=== PATIENT | female | born 1950 | race Caucasian/White ===

== ENCOUNTER 2021-02-13 12:48 | Outpatient (REF) | payer MEDICARE, MEDICAID, SELFPAY ==
--- NOTE | ~2021-02-13 | MM_ITS ---
EXAMINATION: MM SCREENING DIGITAL BREAST TOMOSYNTHESIS, BILATERAL CLINICAL INFORMATION: Screening. Asymptomatic. The lifetime risk of breast cancer based on the Tyrer-Cuzick Model is 3%. COMPARISON: Mammography: 01/14/2019, 09/19/2017, 05/11/2015 TECHNIQUE: Digital breast tomosynthesis is performed in both the craniocaudal and mediolateral oblique views along with computer-aided detection (CAD). Synthesized 2D images are generated from the tomosynthesis. Additional left MLO view is provided. FINDINGS: There are scattered areas of fibroglandular density (ACR BI-RADS breast composition Category b). There are no significant masses, abnormal calcifications, or other abnormalities. Parenchymal pattern is similar to prior studies. There is a biopsy clip marker again noted central right breast. MM/MM tomosynthesis screening BI IMPRESSION: No mammographic evidence of malignancy. ASSESSMENT: BI-RADS 1: Negative RECOMMENDATION: Routine annual mammography screening. This patient's information was entered into a reminder system with a target due date for their next mammogram.
--- NOTE | ~2021-02-13 | MM_ITS ---
EXAMINATION: BONE DENSITOMETRY CLINICAL INDICATION: Encounter for screening for osteoporosis. COMPARISON: Previous BD dated 03/25/2018 and baseline BD dated 01/28/2007. TECHNIQUE: Using a [employer] DXA System (software version: 13.1) manufactured by [employer], dual-energy x-ray absorptiometry was performed of the lumbar spine and left hip. The images are of good technical quality. Summary results are attached. FINDINGS: AP SPINE L1-L4: Current: BMD 0.984 g/cm2, Z-score 0.1, T-score -1.6, osteopenia, 7.0% decrease from previous, 0.9% decrease from baseline (<5% change is not significant). Prior: BMD 1.058 g/cm2. Baseline: BMD 0.993 g/cm2. LEFT FEMUR, NECK: Current: BMD 0.831 g/cm2, Z-score 0.3, T-score -1.5, osteopenia. Prior: BMD 0.845 g/cm2. Baseline: BMD 0.942 g/cm2. LEFT FEMUR, TOTAL: Current: BMD 0.858 g/cm2, Z-score 0.3, T-score -1.2, osteopenia, 0.6% increase from previous, 8.5% decrease from baseline (<5% change is not significant). Prior: BMD 0.853 g/cm2. Baseline: BMD 0.938 g/cm2. IDENTIFIED RISK FACTORS: Osteoporosis, menopause. HISTORY OF FRACTURE: None listed. MEDICATIONS: Calcium supplements or multivitamin, vitamin D, bisphosphonates. MM/XR DEXA axial skeleton IMPRESSION: 1. DIAGNOSIS: Osteopenia based on the lowest T-score value of -1.6 in the lumbar spine applying World Health Organization criteria. 2. 10-YEAR FRACTURE RISK PREDICTION, FRAX: Major osteoporotic fracture (clinical spine, forearm, hip or shoulder) 5.8%. Hip fracture 0.9%. 3. Treatment Recommendations: NOF guidelines recommend consideration for treatment in postmenopausal women and men age 50 and older presenting with the following: -A hip or vertebral (clinical or morphometric) fracture. -T-score less than or equal to -2.5 at the femoral neck or spine after appropriate evaluation to exclude secondary causes. -Low bone mass at the hip or spine and a 10-year fracture probability by FRAX of greater than or equal to 3% for hip fracture or greater than or equal to 20% for major osteoporotic fracture based on the [place] adapted WHO algorithm. 4. Other Recommendations: All treatment decisions require clinical judgment and consideration of individual patient factors, including patient preferences, comorbidities, previous drug use, risk factors not captured in the FRAX model (e.g. frailty, falls, vitamin D deficiency, increased bone turnover, interval significant decline in bone density) and possible under or overestimation of fracture risk by FRAX. Additional medical evaluation for secondary cause of low bone mineral density may be appropriate. FUTURE SCAN RECOMMENDATION: People with diagnosed cases of osteoporosis or at high risk for fracture should have regular bone mineral density tests. For patients eligible for Medicare, routine testing is allowed once every 2 years. The testing frequency can be increased to one year for patients who have rapidly progressing disease, those who are receiving or discontinuing medical therapy to restore bone mass, or have additional risk factors.
== END 2021-02-13 12:49 | disposition home or self-care (01) ==
LOC: HO.MAMMO 12:48
PROVIDERS: PCP Nurse Practitioner Family; Visit Provider Obstetrics & Gynecology
DX: Z12.31 Encounter for screening mammogram for malignant neoplasm of breast (principal); Z13.820 Encounter for screening for osteoporosis; M81.0 Age-related osteoporosis without current pathological fracture
CPT/HCPCS: 77063; 77067; 77080

== ENCOUNTER 2021-07-31 16:45 | Outpatient (REF) | payer MEDICARE, MEDICAID, SELFPAY ==
--- NOTE | ~2021-07-31 | XR_ITS ---
EXAMINATION: XR RIBS, BILATERAL CLINICAL INFORMATION: Left mid upper back pain radiating to the axilla COMPARISON: Previous chest x-ray November 2019 TECHNIQUE: 3 views of the bilateral ribs and one view chest were obtained. FINDINGS: The cardiac and mediastinal contours are normal. There is a 4 cm round density at the right cardiophrenic angle questionable for a mass versus pneumonia. The lungs are otherwise clear. There is no pleural effusion or pneumothorax. There are degenerative changes of the spine. No rib fracture or bone lesion is seen. XR/XR ribs BI min 4V w CXR1V IMPRESSION: 4 cm round density at the right cardiophrenic angle questionable for a mass versus pneumonia. Clinical correlation recommended. If there is clinical suspicion of infection, follow-up chest x-ray following antibiotic therapy would be recommended. If there is no suspicion of infection or chest x-ray finding fails to resolve, chest CT with IV contrast would be recommended. Degenerative changes of the thoracic spine. No rib fracture or bone lesion seen. 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
== END 2021-07-31 16:46 | disposition home or self-care (01) ==
LOC: HO.XRAY 16:45
PROVIDERS: PCP Registered Nurse Community Health; Visit Provider Registered Nurse Community Health
DX: M54.9 Dorsalgia, unspecified (principal); M79.622 Pain in left upper arm
CPT/HCPCS: 71111

== ENCOUNTER 2021-08-13 10:31 | Outpatient (REF) | payer MEDICARE, MEDICAID, SELFPAY ==
--- NOTE | ~2021-08-13 | CT_ITS ---
EXAMINATION: CT CHEST WITH CONTRAST CLINICAL INFORMATION: 4 cm rounded density within the right cardiophrenic angle. COMPARISON: Bilateral rib x-rays 07/31/2021 TECHNIQUE: Multidetector volumetric CT imaging of the chest was obtained after the administration of 65 mL of Omnipaque 350 intravenous contrast without immediate adverse reactions. Axial MIP volume rendering provided. Sagittal and coronal reformatted images were obtained. This CT examination was performed using dose optimization techniques as appropriate, variously including the following: *Automated exposure control *Adjustment of mA and/or kV according to patient size (this includes techniques or standardized protocols for targeted exams where dose is matched to indication/reason for exam; i.e. extremities or head) *Use of iterative reconstruction technique DLP: 124 mGy-cm FINDINGS: Central airways are patent. Lungs are adequately aerated. There is some mild subpleural reticular changes within the anterior aspect of both upper lobes, nonspecific. Some mild emphysematous changes are present. Pleural-based masslike opacity within the posterior right lower lobe measures approximately 4 cm (image 134/1 are 96, series 7). There are adjacent reticular changes in addition to some pleural tenting to the right lung base. A few other subcentimeter pulmonary nodules are identified within the right lung, for example a 5 mm right upper lobe nodule (image 47). The heart is normal in size. There is no pericardial effusion. Normal caliber thoracic aorta. A few mildly prominent mediastinal lymph nodes are noted, for example a right precarinal node which measures approximately 1.4 cm. There is an enlarged right hilar lymph node measuring approximately 2.2 cm. No pathologic axillary lymph nodes. Visualized portions of the upper abdomen are grossly unremarkable. Mild degenerative changes of the spine. Irregular sclerotic densities within the T8 vertebral body. CT/CT chest w con IMPRESSION: -Approximately 4 cm pleural-based masslike opacity within the right lower lobe is concerning for neoplasm, particularly within the setting of mediastinal and right hilar lymphadenopathy. Additionally, smaller right-sided pulmonary nodules may represent metastatic foci. PET imaging versus tissue diagnosis may be warranted. Some irregular sclerotic density within the T8 vertebral body is nonspecific but possibly a metastatic focus. Fleischner guidelines were followed.
[2021-08-13] MEDS: iohexoL 350 MG/ML 100 ML INFUS..BTL 65 ML IV (11:14)
== END 2021-08-13 10:32 | disposition home or self-care (01) ==
LOC: HO.CT 10:31
PROVIDERS: PCP Registered Nurse Community Health; Visit Provider Registered Nurse Community Health
DX: R91.8 Other nonspecific abnormal finding of lung field (principal)
CPT/HCPCS: 71260; Q9967

== ENCOUNTER → 2021-08-24 11:06 | Outpatient (BNVA) | payer MEDICARE, MEDICAID, SELFPAY | PROVIDERS: PCP Registered Nurse Community Health; Visit Provider Surgery | DX: R91.8 Other nonspecific abnormal finding of lung field (principal); M79.2 Neuralgia and neuritis, unspecified; M89.9 Disorder of bone, unspecified | CPT/HCPCS: 99202 ==

== ENCOUNTER 2021-09-04 10:26 | Outpatient (REF) | payer MEDICARE, MEDICAID, SELFPAY ==
--- NOTE | ~2021-09-04 | MR_ITS ---
MR BRAIN WITHOUT AND WITH CONTRAST CLINICAL INFORMATION: Lung mass. Question metastatic disease. COMPARISON: None available. TECHNIQUE: Multiplanar, multisequence MRI of the brain was obtained before and after the intravenous administration of 7 mL of Gadavist. FINDINGS: There is no pathologic intracranial enhancement. Incidental small developmental venous anomaly within the left frontal lobe. There is mild chronic microangiopathy. There is no hydrocephalus, extra-axial surface collection, or herniation. The major flow voids at the skull base are preserved. There is the suggestion of a 2 mm aneurysm projecting superiorly from the right MCA bifurcation and a 2 mm aneurysm projecting laterally from the left MCA bifurcation for which a CTA or MRA of the head would be helpful in further assessment. There is no acute infarct on diffusion-weighted imaging. There is no intracranial hemorrhage on the gradient recalled echo acquisition. The midline structures are normal. The cerebellar tonsils are normally positioned. The cerebellum and brainstem are normal. The craniocervical junction is normal. Osseous marrow signal intensity is homogenous. The visualized soft tissues are unremarkable. There is mild mucosal thickening within the ethmoid air cells bilaterally and the maxillary sinuses bilaterally. MR/MR head/brain wo/w con IMPRESSION: - There is the suggestion of a 2 mm aneurysm projecting superiorly from the right MCA bifurcation and a 2 mm aneurysm projecting laterally from the left MCA bifurcation for which a CTA or MRA of the head would be helpful in further assessment. - No acute intracranial findings. No enhancing lesions to suggest intracranial metastatic disease. - Mild chronic microangiopathy.
== END 2021-09-04 10:27 | disposition home or self-care (01) ==
LOC: HO.MRI 10:26
PROVIDERS: Visit Provider Surgery
DX: Z13.89 Encounter for screening for other disorder (principal)
CPT/HCPCS: 70553; A9585

== ENCOUNTER 2021-09-04 12:05 | Day surgery (SDC) | payer MEDICARE, MEDICAID, SELFPAY ==
[2021-09-04] VITALS (7 sets, daily range): BP systolic 146–182; BP diastolic 57–98; PULSE 56–80; RESP 16–18; TEMP 35.7–36.4; O2SAT 95–98; BMI 23.1
--- NOTE | ~2021-09-04 | CT_ITS ---
PROCEDURE: CT GUIDED BIOPSY, LUNG CLINICAL INFORMATION: Right lower lobe mass/nodule. COMPARISON: CT chest 08/13/2021 TECHNIQUE: Following explaining CT fluoroscopy-guided right lower lobe mass biopsy procedure, benefits and risk, a written consent was obtained. Patient was placed in right lateral decubitus view and preliminary CT imaging was obtained. Optimal site was selected along the right posterior chest and marked. Marked site was cleaned and draped in usual sterile manner. 1% lidocaine was administered at puncture site. Through a small skin incision a 20-gauge guide needle was advanced to the right pleural space. Coaxially a 20-gauge biopsy gun was administered and a 2 pass core biopsy obtained. Thick guide needle was withdrawn and complete hemostasis achieved at puncture site. Sterile dressing applied postprocedure. Repeat CT imaging was performed from the apex to the biopsy site and reveal no pneumothorax. Conscious sedation was utilized during the exam and patient monitored by the nursing. This CT examination was performed using dose optimization techniques as appropriate, variously including the following: *Automated exposure control *Adjustment of mA and/or kV according to patient size (this includes techniques or standardized protocols for targeted exams where dose is matched to indication/reason for exam; i.e. extremities or head) *Use of iterative reconstruction technique DLP: 172 mGy-cm FINDINGS: On preliminary CT imaging there is a moderate size mass right lower lobe posterior segment unchanged to previous CT chest exam. Successful 2 pass core biopsy performed of right lower lobe mass. Post biopsy CT imaging reveal no pneumothorax or no hemorrhage. CT/CT biopsy lung RT IMPRESSION: Successful CT fluoroscopy-guided right lower lobe core biopsy performed x 2 without immediate complications.
[2021-09-04 12:34] LABS: MANUAL DIFF FLAG NO
[2021-09-04 12:43] LABS: Basophils Percent Auto 0.4 % (0-2); Eosinophils Absolute Auto 0.1 X10*3/uL (0.0-0.4); Eosinophils Percent Auto 1.9 % (0-4); Hematocrit 41.8 % (37.0-47.0); Hemoglobin 13.1 g/dl (12.0-16.0); Imm Gran Abs Auto 0.01 X10*3/uL (0.00-0.03); Imm Gran Pct Auto 0.1 % (0.0-0.4); Lymphocytes Absolute Auto 1.9 X10*3/uL (1.2-4.9); Lymphocytes Percent Auto 25.5 % (20-40); Mean Corpuscular HGB Conc 31.3 g/dl (31.0-35.0); Mean Corpuscular Hemoglobin 27.9 pg (27.0-33.0); Mean Corpuscular Volume 89.1 fL (80.0-98.0); Mean Platelet Volume 10.4 fL (9.4-12.3); Monocytes Absolute Auto 0.5 X10*3/uL (0.1-1.2); Neutrophils Absolute Auto 4.8 x10*3/uL (2.0-8.3); Neutrophils Percent Auto 65.1 % (45-73); Platelet Count 279 X10*3/uL (160-400); Red Blood Count 4.69 X10*6/uL (4.20-5.50); Red Cell Distribution Width 13.3 % (11.0-16.0); White Blood Count 7.4 X10*3/uL (4.8-10.8)
[2021-09-04 12:48] LABS: Prothrombin Time 11.6 SEC (9.9-13.0)
[2021-09-04 12:51] LABS: Partial Thromboplastin Time 34.2 SEC (24.1-38.0)
== END 2021-09-04 18:10 | disposition home or self-care (01) ==
PROVIDERS: Radiology Diagnostic Radiology; PCP Registered Nurse Community Health; Visit Provider Radiology Diagnostic Radiology
DX: C34.31 Malignant neoplasm of lower lobe, right bronchus or lung (principal); R59.0 Localized enlarged lymph nodes; M89.9 Disorder of bone, unspecified; M79.2 Neuralgia and neuritis, unspecified; R53.83 Other fatigue; M85.80 Other specified disorders of bone density and structure, unspecified site; J44.9 Chronic obstructive pulmonary disease, unspecified; K21.9 Gastro-esophageal reflux disease without esophagitis; E55.9 Vitamin D deficiency, unspecified; Z79.899 Other long term (current) drug therapy; Z88.8 Allergy status to other drugs, medicaments and biological substances; Z87.891 Personal history of nicotine dependence
CPT/HCPCS: 32408; 36415; 70553; 81210; 81235; 81275; 81276; 85025; 85610; 85730; 88305; 88333; 88341; 88342; 88360; 88374; 88377; 99153; A9585; J2250; J3010

== ENCOUNTER 2021-09-11 10:55 | Outpatient (REF) | payer MEDICARE, MEDICAID, SELFPAY ==
--- NOTE | ~2021-09-11 | PE_ITS ---
EXAMINATION: PET/CT FUSION, SKULL TO THIGH CLINICAL INDICATION: Abnormal lung finding. COMPARISON: Correlation with CT chest dated 06/13/2021. CONTRAST/DOSE: 16.1 mCi F-18 deoxyglucose administered. FINDINGS: HEAD: Base of the skull is felt to be within normal limits and the neck activity is felt to be within normal limits. THORAX: In the upper thorax some activity of the musculature is physiologic. CHEST: In the chest normal activity in the right hilum. 7.3 SUV max. Suspicious for tumor. LUNGS: Abnormal activity in the right lower lobe lesion. 9 SUV max. Tumor is suspected. Differential would include inflammatory etiology. Some surrounding ill-defined opacity and ground-glass change may represent surrounding inflammatory etiology. Other areas of nodularity throughout this patient's lungs show no suspicious uptake but these nodules are subcentimeter lesions and would require follow-up. ABDOMEN: The liver uptake is felt to be within normal limits. Normal renal activity. Normal splenic activity. Normal low-level bowel activity is seen. Some activity along the psoas musculature is likely physiologic. Review of the bone windows demonstrates a focal area of uptake at D8. 5.8 SUV max. Sclerotic lesion. There is also uptake at S1. 4.3 SUV max. Sclerotic lesion. PET/PET CT fusion skull to thigh IMPRESSION: This exam is abnormal. Abnormal uptake within the right lower lobe lesion and right hilar uptake. Suspicious for malignancy. Correlate with biopsy findings. Exam is also showing bony foci at D8 and S1 with sclerotic appearing bone. Metastatic disease/malignancy would be favored
== END 2021-09-11 10:56 | disposition home or self-care (01) ==
LOC: HO.PET 10:55
PROVIDERS: Visit Provider Surgery
DX: Z13.89 Encounter for screening for other disorder (principal)

== ENCOUNTER → 2021-09-14 11:19 | Outpatient (BNVA) | payer MEDICARE, MEDICAID, SELFPAY | PROVIDERS: PCP Registered Nurse Community Health; Visit Provider Surgery | DX: C34.31 Malignant neoplasm of lower lobe, right bronchus or lung (principal); C79.51 Secondary malignant neoplasm of bone; M79.2 Neuralgia and neuritis, unspecified; Z72.0 Tobacco use | CPT/HCPCS: 99212 ==

== ENCOUNTER → 2021-09-20 14:00 | Outpatient (BNV) | payer MEDICARE, MEDICAID, SELFPAY | PROVIDERS: Visit Provider Internal Medicine Medical Oncology | DX: C34.31 Malignant neoplasm of lower lobe, right bronchus or lung (principal) | CPT/HCPCS: 99204; 99213; 99214; 99441; 99443 ==

== ENCOUNTER 2021-10-18 12:56 | Outpatient (REF) | payer MEDICARE, MEDICAID, SELFPAY | END 2021-10-18 12:57 | disposition home or self-care (01) | LOC: HO.RESP 12:56 | PROVIDERS: PCP Registered Nurse Community Health; Visit Provider Surgery | DX: R91.8 Other nonspecific abnormal finding of lung field (principal) | CPT/HCPCS: 94060; 94727; 94729 ==

== ENCOUNTER 2021-11-14 15:11 | Outpatient (REF) | payer MEDICARE, MEDICAID, SELFPAY ==
--- NOTE | ~2021-11-14 | CT_ITS ---
EXAMINATION: CT ANGIOGRAM HEAD CLINICAL INFORMATION: Evaluate for potential intracranial aneurysm. COMPARISON: Brain MRI dated 09/04/2021. TECHNIQUE: Test bolus sequences followed by intravenous administration 75 mL of Omnipaque 350. Helical imaging was performed in the axial plane from the skull base to the vertex. Delayed postcontrast imaging of the head was also performed. The data was processed at the pathology technologist's workstation for generation of MIP sequences. Three-dimensional volume rendered reformatted images were also generated at an offline 3-D workstation. This CT examination was performed using dose optimization techniques as appropriate, variously including the following: *Automated exposure control *Adjustment of mA and/or kV according to patient size (this includes techniques or standardized protocols for targeted exams where dose is matched to indication/reason for exam; i.e. extremities or head) *Use of iterative reconstruction technique DLP: 1917 mGy-cm. FINDINGS: There is no evidence of acute intracranial hemorrhage or territorial infarction. No abnormal mass effect or midline shift is seen. Lopes to white matter differentiation is well preserved. No extra-axial fluid collections are identified. There is no abnormal enhancement. The ventricles are normal in size. There is no abnormal attenuation within the brain parenchyma. The osseous structures and soft tissues are normal. The mastoid air cells and visualized portions of the paranasal sinuses are well aerated. There is a 2.5 mm aneurysm projecting anteroinferiorly at the left MCA bifurcation. A 1.5 mm right MCA bifurcation aneurysm is also visible projecting anteriorly. The remaining intracranial vasculature corresponding to the anterior and posterior circulation is otherwise normal. No significant stenoses or occlusions are seen. Atherosclerotic wall calcifications noted in the cavernous ICAs bilaterally. No vascular malformation is identified. The visualized extracranial vessels appear normal. The venous sinuses opacify normally. 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 Additional smaller 1.5 mm right MCA bifurcation aneurysm. Otherwise, no acute process.
[2021-11-14] MEDS: iohexoL 350 MG/ML 100 ML INFUS..BTL IV (15:55)
== END 2021-11-14 15:12 | disposition home or self-care (01) ==
LOC: HO.CT 15:11
PROVIDERS: Visit Provider Registered Nurse Community Health
DX: I67.1 Cerebral aneurysm, nonruptured (principal)
CPT/HCPCS: 70496; Q9967

== ENCOUNTER 2021-12-26 13:48 | Outpatient (REF) | payer MEDICARE, MEDICAID, SELFPAY ==
--- NOTE | ~2021-12-26 | XR_ITS ---
EXAMINATION: XR CERVICAL SPINE CLINICAL INFORMATION: Neck pain. COMPARISON: CT cervical spine dated 07/14/2015. TECHNIQUE: AP, lateral, open-mouth, and bilateral oblique views of the cervical spine. FINDINGS: Straightening of the normal cervical lordosis which may be positional or related to muscular spasm. No acute fracture or subluxation. No loss of vertebral body height. Loss of intervertebral disc height with anterior endplate osteophytes at C4 through C7. Mild multilevel bilateral neural foraminal stenosis. No concerning lytic or blastic osseous lesion. Normal atlantoaxial alignment. Unremarkable prevertebral soft tissues. XR/XR cervical spine 4V IMPRESSION: Straightening of the normal cervical lordosis which may be positional or related to muscular spasm. Moderate degenerative disc disease at C4 through C7 with mild multilevel bilateral neural foraminal stenosis. Findings appear slightly progressed when compared to the prior CT.
== END 2021-12-26 13:49 | disposition home or self-care (01) ==
LOC: HO.XRAY 13:48
PROVIDERS: PCP Internal Medicine; Visit Provider Internal Medicine
DX: C34.91 Malignant neoplasm of unspecified part of right bronchus or lung (principal); C79.51 Secondary malignant neoplasm of bone
CPT/HCPCS: 72050

== ENCOUNTER 2022-02-07 08:05 | Outpatient (REF) | payer MEDICARE, MEDICAID, SELFPAY ==
--- NOTE | ~2022-02-07 | CT_ITS ---
EXAMINATION: CT CHEST WITH CONTRAST CLINICAL INFORMATION: Follow-up lung cancer. COMPARISON: Previous chest CT July [address] August 2021. TECHNIQUE: Multidetector volumetric CT imaging of the chest was obtained after the administration of 65 mL of Omnipaque 350 intravenous contrast without immediate adverse reactions. Axial MIP volume rendering provided. Sagittal and coronal reformatted images were obtained. This CT examination was performed using dose optimization techniques as appropriate, variously including the following: *Automated exposure control. *Adjustment of mA and/or kV according to patient size (this includes techniques or standardized protocols for targeted exams where dose is matched to indication/reason for exam; i.e. extremities or head). *Use of iterative reconstruction technique. DLP: 95 mGy-cm FINDINGS: LUNGS: Evaluation is limited due to artifact from respiratory motion. There is mild emphysema. There is interval decrease in size in the peripheral or subpleural mass-like density in the posterior right lower lobe abutting the pleural surface. This is irregularly-shaped and difficult to measure. Superior round and measured 2.7 x 2.2 cm sagittal reconstructed image 77, 07/2021 exam and now measures 2.7 x 1.7 cm in longitudinal and AP dimension. This measures 2.5 cm in transverse dimension, axial image 68 series 5, compared to 3.8 cm, axial image 72 series 5 of 07/2021 exam. There is more inferior irregularly-shaped thick probably band-like scarring or subsegmental atelectasis; example axial image 75 series 6. This appears increased. Left apical pleural and parenchymal scarring. MEDIASTINUM: Enlarged heart. Stable trace pericardial effusion. Normal thyroid gland. Small mediastinal lymph nodes. Small right hilar lymph nodes. These appear decreased from prior exam. Largest lymph node is a right hilar lymph node measuring 1.1 cm x 1.7 cm in transverse and AP dimension compared to 1.9 x 2.9 cm of 07/2021 exam. No new adenopathy. PLEURA: New small right pleural effusion partially loculated in the major fissure. AXILLA: No lymphadenopathy. UPPER ABDOMEN: Unremarkable. OSSEOUS STRUCTURES: Sclerotic T8 vertebral body lesion is not appreciably changed. CT/CT chest w IV con IMPRESSION: Interval decrease in size in the right lower lobe mass. There is more inferior probable thick band-like scarring or subsegmental atelectasis in the right lower lobe extending to the diaphragmatic pleural surface that appears increased. New small partially loculated right pleural effusion. Decreasing mediastinal and right hilar lymphadenopathy. Stable sclerotic T8 vertebral body lesion. Fleischner guidelines were followed.
[2022-02-07] MEDS: iohexoL 350 MG/ML 100 ML INFUS..BTL IV (08:37)
== END 2022-02-07 08:06 | disposition home or self-care (01) ==
LOC: HO.CT 08:05
PROVIDERS: PCP Internal Medicine; Visit Provider Internal Medicine Medical Oncology
DX: C79.51 Secondary malignant neoplasm of bone (principal)
CPT/HCPCS: 71260; Q9967

== ENCOUNTER 2022-02-19 13:58 | Emergency (ER) | payer MEDICARE, MEDICAID, SELFPAY ==
--- NOTE | ~2022-02-19 | XR_ITS ---
EXAMINATION: XR CHEST CLINICAL INFORMATION: Chest pain COMPARISON: Previous chest CT most recent from earlier this month and chest x-ray most recent July 2021 TECHNIQUE: Frontal view of the chest was obtained. FINDINGS: The cardiac and mediastinal contours are stable. There is mass or consolidation in the right lung base at the cardiophrenic angle region. This is similar-appearing to previous exams. The lungs are otherwise clear. There is no pleural effusion or pneumothorax. Bony structures are unremarkable. XR/XR chest 1V IMPRESSION: Mass or consolidation at the right lung base in the cardiophrenic angle region similar to previous exams.
--- NOTE | 2022-02-19 14:05 | ECG_ITS ---
Test Reason : CHEST PAIN Blood Pressure : / mmHG Vent. Rate : 071 BPM Atrial Rate : 071 BPM P-R Int : 122 ms QRS Dur : 086 ms QT Int : 450 ms P-R-T Axes : 077 052 060 degrees QTc Int : 489 ms Normal sinus rhythm Normal ECG When compared with ECG of 28-DEC-2018 12:19, T wave amplitude has decreased in Lateral leads QT has lengthened Referred By: Generic ED Physician Electronically Signed By:REAGAN HOLLIDAY MD
[2022-02-19 14:40] VITALS: BP 132/46; PULSE 71; RESP 24; TEMP 37.1; O2SAT 99; BMI 27.2
--- NOTE | 2022-02-19 15:27 | ED_ITS ---
HPI - Chest Pain General Chief Complaint: Chest Pain Stated Complaint: CP from oncology. Time Seen by Provider: 02/19/22 14:57 Source: patient, RN notes reviewed and old records reviewed Mode of arrival: ambulatory Limitations: no limitations History of Present Illness HPI narrative: 71-year-old female with a history of COPD, metastatic lung cancer on current chemotherapy presents to the ER for evaluation of sudden-onset 10/10 sharp left- sided chest pain under her left breast that started when she was a chemo today. It was before she had been administered the chemotherapy agent and was when she was getting a medication that started with K. Patient states the pain is located under her left breast, is constant and does not radiate. She states it is associated with anxiety because she knows she was supposed to get her CT scan results today. She has had increased cough with white phlegm production. No fe vers, chills, hemoptysis. No change in her chronic SOB or LENNON. MD complaint: chest pain Pertinent past history: other (lung cancer, COPD) Onset (ago): hour(s) Timing of current episode: constant Prior episodes: Yes Onset: during rest Pain location: left chest Pain radiation: none Severity: moderate Pain scale (0-10): 6 Quality: sharp Relieving factors: rest Exacerbating factors: palpation Treatment prior to arrival: none Risk Factors Coronary artery disease risk factors: smoking history Pulmonary embolism risk factors: malignancy Related Data Home Medications Medication Instructions Recorded Confirmed B-complex with vitamin C 1 cap PO DAILY 08/24/21 12/26/21 acetaminophen 500 mg capsule 500 mg PO QID PRN Pain 08/24/21 12/26/21 albuterol sulfate 90 mcg/actuation 2 puff inhalation Q4-6H PRN 08/24/21 12/26/21 aerosol inhaler (ProAir HFA) Shortness Of Breath Or Wheezing calcium carbonate 600 mg calcium 600 mg PO BID 08/24/21 12/26/21 (1,500 mg) tablet (Calcium) cetirizine 10 mg capsule (Zyrtec) 10 mg PO DAILY PRN Cough 08/24/21 12/26/21 citalopram 20 mg tablet (Celexa) 20 mg PO DAILY 08/24/21 12/26/21 clonazepam 0.5 mg tablet (Klonopin) 0.5 mg PO TID 08/24/21 12/26/21 compressor, for nebulizer 08/24/21 12/26/21 (DeVilbiss Pulmo-Aide Compressor) ibuprofen 600 mg tablet (IBU) 600 mg PO QID 08/24/21 12/26/21 lisinopril 10 mg tablet 20 mg PO DAILY 08/24/21 12/26/21 omeprazole 20 mg capsule,delayed 20 mg PO DAILY 08/24/21 12/26/21 release risperidone 1 mg tablet (Risperdal) 1 mg PO DAILY 08/24/21 12/26/21 umeclidinium 62.5 mcg/actuation 1 inh inhalation BEDTIME 08/24/21 12/26/21 blister powder for inhalation (Incruse Ellipta) ranibizumab 0.5 mg/0.05 mL 0.5 mg intravitreal QMONTH 09/26/21 12/26/21 intravitreal syringe (Lucentis) Previous Rx's Medication Instructions Recorded cholecalciferol (vitamin D3) 50 50 mcg PO DAILY #90 tabs 09/18/21 mcg (2,000 unit) tablet (Vitamin D3) folic acid 1 mg tablet 1 mg PO DAILY #90 tabs 10/22/21 ondansetron 8 mg disintegrating 8 mg PO Q8H #60 tabs 10/22/21 tablet cyanocobalamin (vitamin B-12) 1,000 mcg PO DAILY #60 tabs 11/05/21 1,000 mcg tablet (Vitamin B-12) dexamethasone 4 mg tablet 4 mg PO BID #30 tabs 11/05/21 (Decadron) folic acid 1 mg tablet 1 mg PO DAILY #90 tabs 11/05/21 Magic Mouthwash 10 ml PO QID #240 mL 11/30/21 Diphen/Lido/Antacid 1:1:1 240 mL suspension gabapentin 400 mg capsule 400 mg PO TID #90 caps 12/20/21 calcium carb-vit D3-minerals 600 1 tab PO BID #60 tabs 12/27/21 mg calcium-200 unit tablet (Calcium 600 + Minerals) cyclobenzaprine 5 mg tablet 5 mg PO TID #40 tabs 12/28/21 oxycodone 5 mg tablet 5 mg PO Q6H PRN Breakthrough Pain, 01/01/22 Moderate #60 tabs azithromycin 250 mg tablet 250 mg PO DAILY #5 tabs 02/13/22 Allergies Allergy/AdvReac Type Severity Reaction Status Date / Time Iodinated Contrast Media Allergy Shakiness Verified 10/22/21 13:42 [IV Contrast Dye] Codeine Phosphate Allergy Unknown Unknown Uncoded 10/22/21 13:42 Review of Systems Review of Systems: Constitutional: No Fever, No Chills ENT/Mouth: No sore throat, No Rhinorrhea, No Swallowing Difficulty Cardiovascular: + Chest Pain, No SOB, No Orthopnea, No Edema Respiratory: + Cough, + Sputum, No Wheezing,+ dyspnea Gastrointestinal: No Nausea, No Vomiting, No Diarrhea, No abdominal Pain Genitourinary: No Dysuria, No Urinary Frequency, No Hematuria Musculoskeletal: No joint pain, No Myalgias Skin: No Skin Lesions, No rash Neuro: No Weakness, No Numbness, No Dizziness, No Headache Psych: + Anxiety/Panic, No Depression Heme/Lymph: No Bruising, No Lymphadenopathy PMFSH Past Medical History Medical History (Updated 02/19/22 @ 17:24 by MARCELINO Cheng) Anxiety and depression COPD (chronic obstructive pulmonary disease) GERD (gastroesophageal reflux disease) Hypertension Osteopenia (~2002) Tobacco abuse Vitamin D deficiency Surgical History History of lung biopsy (~2021) Family History Family History Sister Lupus Social History Social History Household Members: Family and Children Housing: House Are you a primary dialysis patient care technician to a significant other at home: No Do you presently have visiting nurse or other home services: No Alcohol intake: never Patient Tobacco Use Status: Never used Tobacco Smoked in Last 30 Days: No Use of substances other than those prescribed or required for medical reasons: No Advance Directives: No Advance Directives Information Provided: No service: No Current occupational status: retired Physical Exam Vital Signs: Vital Signs: Last Vital Signs Temp 98.4 F 02/19/22 19:43 Pulse 74 02/19/22 19:43 Resp 17 02/19/22 19:43 BP 147/57 H 02/19/22 19:43 Pulse Ox 99 02/19/22 19:43 O2 Del Method 02/19/22 19:43 BMI result Body Mass Index 27.2 Appearance: Alert. Oriented X3. No acute distress. Eyes: Pupils equal, round and reactive to light. ENT: Pharynx normal. Neck: Normal inspection. Neck supple. CVS: Normal heart rate and rhythm. Pulses normal. Chest wall tender under left breast. Respiratory: No respiratory distress. Breath sounds diminished on right lower lobe, no rhonchi or rales. Abdomen: Soft and nontender. +BS x4 Skin: Skin warm and dry. Normal skin color. Normal skin turgor. No rashes. Extremities: No lower extremity edema. Neuro: Oriented X 3. No motor deficit. No sensory deficit. Course Course Course Narrative: 71-year-old female with history of metastatic lung cancer currently on chemotherapy pain to the ER from chemo today where she developed acute onset of left lower chest pain at 13:30 while getting a medication, unsure of the name. She had mild shortness of breath at the time of pain onset which has resolved. Pain is improved over time. On examination she has reproducible pain with tenderness of the left chest wall underneath the breast. No skin changes. She is anxious and nervous about the CT scan results. Doubt ACS. No evidence of clinical DVT on examination. She is not tachycardic or hypoxic. Will get EKG, troponin x2 and lab workup. Chest x-ray ordered as well. She is on room air and hemodynamically stable. Reevaluation(s) Reevaluation #1: Troponin is negative. Given acute chest pain onset today, will get 3 or repeat. Pain is improved after a dose of Tylenol and low-dose Ativan. She is comfor table Reevaluation #2: 3 hour repeat of troponin is negative. She is up ambulating to bathroom with no chest pain or shortness of breath. She feels well. Chondral discharge home with plan to follow-up with Dr. Beck and her PCP. Return precautions were discussed. Spoke with her daughter Yuni on the phone who is in agreement to come pick her up and bring her home. We discussed workup today and results. All questions were answered. Comfortable discharge home. Medications Administered Discontinued Medications Generic Name Dose Route Start Last Admin Trade Name Freq PRN Reason Stop Dose Admin Acetaminophen 975 mg 02/19/22 15:40 02/19/22 16:01 Acetaminophen 325 Mg Tablet PO 02/19/22 15:41 975 mg ONCE ONE Administration Lorazepam 0.5 mg 02/19/22 15:40 02/19/22 16:01 Lorazepam 0.5 Mg Tablet PO 02/19/22 15:41 0.5 mg ONCE ONE Administration MDM - Chest Pain Medical Records Data Attestation: I reviewed the patient's medical records. Lab Data Attestation: I reviewed the patient's lab results. Result diagrams: 02/19/22 15:59 02/19/22 16:00 Labs: Lab Results 02/19/22 02/19/22 02/19/22 Range/Units 15:59 15:59 15:59 WBC 4.6 L (4.8-10.8) X10*3/uL RBC 2.74 L (4.20-5.50) X10*6/uL Hgb 8.5 L (12.0-16.0) g/dl Hct 26.9 L (37.0-47.0) % MCV 98.2 H (80.0-98.0) fL MCH 31.0 (27.0-33.0) pg MCHC 31.6 (31.0-35.0) g/dl RDW 16.7 H (11.0-16.0) % Plt Count 251 (160-400) X10*3/uL MPV 9.7 (9.4-12.3) fL Immature Gran % (Auto) 0.9 H (0.0-0.4) % Neut % (Auto) 87.8 H (45-73) % Lymph % (Auto) 9.6 L (20-40) % Nicholas % (Auto) 1.5 L (2-11) % Eos % (Auto) 0.0 (0-4) % Baso % (Auto) 0.2 (0-2) % Lymph # (Auto) 0.4 L (1.2-4.9) X10*3/uL Nicholas # (Auto) 0.1 (0.1-1.2) X10*3/uL Eos # (Auto) 0.0 (0.0-0.4) X10*3/uL Baso # (Auto) 0.0 (0.0-0.2) X10*3/uL Abs Immat Gran (auto) 0.04 H (0.00-0.03) X10*3/uL Absolute Neuts (auto) 4.0 (2.0-8.3) x10*3/uL Absolute Nucleated RBC 0.000 (0.0-0.012) X10*3/uL Nucleated RBC % (auto) 0.0 (0.0-0.2) /100WBC Sodium (135-145) mmol/L Potassium (3.3-5.1) mmol/L Chloride (96-108) mmol/L Carbon Dioxide (22-29) mmol/L Anion Gap (12-20) BUN (9-16) mg/dL Creatinine (0.5-1.4) mg/dL Estim Creat Clear Calc Estimated GFR Random Glucose (60-115) mg/dL Calcium (8.4-10.2) mg/dL Magnesium (1.6-2.6) mg/dL Total Bilirubin (0.0-1.0) mg/dL Direct Bilirubin (0.0-0.5) mg/dL AST (5-31) U/L ALT (0-31) U/L Alkaline Phosphatase (39-117) U/L Troponin I High Sens < 3.5 (<3.5-17.0) ng/L B-Natriuretic Peptide 293 H (<100) pg/mL Total Protein (6.5-8.0) g/dL Albumin (3.5-5.0) g/dL Urine Color Urine Appearance Urine pH (5.0-9.0) Ur Specific Mullins (1.005-1.025) Urine Protein (Neg-Trace) mg/dL Urine Glucose (UA) (Negative) mg/dL Urine Ketones (Negative) mg/dL Urine Blood (Negative) Urine Nitrite (Negative) Ur Leukocyte Esterase (Negative) 02/19/22 02/19/22 02/19/22 Range/Units 16:00 16:15 18:47 WBC (4.8-10.8) X10*3/uL RBC (4.20-5.50) X10*6/uL Hgb (12.0-16.0) g/dl Hct (37.0-47.0) % MCV (80.0-98.0) fL MCH (27.0-33.0) pg MCHC (31.0-35.0) g/dl RDW (11.0-16.0) % Plt Count (160-400) X10*3/uL MPV (9.4-12.3) fL Immature Gran % (Auto) (0.0-0.4) % Neut % (Auto) (45-73) % Lymph % (Auto) (20-40) % Nicholas % (Auto) (2-11) % Eos % (Auto) (0-4) % Baso % (Auto) (0-2) % Lymph # (Auto) (1.2-4.9) X10*3/uL Nicholas # (Auto) (0.1-1.2) X10*3/uL Eos # (Auto) (0.0-0.4) X10*3/uL Baso # (Auto) (0.0-0.2) X10*3/uL Abs Immat Gran (auto) (0.00-0.03) X10*3/uL Absolute Neuts (auto) (2.0-8.3) x10*3/uL Absolute Nucleated RBC (0.0-0.012) X10*3/uL Nucleated RBC % (auto) (0.0-0.2) /100WBC Sodium 141 (135-145) mmol/L Potassium 4.1 (3.3-5.1) mmol/L Chloride 105 (96-108) mmol/L Carbon Dioxide 25 (22-29) mmol/L Anion Gap 15 (12-20) BUN 10 (9-16) mg/dL Creatinine 0.80 (0.5-1.4) mg/dL Estim Creat Clear Calc 60.4 Estimated GFR > 60 Random Glucose 187 H (60-115) mg/dL Calcium 8.7 (8.4-10.2) mg/dL Magnesium 2.3 (1.6-2.6) mg/dL Total Bilirubin 0.3 (0.0-1.0) mg/dL Direct Bilirubin 0.2 (0.0-0.5) mg/dL AST 16 (5-31) U/L ALT 19 (0-31) U/L Alkaline Phosphatase 88 (39-117) U/L Troponin I High Sens < 3.5 (<3.5-17.0) ng/L B-Natriuretic Peptide (<100) pg/mL Total Protein 6.6 (6.5-8.0) g/dL Albumin 3.8 (3.5-5.0) g/dL Urine Color Yellow Urine Appearance Clear Urine pH 5.5 (5.0-9.0) Ur Specific Mullins 1.020 (1.005-1.025) Urine Protein Negative (Neg-Trace) mg/dL Urine Glucose (UA) 250 H (Negative) mg/dL Urine Ketones Negative (Negative) mg/dL Urine Blood Negative (Negative) Urine Nitrite Negative (Negative) Ur Leukocyte Esterase Negative (Negative) ECG Data ECG #1: Attestation: I personally reviewed and interpreted this ECG as follows: ECG interpretation date: 02/19/22 ECG interpretation time: 17:23 Interpretation: Normal sinus rhythm, ventricular rate 71 beats per minute, T-wave amplitude lateral leads has increased with no ST segment elevations. DE interval normal prolonged QT. no significant change from prior Critical Care Time Critical Care Time Critical Care Time: No Discharge Plan Discharge Clinical Impression: Atypical chest pain Patient Disposition: Home, Self-Care Instructions: Noncardiac Chest Pain (ED) Additional Instructions: CT scan of your chest dated February 06 is showing ?interval decrease in size of the right lower lobe mass. There is a new small partially loculated right pleural effusion. There is decreasing mediastinal and right hilar lymphadenopathy. Recommend following up with Dr. Beck. Your lab workup today was unremarkable. If you develop new or worsening symptoms call 911 or come back to the ER for further evaluation. Prescriptions: No Action cholecalciferol (vitamin D3) [Vitamin D3] 50 mcg (2,000 unit) Tablet 50 mcg PO DAILY Qty: 90 4RF Calcium 600 + Minerals 600 mg calcium- 200 unit Tablet 1 tab PO BID Qty: 60 3RF Lucentis 0.5 mg/0.05 mL Syringe 0.5 mg INTRAVITREAL QMONTH folic acid 1 mg Tablet 1 mg PO DAILY Qty: 90 4RF ondansetron 8 mg Tablet,Disintegrating 8 mg PO Q8H Qty: 60 4RF cyanocobalamin (vitamin B-12) [Vitamin B-12] 1,000 mcg Tablet 1,000 mcg PO DAILY Qty: 60 0RF dexamethasone [Decadron] 4 mg Tablet 4 mg PO BID Qty: 30 3RF Rx Instructions: Take for 2 days starting night before chemotherapy folic acid 1 mg Tablet 1 mg PO DAILY Qty: 90 3RF Magic Mouthwash Diphen/Lido/Antacid 1:1:1 240 mL Suspension 10 ml PO QID Qty: 240 4RF Rx Instructions: Lidocaine Viscous 2 % 80mL; diphenhydramine 12.5 mg/5 mL 80mL; aluminum-mag hydrox-simeth [id number]/5mL 80mL gabapentin 400 mg Capsule 400 mg PO TID Qty: 90 4RF cyclobenzaprine 5 mg Tablet 5 mg PO TID Qty: 40 3RF oxycodone 5 mg Tablet 5 mg PO Q6H PRN (Reason: Breakthrough Pain, Moderate) Qty: 60 0RF Rx Instructions: Partial Fill upon patient request. azithromycin 250 mg Tablet 250 mg PO DAILY Qty: 5 0RF (DME) DeVilbiss Pulmo-Aide Compressr Device See Rx Instructions .Route Rx Instructions: As directed ibuprofen [IBU] 600 mg tablet 600 mg PO QID Incruse Ellipta 62.5 mcg/actuation blister with device 1 inh inhalation BEDTIME albuterol sulfate [ProAir HFA] 90 mcg/actuation HFA aerosol inhaler 2 puff inhalation Q4-6H PRN (Reason: Shortness Of Breath Or Wheezing) Zyrtec 10 mg capsule 10 mg PO DAILY PRN (Reason: Cough) omeprazole 20 mg capsule,delayed release(DR/EC) 20 mg PO DAILY clonazepam [Klonopin] 0.5 mg tablet 0.5 mg PO TID acetaminophen 500 mg capsule 500 mg PO QID PRN (Reason: Pain) risperidone [Risperdal] 1 mg tablet 1 mg PO DAILY citalopram [Celexa] 20 mg tablet 20 mg PO DAILY B-complex with vitamin C Capsule 1 cap PO DAILY lisinopril 10 mg tablet 20 mg PO DAILY calcium carbonate [Calcium 600] 600 mg calcium (1,500 mg) tablet 600 mg PO BID Referrals: Diana Beck MD [Physician] -
[2022-02-19] MEDS: Acetaminophen 325 MG TABLET 975 MG PO (16:01)
[2022-02-19] MEDS: LORazepam 0.5 MG TABLET PO (16:01)
[2022-02-19 16:07] LABS: MANUAL DIFF FLAG NO
[2022-02-19 16:10] LABS: Basophils Percent Auto 0.2 % (0-2); Hematocrit 26.9 % (37.0-47.0); Hemoglobin 8.5 g/dl (12.0-16.0); Imm Gran Abs Auto 0.04 X10*3/uL (0.00-0.03); Imm Gran Pct Auto 0.9 % (0.0-0.4); Lymphocytes Absolute Auto 0.4 X10*3/uL (1.2-4.9); Lymphocytes Percent Auto 9.6 % (20-40); Mean Corpuscular HGB Conc 31.6 g/dl (31.0-35.0); Mean Corpuscular Volume 98.2 fL (80.0-98.0); Mean Platelet Volume 9.7 fL (9.4-12.3); Monocytes Absolute Auto 0.1 X10*3/uL (0.1-1.2); Monocytes Percent Auto 1.5 % (2-11); Neutrophils Percent Auto 87.8 % (45-73); Platelet Count 251 X10*3/uL (160-400); Red Blood Count 2.74 X10*6/uL (4.20-5.50); Red Cell Distribution Width 16.7 % (11.0-16.0); White Blood Count 4.6 X10*3/uL (4.8-10.8)
[2022-02-19 16:24] LABS: Appearance Urine Clear; Color Urine Yellow; Glucose Urine UA 250 mg/dL (Negative); Leukocyte Esterase Urine Negative (Negative); Nitrite Urine Negative (Negative); PH 5.5 (5.0-9.0); Urine Blood Negative (Negative); Urine Ketones Negative (Negative); Urine Protein Negative (Neg-Trace)
[2022-02-19 16:33] LABS: Alanine Aminotransferase 19 U/L (0-31); Albumin Level 3.8 g/dL (3.5-5.0); Alkaline Phosphatase 88 U/L (39-117); Anion Gap 15 (12-20); Aspartate Amino Transferase 16 U/L (5-31); Bilirubin Direct 0.2 mg/dL (0.0-0.5); Bilirubin Total 0.3 mg/dL (0.0-1.0); Blood Urea Nitrogen 10 mg/dL (9-16); Calcium 8.7 mg/dL (8.4-10.2); Carbon Dioxide 25 mmol/L (22-29); Chloride 105 mmol/L (96-108); Creatinine Clr Calc Pharmacy 60.4; Estimated Glomerular Filt Rate > 60; Glucose Random 187 mg/dL (60-115); Magnesium 2.3 mg/dL (1.6-2.6); Potassium 4.1 mmol/L (3.3-5.1); Sodium 141 mmol/L (135-145); Total Protein 6.6 g/dL (6.5-8.0)
[2022-02-19 16:36] LABS: Troponin-I High Sensitivity < 3.5 ng/L (<3.5-17.0)
[2022-02-19 16:39] LABS: B Type Natriuretic Peptide 293 pg/mL (<100)
[2022-02-19 19:21] LABS: Troponin-I High Sensitivity < 3.5 ng/L (<3.5-17.0)
[2022-02-19 19:43] VITALS: BP 147/57; PULSE 74; RESP 17; TEMP 36.9; O2SAT 99
== END 2022-02-19 20:43 | disposition home or self-care (01) ==
PROVIDERS: Physician Assistant; Emergency Provider Emergency Medicine
DX: R07.89 Other chest pain (principal); R00.2 Palpitations; R06.02 Shortness of breath; Z79.899 Other long term (current) drug therapy
CPT/HCPCS: 36415; 71045; 80048; 80076; 81003; 83735; 83880; 84484; 85025; 93005; 99283; 99285

== ENCOUNTER → 2022-05-30 13:34 | Outpatient (BNVA) | payer MEDICARE, MEDICAID, SELFPAY | PROVIDERS: PCP Nurse Practitioner Family; Visit Provider Hospitalist | DX: J44.9 Chronic obstructive pulmonary disease, unspecified (principal); R91.8 Other nonspecific abnormal finding of lung field; Z72.0 Tobacco use; C79.51 Secondary malignant neoplasm of bone | CPT/HCPCS: 94618; 99202 ==

== ENCOUNTER 2022-06-12 08:30 | Outpatient (REF) | payer MEDICARE, MEDICAID, SELFPAY ==
--- NOTE | ~2022-06-12 | CT_ITS ---
EXAMINATION: CT CHEST WITH CONTRAST CLINICAL INFORMATION: Follow-up lung cancer. COMPARISON: CT chest 02/07/2022. TECHNIQUE: Multidetector volumetric CT imaging of the chest was obtained after the administration of 50 mL of Omnipaque 350 intravenous contrast without immediate adverse reactions. Axial MIP volume rendering provided. Sagittal and coronal reformatted images were obtained. This CT examination was performed using dose optimization techniques as appropriate, variously including the following: *Automated exposure control *Adjustment of mA and/or kV according to patient size (this includes techniques or standardized protocols for targeted exams where dose is matched to indication/reason for exam; i.e. 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 LUNGS: The lungs are well-expanded with multiple clusters of ill-defined nodules in right upper lobe, left lung apex, right lower lobe, lingula and right middle lobe. These are suspicious for metastatic disease. There is a drastic change since the last exam 02/07/2022. There is a right lower lobe airspace consolidation slightly worse since 2021. Patchy atelectatic changes are seen in left lung base. MEDIASTINUM: The thyroid lobes are symmetric and normal. The central trachea and the bronchi are widely patent. Heart size and the great vessels are normal caliber. There are small shotty para-aortic and pretracheal lymph nodes. The largest pretracheal lymph node measures 1.1 x 0.9 cm. There is periaortic and pericardial small fluid collection. Mild coronary artery calcifications are present. PLEURA: There is a small right pleural effusion. AXILLA: No abnormal axillary lymph nodes seen. The chest wall is unremarkable. UPPER ABDOMEN: Visualized liver, spleen, pancreas and bilateral adrenal glands are unremarkable. OSSEOUS STRUCTURES: There is a mixed density lesion T8 vertebra. No additional lesions seen. CT/CT chest w IV con IMPRESSION: Interval multiple bilateral lung nodules most suggestive of metastatic disease. There is a right lower lobe consolidation and airspace disease, which has increased. Previously, there was a right lung mass, which may be present within the consolidation. Small loculated right pleural effusion is stable. Sclerotic T8 vertebra is stable. Fleischner guidelines were followed.
[2022-06-12] MEDS: iohexoL 350 MG/ML 100 ML INFUS..BTL IV (09:03)
== END 2022-06-12 08:31 | disposition home or self-care (01) ==
LOC: HO.CT 08:30
PROVIDERS: Visit Provider Internal Medicine Medical Oncology
DX: C79.51 Secondary malignant neoplasm of bone (principal)
CPT/HCPCS: 71260; Q9967

== ENCOUNTER 2022-07-01 19:31 | Inpatient (IN) | payer MEDICARE, MEDICAID, SELFPAY ==
--- NOTE | ~2022-07-01 | NM_ITS ---
EXAMINATION: NM LUNG IMAGE PERFUSION CLINICAL INFORMATION: Hypoxia. History of right lung cancer lower lobe. History of bony metastatic disease. History of COPD. COMPARISON: Chest x-ray 07/02/2022. CT chest 08/12/2022 TECHNIQUE: 3.5 mCi technetium 99m MAA was given intravenously for perfusion exam with multiple images obtained. FINDINGS: Blunting of the right posterior costophrenic angle correlates to density on CT and chest x-ray. There is homogeneous perfusion of the right and left lung with no defects. No evidence of pulmonary embolism. NM/NM pul perfusion IMPRESSION: Normal perfusion lung scan. No evidence of pulmonary embolism.
--- NOTE | ~2022-07-01 | XR_ITS ---
EXAMINATION: XR KNEE, RIGHT CLINICAL INFORMATION: Knee pain after fall COMPARISON: None available. TECHNIQUE: Four views of the right knee. FINDINGS: There is a transverse fracture through the patella soft tissue swelling and prepatellar space along with a joint effusion. No other fractures are seen. Mild degenerative changes are seen in the medial and lateral compartments with some narrowing of the medial compartment and some minimal osteophytes in the lateral compartment. XR/XR knee RT 4V IMPRESSION: Transverse fracture through the patella with joint effusion and soft tissue swelling.
--- NOTE | ~2022-07-01 | XR_ITS ---
EXAMINATION: XR CHEST CLINICAL INFORMATION: Hypoxia COMPARISON: CT chest 06/12/2022, chest radiographs 07/01/2022. TECHNIQUE: Portable upright AP x2 views of the chest are obtained. FINDINGS: There is patchy airspace opacity right medial base with small to moderate right effusion, both slightly decreased since prior exam 07/01/2022. The left lung is clear. The cardiac and hilar and mediastinal contours and bony structures are similar to prior exam. XR/XR chest 1V IMPRESSION: Patchy airspace opacity right medial base with right effusion, both slightly decreased since prior exam 07/01/2022.
--- NOTE | ~2022-07-01 | XR_ITS ---
EXAMINATION: XR CHEST CLINICAL INFORMATION: Fall. Preop. COMPARISON: Chest x-ray 02/19/2022. CT of chest 06/12/2022 TECHNIQUE: Frontal portable view of the chest was obtained. 11:47 PM FINDINGS: Redemonstration of consolidated airspace opacities at the right lung base with moderate volume right pleural effusion. This is similar to CT chest 06/12/2022. Left lung remains normally aerated. No pulmonary vascular congestion. Heart size is normal. Cardiac and mediastinal contours are normal. No acute osseous abnormality. No pneumothorax. XR/XR chest 1V IMPRESSION: Persistent consolidated airspace opacities at the right lung base with moderate volume right pleural effusion.
[2022-07-01 19:45] VITALS: BP 123/40; PULSE 68; RESP 18; TEMP 36.8; O2SAT 98; BMI 25.1
--- NOTE | 2022-07-01 19:47 | ED.LOWEXIN ---
HPI - Extremity Injury (Lower) General Chief Complaint: Extremity Injury, Lower <MARCELINO Cheng - Last Filed: 07/01/22 19:48> Stated Complaint: fall R knee pain <MARCELINO Cheng - Last Filed: 07/01/22 19:48> Time Seen by Provider: 07/01/22 22:34 <MARCELINO Cheng - Last Filed: 07/01/22 19:48> Source: patient <Nathaly Anne NP - Last Filed: 07/02/22 00:08> Mode of arrival: ambulatory <Nathaly Anne NP - Last Filed: 07/02/22 00:08> Limitations: language barrier <Nathaly Anne NP - Last Filed: 07/02/22 00:08> History of Present Illness HPI Narrative: 72-year-old female with past medical history of COPD, lung cancer with bone metastasis ideation on chemotherapy Kaytruda, hypertension, GERD, presents with right knee pain and inability to ambulate after a fall. <Nathaly Anne NP - Last Filed: 07/02/22 00:08> MD complaint: knee injury <MARGIE Brar Last Filed: 07/02/22 00:08> Onset (ago): hour(s) (Within the hour of arrival) <Nathaly Anne NP - Last Filed: 07/02/22 00:08> Type of Injury: blunt <MARGIE Brar Last Filed: 07/02/22 00:08> Place: home <MARGIE Brar Last Filed: 07/02/22 00:08> Severity: severe <Nathaly Anne NP - Last Filed: 07/02/22 00:08> Severity scale (1-10): 9 <MARGIE Brar Last Filed: 07/02/22 00:08> Relieving factors: immobilization <MARGIE Brar Last Filed: 07/02/22 00:08> Exacerbating factors: weight bearing, movement and palpation <MARGIE Brar Last Filed: 07/02/22 00:08> Context: fall and direct blow <Nathaly Anne NP - Last Filed: 07/02/22 00:08> Associated symptoms: swelling and unable to bear weight <Nathaly Anne NP - Last Filed: 07/02/22 00:08> Other symptoms: none <Nathaly Anne NP - Last Filed: 07/02/22 00:08> Treatments prior to arrival: cold therapy <Nathaly Anne NP - Last Filed: 07/02/22 00:08> Related Data Home Medications: Home Medications Medication Instructions Recorded Confirmed B-complex with vitamin C 1 cap PO DAILY 08/24/21 06/13/22 acetaminophen 500 mg capsule 500 mg PO QID PRN Pain 08/24/21 06/13/22 albuterol sulfate 90 mcg/actuation 2 puff inhalation Q4-6H PRN 08/24/21 06/13/22 aerosol inhaler (ProAir HFA) Shortness Of Breath Or Wheezing cetirizine 10 mg capsule (Zyrtec) 10 mg PO DAILY PRN Cough 08/24/21 06/13/22 citalopram 20 mg tablet (Celexa) 20 mg PO DAILY 08/24/21 06/13/22 clonazepam 0.5 mg tablet (Klonopin) 0.5 mg PO TID 08/24/21 06/13/22 compressor, for nebulizer 08/24/21 06/13/22 (DeVilss Pulmo-Aide Compressor) ibuprofen 600 mg tablet (IBU) 600 mg PO QID 08/24/21 06/13/22 omeprazole 20 mg capsule,delayed 20 mg PO DAILY 08/24/21 06/13/22 release risperidone 1 mg tablet (Risperdal) 1 mg PO DAILY 08/24/21 06/13/22 umeclidinium 62.5 mcg/actuation 1 inh inhalation BEDTIME 08/24/21 06/13/22 blister powder for inhalation (Incruse Ellipta) albuterol sulfate 0.63 mg/3 mL 0.63 mg inhalation Q6H PRN wheezing 05/30/22 06/13/22 solution for nebulization lisinopril 40 mg tablet 40 mg PO DAILY 05/30/22 06/13/22 ranibizumab 0.5 mg/0.05 mL 0.5 mg intravitreal QMONTH 05/30/22 06/13/22 intravitreal syringe (Lucentis) Previous Rx's Medication Instructions Recorded cholecalciferol (vitamin D3) 50 50 mcg PO DAILY #90 tabs 09/18/21 mcg (2,000 unit) tablet (Vitamin D3) ondansetron 8 mg disintegrating 8 mg PO Q8H #60 tabs 10/22/21 tablet cyanocobalamin (vitamin B-12) 1,000 mcg PO DAILY #60 tabs 11/05/21 1,000 mcg tablet (Vitamin B-12) folic acid 1 mg tablet 1 mg PO DAILY #90 tabs 11/05/21 Magic Mouthwash 10 ml PO QID #240 mL 11/30/21 Diphen/Lido/Antacid 1:1:1 240 mL suspension cyclobenzaprine 5 mg tablet 5 mg PO TID #40 tabs 12/28/21 diphenoxylate-atropine 2.5 1 tab PO BEDTIME #60 tabs 03/12/22 mg-0.025 mg tablet (Lomotil) calcium carb-vit D3-minerals 600 1 tab PO BID #60 tabs 04/22/22 mg calcium-200 unit tablet (Calcium 600 + Minerals) dexamethasone 4 mg tablet 4 mg PO BID #60 tabs 04/28/22 gabapentin 400 mg capsule 400 mg PO TID #90 caps 05/19/22 fluticasone fur. 100 mcg-umeclid 1 inh inhalation DAILY 30 days #60 05/30/22 62.5 mcg-vilant 25 mcg ea inhalat.powder (Trelegy Ellipta) azithromycin 250 mg tablet 250 mg PO 3XW 28 days #12 tabs 06/07/22 oxycodone 5 mg tablet 5 mg PO Q6H PRN Breakthrough Pain, 06/27/22 Moderate #60 tabs <MARCELINO Cheng - Last Filed: 07/01/22 19:48> Allergies/Adverse Reactions: Allergies Allergy/AdvReac Type Severity Reaction Status Date / Time Iodinated Contrast Media Allergy Shakiness Verified 05/30/22 13:53 [IV Contrast Dye] Codeine Phosphate Allergy Unknown Unknown Uncoded 05/30/22 13:53 <MARCELINO Cheng - Last Filed: 07/01/22 19:48> Review of Systems Review of Systems: Constitutional: No Fever, No Chills Cardiovascular: No Chest Pain, No SOB Respiratory: No Cough, No Dyspnea Gastrointestinal: No Nausea, No Vomiting, No Diarrhea, No abdominal Pain Genitourinary: No Dysuria, No Hematuria Musculoskeletal: positive right knee pain, No Myalgias, positive right knee Swelling Skin: No Skin lacerations, No rash Neuro: No Weakness, No Numbness, No Paresthesias, No Loss of Consciousness, No Dizziness, No Headache <Nathaly Anne NP - Last Filed: 07/02/22 00:08> Yes all other systems are reviewed and are negative <Nathaly Anne NP - Last Filed: 07/02/22 00:08> FORMERLY [facility] Past Medical History Attestation statement: The following information was validated with the patient. <Nathaly Anne NP - Last Filed: 07/02/22 00:08> Source: old records reviewed <Nathaly Anne NP - Last Filed: 07/02/22 00:08> Medical History: Medical History Anxiety and depression COPD (chronic obstructive pulmonary disease) GERD (gastroesophageal reflux disease) Hypertension Osteopenia (~2002) Tobacco abuse Vitamin D deficiency <MARCELINO Cheng - Last Filed: 07/01/22 19:48> Surgical History: Surgical History History of lung biopsy (~2021) <MARCELINO Cheng - Last Filed: 07/01/22 19:48> Family History Family History: Family History Sister Lupus <MARCELINO Cheng - Last Filed: 07/01/22 19:48> Social History Social History: Social History Household Members: Family and Children Housing: House Are you a primary healthcare administrator to a significant other at home: No Do you presently have visiting nurse or other home services: No Alcohol intake: never Patient Tobacco Use Status: Former Tobacco user Tobacco use type: Cigarette Years Smoked: 20+ Years Advance Directives: No Advance Directives Information Provided: No service: No Current occupational status: retired <MARCELINO Cheng - Last Filed: 07/01/22 19:48> Physical Exam Vital Signs: Vital Signs: Last Vital Signs Temp 96.6 F L 07/01/22 22:00 Pulse 65 07/01/22 22:00 Resp 20 07/01/22 22:00 BP 134/45 L 07/01/22 22:00 Pulse Ox 96 07/01/22 22:00 O2 Del Method Room Air 07/01/22 22:00 BMI result Body Mass Index 25.1 <MARCELINO Cheng - Last Filed: 07/01/22 19:48> Vital Signs: Last Vital Signs Temp 96.6 F L 07/01/22 22:00 Pulse 65 07/01/22 22:00 Resp 20 07/01/22 22:00 BP 134/45 L 07/01/22 22:00 Pulse Ox 96 07/01/22 22:00 O2 Del Method Room Air 07/01/22 22:00 BMI result Body Mass Index 25.1 <Nathaly Anne NP - Last Filed: 07/02/22 00:08> Appearance: Alert. Oriented X3. Moderate distress. Eyes: Pupils equal, round and reactive to light. Neck: Normal inspection. Neck supple. CVS: Normal heart rate and rhythm. Pulses normal. Respiratory: No respiratory distress. Breath sounds normal. Skin: Skin warm and dry. Normal skin color. Normal skin turgor. Extremities: Right knee pain and swelling. Brisk capillary refill nuchal pulses bilaterally. Range of motion not assessed secondary to positive x-ray of transverse patellar fracture. Neuro: No motor deficit. No sensory deficit. Cranial nerves 2-12 intact. <Nathaly Anne NP - Last Filed: 07/02/22 00:08> Course Course Course Narrative: RME - 72 yo female with history of COPD, anxiety/depression, lung cancer on chemotherapy and fell onto her right knee while trying to fold a blanket, losing her balance. Required assistance getting up. No head strike. Not on blood thinner. Unable to walk on right leg. Limited ROM due to pain. Plan: XR knee <MARCELINO Cheng - Last Filed: 07/01/22 19:48> RME - 72 yo female with history of COPD, anxiety/depression, lung cancer on chemotherapy and fell onto her right knee while trying to fold a blanket, losing her balance. Required assistance getting up. No head strike. Not on blood thinner. Unable to walk on right leg. Limited ROM due to pain. Plan: XR knee 72-year-old female presents for injuries sustained from a fall. X-rays were completed while she was in the emergency department waiting room which indicates a transverse with moderate to large joint effusion. The patient did not hit her head or lose consciousness. Does not report any prodromal events prior to the fall. 22:47 x-rays indicate patellar fracture transverse. Patient is in 10 pain, order for oxycodone and morphine with Zofran. 23:[address] Clay via tiger text, will round on this patient, knee immobilizer recommended for support, and admit to hospitalist. <Nathaly Anne NP - Last Filed: 07/02/22 00:08> Consultations Consultation #1: Obed <Nathaly Anne NP - Last Filed: 07/02/22 00:08> Time: 23:00 <Nathaly Anne NP - Last Filed: 07/02/22 00:08> Consultation #2: Hospitalist <Nathaly Anne NP - Last Filed: 07/02/22 00:08> Time: 23:30 <Nathaly Anne NP - Last Filed: 07/02/22 00:08> Medications Administered Discontinued Medications Generic Name Dose Route Start Last Admin Trade Name Freq PRN Reason Stop Dose Admin Morphine Sulfate 2 mg 07/01/22 22:52 07/01/22 23:15 Morphine Sulfate 2 Mg/Ml Cartridge IVPUSH 07/01/22 22:53 2 mg ONCE ONE Administration Protocol Ondansetron HCl 4 mg 07/01/22 22:52 07/01/22 23:16 Ondansetron Hcl 4 Mg/2 Ml Vial IVPUSH 07/01/22 22:53 4 mg ONCE ONE Administration Oxycodone HCl 5 mg 07/01/22 22:52 07/01/22 23:16 Oxycodone Hcl Immed Release 5 Mg Tablet PO 07/01/22 22:53 5 mg ONCE ONE Administration <MARCELINO Cheng - Last Filed: 07/01/22 19:48> Medications Administered Discontinued Medications Generic Name Dose Route Start Last Admin Trade Name Freq PRN Reason Stop Dose Admin Morphine Sulfate 2 mg 07/01/22 22:52 07/01/22 23:15 Morphine Sulfate 2 Mg/Ml Cartridge IVPUSH 07/01/22 22:53 2 mg ONCE ONE Administration Protocol Ondansetron HCl 4 mg 07/01/22 22:52 07/01/22 23:16 Ondansetron Hcl 4 Mg/2 Ml Vial IVPUSH 07/01/22 22:53 4 mg ONCE ONE Administration Oxycodone HCl 5 mg 07/01/22 22:52 07/01/22 23:16 Oxycodone Hcl Immed Release 5 Mg Tablet PO 07/01/22 22:53 5 mg ONCE ONE Administration <Nathaly Anne NP - Last Filed: 07/02/22 00:08> Medical Decision Making Differential Diagnosis Differential Diagnoses: The differential diagnosis associated with the presentation includes <Nathaly Anne NP - Last Filed: 07/02/22 00:08> Fracture, dislocation, effusion <Nathaly Anne NP - Last Filed: 07/02/22 00:08> Admission/Observation Consideration of admission/observation: Escalation of care including admission/observation considered <Nathaly Anne NP - Last Filed: 07/02/22 00:08> Will require hospitalization <Nathaly Anne NP - Last Filed: 07/02/22 00:08> Consult Healthcare Provider Management of the patient was discussed with: Hospitalist and Drug Purchaser (Obed) <Nathaly Anne NP - Last Filed: 07/02/22 00:08> Lab Data MDM Lab Attestation statement: I reviewed the patient's lab results. <Nathaly Anne NP - Last Filed: 07/02/22 00:08> Result Diagrams: 07/01/22 23:56 07/01/22 23:56 <MARCELINO Cheng - Last Filed: 07/01/22 19:48> Labs: Lab Results 07/01/22 Range/Units 23:56 WBC 8.3 (4.8-10.8) X10*3/uL RBC 3.28 L (4.20-5.50) X10*6/uL Hgb 9.4 L (12.0-16.0) g/dl Hct 30.1 L (37.0-47.0) % MCV 91.8 (80.0-98.0) fL MCH 28.7 (27.0-33.0) pg MCHC 31.2 (31.0-35.0) g/dl RDW 17.0 H (11.0-16.0) % Plt Count 327 (160-400) X10*3/uL MPV 9.0 L (9.4-12.3) fL Immature Gran % (Auto) 0.4 (0.0-0.4) % Neut % (Auto) 73.2 H (45-73) % Lymph % (Auto) 14.4 L (20-40) % Freestone % (Auto) 10.1 (2-11) % Eos % (Auto) 1.7 (0-4) % Baso % (Auto) 0.2 (0-2) % Lymph # (Auto) 1.2 (1.2-4.9) X10*3/uL Freestone # (Auto) 0.8 (0.1-1.2) X10*3/uL Eos # (Auto) 0.1 (0.0-0.4) X10*3/uL Baso # (Auto) 0.0 (0.0-0.2) X10*3/uL Abs Immat Gran (auto) 0.03 (0.00-0.03) X10*3/uL Absolute Neuts (auto) 6.0 (2.0-8.3) x10*3/uL Absolute Nucleated RBC 0.000 (0.0-0.012) X10*3/uL Nucleated RBC % (auto) 0.0 (0.0-0.2) /100WBC <MARCELINO Cheng - Last Filed: 07/01/22 19:48> Lab Results 07/01/22 Range/Units 23:56 WBC 8.3 (4.8-10.8) X10*3/uL RBC 3.28 L (4.20-5.50) X10*6/uL Hgb 9.4 L (12.0-16.0) g/dl Hct 30.1 L (37.0-47.0) % MCV 91.8 (80.0-98.0) fL MCH 28.7 (27.0-33.0) pg MCHC 31.2 (31.0-35.0) g/dl RDW 17.0 H (11.0-16.0) % Plt Count 327 (160-400) X10*3/uL MPV 9.0 L (9.4-12.3) fL Immature Gran % (Auto) 0.4 (0.0-0.4) % Neut % (Auto) 73.2 H (45-73) % Lymph % (Auto) 14.4 L (20-40) % Freestone % (Auto) 10.1 (2-11) % Eos % (Auto) 1.7 (0-4) % Baso % (Auto) 0.2 (0-2) % Lymph # (Auto) 1.2 (1.2-4.9) X10*3/uL Freestone # (Auto) 0.8 (0.1-1.2) X10*3/uL Eos # (Auto) 0.1 (0.0-0.4) X10*3/uL Baso # (Auto) 0.0 (0.0-0.2) X10*3/uL Abs Immat Gran (auto) 0.03 (0.00-0.03) X10*3/uL Absolute Neuts (auto) 6.0 (2.0-8.3) x10*3/uL Absolute Nucleated RBC 0.000 (0.0-0.012) X10*3/uL Nucleated RBC % (auto) 0.0 (0.0-0.2) /100WBC <Nathaly Anne NP - Last Filed: 07/02/22 00:08> Independent Interpretation I performed an independent interpretation of an: Plain X-Ray <Nathaly Anne NP - Last Filed: 07/02/22 00:08> Radiology Impression Discussion of test interpretation with radiology: I have reviewed the radiologist's reading. <Nathaly Anne NP - Last Filed: 07/02/22 00:08> Radiologist Impression: EXAMINATION: XR KNEE, RIGHT? CLINICAL INFORMATION: Knee pain after fall? COMPARISON: None available.? TECHNIQUE: Four views of the right knee. FINDINGS: There is a transverse fracture through the patella soft tissue swelling and prepatellar space along with a joint effusion. No other fractures are seen. Mild degenerative changes are seen in the medial and lateral compartments with some narrowing of the medial compartment and some minimal osteophytes in the lateral compartment.? XR/XR knee RT 4V IMPRESSION: Transverse fracture through the patella with joint effusion and soft tissue swelling. EXAMINATION: XR CHEST CLINICAL INFORMATION: Fall. Preop. COMPARISON: Chest x-ray 02/19/2022. CT of chest 06/12/2022 TECHNIQUE: Frontal portable view of the chest was obtained. 11:47 PM FINDINGS: Redemonstration of consolidated airspace opacities at the right lung base with moderate volume right pleural effusion. This is similar to CT chest 06/12/2022. Left lung remains normally aerated. No pulmonary vascular congestion. Heart size is normal. Cardiac and mediastinal contours are normal. No acute osseous abnormality. No pneumothorax. XR/XR chest 1V IMPRESSION: Persistent consolidated airspace opacities at the right lung base with moderate volume right pleural effusion. ? <Nathaly Anne NP - Last Filed: 07/02/22 00:08> Independent Historian Clinical information obtained from an independent historian. History obtained from or confirmed by: Other (Daughter) <MARGIE Brar Last Filed: 07/02/22 00:08> External Record Review External record reviewed: Outpatient record, Prior outpatient labs and Prior outpatient radiology <MARGIE Brar Last Filed: 07/02/22 00:08> Prescription Management I considered prescription management with: Pain Medication <MARGIE Brar Last Filed: 07/02/22 00:08> Chronic Conditions Patient?s care impacted by: Hypertension and Cancer <MARGIE Brar Last Filed: 07/02/22 00:08> Discharge Plan Discharge Clinical Impression: Patellar fracture, 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, Bone metastases, Uncontrolled pain <MARCELINO Cheng Last Filed: 07/01/22 19:48> Patient Disposition: Admitted As Inpatient <MARCELINO Cheng - Last Filed: 07/01/22 19:48>
[2022-07-01 22:00] VITALS: BP 134/45; PULSE 65; RESP 20; TEMP 35.9; O2SAT 96
[2022-07-01] MEDS: Morphine Sulfate 2 MG/ML CARTRIDGE IVPUSH (23:15)
[2022-07-01] MEDS: oxyCODONE HCl Immed Release 5 MG TABLET PO (23:16)
[2022-07-01] MEDS: ondansetron HCL 4 MG/2 ML VIAL IVPUSH (23:16)
--- NOTE | 2022-07-01 23:19 | PC.NURSE ---
IV established, pt medicated for 10/10 pain to right leg. Pt resting in bed, call garcia within reach.
--- NOTE | 2022-07-01 23:46 | P.HPHOSP_ITS ---
History of Present Illness Date of Service: 07/01/22 Chief Complaint: knee pain this is a 72-year-old female with past medical history of COPD, hypertension, osteopenia, anxiety depression, metastatic lung cancer to the bone, who presents to the hospital after having a fall complaining of right knee pain. patient states that she was folding her sheets in her bedroom, she was standing, drinking her Ensure, when all of a sudden felt dizzy, fell to the floor, hit her knee subsequently developing significant pain in the right knee. Calling her daughter to bring her to the hospital. Patient denies losing any consciousness, no chest pain, no palpitations, does not remember hitting her head. She states that she has not been eating or drinking too well lately due to chemotherapy, denies having any diarrhea, currently has no dizziness. Denies any chest pain, no shortness of breath, no abdominal pain nausea or vomiting, no diarrhea constipation, no urinary symptoms and no lower extremity edema. On arrival to the ED patient hemodynamically stable with no significant abnormal vitals Labs are significant for WBC count of 8.3, hemoglobin of 9.4, hematocrit 30.1 all within her baseline, No other significant abnormality X-ray of the knee shows transverse fracture through the patella with joint effusion and soft tissue swelling Orthopedic surgery was consulted, plan for surgical repair Review of Systems Review of Systems: Yes all other systems are reviewed and are negative FOR[facility]LY [facility] Medical History Anxiety and depression COPD (chronic obstructive pulmonary disease) GERD (gastroesophageal reflux disease) Hypertension Osteopenia (~2002) Tobacco abuse Vitamin D deficiency Family History Sister Lupus Surgical History History of lung biopsy (~2021) Social History Household Members: Family Housing: Apartment Are you a primary care coordinator to a significant other at home: No Do you presently have visiting nurse or other home services: No (daughter BEATER ENGINEER HELPER) Alcohol intake: never Patient Tobacco Use Status: Former Tobacco user Tobacco use type: Cigarette Years Smoked: 20+ Years Use of substances other than those prescribed or required for medical reasons: No Have you been hit, kicked, punched, or otherwise hurt by someone within the past year? If so, by whom?: No Do you feel safe in your current relationship?: No Current Relationship Is there a partner from a previous relationship who is making you feel unsafe now?: No Are you made to feel afraid or neglected: No Advance Directives: No Advance Directives Information Provided: No Do you have thoughts of harming others: None Do you have a plan to hurt others: No Plan Recently lost weight without trying: No Eating poorly because of decreased appetite: No Nutrition Risks: No Nutritional Risk Patient : No : No Poor oral hygiene: No service: No Current occupational status: retired [employer] Allergies Allergy/AdvReac Type Severity Reaction Status Date / Time Iodinated Contrast Media Allergy Shakiness Verified 05/30/22 13:53 [IV Contrast Dye] Codeine Phosphate Allergy Unknown Unknown Uncoded 05/30/22 13:53 Active Medications: Current Medications Pharmacy Consult (Consult Rx Perform Med Rec) 1 each MISCELLANE ONCE STA Stop: 07/01/22 23:32 Home Medications Medication Instructions Recorded Confirmed Last Taken Type B-complex with vitamin C 1 cap PO DAILY 08/24/21 07/02/22 09/04/21 History acetaminophen 500 mg capsule 500 mg PO QID PRN Pain 08/24/21 07/02/22 09/04/21 History albuterol sulfate 90 mcg/actuation 2 puff inhalation Q4-6H PRN 08/24/21 07/02/22 Unknown History aerosol inhaler (ProAir HFA) Shortness Of Breath Or Wheezing citalopram 20 mg tablet (Celexa) 20 mg PO DAILY 08/24/21 07/02/22 09/04/21 History clonazepam 0.5 mg tablet (Klonopin) 0.5 mg PO TID 08/24/21 07/02/22 09/04/21 History ibuprofen 600 mg tablet (IBU) 600 mg PO QID 08/24/21 07/02/22 09/03/21 History omeprazole 20 mg capsule,delayed 20 mg PO DAILY 08/24/21 07/02/22 09/04/21 History release risperidone 1 mg tablet (Risperdal) 1 mg PO DAILY 08/24/21 07/02/22 09/04/21 History umeclidinium 62.5 mcg/actuation 1 inh inhalation BEDTIME 08/24/21 07/02/22 Unknown History blister powder for inhalation (Incruse Ellipta) albuterol sulfate 0.63 mg/3 mL 0.63 mg inhalation Q6H PRN wheezing 05/30/22 07/02/22 Unknown History solution for nebulization lisinopril 40 mg tablet 40 mg PO DAILY 05/30/22 07/02/22 Unknown History Physical Exam Vital Signs and Narrative: Vital Signs: Last Vital Signs Temp 96.6 F L 07/01/22 22:00 Pulse 65 07/01/22 22:00 Resp 20 07/01/22 22:00 BP 134/45 L 07/01/22 22:00 Pulse Ox 96 07/01/22 22:00 O2 Del Method Room Air 07/01/22 22:00 BMI result Body Mass Index 25.1 Const: General: cooperative and no acute distress Orientation/co nsciousness: patient oriented x3 Eyes: Other: wearing sunglasses General: appearance normal, both eyes and all related structures Pupils: Equal, round and reactive pupils present Resp: Effort & Inspection: normal respiratory effort Auscultation: clear to auscultation bilaterally Cardio: Rate: regular rate Rhythm: regular rhythm GI: Palpation (GI): Soft to palpation Auscultation: normal bowel sounds Skin: General skin exam: no rashes or lesions noted Neuro: General: patient oriented x3 Cranial nerves: Yes Equal, round and reactive pupils present Cognition (Neuro): normal cognition Extrem: Other: right knee effusion, edema, no erythema warmth, significantly tender Results Labs 07/01/22 23:56 07/01/22 23:56 Imaging Radiologist's Impressions: Impressions Knee X-Ray 07/01/22 20:13 IMPRESSION: Transverse fracture through the patella with joint effusion and soft tissue swelling. Assessment and Plan (1) Patellar fracture: Qualifiers: Encounter type: initial encounter Fracture type: closed Fracture morphology: unspecified fracture morphology Fracture alignment: nondisplaced Laterality: right Qualified Code(s): S82.001A - Unspecified fracture of right patella, initial encounter for closed fracture Status: Acute (2) Uncontrolled pain: Status: Acute Plan 72-year-old female past medical history of lung cancer with metastasis to the bone, osteopenia presents to the hospital with complaints of right knee pain after falling # right patellar fracture - acute secondary to mechanical fall - pain control - orthopedic consulted - NPO after midnight # uncontrolled pain - secondary to patellar fracture - will treat with pain medication # hypertension - elevated - continue home antihypertensives # depression anxiety - continue mood stabilizers # history of COPD - not in exacerbation - continue home inhalers DVT prophylaxis: SCDs given plan for intervention given patient's need for pain control as well as to surgical intervention by Orthopedics patient will require minimum 2 nights inpatient hospital stay for further management and monitoring may need long-term care and evaluation by PT for rehab Time Spent With Patient Time: Total time managing care of this patient today ____ minutes. Quality Stroke Does the patient have a stroke diagnosis?: No VTE Prior VTE?: No VTE Risk Level:: Medical - moderate - high VTE Device Contraindication: N/A - Device Ordered VTE Drug Contraindication: Treatment Not Indicated
[2022-07-02] VITALS (12 sets, daily range): BP systolic 119–160; BP diastolic 58–81; PULSE 68–87; RESP 6–19; TEMP 36.6–38.3; O2SAT 80–100
[2022-07-02] LABS: MANUAL DIFF FLAG NO
[2022-07-02 00:02] LABS: Basophils Percent Auto 0.2 % (0-2); Eosinophils Absolute Auto 0.1 X10*3/uL (0.0-0.4); Eosinophils Percent Auto 1.7 % (0-4); Hematocrit 30.1 % (37.0-47.0); Hemoglobin 9.4 g/dl (12.0-16.0); Imm Gran Abs Auto 0.03 X10*3/uL (0.00-0.03); Imm Gran Pct Auto 0.4 % (0.0-0.4); Lymphocytes Absolute Auto 1.2 X10*3/uL (1.2-4.9); Lymphocytes Percent Auto 14.4 % (20-40); Mean Corpuscular HGB Conc 31.2 g/dl (31.0-35.0); Mean Corpuscular Hemoglobin 28.7 pg (27.0-33.0); Mean Corpuscular Volume 91.8 fL (80.0-98.0); Monocytes Absolute Auto 0.8 X10*3/uL (0.1-1.2); Monocytes Percent Auto 10.1 % (2-11); Neutrophils Percent Auto 73.2 % (45-73); Platelet Count 327 X10*3/uL (160-400); Red Blood Count 3.28 X10*6/uL (4.20-5.50); White Blood Count 8.3 X10*3/uL (4.8-10.8)
[2022-07-02 00:19] LABS: Anion Gap 12 (12-20); Blood Urea Nitrogen 15 mg/dL (9-16); Calcium 9.2 mg/dL (8.4-10.2); Carbon Dioxide 27 mmol/L (22-29); Chloride 104 mmol/L (96-108); Creatinine Clr Calc Pharmacy 55.3; Estimated Glomerular Filt Rate > 60; Glucose Random 115 mg/dL (60-115); Potassium 4.3 mmol/L (3.3-5.1); Sodium 139 mmol/L (135-145)
[2022-07-02 00:39] LABS: Influenza A PCR NEGATIVE (Negative); Influenza B PCR NEGATIVE (Negative); Resp Syncy Virus RNA Qual PCR NEGATIVE (Negative); SARS COV2 PCR INHOUSE NEGATIVE (Negative)
[2022-07-02] MEDS: Morphine Sulfate 4 MG/ML CARTRIDGE IVPUSH ×2 (02:55→08:24)
[2022-07-02 06:14] LABS: MANUAL DIFF FLAG NO
[2022-07-02 06:16] LABS: Basophils Percent Auto 0.3 % (0-2); Eosinophils Absolute Auto 0.3 X10*3/uL (0.0-0.4); Eosinophils Percent Auto 3.7 % (0-4); Hematocrit 28.8 % (37.0-47.0); Imm Gran Abs Auto 0.03 X10*3/uL (0.00-0.03); Imm Gran Pct Auto 0.4 % (0.0-0.4); Lymphocytes Percent Auto 14.2 % (20-40); Mean Corpuscular HGB Conc 31.3 g/dl (31.0-35.0); Mean Corpuscular Hemoglobin 29.4 pg (27.0-33.0); Mean Corpuscular Volume 94.1 fL (80.0-98.0); Mean Platelet Volume 9.7 fL (9.4-12.3); Monocytes Absolute Auto 0.9 X10*3/uL (0.1-1.2); Monocytes Percent Auto 12.8 % (2-11); Neutrophils Absolute Auto 4.7 x10*3/uL (2.0-8.3); Neutrophils Percent Auto 68.6 % (45-73); Platelet Count 355 X10*3/uL (160-400); Red Blood Count 3.06 X10*6/uL (4.20-5.50); Red Cell Distribution Width 17.2 % (11.0-16.0); White Blood Count 6.8 X10*3/uL (4.8-10.8)
[2022-07-02 06:41] LABS: Anion Gap 11 (12-20); Blood Urea Nitrogen 15 mg/dL (9-16); Calcium 9.1 mg/dL (8.4-10.2); Carbon Dioxide 29 mmol/L (22-29); Chloride 105 mmol/L (96-108); Creatinine Clr Calc Pharmacy 55.3; Estimated Glomerular Filt Rate > 60; Glucose Random 84 mg/dL (60-115); Potassium 4.3 mmol/L (3.3-5.1); Sodium 141 mmol/L (135-145)
[2022-07-02] MEDS: 0.9 % Sodium Chloride Flush 3 ML SYRINGE IVFLUSH ×3 (08:26→20:23)
--- NOTE | 2022-07-02 08:36 | PHA.MEDREC ---
Pharmacy Consult ? Medication Reconciliation Pharmacy has reviewed the medication reconciliation completed by Serafin. Patient get medbox from [facility] pharmacy. Recieved list from [facility]. Risperidone is 0.5 mg QD and 1 mg QHS. Dose updated. Amlodipine and atorvastatin were had to home list. MARGIE Mills informed of additions. Katherine Cloud, PharmD
[2022-07-02] MEDS: lisinopriL 40 MG TABLET PO (08:53)
[2022-07-02] MEDS: Folic Acid 1 MG TABLET PO (08:54)
[2022-07-02] MEDS: Multivitamin TABLET 1 TAB PO (08:54)
[2022-07-02] MEDS: Escitalopram Oxalate 20 MG TABLET PO (08:54)
[2022-07-02] MEDS: clonazePAM 0.5 MG TABLET PO ×2 (08:54→20:22)
[2022-07-02] MEDS: Cyanocobalamin (Vitamin B-12) 1,000 MCG TABLET 1000 MCG PO (08:54)
[2022-07-02] MEDS: Cholecalciferol (Vitamin D3) 25 MCG TABLET 50 MCG PO (08:54)
[2022-07-02] MEDS: Gabapentin 400 MG CAPSULE PO ×2 (08:54→20:22)
[2022-07-02] MEDS: Omeprazole 20 MG CAPSULE.DR PO (08:54)
[2022-07-02] MEDS: Calcium + Vitamin D 250 MG TABLET 500 MG PO ×2 (08:54→20:22)
--- NOTE | 2022-07-02 10:30 | P.PNIM_ITS ---
Subjective Subjective Date of Service: 07/02/22 Review of Systems Follow-up patella fracture Complaints of pain Resting in bed Physical Exam Vital Signs: Vital Signs: Last Vital Signs Temp 97.9 F 07/02/22 07:27 Pulse 74 07/02/22 07:27 Resp 19 07/02/22 08:24 BP 119/70 07/02/22 07:27 Pulse Ox 90 L 07/02/22 07:27 O2 Del Method Room Air 07/02/22 07:27 BMI result Body Mass Index 25.1 Appearing in no acute distress lung sounds are clear to auscultation heart regular rate rhythm, clear S1, S2 positive bowel sounds, abdomen is soft, nontender neuro patient is alert x3, no focal deficits Objective Data Active Medications Acetaminophen (Acetaminophen 325 Mg Tablet) 650 mg PO Q6H PRN PRN Reason: Pain, Mild (Pain Scale 1-3) Albuterol Sulfate (Albuterol Sulfate (0.042%) 1.25 Mg/3 Ml Vial.Neb) 0.63 mg INHALE Q6H PRN PRN Reason: wheezing Albuterol Sulfate (Albuterol Sulfate 90 Mcg 8 Gm Inhaler) 2 puff INHALE Q4H PRN PRN Reason: Shortness Of Breath Or Wheezing Calcium Carbonate/Cholecalciferol (Calcium + Vitamin D 250 Mg Tablet) 500 mg PO BID [facility] Last Admin: 07/02/22 08:54 Dose: 500 mg Documented By: [email or web address] Clonazepam (Clonazepam 0.5 Mg Tablet) 0.5 mg PO TID [facility] Last Admin: 07/02/22 08:54 Dose: 0.5 mg Documented By: COTEMA Cyanocobalamin (Cyanocobalamin (Vitamin B-12) 1,000 Mcg Tablet) 1,000 mcg PO DAILY [facility] Last Admin: 07/02/22 08:54 Dose: 1,000 mcg Documented By: COTEMA Docusate Sodium (Docusate Sodium 100 Mg Capsule) 100 mg PO DAILY PRN PRN Reason: Constipation Escitalopram Oxalate (Escitalopram Oxalate 20 Mg Tablet) 20 mg PO DAILY [facility] Last Admin: 07/02/22 08:54 Dose: 20 mg Documented By: [email or web address] Folic Acid (Folic Acid 1 Mg Tablet) 1 mg PO DAILY [facility] Last Admin: 07/02/22 08:54 Dose: 1 mg Documented By: COTEMA Gabapentin (Gabapentin 400 Mg Capsule) 400 mg PO TID [facility] Last Admin: 07/02/22 08:54 Dose: 400 mg Documented By: COTEMA Ibuprofen (Ibuprofen 600 Mg Tablet) 600 mg PO QID PRN PRN Reason: pain Lisinopril (Lisinopril 40 Mg Tablet) 40 mg PO DAILY [facility]; Protocol Last Admin: 07/02/22 08:53 Dose: 40 mg Documented By: COTEMA Morphine Sulfate (Morphine Sulfate 4 Mg/Ml Cartridge) 4 mg IVPUSH Q4H PRN; Protocol PRN Reason: Pain, Severe (Pain Scale 7-10) Last Admin: 07/02/22 08:24 Dose: 4 mg Documented By: COTEMA Multivitamins/Vitamin C (Multivitamin Tablet) 1 tab PO DAILY [facility] Last Admin: 07/02/22 08:54 Dose: 1 tab Documented By: COTEMA Non-Formulary Medication ([id number] [Trelegy Ellipta]) 1 inhalation INHALE DAILY [facility] Omeprazole (Omeprazole 20 Mg Capsule.Dr) 20 mg PO DAILY@0630 [facility] Last Admin: 07/02/22 08:54 Dose: 20 mg Documented By: COTEMA Ondansetron HCl (Ondansetron Hcl 4 Mg/2 Ml Vial) 4 mg IVPUSH Q8H PRN PRN Reason: Nausea and Vomiting Oxycodone HCl (Oxycodone Hcl Immed Release 5 Mg Tablet) 5 mg PO Q6H PRN PRN Reason: Breakthrough Pain, Moderate Risperidone (Risperidone 1 Mg Tablet) 1 mg PO BEDTIME [facility] Sodium Chloride (0.9 % Sodium Chloride Flush 3 Ml Syringe) 3 ml IVFLUSH QSHIFT [facility] Last Admin: 07/02/22 08:26 Dose: 3 ml Documented By: COTEMA Vitamin D (Cholecalciferol (Vitamin D3) 25 Mcg Tablet) 50 mcg PO DAILY [facility] Last Admin: 07/02/22 08:54 Dose: 50 mcg Documented By: DANIELA Labs 07/02/22 05:54 07/02/22 05:54 Labs: Laboratory Results - last 24 hr 07/01/22 07/01/22 07/01/22 23:56 23:56 23:56 MCV 91.8 MCH 28.7 MCHC 31.2 RDW 17.0 H Plt Count 327 MPV 9.0 L Immature Gran % (Auto) 0.4 Neut % (Auto) 73.2 H Lymph % (Auto) 14.4 L [place] % (Auto) 10.1 Eos % (Auto) 1.7 Baso % (Auto) 0.2 Lymph # (Auto) 1.2 [place] # (Auto) 0.8 Eos # (Auto) 0.1 Baso # (Auto) 0.0 Abs Immat Gran (auto) 0.03 Absolute Neuts (auto) 6.0 Absolute Nucleated RBC 0.000 Nucleated RBC % (auto) 0.0 Anion Gap 12 Estim Creat Clear Calc 55.3 Estimated GFR > 60 Random Glucose 115 Calcium 9.2 Influenza Type A (PCR) NEGATIVE Influenza Type B (PCR) NEGATIVE RSV RNA Qual (PCR) NEGATIVE SARS-CoV-2 RNA (RT-PCR) NEGATIVE 07/02/22 07/02/22 05:54 05:54 MCV 94.1 MCH 29.4 MCHC 31.3 RDW 17.2 H Plt Count 355 MPV 9.7 Immature Gran % (Auto) 0.4 Neut % (Auto) 68.6 Lymph % (Auto) 14.2 L [place] % (Auto) 12.8 H Eos % (Auto) 3.7 Baso % (Auto) 0.3 Lymph # (Auto) 1.0 L [place] # (Auto) 0.9 Eos # (Auto) 0.3 Baso # (Auto) 0.0 Abs Immat Gran (auto) 0.03 Absolute Neuts (auto) 4.7 Absolute Nucleated RBC 0.000 Nucleated RBC % (auto) 0.0 Anion Gap 11 L Estim Creat Clear Calc 55.3 Estimated GFR > 60 Random Glucose 84 Calcium 9.1 Influenza Type A (PCR) Influenza Type B (PCR) RSV RNA Qual (PCR) SARS-CoV-2 RNA (RT-PCR) Assessment and Plan (1) Patellar fracture: Status: Acute Plan 72-year-old female past medical history of lung cancer with metastasis to the bone, osteopenia presents to the hospital with complaints of right knee pain after falling right patellar fracture secondary to mechanical fall pain control orthopedic following, plan for surgery tomorrow NPO after midnight hypertension continue home antihypertensives depression anxiety continue mood stabilizers history of COPD not in exacerbation continue home inhalers History of lung cancer with bony Mets Following with [facility] DVT prophylaxis: SCDs given plan for intervention attending Dr. Wynn ?Continue hospitalization for treatment of patellar fracture requiring surgical intervention Time Spent With Patient Time: Total time managing care of this patient today ____ minutes. Quality Stroke Does the patient have a stroke diagnosis?: No VTE Prior VTE?: No VTE Risk Level:: Medical - moderate - high VTE Device Contraindication: N/A - Device Ordered VTE Drug Contraindication: Treatment Not Indicated
[2022-07-02] MEDS: oxyCODONE HCl Immed Release 5 MG TABLET PO ×2 (11:07→22:58)
[2022-07-02] MEDS: Acetaminophen 325 MG TABLET 650 MG PO ×2 (11:08→20:22)
[2022-07-02] MEDS: Albuterol Sulfate (0.083%) 2.5 MG/3 ML VIAL.NEB INHALE ×2 (11:50→16:24)
--- NOTE | 2022-07-02 12:25 | MHC.CM.PN ---
IMM 07/02/22 FEMALE 72 She lives with dtr/mushroom growth media mixer assists with ADLs. She has a walker and a WC. Patient vaxxed x2. HCP on file. DP resume FLOOR INSPECTOR services. DTR/FLOOR INSPECTOR to provide transport home.
[2022-07-02] MEDS: cefTRIAXone sodium 1 GM in 0.9 % Sodium Chloride 50 ML IV (14:11)
[2022-07-02 14:26] LABS: ABG Base Excess 2.7 mmol/L; ABG HCO3 27 mmol/L (22-26); ABG pCO2 42 mmHg (32-45); ABG pH 7.41 (7.35-7.45); ABG pO2 33 mmHg (83-108)
[2022-07-02] MEDS: Ketorolac Tromethamine 30 MG/ML VIAL IVPUSH (14:33)
[2022-07-02 14:50] LABS: Ammonia 27 umol/L (13-55)
[2022-07-02 14:53] LABS: D Dimer High Sensitivity 942 NG/ML
[2022-07-02 14:54] LABS: Lactic Acid 0.9 mmol/L (0.5-2.0)
--- NOTE | 2022-07-02 14:54 | PM.EVENT ---
Event Note Date of Service: 07/02/22 Event Note: patient seen and examined discussed non op vs ORIF of patella patient has lung cancer with bony mets, on chemo awaiting clearance from medicine to determine risk for sugrery did discuss with daughter, natalio and patient formal consult note to follow Time Spent With Patient Time: Total time managing care of this patient today ____ minutes.
[2022-07-02 14:58] LABS: Alanine Aminotransferase 10 U/L (0-31); Albumin Level 3.7 g/dL (3.5-5.0); Alkaline Phosphatase 86 U/L (39-117); Aspartate Amino Transferase 16 U/L (5-31); Bilirubin Direct < 0.2 mg/dL (0.0-0.5); Bilirubin Total 0.4 mg/dL (0.0-1.0); Total Protein 6.2 g/dL (6.5-8.0)
[2022-07-02] MEDS: Azithromycin 500 MG in 0.9 % Sodium Chloride 250 ML 125 MG IV (15:03)
[2022-07-02 15:05] LABS: Troponin-I High Sensitivity 10.1 ng/L (<3.5-17.0)
[2022-07-02 15:07] LABS: Appearance Urine Clear; Color Urine Dark Yellow; Glucose Urine UA Negative (Negative); Leukocyte Esterase Urine Negative (Negative); Nitrite Urine Negative (Negative); PH 5.5 (5.0-9.0); Urine Blood Negative (Negative); Urine Ketones Negative (Negative); Urine Protein Negative (Neg-Trace)
[2022-07-02 15:11] LABS: Bacteria Urine None Seen (None Seen); Hyaline Casts Urine 0-2 /LPF (0-2); RBC Urine 0-2 /HPF (0-2); Squamous Epithelial Cell Urine 0-2 /HPF (0-2); WBC Urine 0-5 /HPF (0-5)
--- NOTE | 2022-07-02 18:39 | PC.NURSE ---
This RN went to assess patient pain at 11am, patient complaint of pain, medicated with tylenol and oxycodone. pt noted to have wheezing throughout, pt had order for prn duonebs, Lina Reis PERSONAL CHEF made aware and order changed to scheduled duonebs. Reassessment of patient at 1300, pt was very sleepy, O2 sat on room air in the 80s pt placed on 2L NC and resolved to 100%, pt taken off O2 and sating 100% RA. Pt noted to be warm to touch, clammy, and sweaty. Oral temp was 101, Lina Reis made aware and at bedside. order for ABGS, D-dimer, Blood cultures, lactic acid, liver panel, troponins, U/A, johansen, cxr, VQ scan. Ceftriaxone and azithromycin added. on time dose of toradol ordered and given. pt temp came down to 100.4 and then 99.0. pt is more alert and talking. Will continue to monitor.
--- NOTE | 2022-07-02 19:30 | P.CONOP_ITS ---
History of Present Illness HPI Consult date: 07/02/22 Chief complaint: patellar fx Narrative: 72-year-old female with past medical history of COPD, hypertension, osteopenia, anxiety depression, stage Iv metastatic lung cancer to the bone, admitted to the hospital after having a fall at home while in her bedroom. She ambulates with a walker at baseline due to weakness and dizziness from the cancer medications. After the fall, she was unable to get up and was complaining of right knee pain.?She lives at home with her daughter who was able to bring her to the ED. ?She states that she has not been eating or drinking too well lately due to chemotherapy, which she gets once every three weeks. On arrival to the ED ,X-ray of the knee shows transverse fracture through the patella with joint effusion and soft tissue swelling. She was admitted for further workup and Orthopedic surgery was consulted, for further recommendations. Review of Systems Review of Systems: per [facility] Past Medical History Medical History (Updated 07/02/22 @ 19:37 by Melissa Tilley PA-C) Anxiety and depression 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 COPD (chronic obstructive pulmonary disease) GERD (gastroesophageal reflux disease) Hypertension Osteopenia (~2002) Tobacco abuse Vitamin D deficiency Family History Family History Sister Lupus Surgical History Surgical History History of lung biopsy (~2021) Social History Social History Household Members: Family Housing: Apartment Are you a primary care companion to a significant other at home: No Do you presently have visiting nurse or other home services: No (daughter BANK CREDIT CARD COLLECTION CLERK) Alcohol intake: never Patient Tobacco Use Status: Former Tobacco user Tobacco use type: Cigarette Years Smoked: 20+ Years Use of substances other than those prescribed or required for medical reasons: No Currently Displaying Signs/Symptoms of Drug Intoxication Withdrawal: No Have you been hit, kicked, punched, or otherwise hurt by someone within the past year? If so, by whom?: No Do you feel safe in your current relationship?: No Current Relationship Is there a partner from a previous relationship who is making you feel unsafe now?: No Are you made to feel afraid or neglected: No Advance Directives: No Advance Directives Information Provided: No Do you have thoughts of harming others: None Do you have a plan to hurt others: No Plan Recently lost weight without trying: No Eating poorly because of decreased appetite: No Nutrition Risks: No Nutritional Risk Patient : No : No Poor oral hygiene: No service: No Current occupational status: retired Meds Allergies Allergy/AdvReac Type Severity Reaction Status Date / Time Iodinated Contrast Media Allergy Shakiness Verified 05/30/22 13:53 [IV Contrast Dye] Codeine Phosphate Allergy Unknown Unknown Uncoded 05/30/22 13:53 Active Medications: Current Medications Acetaminophen (Acetaminophen 325 Mg Tablet) 650 mg PO Q6H PRN PRN Reason: Pain, Mild (Pain Scale 1-3) Last Admin: 07/02/22 11:08 Dose: 650 mg Albuterol Sulfate (Albuterol Sulfate (0.083%) 2.5 Mg/3 Ml Vial.Neb) 2.5 mg INHALE RQ4H WHILE AWAKE [facility] Last Admin: 07/02/22 16:24 Dose: 2.5 mg Calcium Carbonate/Cholecalciferol (Calcium + Vitamin D 250 Mg Tablet) 500 mg PO BID [facility] Last Admin: 07/02/22 08:54 Dose: 500 mg Clonazepam (Clonazepam 0.5 Mg Tablet) 0.5 mg PO TID [facility] Last Admin: 07/02/22 14:43 Dose: Not Given Cyanocobalamin (Cyanocobalamin (Vitamin B-12) 1,000 Mcg Tablet) 1,000 mcg PO DAILY [facility] Last Admin: 07/02/22 08:54 Dose: 1,000 mcg Docusate Sodium (Docusate Sodium 100 Mg Capsule) 100 mg PO DAILY PRN PRN Reason: Constipation Escitalopram Oxalate (Escitalopram Oxalate 20 Mg Tablet) 20 mg PO DAILY [facility] Last Admin: 07/02/22 08:54 Dose: 20 mg Folic Acid (Folic Acid 1 Mg Tablet) 1 mg PO DAILY [facility] Last Admin: 07/02/22 08:54 Dose: 1 mg Gabapentin (Gabapentin 400 Mg Capsule) 400 mg PO TID [facility] Last Admin: 07/02/22 14:43 Dose: Not Given Ceftriaxone Sodium 1 gm/ (Sodium Chloride) 50 mls @ 100 mls/hr IV Q24H [facility] Last Infusion: 04/04/23 15:15 Dose: Infused Azithromycin 500 mg/ Sodium (Chloride) 250 mls @ 125 mls/hr IV Q24H [facility] Last Infusion: 07/02/22 17:28 Dose: Infused Ibuprofen (Ibuprofen 600 Mg Tablet) 600 mg PO QID PRN PRN Reason: pain Lisinopril (Lisinopril 40 Mg Tablet) 40 mg PO DAILY [facility]; Protocol Last Admin: 07/02/22 08:53 Dose: 40 mg Morphine Sulfate (Morphine Sulfate 4 Mg/Ml Cartridge) 4 mg IVPUSH Q4H PRN; Protocol PRN Reason: Pain, Severe (Pain Scale 7-10) Last Admin: 07/02/22 08:24 Dose: 4 mg Multivitamins/Vitamin C (Multivitamin Tablet) 1 tab PO DAILY [facility] Last Admin: 07/02/22 08:54 Dose: 1 tab Non-Formulary Medication ([id number]-Ggrtqlbvn-Faqttros [Trelegy Ellipta]) 1 inhalation INHALE DAILY [facility] Omeprazole (Omeprazole 20 Mg Capsule.Dr) 20 mg PO DAILY@0630 [facility] Last Admin: 07/02/22 08:54 Dose: 20 mg Ondansetron HCl (Ondansetron Hcl 4 Mg/2 Ml Vial) 4 mg IVPUSH Q8H PRN PRN Reason: Nausea and Vomiting Oxycodone HCl (Oxycodone Hcl Immed Release 5 Mg Tablet) 5 mg PO Q4H PRN PRN Reason: Breakthrough Pain, Moderate Last Admin: 07/02/22 11:07 Dose: 5 mg Risperidone (Risperidone 1 Mg Tablet) 1 mg PO BEDTIME [facility] Sodium Chloride (0.9 % Sodium Chloride Flush 3 Ml Syringe) 3 ml IVFLUSH QSHIFT [facility] Last Admin: 07/02/22 15:08 Dose: 3 ml Vitamin D (Cholecalciferol (Vitamin D3) 25 Mcg Tablet) 50 mcg PO DAILY [facility] Last Admin: 07/02/22 08:54 Dose: 50 mcg Home Medications Medication Instructions Recorded Confirmed Last Taken Type B-complex with vitamin C 1 cap PO DAILY 08/24/21 07/02/22 09/04/21 History acetaminophen 500 mg capsule 500 mg PO Q8H PRN Pain 08/24/21 07/02/22 09/04/21 History albuterol sulfate 90 mcg/actuation 2 puff inhalation Q4H PRN 08/24/21 07/02/22 Unknown History aerosol inhaler (ProAir HFA) Shortness Of Breath Or Wheezing citalopram 20 mg tablet (Celexa) 40 mg PO DAILY 08/24/21 07/02/22 09/04/21 History clonazepam 0.5 mg tablet (Klonopin) 0.5 mg PO TID 08/24/21 07/02/22 09/04/21 History ibuprofen 600 mg tablet (IBU) 600 mg PO QID PRN Pain 08/24/21 07/02/22 09/03/21 History omeprazole 20 mg capsule,delayed 20 mg PO DAILY 08/24/21 07/02/22 09/04/21 History release risperidone 1 mg tablet (Risperdal) 1 mg PO BEDTIME 08/24/21 07/02/22 09/04/21 History albuterol sulfate 0.63 mg/3 mL 0.63 mg inhalation Q6H PRN wheezing 05/30/22 07/02/22 Unknown History solution for nebulization lisinopril 40 mg tablet 40 mg PO DAILY 05/30/22 07/02/22 Unknown History amlodipine 10 mg tablet 10 mg PO QAM 07/02/22 07/02/22 Unknown History atorvastatin 40 mg tablet 40 mg PO QAM 07/02/22 07/02/22 Unknown History risperidone 1 mg tablet 0.5 mg PO DAILY 07/02/22 07/02/22 Unknown History Physical Exam Vital Signs: Vital Signs: Last Vital Signs Temp 99.1 F 07/02/22 19:26 Pulse 68 07/02/22 19:26 Resp 16 07/02/22 19:26 BP 119/81 07/02/22 19:26 Pulse Ox 99 07/02/22 19:26 O2 Del Method Room Air 07/02/22 19:26 O2 Flow Rate 2 07/02/22 13:46 BMI result Body Mass Index 25.1 Const: General: cooperative, healthy appearing, comfortable and no acute distress Extrem: Other: Right knee immobilizer intact. Tenderness over the patella without open wounds. Calf supple non tender, NVI. Results Labs 07/02/22 05:54 07/02/22 05:54 Labs: Abnormal lab results 07/01/22 07/02/22 07/02/22 Range/Units 23:56 05:54 05:54 RBC 3.28 L 3.06 L (4.20-5.50) X10*6/uL Hgb 9.4 L 9.0 L (12.0-16.0) g/dl Hct 30.1 L 28.8 L (37.0-47.0) % RDW 17.0 H 17.2 H (11.0-16.0) % MPV 9.0 L (9.4-12.3) fL Neut % (Auto) 73.2 H (45-73) % Lymph % (Auto) 14.4 L 14.2 L (20-40) % [place] % (Auto) 12.8 H (2-11) % Lymph # (Auto) 1.0 L (1.2-4.9) X10*3/uL ABG pO2 at Pt Temp (83-108) mmHg ABG HCO3 (22-26) mmol/L Anion Gap 11 L (12-20) Total Protein (6.5-8.0) g/dL 07/02/22 07/02/22 Range/Units 14:16 14:30 RBC (4.20-5.50) X10*6/uL Hgb (12.0-16.0) g/dl Hct (37.0-47.0) % RDW (11.0-16.0) % MPV (9.4-12.3) fL Neut % (Auto) (45-73) % Lymph % (Auto) (20-40) % [place] % (Auto) (2-11) % Lymph # (Auto) (1.2-4.9) X10*3/uL ABG pO2 at Pt Temp 33 L* (83-108) mmHg ABG HCO3 27 H (22-26) mmol/L Anion Gap (12-20) Total Protein 6.2 L (6.5-8.0) g/dL H & H 07/01/22 07/02/22 Range/Units 23:56 05:54 Hgb 9.4 L 9.0 L (12.0-16.0) g/dl Hct 30.1 L 28.8 L (37.0-47.0) % All other labs normal. Assessment and Plan (1) Patellar fracture: Qualifiers: Encounter type: initial encounter Fracture alignment: nondisplaced Fracture morphology: unspecified fracture morphology Fracture type: closed Lat erality: right Qualified Code(s): S82.001A - Unspecified fracture of right patella, initial encounter for closed fracture Status: Acute Plan I discussed the case with with Dr Clay and explained the extent of the injury to the patient and her daughter Yuni at bedside. I explained in great detail options available which include surgical intervention vs non surgical intervent ion. The patient did verbalize hesitation with proceeding with surgery because of her current state of health. I explained the risk of treating without surgery include, but are not limited to non union, malunion, stiffness of the knee joint since she will be immobilization in extension for at least 6 weeks. If she opts to proceed with surgery, I explained the procedure in detail along with the [facility] hospital of recovery and rehab course. I explained the risk, benefits and alternatives. Risk including, but not limited to infection, blood clots/PE, bleeding, non union or malunion and nerve/tissue damage to surrounding areas, intraop or post op complications with anesthesia. I answered all their questions and at this time we are going to obtain medical clearance, T&S, and she will remain NPO after midnight in preparation for ORIF of the right patella. Time Spent With Patient Time: Total time managing care of this patient today ____ minutes. Procedures Date of Service Date of Service: 07/02/22
[2022-07-03] VITALS (9 sets, daily range): BP systolic 110–156; BP diastolic 54–78; PULSE 62–91; RESP 17–20; TEMP 36.1–37.1; O2SAT 89–100
[2022-07-03] MEDS: Acetaminophen 325 MG TABLET 650 MG PO (05:43)
[2022-07-03] MEDS: Omeprazole 20 MG CAPSULE.DR PO (05:43)
[2022-07-03] MEDS: ceFAZolin Sodium/Dextrose,Iso 2 GM/50 ML PIGGYBACK IV (06:25)
[2022-07-03] MEDS: Albuterol Sulfate (0.083%) 2.5 MG/3 ML VIAL.NEB INHALE ×4 (07:41→20:07)
[2022-07-03] MEDS: 0.9 % Sodium Chloride Flush 3 ML SYRINGE IVFLUSH ×2 (08:54→16:49)
[2022-07-03 09:05] LABS: ABG Refer to POC result
[2022-07-03] MEDS: Calcium + Vitamin D 250 MG TABLET 500 MG PO ×2 (10:22→20:09)
[2022-07-03] MEDS: clonazePAM 0.5 MG TABLET PO ×2 (10:22→20:09)
[2022-07-03] MEDS: Gabapentin 400 MG CAPSULE PO ×3 (10:22→20:10)
[2022-07-03] MEDS: Multivitamin TABLET 1 TAB PO (10:22)
[2022-07-03] MEDS: Cyanocobalamin (Vitamin B-12) 1,000 MCG TABLET 1000 MCG PO (10:23)
[2022-07-03] MEDS: Folic Acid 1 MG TABLET PO (10:23)
[2022-07-03] MEDS: Escitalopram Oxalate 20 MG TABLET PO (10:23)
[2022-07-03] MEDS: Cholecalciferol (Vitamin D3) 25 MCG TABLET 50 MCG PO (10:23)
[2022-07-03] MEDS: lisinopriL 40 MG TABLET PO (10:23)
[2022-07-03] MEDS: Ibuprofen 600 MG TABLET PO ×2 (10:48→17:06)
[2022-07-03] MEDS: oxyCODONE HCl Immed Release 5 MG TABLET PO ×2 (10:48→14:34)
--- NOTE | 2022-07-03 10:48 | HO.PM.IMPN ---
Subjective Subjective Date of Service: 07/03/22 Interval History: No acute complaints, good pain control, patient declined right knee surgery wishes to proceed with nonsurgical treatment, offers no acute complaints of pain, no fevers, no chills no shortness of breath, no cough, no lightheadedness, no dizziness, at baseline ambulates with walker does not use home oxygen. Review of Systems Review of Systems: Yes all other systems are reviewed and are negative Physical Exam Vital Signs: Vital Signs: Last Vital Signs Temp 98.2 F 07/03/22 07:36 Pulse 79 07/03/22 07:42 Resp 18 07/03/22 07:42 BP 138/64 07/03/22 07:36 Pulse Ox 97 07/03/22 07:36 O2 Del Method Nasal Cannula 07/03/22 07:36 O2 Flow Rate 2.0 07/03/22 07:36 BMI result Body Mass Index 25.1 Const: Other: General awake alert, in no acute distress. Neck supple no JVD. CVS regular rate rhythm, Respiratory lungs clear to auscultation, no respiratory distress, no wheeze, no rhonchi. Gastrointestinal abdomen soft, nontender, bowel sounds audible, Extremities right knee immobilizer in place Neuro nonfocal Skin no rash Psych appropriate Objective Data Active Medications Acetaminophen (Acetaminophen 325 Mg Tablet) 650 mg PO Q6H PRN PRN Reason: Pain, Mild (Pain Scale 1-3) Last Admin: 07/03/22 05:43 Dose: 650 mg Documented By: REINIERORALTriston Albuterol Sulfate (Albuterol Sulfate (0.083%) 2.5 Mg/3 Ml Vial.Neb) 2.5 mg INHALE RQ4H WHILE AWAKE [facility] Last Admin: 07/03/22 07:41 Dose: 2.5 mg Documented By: CUONG Calcium Carbonate/Cholecalciferol (Calcium + Vitamin D 250 Mg Tablet) 500 mg PO BID [facility] Last Admin: 07/03/22 10:22 Dose: 500 mg Documented By: SUSY Clonazepam (Clonazepam 0.5 Mg Tablet) 0.5 mg PO TID [facility] Last Admin: 07/03/22 10:22 Dose: 0.5 mg Documented By: SUSY Cyanocobalamin (Cyanocobalamin (Vitamin B-12) 1,000 Mcg Tablet) 1,000 mcg PO DAILY [facility] Last Admin: 07/03/22 10:23 Dose: 1,000 mcg Documented By: SUSY Docusate Sodium (Docusate Sodium 100 Mg Capsule) 100 mg PO DAILY PRN PRN Reason: Constipation Escitalopram Oxalate (Escitalopram Oxalate 20 Mg Tablet) 20 mg PO DAILY [facility] Last Admin: 07/03/22 10:23 Dose: 20 mg Documented By: SUSY Folic Acid (Folic Acid 1 Mg Tablet) 1 mg PO DAILY [facility] Last Admin: 07/03/22 10:23 Dose: 1 mg Documented By: SUSY Gabapentin (Gabapentin 400 Mg Capsule) 400 mg PO TID [facility] Last Admin: 07/03/22 10:22 Dose: 400 mg Documented By: SUSY Ceftriaxone Sodium 1 gm/ (Sodium Chloride) 50 mls @ 100 mls/hr IV Q24H [facility] Last Infusion: 07/02/22 15:15 Dose: 0 mls/hr Documented By: COTEMA Azithromycin 500 mg/ Sodium (Chloride) 250 mls @ 125 mls/hr IV Q24H [facility] Last Infusion: 07/02/22 17:28 Dose: 0 mls/hr Documented By: COTBART Ibuprofen (Ibuprofen 600 Mg Tablet) 600 mg PO QID PRN PRN Reason: pain Lisinopril (Lisinopril 40 Mg Tablet) 40 mg PO DAILY [facility]; Protocol Last Admin: 07/03/22 10:23 Dose: 40 mg Documented By: SUSY Morphine Sulfate (Morphine Sulfate 4 Mg/Ml Cartridge) 4 mg IVPUSH Q4H PRN; Protocol PRN Reason: Pain, Severe (Pain Scale 7-10) Last Admin: 07/02/22 08:24 Dose: 4 mg Documented By: DANIELA Multivitamins/Vitamin C (Multivitamin Tablet) 1 tab PO DAILY [facility] Last Admin: 07/03/22 10:22 Dose: 1 tab Documented By: SUSY Non-Formulary Medication ([id number]-Quclymutc-Qgtgifev [Trelegy Ellipta]) 1 inhalation INHALE DAILY [facility] Omeprazole (Omeprazole 20 Mg Capsule.) 20 mg PO DAILY@0630 [facility] Last Admin: 07/03/22 05:43 Dose: 20 mg Documented By: REINIERORALTriston Ondansetron HCl (Ondansetron Hcl 4 Mg/2 Ml Vial) 4 mg IVPUSH Q8H PRN PRN Reason: Nausea and Vomiting Oxycodone HCl (Oxycodone Hcl Immed Release 5 Mg Tablet) 5 mg PO Q4H PRN PRN Reason: Breakthrough Pain, Moderate Last Admin: 07/02/22 22:58 Dose: 5 mg Documented By: RADHA Risperidone (Risperidone 1 Mg Tablet) 1 mg PO BEDTIME [facility] Last Admin: 07/02/22 20:23 Dose: Not Given Documented By: RADHA Non-Admin Reason: Patient Refused Sodium Chloride (0.9 % Sodium Chloride Flush 3 Ml Syringe) 3 ml IVFLUSH QSHIFT [facility] Last Admin: 07/03/22 08:54 Dose: 3 ml Documented By: SUSY Vitamin D (Cholecalciferol (Vitamin D3) 25 Mcg Tablet) 50 mcg PO DAILY [facility] Last Admin: 07/03/22 10:23 Dose: 50 mcg Documented By: SUSY Labs 07/02/22 05:54 07/02/22 05:54 Labs: Laboratory Results - last 24 hr 07/02/22 07/02/22 07/02/22 14:16 14:30 14:30 D-Dimer High Sensitivty 942 O2 Saturation 56.0 ABG pH at Pt Temp 7.41 ABG pCO2 at Pt Temp 42 ABG pO2 at Pt Temp 33 L* ABG HCO3 27 H ABG Base Excess (Actual) 2.7 Lactic Acid Total Bilirubin 0.4 Direct Bilirubin < 0.2 AST 16 ALT 10 Alkaline Phosphatase 86 Ammonia Troponin I High Sens Total Protein 6.2 L Albumin 3.7 Urine Color Urine Appearance Urine pH Ur Specific [place] Urine Protein Urine Glucose (UA) Urine Ketones Urine Blood Urine Nitrite Ur Leukocyte Esterase Urine RBC Urine WBC Ur Squamous Epith Cells Urine Bacteria Hyaline Casts Blood Type Antibody Screen 07/02/22 07/02/22 07/02/22 14:30 14:30 14:34 D-Dimer High Sensitivty O2 Saturation ABG pH at Pt Temp ABG pCO2 at Pt Temp ABG pO2 at Pt Temp ABG HCO3 ABG Base Excess (Actual) Lactic Acid 0.9 Total Bilirubin Direct Bilirubin AST ALT Alkaline Phosphatase Ammonia 27 Troponin I High Sens 10.1 D Total Protein Albumin Urine Color Urine Appearance Urine pH Ur Specific [place] Urine Protein Urine Glucose (UA) Urine Ketones Urine Blood Urine Nitrite Ur Leukocyte Esterase Urine RBC Urine WBC Ur Squamous Epith Cells Urine Bacteria Hyaline Casts Blood Type Antibody Screen 07/02/22 07/02/22 14:55 20:05 D-Dimer High Sensitivty O2 Saturation ABG pH at Pt Temp ABG pCO2 at Pt Temp ABG pO2 at Pt Temp ABG HCO3 ABG Base Excess (Actual) Lactic Acid Total Bilirubin Direct Bilirubin AST ALT Alkaline Phosphatase Ammonia Troponin I High Sens Total Protein Albumin Urine Color Dark Yellow Urine Appearance Clear Urine pH 5.5 Ur Specific [place] 1.020 Urine Protein Negative Urine Glucose (UA) Negative Urine Ketones Negative Urine Blood Negative Urine Nitrite Negative Ur Leukocyte Esterase Negative Urine RBC 0-2 Urine WBC 0-5 Ur Squamous Epith Cells 0-2 Urine Bacteria None Seen Hyaline Casts 0-2 Blood Type A Positive Antibody Screen NEGATIVE Assessment and Plan (1) Patellar fracture: Status: Acute Plan 72-year-old female past medical history of lung cancer with metastasis to the bone, osteopenia presents to the hospital with complaints of right knee pain after falling right patellar fracture secondary to mechanical fall Good pain control, Patient declined orthopedic surgery, will request Ortho to place physical therapy orders and recommendations. 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 DVT prophylaxis: SCDs given plan for intervention ?Continue hospitalization for treatment of acute patellar fracture . Time Spent With Patient Time: Total time managing care of this patient today ____ minutes. Quality Stroke Does the patient have a stroke diagnosis?: No VTE Prior VTE?: No VTE Risk Level:: Medical - moderate - high VTE Device Contraindication: N/A - Device Ordered VTE Drug Contraindication: Treatment Not Indicated
--- NOTE | 2022-07-03 13:41 | MHC.CM.PN ---
Per MD rounds no discharge today. Patient has declined surgical intervention for Patela FX. DP home with resumption of [employer] services. Patients dtr will provide transportation home.
[2022-07-03] MEDS: Azithromycin 250 MG TABLET PO (14:34)
[2022-07-03] MEDS: Morphine Sulfate 4 MG/ML CARTRIDGE IVPUSH (19:33)
[2022-07-03] MEDS: risperiDONE 1 MG TABLET PO (20:09)
[2022-07-04] MEDS: 0.9 % Sodium Chloride Flush 3 ML SYRINGE IVFLUSH ×2 (00:22→10:08)
--- NOTE | 2022-07-04 02:11 | PC.NURSE ---
Pt resting in bed with no s/sx distress, denied pain, lung kaye dim, 96% room air. Immobilizer in extension at all times to right leg, noted ttwb only, no ambulation at this hs hour, sequential stocking at left leg, good cms. tele monitor with sr, johansen catheter draining yellow urine, vss, bed alrm in use, call radha w/i reach.
[2022-07-04 03:29] VITALS: BP 120/62; PULSE 65; RESP 17; TEMP 36.1; O2SAT 98
[2022-07-04] MEDS: Omeprazole 20 MG CAPSULE.DR PO (06:15)
[2022-07-04] MEDS: Morphine Sulfate 4 MG/ML CARTRIDGE IVPUSH (06:18)
[2022-07-04 07:53] VITALS: BP 126/60; PULSE 77; RESP 18; TEMP 36.7; O2SAT 90
[2022-07-04 08:24] VITALS: PULSE 70; RESP 17; O2SAT 90
[2022-07-04] MEDS: Albuterol Sulfate (0.083%) 2.5 MG/3 ML VIAL.NEB INHALE ×2 (08:24→15:39)
[2022-07-04] MEDS: Calcium + Vitamin D 250 MG TABLET 500 MG PO (09:56)
[2022-07-04] MEDS: Cholecalciferol (Vitamin D3) 25 MCG TABLET 50 MCG PO (09:57)
[2022-07-04] MEDS: clonazePAM 0.5 MG TABLET PO ×2 (09:58→15:49)
[2022-07-04] MEDS: Cyanocobalamin (Vitamin B-12) 1,000 MCG TABLET 1000 MCG PO (10:00)
[2022-07-04] MEDS: Escitalopram Oxalate 20 MG TABLET PO (10:00)
[2022-07-04] MEDS: Gabapentin 400 MG CAPSULE PO ×2 (10:01→15:49)
[2022-07-04] MEDS: Folic Acid 1 MG TABLET PO (10:01)
[2022-07-04] MEDS: lisinopriL 40 MG TABLET PO (10:02)
[2022-07-04] MEDS: Multivitamin TABLET 1 TAB PO (10:03)
--- NOTE | 2022-07-04 10:39 | MHC.CM.PN ---
Addendum entered by Mahsa Hernandez 07/04/22 16:11: PT AND DAUGHTER HAVE ACCEPTED A BED OFFER FROM [facility]. PCR RESULTS SENT PT WILL BE TRANSPORTED AT 1600 HOURS VIA [facility] PTS DAUGHTER AWARE AND IN AGREEMENT Original Note: CM MET WITH PT AND DAUGHTER TO DISCUSS DC PLANNING PT LIVES WITH HER DAUGHTER AND SON IN LAW PTS DAUGHTER WORKS DAYS AND HER WORKS NIGHTS PTS DAUGHTER REPORTS SHE HOPES TO HAVE THE PT HOME SOON AND FEELS SHE AND HER TOGETHER WILL BE ABLE TO MANAGE, HOWEVER SHE WOULD LIKE PT TO GET STR IF SHE CAN GO TO A GOOD SNF FOR A VERY SHORT TIME SHE AGREES TO HAVE CM MAKE REFERRALS SO THAT THE BED OFFERS CAN THEN BE REVIEWED WITH HER ONCE BED OFFERS ARE KNOWN, SHE WILL DECIDE ON HOME VS STR REFERRALS MADE TO [facility], [facility], [facility], AND [facility] PT ALSO NOTED SHE WOULD PREFER TO BE NEAR [place] SO THAT HER DAUGHTER DOES NOT HAVE TO DRIVE TOO FAR
[2022-07-04] MEDS: oxyCODONE HCl ER 10 MG TAB.ER.12H PO (11:05)
--- NOTE | 2022-07-04 13:26 | PM.DS ---
DS: Providers Provider Date of Service: 07/04/22 Date of admission: 07/01/22 23:45 Primary care physician: Laurence Granados NP Consults: 07/01/22 23:44 Consult to Orthopedics Routine Consulting Provider: [facility] [place] [facility] Sur[facility] Reason for consultation: petallar fracture Has provider been notified: Yes DS: Diagnosis Discharge Diagnosis (1) Patellar fracture: Status: Acute DS: Summary Hospital Course Hospital Course: Date of Service: 07/01/22 Chief Complaint:? knee pain ?this is a 72-year-old female with past medical history of COPD, hypertension, osteopenia, anxiety depression, metastatic lung cancer to the bone, who presents to the hospital after having a fall complaining of right knee pain. ?patient states that she was folding her sheets in her bedroom, she was standing, drinking her Ensure, when all of a sudden felt dizzy, fell to the floor, hit her knee subsequently developing significant pain in the right knee.? Calling her daughter to bring her to the hospital.? Patient denies losing any consciousness, no chest pain, no palpitations,? does not remember hitting her head.? She states that she has not been eating or drinking too well lately due to chemotherapy, denies having any diarrhea, currently has no dizziness.? Denies any chest pain, no shortness of breath, no abdominal pain nausea or vomiting, no diarrhea constipation, no urinary symptoms and no lower extremity edema.? On arrival to the ED patient hemodynamically stable with no significant abnormal vitals Labs are significant for? WBC count of 8.3,? hemoglobin of 9.4, hematocrit 30.1 all within her baseline, No other significant abnormality X-ray of the knee shows transverse fracture through the patella with joint effusion and soft tissue swelling Orthopedic surgery was consulted, plan for surgical repair. Hospital course: 72-year-old female past medical history of lung cancer with metastasis to the bone, osteopenia presents to the hospital with complaints of right knee pain after falling and diagnosed to have right patellar fracture Patient declined orthopedic surgery, Ortho recommend toe-touch weight-bearing right leg and knee brace with no knee bending , patient evaluated by Physical therapy and is being discharged to rehab facility, for pain control continue OxyContin 10 mg b.i.d., Tylenol scheduled and as needed oxycodone continue stool softeners. Acute hypoxic respiratory failure resolved patient not on home oxygen, monitor oxygen hypertension Stable blood pressure continue lisinopril 40 mg, amlodipine discontinued due to soft blood pressure on admission. depression anxiety continue mood stabilizers history of COPD not in exacerbation, continue home inhalers. ? History of lung cancer with bony Mets Continue outpatient follow-up with Oncology , chronic right base airspace disease and effusion, patient asymptomatic, no antibiotics warranted. Time Spent with Patient Time attestation: Total time managing care of this patient today ____ minutes. Discharge coordination time: Greater than 30 minutes Quality: Safe Use of Opioids Does Pt have an Active Cancer Diagnosis on the Problem List?: No Quality: Stroke Does the patient have a stroke diagnosis?: No Physical Exam Vital Signs: Vital Signs: Last Vital Signs Temp 98.0 F 07/04/22 07:53 Pulse 70 07/04/22 08:24 Resp 17 07/04/22 08:24 BP 126/60 07/04/22 07:53 Pulse Ox 90 L 07/04/22 07:53 O2 Del Method Room Air 07/04/22 07:53 O2 Flow Rate 1 07/03/22 15:12 BMI result Body Mass Index 25.1 Const: Other: General awake alert, in no acute distress.? Neck? supple no JVD. CVS? regular rate rhythm, Respiratory lungs clear to auscultation, no respiratory distress, no wheeze, no rhonchi. Gastrointestinal abdomen soft, nontender, bowel sounds audible, Extremities right knee immobilizer in place Neuro nonfocal Skin no rash Psych appropriate DS: Data Data Completed and Pending Labs on day of discharge: Preliminary micro results at discharge 07/02/22 14:30 Blood Culture - Preliminary Blood - Venous No growth after 24 hours. 07/02/22 06:26 Blood Culture - Preliminary Blood - Venous No growth after 24 hours. Discharge Plan Discharge Anticipated Discharge Date/Time: 07/04/22 13:15 Patient Disposition: Xfer SNF Discharge Diagnosis: Acute right patella fracture Referrals: Laurence Granados NP [Primary Care Provider] - 1 Week Discharge Medications: New oxycodone [OxyContin] 10 mg tablet,oral only,ext.rel.12 hr 10 mg PO BID MDD Hold for sedation Qty: 30 0RF Rx Instructions: Partial Fill upon patient request. docusate sodium 100 mg Capsule 200 mg PO DAILY Qty: 30 0RF polyethylene glycol 3350 17 gram Powder In Packet 17 g PO DAILY Qty: 30 0RF Continued cholecalciferol (vitamin D3) [Vitamin D3] 50 mcg (2,000 unit) Tablet 50 mcg PO DAILY Qty: 90 4RF Calcium 600 + Minerals 600 mg calcium- 200 unit Tablet 1 tab PO BID Qty: 60 3RF gabapentin 400 mg Capsule 400 mg PO TID Qty: 90 4RF azithromycin 250 mg tablet 250 mg PO 3XW 28 Days Qty: 12 1RF Rx Instructions: Take 1 tablet on Friday/Friday/Friday ondansetron 8 mg Tablet,Disintegrating 8 mg PO Q8H Qty: 60 4RF cyanocobalamin (vitamin B-12) [Vitamin B-12] 1,000 mcg Tablet 1,000 mcg PO DAILY Qty: 60 0RF folic acid 1 mg Tablet 1 mg PO DAILY Qty: 90 3RF oxycodone 5 mg Tablet 5 mg PO Q6H PRN (Reason: Breakthrough Pain, Moderate) Qty: 60 0RF Rx Instructions: Partial Fill upon patient request. atorvastatin 40 mg tablet 40 mg PO QAM risperidone 1 mg tablet 0.5 mg PO DAILY albuterol sulfate 0.63 mg/3 mL solution for nebulization 0.63 mg inhalation Q6H PRN (Reason: wheezing) lisinopril 40 mg tablet 40 mg PO DAILY Trelegy Ellipta 100-62.5-25 mcg blister with device 1 inh inhalation DAILY 30 Days Qty: 60 11RF ibuprofen [IBU] 600 mg tablet 600 mg PO QID PRN (Reason: Pain) albuterol sulfate [ProAir HFA] 90 mcg/actuation HFA aerosol inhaler 2 puff inhalation Q4H PRN (Reason: Shortness Of Breath Or Wheezing) omeprazole 20 mg capsule,delayed release(DR/EC) 20 mg PO DAILY clonazepam [Klonopin] 0.5 mg tablet 0.5 mg PO TID risperidone [Risperdal] 1 mg tablet 1 mg PO BEDTIME citalopram [Celexa] 20 mg tablet 40 mg PO DAILY B-complex with vitamin C Capsule 1 cap PO DAILY Changed acetaminophen 500 mg capsule 500 mg PO TID Qty: 30 0RF Discontinued amlodipine 10 mg tablet 10 mg PO QAM Discharge Orders: Discharge Order (Routine); Ordered 07/04/22 Ordered By: Nayyer Ghias Diet: Advance to usual diet Activity on Discharge: As tolerated Stand Alone Forms: Patient Portal Discharge page, Work/School Release Care Plan Goals: Right patella fracture patient chose non operative treatment discharged to rehab for optimal safe functional gains, continue to have impaired functional mobility, difficulty maintaining toe-touch weight-bearing right lower extremity, continue right knee brace all time in extension no bending Pain management Health Concerns: Continue all medications as above Plan of Treatment: Outpatient follow-up with orthopedic surgeon Dr. Danny Clay call for appointment Assessment: As above
[2022-07-04] MEDS: polyethylene glycoL 3350 17 GM POWD.PACK PO (13:44)
[2022-07-04] MEDS: Lactulose 20 GM/30 ML SOLUTION 10 GM PO (13:44)
[2022-07-04 15:11] LABS: Influenza A PCR NEGATIVE (Negative); Influenza B PCR NEGATIVE (Negative); Resp Syncy Virus RNA Qual PCR NEGATIVE (Negative); SARS COV2 PCR INHOUSE NEGATIVE (Negative)
[2022-07-04 15:40] VITALS: PULSE 72; RESP 16; O2SAT 91
== END 2022-07-04 16:19 | disposition skilled nursing facility (03) | DRG 562 ==
LOC: HO.ED 23:45 → HO.EDOVER 07-02 00:32 → HO.S3 07-02 02:33
PROVIDERS: Nurse Practitioner Acute Care; Nurse Practitioner Family; Admitting Provider Internal Medicine; Emergency Provider Internal Medicine; PCP Nurse Practitioner Family; Visit Provider Hospitalist
DX: S82.031A Displaced transverse fracture of right patella, initial encounter for closed fracture (principal); J96.01 Acute respiratory failure with hypoxia; C34.31 Malignant neoplasm of lower lobe, right bronchus or lung; C79.51 Secondary malignant neoplasm of bone; W19.XXXA Unspecified fall, initial encounter; J44.9 Chronic obstructive pulmonary disease, unspecified; F41.9 Anxiety disorder, unspecified; I10 Essential (primary) hypertension; F32.A Depression, unspecified; Z20.822 Contact with and (suspected) exposure to COVID-19; Z87.891 Personal history of nicotine dependence; Z88.5 Allergy status to narcotic agent; Z91.041 Radiographic dye allergy status; Z79.51 Long term (current) use of inhaled steroids; Z79.899 Other long term (current) drug therapy
CPT/HCPCS: 0241U; 36415; 36600; 71045; 73564; 78580; 80048; 80076; 81001; 82140; 82803; 83605; 84484; 85025; 85379; 86850; 86900; 86901; 87040; 94640; 97162; 97530; 99285; A9540; C1758; J0456; J0690; J0696; J1885; J2270; J2405

== ENCOUNTER 2022-07-18 07:42 | Outpatient (REF) | payer OTHER, MEDICARE, MEDICAID, SELFPAY ==
--- NOTE | ~2022-07-18 | XR_ITS ---
EXAMINATION: XR KNEE, RIGHT CLINICAL INFORMATION: Pain COMPARISON: Knee radiographs 4 05/03/2022 TECHNIQUE: Two views of the right knee. FINDINGS: Redemonstration of an acute distracted fracture of the patella in similar alignment. Interval resolution of the previously seen joint effusion. Atherosclerotic vascular calcification. Moderate degenerative changes of the knee with loss of medial greater than lateral compartment joint space and quadriceps tendon enthesopathy. XR/XR knee RT 2V IMPRESSION: Redemonstration of an acute distracted fracture of the patella in similar alignment. Interval resolution of the previously seen joint effusion. Moderate degenerative changes of the knee.
== END 2022-07-18 07:43 | disposition home or self-care (01) ==
LOC: HO.HOSX 07:42
PROVIDERS: Visit Provider Physician Assistant
DX: S82.001A Unspecified fracture of right patella, initial encounter for closed fracture (principal); X58.XXXA Exposure to other specified factors, initial encounter; Y93.9 Activity, unspecified; Y92.9 Unspecified place or not applicable; Y99.9 Unspecified external cause status
CPT/HCPCS: 73560

== ENCOUNTER 2022-08-15 06:54 | Outpatient (REF) | payer MEDICARE, MEDICAID, SELFPAY | END 2022-08-15 06:55 | disposition home or self-care (01) | LOC: HO.HOSX 06:54 | PROVIDERS: Visit Provider Physician Assistant | DX: Z13.89 Encounter for screening for other disorder (principal) ==

== ENCOUNTER 2022-08-28 07:13 | Outpatient (REF) | payer MEDICARE, MEDICAID, SELFPAY ==
--- NOTE | ~2022-08-28 | XR_ITS ---
EXAMINATION: XR KNEE, RIGHT CLINICAL INFORMATION: Right knee pain. Fracture follow up. COMPARISON: Right knee x-rays of 07/28/2022, 07/01/2022. TECHNIQUE: Two views of the right knee. FINDINGS: Fracture lucency at the mid to lower aspect of the patella is again noted however is less prominent compared to previous x-rays and there appears to be associated internal callus formation. Enthesophyte is noted at the anterosuperior margin of the patella at the insertion of quadriceps tendon. No acute fracture is noted. No evidence of significant suprapatellar joint effusion. Vascular calcifications. [id number] narrowing of the medial knee joint space. Tiny hypertrophic spurring is noted from the lateral margin of the lateral tibial plateau. XR/XR knee RT 2V IMPRESSION: Healing right patellar fracture with persistent visualization of fracture lucency which is however less prominent compared to previous x-rays.
== END 2022-08-28 07:14 | disposition home or self-care (01) ==
LOC: HO.HOSX 07:13
PROVIDERS: Visit Provider Physician Assistant
DX: S82.001D Unspecified fracture of right patella, subsequent encounter for closed fracture with routine healing (principal)
CPT/HCPCS: 73560

== ENCOUNTER 2022-09-19 10:29 | Inpatient (IN) | payer MEDICARE, MEDICAID, SELFPAY ==
[2022-09-19] VITALS (18 sets, daily range): BP systolic 77–137; BP diastolic 25–82; PULSE 56–92; RESP 12–20; TEMP 36.6–37.4; O2SAT 76–99; BMI 25.0
--- NOTE | ~2022-09-19 | XR_ITS ---
EXAMINATION: XR CHEST CLINICAL INFORMATION: Shortness of breath COMPARISON: 07/02/2022 TECHNIQUE: Frontal view of the chest was obtained. FINDINGS: Heart size within normal limits. Since the prior study there's been a slight increase in size of a right-sided pleural effusion with an incomplete major fissure. There is continued presence of atelectasis/consolidation in the posterior basal segment of the right lower lobe. The left lung is clear aside from bilateral peribronchial thickening. Mild degenerative changes present in the shoulder joints, right greater than left. XR/XR chest 1V IMPRESSION: Slight increase in size of right-sided pleural effusion with associated right lower lobe atelectasis/consolidation.
--- NOTE | ~2022-09-19 | CT_ITS ---
EXAMINATION: CT ANGIOGRAM OF THE CHEST WITH AND WITHOUT CONTRAST (CT PULMONARY ANGIOGRAM FOR PE) CLINICAL INFORMATION: Reason for Exam SOB, lung ca COMPARISON: None available. TECHNIQUE: Prior to contrast administration, noncontrast localization images were obtained. Subsequently, multidetector volumetric imaging was performed from the thoracic inlet to below the diaphragms following the administration of 80 mL Omnipaque 350 intravenous contrast. No contrast reaction reported Sagittal, coronal, and MIP oblique sagittal reformatted images were obtained on the CT workstation, uploaded to PACS, and reviewed. This CT examination was performed using dose optimization techniques as appropriate, variously including the following: *Automated exposure control *Adjustment of mA and/or kV according to patient size (this includes techniques or standardized protocols for targeted exams where dose is matched to indication/reason for exam; i.e. extremities or head) *Use of iterative reconstruction technique Total exam dose-length product 277 mGy-cm FINDINGS: QUALITY OF STUDY/CONTRAST BOLUS: Satisfactory. PULMONARY ARTERIES: No pulmonary emboli. THORACIC AORTA: No aneurysm. LUNG: There is a moderate consolidation in the right lower lung, with air bronchograms extending to the right infrahilar region with an associated moderate right pleural effusion. PLEURA: Moderate right pleural effusion. MEDIASTINUM: Heart mildly enlarged. No pericardial effusion. Thoracic inlet unremarkable. No significant adenopathy. No evidence of septal bowing or right heart strain. CORONARY ARTERY CALCIFICATION: None visualized on this study. CHEST WALL/AXILLA: No axillary or internal mammary lymphadenopathy. OSSEOUS STRUCTURES: Spondylitic change throughout the thoracic spine. Apparent hemangioma of bone in the mid to lower thoracic spine. No fracture. UPPER ABDOMEN: Unremarkable. No reflux of contrast into the hepatic veins to suggest elevated right heart pressures. CT/CT angio chest PE protocol IMPRESSION: Right lower lobe consolidation with associated pleural effusion. No evidence for acute PE. VTE: negative
--- NOTE | 2022-09-19 10:41 | ECG_ITS ---
Test Reason : DYSPNEA Blood Pressure : / mmHG Vent. Rate : 071 BPM Atrial Rate : 071 BPM P-R Int : 126 ms QRS Dur : 080 ms QT Int : 390 ms P-R-T Axes : 058 030 051 degrees QTc Int : 423 ms Normal sinus rhythm with sinus arrhythmia Low voltage QRS Borderline ECG When compared with ECG of 19-FEB-2022 14:40, QT has shortened Referred By: Yasmine Prado Electronically Signed By:GILBERTO DOLL
--- NOTE | 2022-09-19 10:42 | ED.SOB ---
HPI - SOB/Dyspnea General Chief Complaint: Upper Respiratory Symptoms Stated Complaint: difficulty breathing, RT abdominal pain Time Seen by Provider: 09/19/22 10:33 Source: patient Mode of arrival: EMS History of Present Illness HPI Narrative: 72-year-old female with known right lower lobe lung mass, smoker, history COPD, last chemo was on Friday, presents via EMS having already taken her pain medication and found to be hypoxic in to the 70s. Patient was placed on a non-rebreather with good results. Related Data Home Medications Medication Instructions Recorded Confirmed B-complex with vitamin C 1 cap PO DAILY 08/24/21 07/02/22 acetaminophen 500 mg capsule 500 mg PO Q8H PRN Pain 08/24/21 07/02/22 albuterol sulfate 90 mcg/actuation 2 puff inhalation Q4H PRN 08/24/21 07/02/22 aerosol inhaler (ProAir HFA) Shortness Of Breath Or Wheezing citalopram 20 mg tablet (Celexa) 40 mg PO DAILY 08/24/21 07/02/22 clonazepam 0.5 mg tablet (Klonopin) 0.5 mg PO TID 08/24/21 07/02/22 ibuprofen 600 mg tablet (IBU) 600 mg PO QID PRN Pain 08/24/21 07/02/22 omeprazole 20 mg capsule,delayed 20 mg PO DAILY 08/24/21 07/02/22 release risperidone 1 mg tablet (Risperdal) 1 mg PO BEDTIME 08/24/21 07/02/22 albuterol sulfate 0.63 mg/3 mL 0.63 mg inhalation Q6H PRN wheezing 05/30/22 07/02/22 solution for nebulization lisinopril 40 mg tablet 40 mg PO DAILY 05/30/22 07/02/22 amlodipine 10 mg tablet 10 mg PO QAM 07/02/22 07/02/22 atorvastatin 40 mg tablet 40 mg PO QAM 07/02/22 07/02/22 risperidone 1 mg tablet 0.5 mg PO DAILY 07/02/22 07/02/22 Previous Rx's Medication Instructions Recorded cholecalciferol (vitamin D3) 50 50 mcg PO DAILY #90 tabs 09/18/21 mcg (2,000 unit) tablet (Vitamin D3) ondansetron 8 mg disintegrating 8 mg PO Q8H #60 tabs 10/22/21 tablet cyanocobalamin (vitamin B-12) 1,000 mcg PO DAILY #60 tabs 11/05/21 1,000 mcg tablet (Vitamin B-12) folic acid 1 mg tablet 1 mg PO DAILY #90 tabs 11/05/21 gabapentin 400 mg capsule 400 mg PO TID #90 caps 05/19/22 fluticasone fur. 100 mcg-umeclid 1 inh inhalation DAILY 30 days #60 05/30/22 62.5 mcg-vilant 25 mcg ea inhalat.powder (Trelegy Ellipta) azithromycin 250 mg tablet 250 mg PO 3XW 28 days #12 tabs 06/07/22 oxycodone 10 mg tablet,crush 10 mg PO BID Severe pain #30 tabs 07/04/22 resistant,extended release 12 hr (OxyContin) calcium carb-vit D3-minerals 600 1 tab PO BID #60 tabs 07/18/22 mg calcium-200 unit tablet (Calcium 600 + Minerals) morphine 30 mg tablet,extended 30 mg PO Q12H #60 tabs 08/22/22 release (MS Contin) oxycodone 5 mg tablet 5 mg PO Q6H PRN Breakthrough Pain, 08/22/22 Moderate #60 tabs Allergies Allergy/AdvReac Type Severity Reaction Status Date / Time codeine Allergy Unknown Verified 09/03/22 07:40 Iodinated Contrast Media Allergy Shakiness Verified 08/28/22 14:25 [IV Contrast Dye] Review of Systems Review of Systems: Pertinent positives and negatives as stated in HPI [facility] Past Medical History Source: nursing notes reviewed Medical History Anxiety and depression Bone metastases 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 COPD (chronic obstructive pulmonary disease) GERD (gastroesophageal reflux disease) Hypertension Osteopenia (~2002) Tobacco abuse Vitamin D deficiency Surgical History History of lung biopsy (~2021) Family History Family History Sister Lupus Social History Social History Household Members: Family Housing: Apartment Are you a primary long term care phlebotomist to a significant other at home: No Do you presently have visiting nurse or other home services: No (daughter AIRPORT OPERATIONS OFFICER) Alcohol intake: never Patient Tobacco Use Status: Former Tobacco user Tobacco use type: Cigarette Years Smoked: 20+ Years Advance Directives: No Advance Directives Information Provided: Yes service: No Current occupational status: retired Physical Exam Vital Signs: Vital Signs: Last Vital Signs Temp 98.9 F 09/19/22 15:41 Pulse 57 09/19/22 15:41 Resp 12 09/19/22 15:41 BP 103/34 L 09/19/22 15:41 Pulse Ox 98 09/19/22 15:41 O2 Del Method Nasal Cannula 09/19/22 15:41 O2 Flow Rate 3 09/19/22 15:41 Oxygen Flow Rate 2 09/19/22 11:38 BMI result Body Mass Index 25.0 VITAL SIGNS: Reviewed. GENERAL: Well developed, well nourished, in mild distress. HEAD: Normocephalic/atraumatic EYES: PERRLA, EOMI EARS: Ext canals without abnormality NOSE: Nares patent bilateral OROPHARYNX: no oral lesions noted, posterior pharynx clear NECK: Supple, no adenopathy LUNGS: Crackles and decreased breath sounds noted inthe RLL, no tacypnea. SpO2<99>; CARDIOVASCULAR: Regular rate and rhythm without noted murmurs, no JVD or lower extremity edema. ABDOMEN: Soft, non-tender, non-distended with bowel sounds. MUSCULOSKELETAL: No tenderness, deformities, or effusions noted on gross inspection. EXTREMITIES: No cyanosis, clubbing or edema. SKIN: Inspection of the skin reveals no rashes, ulceration NEUROLOGIC: Alert and oriented x 3. Strength and sensation to light touch were grossly intact x 4. PSYCH: tearful Medications Administered Discontinued Medications Generic Name Dose Route Start Last Admin Trade Name Freq PRN Reason Stop Dose Admin Sodium Chloride 500 mls @ 999 mls/hr 09/19/22 10:45 09/19/22 12:21 Ns IV 09/19/22 11:15 Infused .Q31M DICKSON Infusion Sodium Chloride 1,000 mls @ 999 mls/hr 09/19/22 12:15 09/19/22 14:32 Ns IV 09/19/22 13:15 Infused .Q1H1M DICKSON Infusion Iohexol 100 ml 09/19/22 14:15 09/19/22 14:15 Iohexol 350 Mg/Ml 100 Ml Infus..Btl IV 09/19/22 14:16 65 ml ONCE ONE Administration Naloxone HCl 4 mg 09/19/22 11:12 09/19/22 11:34 Naloxone Hcl Nasal 4 Mg [facility] NOSTRILALT 09/19/22 11:13 Not Given ONCE ONE Medical Decision Making Medical Decision Making MDM Narrative: 72-year-old female with history and clinical presentation consistent with metastatic right lower lobe lung disease, last chemo was on Friday, patient has taken her pain medication, patient has explicitly stated that she does not want to have CPR or insertion of tube for breathing. Both respiratory therapy and nursing staff were present at the time of this expression of her wishes. Will medically evaluate but do not suspect that this is secondary to any chronic lung disease. 1121: Collateral information obtained from the daughter who provides further information regarding pain medication consumption and states that patient's last morphine was at midnight and then she did receive her prescribed oxycodone this morning at approximately 06:00. I had some concerns about possible over medication. I reviewed all investigations and my interpretation is this patient came in hypoxic and hypotensive due to a combination of dehydration/continued use of hypertensive medications/as well as prescribed pain medication for underlying malignancy. There is no evidence to suggest acute infection, patient is afebrile, she is continue to oxygenating well. I have signed the patient out to [facility]ilera with the plan to discharge the patient when her blood pressure maintains consecutive maps greater than 60. Differential Diagnosis Please see the discussion above Lab Data Please see the discussion above 09/19/22 11:02 09/19/22 11:02 Labs: Lab Results 09/19/22 09/19/22 09/19/22 Range/Units 11:02 11:02 11:02 WBC 9.8 (4.8-10.8) X10*3/uL RBC 3.94 L (4.20-5.50) X10*6/uL Hgb 10.3 L (12.0-16.0) g/dl Hct 34.0 L (37.0-47.0) % MCV 86.3 (80.0-98.0) fL MCH 26.1 L (27.0-33.0) pg MCHC 30.3 L (31.0-35.0) g/dl RDW 15.7 (11.0-16.0) % Plt Count 284 (160-400) X10*3/uL MPV 9.2 L (9.4-12.3) fL Immature Gran % (Auto) 0.4 (0.0-0.4) % Neut % (Auto) 79.7 H (45-73) % Lymph % (Auto) 10.7 L (20-40) % [place] % (Auto) 7.7 (2-11) % Eos % (Auto) 1.3 (0-4) % Baso % (Auto) 0.2 (0-2) % Lymph # (Auto) 1.0 L (1.2-4.9) X10*3/uL [place] # (Auto) 0.8 (0.1-1.2) X10*3/uL Eos # (Auto) 0.1 (0.0-0.4) X10*3/uL Baso # (Auto) 0.0 (0.0-0.2) X10*3/uL Abs Immat Gran (auto) 0.04 H (0.00-0.03) X10*3/uL Absolute Neuts (auto) 7.8 (2.0-8.3) x10*3/uL Absolute Nucleated RBC 0.000 (0.0-0.012) X10*3/uL Nucleated RBC % (auto) 0.0 (0.0-0.2) /100WBC VBG pH (7.32-7.43) VBG pCO2 mmHg VBG pO2 mmHg VBG HCO3 (22-26) mmol/L VBG O2 Saturation % VBG Base Excess mmol/L Sodium 139 (135-145) mmol/L Potassium 4.4 (3.3-5.1) mmol/L Chloride 101 (96-108) mmol/L Carbon Dioxide 31 H (22-29) mmol/L Anion Gap 11 L (12-20) BUN 17 H (9-16) mg/dL Creatinine 1.05 (0.5-1.4) mg/dL Estim Creat Clear Calc 43.6 Estimated GFR 52 Random Glucose 147 H (60-115) mg/dL Calcium 10.5 H D (8.4-10.2) mg/dL Total Bilirubin 0.8 (0.0-1.0) mg/dL AST 16 (5-31) U/L ALT 11 (0-31) U/L Alkaline Phosphatase 64 (39-117) U/L Troponin I High Sens 3.2 D (<3.5-17.0) ng/L Total Protein 6.1 L (6.5-8.0) g/dL Albumin 3.2 L (3.5-5.0) g/dL Urine Color Urine Appearance Urine pH (5.0-9.0) Ur Specific [place] (1.005-1.025) Urine Protein (Neg-Trace) mg/dL Urine Glucose (UA) (Negative) mg/dL Urine Ketones (Negative) mg/dL Urine Blood (Negative) Urine Nitrite (Negative) Ur Leukocyte Esterase (Negative) 09/19/22 09/19/22 Range/Units 11:04 14:52 WBC (4.8-10.8) X10*3/uL RBC (4.20-5.50) X10*6/uL Hgb (12.0-16.0) g/dl Hct (37.0-47.0) % MCV (80.0-98.0) fL MCH (27.0-33.0) pg MCHC (31.0-35.0) g/dl RDW (11.0-16.0) % Plt Count (160-400) X10*3/uL MPV (9.4-12.3) fL Immature Gran % (Auto) (0.0-0.4) % Neut % (Auto) (45-73) % Lymph % (Auto) (20-40) % [place] % (Auto) (2-11) % Eos % (Auto) (0-4) % Baso % (Auto) (0-2) % Lymph # (Auto) (1.2-4.9) X10*3/uL [place] # (Auto) (0.1-1.2) X10*3/uL Eos # (Auto) (0.0-0.4) X10*3/uL Baso # (Auto) (0.0-0.2) X10*3/uL Abs Immat Gran (auto) (0.00-0.03) X10*3/uL Absolute Neuts (auto) (2.0-8.3) x10*3/uL Absolute Nucleated RBC (0.0-0.012) X10*3/uL Nucleated RBC % (auto) (0.0-0.2) /100WBC VBG pH 7.39 (7.32-7.43) VBG pCO2 57 mmHg VBG pO2 111 mmHg VBG HCO3 34 H (22-26) mmol/L VBG O2 Saturation 99.0 % VBG Base Excess 8.1 mmol/L Sodium (135-145) mmol/L Potassium (3.3-5.1) mmol/L Chloride (96-108) mmol/L Carbon Dioxide (22-29) mmol/L Anion Gap (12-20) BUN (9-16) mg/dL Creatinine (0.5-1.4) mg/dL Estim Creat Clear Calc Estimated GFR Random Glucose (60-115) mg/dL Calcium (8.4-10.2) mg/dL Total Bilirubin (0.0-1.0) mg/dL AST (5-31) U/L ALT (0-31) U/L Alkaline Phosphatase (39-117) U/L Troponin I High Sens (<3.5-17.0) ng/L Total Protein (6.5-8.0) g/dL Albumin (3.5-5.0) g/dL Urine Color Yellow Urine Appearance Clear Urine pH 5.5 (5.0-9.0) Ur Specific [place] 1.025 (1.005-1.025) Urine Protein Negative (Neg-Trace) mg/dL Urine Glucose (UA) Negative (Negative) mg/dL Urine Ketones Negative (Negative) mg/dL Urine Blood Negative (Negative) Urine Nitrite Negative (Negative) Ur Leukocyte Esterase Negative (Negative) Independent Interpretation I performed an independent interpretation of an: EKG Interpretation: Normal sinus rhythm, HR-71, no STEMI, NE/QRS/QTC is within normal limits. Radiology Impression Radiologist Impression: My interpretation is in agreement with radiology's impression. External Record Review External record reviewed: Outpatient record and Prior outpatient labs Discharge Plan Discharge Clinical Impression: Hypoxia, Hypotension, Dehydration Patient Disposition: Still a Patient Instructions: Dehydration (ED), Hypotension (ED), Hypoxia (ED) Additional Instructions: 1. Resume all medications as prescribed except: Amlodipine, lisinopril 2. Follow-up with your primary care provider as well as your oncologist in the next 1-2 days. Return to the ER for any worsening symptoms. Prescriptions: No Action cholecalciferol (vitamin D3) [Vitamin D3] 50 mcg (2,000 unit) Tablet 50 mcg PO DAILY Qty: 90 4RF gabapentin 400 mg Capsule 400 mg PO TID Qty: 90 4RF azithromycin 250 mg tablet 250 mg PO 3XW 28 Days Qty: 12 1RF Rx Instructions: Take 1 tablet on Friday/Friday/Friday Calcium 600 + Minerals 600 mg calcium- 200 unit Tablet 1 tab PO BID Qty: 60 3RF ondansetron 8 mg Tablet,Disintegrating 8 mg PO Q8H Qty: 60 4RF cyanocobalamin (vitamin B-12) [Vitamin B-12] 1,000 mcg Tablet 1,000 mcg PO DAILY Qty: 60 0RF folic acid 1 mg Tablet 1 mg PO DAILY Qty: 90 3RF oxycodone 5 mg Tablet 5 mg PO Q6H PRN (Reason: Breakthrough Pain, Moderate) Qty: 60 0RF Rx Instructions: Partial Fill upon patient request. morphine [MS Contin] 30 mg Tablet Extended Release 30 mg PO Q12H Qty: 60 0RF Rx Instructions: Partial Fill upon patient request. atorvastatin 40 mg tablet 40 mg PO QAM amlodipine 10 mg tablet 10 mg PO QAM risperidone 1 mg tablet 0.5 mg PO DAILY oxycodone [OxyContin] 10 mg tablet,oral only,ext.rel.12 hr 10 mg PO BID MDD Hold for sedation Qty: 30 0RF Rx Instructions: Partial Fill upon patient request. albuterol sulfate 0.63 mg/3 mL solution for nebulization 0.63 mg inhalation Q6H PRN (Reason: wheezing) lisinopril 40 mg tablet 40 mg PO DAILY Trelegy Ellipta 100-62.5-25 mcg blister with device 1 inh inhalation DAILY 30 Days Qty: 60 11RF ibuprofen [IBU] 600 mg tablet 600 mg PO QID PRN (Reason: Pain) albuterol sulfate [ProAir HFA] 90 mcg/actuation HFA aerosol inhaler 2 puff inhalation Q4H PRN (Reason: Shortness Of Breath Or Wheezing) omeprazole 20 mg capsule,delayed release(DR/EC) 20 mg PO DAILY clonazepam [Klonopin] 0.5 mg tablet 0.5 mg PO TID acetaminophen 500 mg capsule 500 mg PO Q8H PRN (Reason: Pain) risperidone [Risperdal] 1 mg tablet 1 mg PO BEDTIME citalopram [Celexa] 20 mg tablet 40 mg PO DAILY B-complex with vitamin C Capsule 1 cap PO DAILY
[2022-09-19 11:06] LABS: MANUAL DIFF FLAG NO
[2022-09-19 11:11] LABS: VBG Base Excess 8.1 mmol/L; VBG HCO3 34 mmol/L (22-26); VBG pCO2 57 mmHg; VBG pH 7.39 (7.32-7.43); VBG pO2 111 mmHg
[2022-09-19 11:13] LABS: Basophils Percent Auto 0.2 % (0-2); Eosinophils Absolute Auto 0.1 X10*3/uL (0.0-0.4); Eosinophils Percent Auto 1.3 % (0-4); Hemoglobin 10.3 g/dl (12.0-16.0); Imm Gran Abs Auto 0.04 X10*3/uL (0.00-0.03); Imm Gran Pct Auto 0.4 % (0.0-0.4); Lymphocytes Percent Auto 10.7 % (20-40); Mean Corpuscular HGB Conc 30.3 g/dl (31.0-35.0); Mean Corpuscular Hemoglobin 26.1 pg (27.0-33.0); Mean Corpuscular Volume 86.3 fL (80.0-98.0); Mean Platelet Volume 9.2 fL (9.4-12.3); Monocytes Absolute Auto 0.8 X10*3/uL (0.1-1.2); Monocytes Percent Auto 7.7 % (2-11); Neutrophils Absolute Auto 7.8 x10*3/uL (2.0-8.3); Neutrophils Percent Auto 79.7 % (45-73); Platelet Count 284 X10*3/uL (160-400); Red Blood Count 3.94 X10*6/uL (4.20-5.50); Red Cell Distribution Width 15.7 % (11.0-16.0); White Blood Count 9.8 X10*3/uL (4.8-10.8)
[2022-09-19 11:15] LABS: Venous Blood Gas Refer to POC result
[2022-09-19] MEDS: 0.9 % Sodium Chloride 500 ML 999 ML IV (11:17)
[2022-09-19 11:23] LABS: Alanine Aminotransferase 11 U/L (0-31); Albumin Level 3.2 g/dL (3.5-5.0); Alkaline Phosphatase 64 U/L (39-117); Anion Gap 11 (12-20); Aspartate Amino Transferase 16 U/L (5-31); Bilirubin Total 0.8 mg/dL (0.0-1.0); Blood Urea Nitrogen 17 mg/dL (9-16); Calcium 10.5 mg/dL (8.4-10.2); Carbon Dioxide 31 mmol/L (22-29); Chloride 101 mmol/L (96-108); Creatinine Clr Calc Pharmacy 43.6; Estimated Glomerular Filt Rate 52; Glucose Random 147 mg/dL (60-115); Potassium 4.4 mmol/L (3.3-5.1); Sodium 139 mmol/L (135-145); Total Protein 6.1 g/dL (6.5-8.0)
--- NOTE | 2022-09-19 11:25 | PC.NURSE ---
daughter states pt had morphine at midnight last night, oxycodone at 0600. aware of bp. pt on phototypesetting equipment monitor sinus palmer at 59 BPM.
[2022-09-19 11:30] LABS: Troponin-I High Sensitivity 3.2 ng/L (<3.5-17.0)
--- NOTE | 2022-09-19 12:18 | PC.NURSE ---
pt bp 77/27 md aware. verbal order for NS bolus infusing now. sinus palmer on monitor, o2 99% on NC 2L. pt aox3, answering questions appropriately.
[2022-09-19] MEDS: 0.9 % Sodium Chloride 1,000 ML 999 ML IV (12:21)
--- NOTE | 2022-09-19 13:39 | PC.NURSE ---
assumed care of this pt. pt easily woken from sleep, answering questions appropriately, oriented. sinus bady high 50s on monitor. resp even, nonlaboured, maintaining good spo2 on 2l supp o2. remains hypotensive, map 50 while sleeping. ivf still running.
[2022-09-19] MEDS: iohexoL 350 MG/ML 100 ML INFUS..BTL IV (14:15)
[2022-09-19 15:23] LABS: Appearance Urine Clear; Color Urine Yellow; Glucose Urine UA Negative (Negative); Leukocyte Esterase Urine Negative (Negative); Nitrite Urine Negative (Negative); PH 5.5 (5.0-9.0); Specific Gravity - Urine 1.025 (1.005-1.025); Urine Blood Negative (Negative); Urine Ketones Negative (Negative); Urine Protein Negative (Neg-Trace)
--- NOTE | 2022-09-19 20:04 | PC.NURSE ---
bp improving. pt continues to mentate well. standing to commode with no issue.
--- NOTE | 2022-09-19 20:09 | PC.NURSE ---
attempting to call pts daughter for update on improvements and pending discharge. she is not picking up, voicemail box full. will continue to attempt.
--- NOTE | 2022-09-19 20:10 | PC.NURSE ---
previous note writtten by this RN in error.
--- NOTE | 2022-09-19 20:45 | PC.NURSE ---
spo2 dropping to 81-82% on RA, pt denies feeling sob. repositiong attempted, instructed on deep breathing technique, with no effect. placed back on supp o2, PA notified.
--- NOTE | 2022-09-19 20:52 | PHA.MEDREC ---
Pharmacy Consult ? Medication Reconciliation Pharmacy has completed the medication reconciliation. patient uses [facility]
--- NOTE | 2022-09-19 21:23 | MHC.CM.ED ---
Addendum entered by Ángela Bentley 09/19/22 22:04: Alesha BENSON aware that CM cannot obtain home oxygen from the emergency room. Addendum entered by Ángela Bentley 09/19/22 21:56: CM again spoke with patient and daughter, Yuni on the telephone. Pt is not interested in Hospice at this time. Pt states she just started a new medication and wants to continue her chemo treatments. Daughter states her mother does have lung cancer, and something on her spine, that is stable. States that the oncologist has not spoken to them about hospice. CM told her daughter that sometimes patients want information about hospice, and some patients do not. Explained that it is perfectly fine for her mother to continue with her treatments. Did explain to her daughter that her mother may need home oxygen to be more comfortable. Explained that she will be admitted for low oxygen saturation. CM explained that we cannot order home oxygen from the emergency room and that respiratory will evaluate the need for home oxygen if the doctor feels she needs it. Both the patient and daughter are agreeable to staying overnight for observation and assessment for home oxygen. Alesha BENSON aware. Original Note: CM was asked to meet with this patient for possible hospice/home oxygen. Pt will be admitted/OBS. Waiting for patient's daughter to arrive. Pt is [place] speaking, but declines [employer], as she speaks [place] too. Pt very teary, wants to go home. Understands that she needs oxygen at this time. Explained to patient that she will stay overnight, so home oxygen could be arranged and possible hospice consult. Pt has Lung cancer with mets to bone. Being cared for by Dr. Beck. Pt had chem on Friday. Pt wants to be comfortable and be at home. Lives with her daughter and son-in law. 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 Uses a walker and wheelchair. Information obtained via chart review. HCP on file. HCP/daughter Yuni Hughes ([phone]). Vax x2. CM will speak with patient and daughter when she arrives to discuss hospice informational meeting possibility.
--- NOTE | 2022-09-19 23:01 | PC.NURSE ---
patient in bed with eyes open patient stated she was in no pain at this time patient IV is intact patient is AAOX4 patient is on 2 liters nasal [place] patient vitals are stable at this time patient was given a BSC due to patient is on oxygen patient was given the call garcia patient encouraged to reach out to staff if any issues should occur safety is maintained
--- NOTE | 2022-09-19 23:39 | PM.IMHP ---
History of Present Illness Date of Service: 09/19/22 Chief Complaint: Dyspnea This is a 72-year-old female with pertinent history of metastatic non-small cell lung cancer, COPD not on home oxygen, mood disorder, essential hypertension who presents to the emergency department for evaluation of hypoxemia. Patient states that the nurse at home found her to be hypoxemic in the 70s and sent to the ER for further evaluation. Does endorse cough with sputum production that has been ongoing for the last few days. Initial sputum was white in color with subsequently changed color to yellow. Has associated mild dyspnea on exertion. No fever, chills, chest discomfort, palpitations, abdominal pain, changes in urinary or bowel habits. In the emergency department, patient was initially placed under physician observation in the ER but was found to be hypoxemic and placed on 2 L supplemental oxygen. Hospitalist team consulted for evaluation of hypoxemia. Reviewed images which are concerning for right lower lobe consolidation. Review of Systems Constitutional: Constitutional: Reports no additional constitutional complaints Cardiovascular: Cardiovascular: Reports dyspnea on exertion Respiratory: Respiratory: Reports cough and Reports dyspnea on exertion Gastrointestinal: Gastrointestinal: Reports no additional gastrointestinal complaints Genitourinary: Genitourinary: Reports no additional female genitourinary complaints [facility] Medical History Anxiety and depression Bone metastases 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 COPD (chronic obstructive pulmonary disease) GERD (gastroesophageal reflux disease) Hypertension Osteopenia (~2002) Tobacco abuse Vitamin D deficiency Family History Sister Lupus Surgical History History of lung biopsy (~2021) Social History Household Members: Family Housing: House Are you a primary child day care teacher to a significant other at home: No Do you presently have visiting nurse or other home services: Yes (VNA, PT, OT) Alcohol intake: never Patient Tobacco Use Status: Former Tobacco user Tobacco use type: Cigarette Years Smoked: 20+ Years Use of substances other than those prescribed or required for medical reasons: No Have you been hit, kicked, punched, or otherwise hurt by someone within the past year? If so, by whom?: No Do you feel safe in your current relationship?: No Is there a partner from a previous relationship who is making you feel unsafe now?: No Are you made to feel afraid or neglected: No Advance Directives: No Advance Directives Information Provided: Yes Do you have thoughts of harming others: None Do you have a plan to hurt others: No Plan Recently lost weight without trying: No How much weight loss: Not applicable Eating poorly because of decreased appetite: No Nutrition screen score: 0 Nutrition Risks: No Nutritional Risk Patient : No : No Poor oral hygiene: No service: No Current occupational status: retired [employer] Allergies Allergy/AdvReac Type Severity Reaction Status Date / Time codeine Allergy Unknown Verified 09/03/22 07:40 Iodinated Contrast Media Allergy Shakiness Verified 08/28/22 14:25 [IV Contrast Dye] Active Medications: Current Medications Albuterol Sulfate (Albuterol Sulfate (0.042%) 1.25 Mg/3 Ml Vial.Neb) 0.63 mg INHALE Q6H PRN PRN Reason: wheezing Albuterol Sulfate (Albuterol Sulfate 90 Mcg 8 Gm Inhaler) 2 puff INHALE Q4H PRN PRN Reason: Shortness Of Breath Or Wheezing Amlodipine Besylate (Amlodipine Besylate 10 Mg Tablet) 10 mg PO DAILY [facility]; Protocol Aspirin (Aspirin Enteric Coated 81 Mg Tablet.Dr) 81 mg PO DAILY [facility] Atorvastatin Calcium (Atorvastatin Calcium 40 Mg Tablet) 40 mg PO DAILY [facility] Azithromycin (Azithromycin 250 Mg Tablet) 250 mg PO MOWEFR [facility] Clonazepam (Clonazepam 0.5 Mg Tablet) 0.5 mg PO TID [facility] Cyanocobalamin (Cyanocobalamin (Vitamin B-12) 1,000 Mcg Tablet) 1,000 mcg PO DAILY [facility] Escitalopram Oxalate (Escitalopram Oxalate 10 Mg Tablet) 10 mg PO DAILY [facility] Fluticasone/Umeclidinium/Vilanterol (Fluticasone/Umeclidinium/Vilanterol 100/62.5/25 Blst.W.Dev) 1 puff INHALE DAILY [facility] Folic Acid (Folic Acid 1 Mg Tablet) 1 mg PO DAILY [facility] Gabapentin (Gabapentin 400 Mg Capsule) 400 mg PO TID [facility] Lisinopril (Lisinopril 40 Mg Tablet) 40 mg PO DAILY [facility]; Protocol Loratadine (Loratadine 10 Mg Tablet) 10 mg PO DAILY PRN PRN Reason: allergies Morphine Sulfate (Morphine Sulfate Er 30 Mg Tablet.Er) 30 mg PO Q12H [facility] Multivitamins/Vitamin C (Multivitamin Tablet) 1 tab PO DAILY [facility] Non-Formulary Medication (Acetaminophen) 500 mg PO Q8H PRN PRN Reason: Pain Non-Formulary Medication (Calcium Carbonate-Vit D3-Min [Calcium 600 + Minerals]) 1 tab PO BID [facility] Non-Formulary Medication (Diclofenac Sodium) 2 gm TOPICAL BID [facility] Omeprazole (Omeprazole 20 Mg Capsule.Dr) 20 mg PO DAILY [facility] Ondansetron HCl (Ondansetron Odt 8 Mg Tab.Rapdis) 8 mg TRANSLINGU Q8H [place] Oxycodone HCl (Oxycodone Hcl Immed Release 5 Mg Tablet) 5 mg PO Q6H PRN PRN Reason: Breakthrough Pain, Moderate Pharmacy Consult (Consult Rx Perform Med Rec) 1 each MISCELLANE ONCE PRN PRN Reason: Consult order Risperidone (Risperidone 1 Mg Tablet) 1 mg PO BEDTIME [facility] Risperidone (Risperidone 0.5 Mg Tablet) 0.5 mg PO DAILY [facility] Vitamin D (Cholecalciferol (Vitamin D3) 25 Mcg Tablet) 50 mcg PO DAILY [facility] Home Medications Medication Instructions Recorded Confirmed Last Taken Type B-complex with vitamin C 1 cap PO DAILY 08/24/21 09/19/22 09/04/21 History acetaminophen 500 mg capsule 500 mg PO Q8H PRN Pain 08/24/21 09/19/22 09/04/21 History albuterol sulfate 90 mcg/actuation 2 puff inhalation Q4H PRN 08/24/21 09/19/22 Unknown History aerosol inhaler (ProAir HFA) Shortness Of Breath Or Wheezing citalopram 20 mg tablet (Celexa) 40 mg PO DAILY 08/24/21 09/19/22 09/04/21 History clonazepam 0.5 mg tablet (Klonopin) 0.5 mg PO TID 08/24/21 09/19/22 09/04/21 History ibuprofen 600 mg tablet (IBU) 600 mg PO QID PRN Pain 08/24/21 09/19/22 09/03/21 History omeprazole 20 mg capsule,delayed 20 mg PO DAILY 08/24/21 09/19/22 09/04/21 History release risperidone 1 mg tablet (Risperdal) 1 mg PO BEDTIME 08/24/21 09/19/22 09/04/21 History albuterol sulfate 0.63 mg/3 mL 0.63 mg inhalation Q6H PRN wheezing 05/30/22 09/19/22 Unknown History solution for nebulization lisinopril 40 mg tablet 40 mg PO DAILY 05/30/22 09/19/22 Unknown History amlodipine 10 mg tablet 10 mg PO QAM 07/02/22 09/19/22 Unknown History atorvastatin 40 mg tablet 40 mg PO QAM 07/02/22 09/19/22 Unknown History risperidone 1 mg tablet 0.5 mg PO DAILY 07/02/22 09/19/22 Unknown History aspirin 81 mg tablet,delayed 81 mg PO QAM 09/19/22 09/19/22 Unknown History release azithromycin 250 mg tablet 250 mg PO MOWEFR 09/19/22 09/19/22 Unknown History cetirizine 10 mg tablet 10 mg PO DAILY PRN allergies 09/19/22 09/19/22 Unknown History diclofenac sodium 1 % topical gel 2 g topical BID 09/19/22 09/19/22 Unknown History Physical Exam Vital Signs and Narrative: Vital Signs: Last Vital Signs Temp 99.1 F 09/19/22 22:00 Pulse 68 09/19/22 22:00 Resp 15 09/19/22 22:00 BP 112/30 L 09/19/22 22:00 Pulse Ox 97 09/19/22 22:00 O2 Del Method Nasal Cannula 09/19/22 22:00 O2 Flow Rate 2 09/19/22 22:00 Oxygen Flow Rate 2 09/19/22 11:38 BMI result Body Mass Index 25.0 Middle-aged female lying in bed in mild distress on supplemental oxygen Neck supple, no JVD Regular rate and rhythm, S1-S2 heard Right-sided crackles without wheezing Abdomen soft nontender, no guarding, no rigidity Patient is awake, alert and oriented to self, place, time and person ; no focal motor deficit Psych: Normal mood No pedal edema Results Labs 09/19/22 11:02 09/19/22 11:02 Labs: Laboratory Results - last 24 hr 09/19/22 09/19/22 09/19/22 11:02 11:02 11:02 MCV 86.3 MCH 26.1 L MCHC 30.3 L RDW 15.7 Plt Count 284 MPV 9.2 L Immature Gran % (Auto) 0.4 Neut % (Auto) 79.7 H Lymph % (Auto) 10.7 L [place] % (Auto) 7.7 Eos % (Auto) 1.3 Baso % (Auto) 0.2 Lymph # (Auto) 1.0 L [place] # (Auto) 0.8 Eos # (Auto) 0.1 Baso # (Auto) 0.0 Abs Immat Gran (auto) 0.04 H Absolute Neuts (auto) 7.8 Absolute Nucleated RBC 0.000 Nucleated RBC % (auto) 0.0 VBG pH VBG pCO2 VBG pO2 VBG HCO3 VBG O2 Saturation VBG Base Excess Anion Gap 11 L Estim Creat Clear Calc 43.6 Estimated GFR 52 Random Glucose 147 H Calcium 10.5 H D Total Bilirubin 0.8 AST 16 ALT 11 Alkaline Phosphatase 64 Troponin I High Sens 3.2 D Total Protein 6.1 L Albumin 3.2 L Urine Color Urine Appearance Urine pH Ur Specific [place] Urine Protein Urine Glucose (UA) Urine Ketones Urine Blood Urine Nitrite Ur Leukocyte Esterase 09/19/22 09/19/22 11:04 14:52 MCV MCH MCHC RDW Plt Count MPV Immature Gran % (Auto) Neut % (Auto) Lymph % (Auto) [place] % (Auto) Eos % (Auto) Baso % (Auto) Lymph # (Auto) [place] # (Auto) Eos # (Auto) Baso # (Auto) Abs Immat Gran (auto) Absolute Neuts (auto) Absolute Nucleated RBC Nucleated RBC % (auto) VBG pH 7.39 VBG pCO2 57 VBG pO2 111 VBG HCO3 34 H VBG O2 Saturation 99.0 VBG Base Excess 8.1 Anion Gap Estim Creat Clear Calc Estimated GFR Random Glucose Calcium Total Bilirubin AST ALT Alkaline Phosphatase Troponin I High Sens Total Protein Albumin Urine Color Yellow Urine Appearance Clear Urine pH 5.5 Ur Specific [place] 1.025 Urine Protein Negative Urine Glucose (UA) Negative Urine Ketones Negative Urine Blood Negative Urine Nitrite Negative Ur Leukocyte Esterase Negative Imaging Radiologist's Impressions: Impressions Chest X-Ray 09/19/22 11:08 IMPRESSION: Slight increase in size of right-sided pleural effusion with associated right lower lobe atelectasis/consolidation. Chest CTA 09/19/22 14:16 IMPRESSION: Right lower lobe consolidation with associated pleural effusion. No evidence for acute PE. VTE: negative Assessment and Plan (1) Hypoxia: Status: Acute Plan This is a 72-year-old female with pertinent history of metastatic non-small cell lung cancer, COPD not on home oxygen, mood disorder, essential hypertension who presents to the emergency department for evaluation of hypoxemia. #. Acute hypoxemic respiratory failure secondary to community-acquired pneumonia. Will admit patient and initiate empiric IV antibiotics. Sputum culture pending. No sepsis. Continue supplemental oxygen and wean as tolerated. Maintain oxygen saturation greater than 88% #. COPD not on home oxygen. No exacerbation during admission. DuoNebs p.r.n.. Continue home inhaler #. Essential hypertension. Patient was hypotensive upon arrival. Hold home antihypertensives, restart as appropriate #. Mood disorder. Continue home mood stabilizers #. Metastatic non-small cell lung cancer. On opioid DVT prophylaxis: Lovenox DNR/DNI. Discussed with patient at bedside Cardiac diet Admit as inpatient and will require two night minimum hospital stay for IV antibiotics and supplemental oxygen Time Spent With Patient Time: Total time managing care of this patient today ____ minutes. Quality Stroke Does the patient have a stroke diagnosis?: No VTE Prior VTE?: No VTE Risk Level:: Medical - moderate - high VTE Device Contraindication: Treatment Not Indicated VTE Drug Contraindication: N/A - Med Ordered
--- NOTE | 2022-09-19 23:59 | PC.NURSE ---
patient in the process of being admitted up on the floor patient is aware report is being given to the receiving nurse Donna
[2022-09-20] VITALS (10 sets, daily range): BP systolic 96–151; BP diastolic 46–65; PULSE 56–747; RESP 16–19; TEMP 35.9–36.7; O2SAT 93–99; BMI 25.3
[2022-09-20] MEDS: Enoxaparin Sodium 40 MG/0.4 ML SYRINGE SUBCUT (01:15)
[2022-09-20] MEDS: oxyCODONE HCl Immed Release 5 MG TABLET PO (01:16)
[2022-09-20] MEDS: Morphine Sulfate ER 30 MG TABLET.ER PO ×3 (01:16→23:20)
[2022-09-20] MEDS: 0.9 % Sodium Chloride Flush 3 ML SYRINGE IVFLUSH ×4 (01:17→21:00)
[2022-09-20] MEDS: cefTRIAXone sodium 1 GM in 0.9 % Sodium Chloride 50 ML IV (03:09)
[2022-09-20] MEDS: Azithromycin 500 MG in 0.9 % Sodium Chloride 250 ML 125 MG IV (03:48)
[2022-09-20 05:56] LABS: MANUAL DIFF FLAG NO
[2022-09-20 05:59] LABS: Basophils Percent Auto 0.3 % (0-2); Eosinophils Absolute Auto 0.1 X10*3/uL (0.0-0.4); Eosinophils Percent Auto 1.1 % (0-4); Hematocrit 35.2 % (37.0-47.0); Hemoglobin 10.6 g/dl (12.0-16.0); Imm Gran Abs Auto 0.05 X10*3/uL (0.00-0.03); Imm Gran Pct Auto 0.4 % (0.0-0.4); Mean Corpuscular HGB Conc 30.1 g/dl (31.0-35.0); Mean Corpuscular Hemoglobin 26.4 pg (27.0-33.0); Mean Corpuscular Volume 87.8 fL (80.0-98.0); Mean Platelet Volume 9.5 fL (9.4-12.3); Monocytes Absolute Auto 0.9 X10*3/uL (0.1-1.2); Monocytes Percent Auto 8.4 % (2-11); Neutrophils Percent Auto 71.8 % (45-73); Platelet Count 282 X10*3/uL (160-400); Red Blood Count 4.01 X10*6/uL (4.20-5.50); Red Cell Distribution Width 15.6 % (11.0-16.0); White Blood Count 11.1 X10*3/uL (4.8-10.8)
[2022-09-20 06:12] LABS: Anion Gap 12 (12-20); Blood Urea Nitrogen 12 mg/dL (9-16); Calcium 9.9 mg/dL (8.4-10.2); Carbon Dioxide 29 mmol/L (22-29); Chloride 101 mmol/L (96-108); Creatinine Clr Calc Pharmacy 62.2; Estimated Glomerular Filt Rate > 60; Glucose Random 102 mg/dL (60-115); Sodium 138 mmol/L (135-145)
[2022-09-20] MEDS: Albuterol/Iprat 2.5/0.5MG 3 ML AMPUL.NEB INHALE ×4 (08:36→18:39)
[2022-09-20] MEDS: Atorvastatin Calcium 40 MG TABLET PO (08:54)
[2022-09-20] MEDS: Omeprazole 20 MG CAPSULE.DR PO (08:54)
[2022-09-20] MEDS: Escitalopram Oxalate 10 MG TABLET PO (08:54)
[2022-09-20] MEDS: Aspirin Enteric Coated 81 MG TABLET.DR PO (08:54)
[2022-09-20] MEDS: Cholecalciferol (Vitamin D3) 25 MCG TABLET 50 MCG PO (08:54)
[2022-09-20] MEDS: risperiDONE 0.5 MG TABLET PO (08:54)
[2022-09-20] MEDS: Gabapentin 400 MG CAPSULE PO ×3 (08:54→21:00)
[2022-09-20] MEDS: Folic Acid 1 MG TABLET PO (08:55)
[2022-09-20] MEDS: Cyanocobalamin (Vitamin B-12) 1,000 MCG TABLET 1000 MCG PO (08:55)
[2022-09-20] MEDS: Multivitamin TABLET 1 TAB PO (08:55)
[2022-09-20] MEDS: clonazePAM 0.5 MG TABLET PO ×3 (08:55→21:00)
[2022-09-20] MEDS: Acetaminophen 325 MG TABLET 650 MG PO (09:31)
[2022-09-20 11:11] LABS: MRSA Nasal PCR NEGATIVE (Negative); SA Nasal PCR NEGATIVE (Negative)
[2022-09-20] MEDS: Fluticasone/Umeclidinium/Vilanterol 100/62.5/25 BLST.W.DEV 1 PUFF INHALE (11:48)
--- NOTE | 2022-09-20 12:53 | MHC.CM.PN ---
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
--- NOTE | 2022-09-20 13:42 | MHC.CM.PN ---
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
--- NOTE | 2022-09-20 14:29 | HO.PM.IMPN ---
Subjective Subjective Date of Service: 09/20/22 Interval History: Confused this a.m. but easily redirectable. Continues with productive cough Review of Systems Denies chest pain Admit shortness of breath Denies nausea vomiting diarrhea Denies fever chills Physical Exam Vital Signs: Vital Signs: Last Vital Signs Temp 98.1 F 09/20/22 07:53 Pulse 747 H 09/20/22 11:48 Resp 18 09/20/22 11:48 BP 151/65 H 09/20/22 08:08 Pulse Ox 97 09/20/22 08:08 O2 Del Method Nasal Cannula 09/20/22 07:53 O2 Flow Rate 2 09/20/22 00:56 Oxygen Flow Rate 2 09/19/22 11:38 BMI result Body Mass Index 25.3 Const: Other: Awake confused but easily reoriented is Resp: Other: Dense crackles right lower lobe Cardio: Other: No S4; positive S1-S2; no S3 murmurs rubs or gallops GI: Other: Soft nontender nondistended normoactive bowel sounds Extrem: Other: No edema bilaterally Objective Data Active Medications Acetaminophen (Acetaminophen 325 Mg Tablet) 650 mg PO Q6H PRN PRN Reason: Pain, Mild (Pain Scale 1-3) Last Admin: 09/20/22 09:31 Dose: 650 mg Documented By: BABATUNDE Albuterol Sulfate (Albuterol Sulfate 90 Mcg 8 Gm Inhaler) 2 puff INHALE Q4H PRN PRN Reason: Shortness Of Breath Or Wheezing Albuterol/Ipratropium (Albuterol/Iprat 2.5/0.5mg 3 Ml Ampul.Neb) 3 ml INHALE RQ4H WHILE AWAKE [facility] Last Admin: 09/20/22 11:48 Dose: 3 ml Documented By: ALEXI Aspirin (Aspirin Enteric Coated 81 Mg Tablet.) 81 mg PO DAILY [facility] Last Admin: 09/20/22 08:54 Dose: 81 mg Documented By: BABATUNDE Atorvastatin Calcium (Atorvastatin Calcium 40 Mg Tablet) 40 mg PO DAILY [facility] Last Admin: 09/20/22 08:54 Dose: 40 mg Documented By: BABATUNDE Calcium Carbonate (Calcium Carbonate 500 Mg Tablet) 500 mg PO BID [facility] Last Admin: 09/20/22 08:54 Dose: 500 mg Documented By: BABATUNDE Clonazepam (Clonazepam 0.5 Mg Tablet) 0.5 mg PO TID [facility] Last Admin: 09/20/22 08:55 Dose: 0.5 mg Documented By: BABATUNDE Cyanocobalamin (Cyanocobalamin (Vitamin B-12) 1,000 Mcg Tablet) 1,000 mcg PO DAILY [facility] Last Admin: 09/20/22 08:55 Dose: 1,000 mcg Documented By: BABATUNDE Enoxaparin Sodium (Enoxaparin Sodium 40 Mg/0.4 Ml Syringe) 40 mg SUBCUT Q24H [facility] Last Admin: 09/20/22 01:15 Dose: 40 mg Documented By: STEPHANIE Escitalopram Oxalate (Escitalopram Oxalate 10 Mg Tablet) 10 mg PO DAILY [facility] Last Admin: 09/20/22 08:54 Dose: 10 mg Documented By: BABATUNDE Fluticasone/Umeclidinium/Vilanterol (Fluticasone/Umeclidinium/Vilanterol 100/62.5/25 Blst.W.Dev) 1 puff INHALE DAILY [facility] Last Admin: 09/20/22 11:48 Dose: 1 puff Documented By: ALEXI Folic Acid (Folic Acid 1 Mg Tablet) 1 mg PO DAILY [facility] Last Admin: 09/20/22 08:55 Dose: 1 mg Documented By: BABATUNDE Gabapentin (Gabapentin 400 Mg Capsule) 400 mg PO TID [facility] Last Admin: 09/20/22 08:54 Dose: 400 mg Documented By: BABATUNDE Ceftriaxone Sodium 1 gm/ (Sodium Chloride) 50 mls @ 100 mls/hr IV Q24H [facility] Last Infusion: 09/20/22 03:49 Dose: 0 mls/hr Documented By: STEPHANIE Azithromycin 500 mg/ Sodium (Chloride) 250 mls @ 125 mls/hr IV Q24H [facility] Last Infusion: 09/20/22 06:25 Dose: 0 mls/hr Documented By: STEPHANIE Loratadine (Loratadine 10 Mg Tablet) 10 mg PO DAILY PRN PRN Reason: allergies Melatonin (Melatonin 3 Mg Tablet) 6 mg PO BEDTIME PRN PRN Reason: Insomnia Morphine Sulfate (Morphine Sulfate Er 30 Mg Tablet.Er) 30 mg PO Q12H [facility] Last Admin: 09/20/22 11:58 Dose: 30 mg Documented By: GABRIELLA Multivitamins/Vitamin C (Multivitamin Tablet) 1 tab PO DAILY [facility] Last Admin: 09/20/22 08:55 Dose: 1 tab Documented By: BABATUNDE Omeprazole (Omeprazole 20 Mg Capsule.Dr) 20 mg PO DAILY [facility] Last Admin: 09/20/22 08:54 Dose: 20 mg Documented By: BABATUNDE Ondansetron HCl (Ondansetron Hcl 4 Mg/2 Ml Vial) 4 mg IVPUSH Q8H PRN PRN Reason: Nausea and Vomiting Oxycodone HCl (Oxycodone Hcl Immed Release 5 Mg Tablet) 5 mg PO Q6H PRN PRN Reason: Breakthrough Pain, Moderate Last Admin: 09/20/22 01:16 Dose: 5 mg Documented By: STEPHANIE Pharmacy Consult (Consult Rx Perform Med Rec) 1 each MISCELLANE ONCE PRN PRN Reason: Consult order Risperidone (Risperidone 1 Mg Tablet) 1 mg PO BEDTIME [facility] Risperidone (Risperidone 0.5 Mg Tablet) 0.5 mg PO DAILY [facility] Last Admin: 09/20/22 08:54 Dose: 0.5 mg Documented By: BABATUNDE Sodium Chloride (0.9 % Sodium Chloride Flush 3 Ml Syringe) 3 ml IVFLUSH QSHIFT [facility] Last Admin: 09/20/22 09:03 Dose: 3 ml Documented By: BABATUNDE Vitamin D (Cholecalciferol (Vitamin D3) 25 Mcg Tablet) 50 mcg PO DAILY [facility] Last Admin: 09/20/22 08:54 Dose: 50 mcg Documented By: BABATUNDE Labs 09/20/22 05:40 09/20/22 05:40 Labs: Laboratory Results - last 24 hr 09/19/22 09/20/22 09/20/22 14:52 01:48 05:40 MCV 87.8 MCH 26.4 L MCHC 30.1 L RDW 15.6 Plt Count 282 MPV 9.5 Immature Gran % (Auto) 0.4 Neut % (Auto) 71.8 Lymph % (Auto) 18.0 L [place] % (Auto) 8.4 Eos % (Auto) 1.1 Baso % (Auto) 0.3 Lymph # (Auto) 2.0 [place] # (Auto) 0.9 Eos # (Auto) 0.1 Baso # (Auto) 0.0 Abs Immat Gran (auto) 0.05 H Absolute Neuts (auto) 8.0 Absolute Nucleated RBC 0.000 Nucleated RBC % (auto) 0.0 Anion Gap Estim Creat Clear Calc Estimated GFR Random Glucose Calcium Urine Color Yellow Urine Appearance Clear Urine pH 5.5 Ur Specific [place] 1.025 Urine Protein Negative Urine Glucose (UA) Negative Urine Ketones Negative Urine Blood Negative Urine Nitrite Negative Ur Leukocyte Esterase Negative Nasal Screen MRSA (PCR) NEGATIVE Nasal S. aureus Screen NEGATIVE Nasal MRSA/S.aureus Interp SEE NOTE 09/20/22 05:40 MCV MCH MCHC RDW Plt Count MPV Immature Gran % (Auto) Neut % (Auto) Lymph % (Auto) [place] % (Auto) Eos % (Auto) Baso % (Auto) Lymph # (Auto) [place] # (Auto) Eos # (Auto) Baso # (Auto) Abs Immat Gran (auto) Absolute Neuts (auto) Absolute Nucleated RBC Nucleated RBC % (auto) Anion Gap 12 Estim Creat Clear Calc 62.2 Estimated GFR > 60 Random Glucose 102 Calcium 9.9 Urine Color Urine Appearance Urine pH Ur Specific [place] Urine Protein Urine Glucose (UA) Urine Ketones Urine Blood Urine Nitrite Ur Leukocyte Esterase Nasal Screen MRSA (PCR) Nasal S. aureus Screen Nasal MRSA/S.aureus Interp Assessment and Plan (1) Acute respiratory failure with hypoxia: Status: Acute (2) Right lower lobe pneumonia: Status: Acute (3) COPD (chronic obstructive pulmonary disease): Status: Acute (4) Non-small cell lung cancer (NSCLC): Status: Acute Plan This is a 72-year-old female with pertinent history of metastatic non-small cell lung cancer, COPD not on home oxygen, mood disorder, essential hypertension who presents to the emergency department for evaluation of hypoxemia. Workup consistent with right lower lobe pneumonia 1.Acute hypoxemic respiratory failure secondary to community-acquired pneumonia -ceftriaxone/azithromycin (2) -titrate O2 to maintain sats greater than or equal to 90% -await cultures 2. COPD -duonebs as ordedred -titrate O2 3.Essential hypertension -acceptable control off therapies -will add back as indicated 4.Metastatic non-small cell lung cancer -prn oxycone DVT prophylaxis: Lovenox DNR/DNI. Discussed with patient at bedside Cardiac diet Requires ongoing hospitalization for IV antibiotics to treat right lower lobe pneumonia Time Spent With Patient Time: Total time managing care of this patient today ____ minutes. Quality Stroke Does the patient have a stroke diagnosis?: No VTE Prior VTE?: No VTE Risk Level:: Medical - moderate - high VTE Device Contraindication: Treatment Not Indicated VTE Drug Contraindication: N/A - Med Ordered
[2022-09-20] MEDS: risperiDONE 1 MG TABLET PO (21:00)
[2022-09-21] MEDS: Enoxaparin Sodium 40 MG/0.4 ML SYRINGE SUBCUT (01:21)
[2022-09-21] MEDS: cefTRIAXone sodium 1 GM in 0.9 % Sodium Chloride 50 ML IV (01:22)
[2022-09-21] MEDS: Azithromycin 500 MG in 0.9 % Sodium Chloride 250 ML 125 MG IV (01:45)
[2022-09-21 03:11] VITALS: BP 100/46; PULSE 60; RESP 17; TEMP 36.1; O2SAT 97
[2022-09-21 06:19] LABS: MANUAL DIFF FLAG NO
[2022-09-21 06:23] LABS: Basophils Percent Auto 0.5 % (0-2); Eosinophils Absolute Auto 0.2 X10*3/uL (0.0-0.4); Eosinophils Percent Auto 2.4 % (0-4); Hematocrit 31.9 % (37.0-47.0); Hemoglobin 9.5 g/dl (12.0-16.0); Imm Gran Abs Auto 0.02 X10*3/uL (0.00-0.03); Imm Gran Pct Auto 0.3 % (0.0-0.4); Lymphocytes Absolute Auto 1.4 X10*3/uL (1.2-4.9); Lymphocytes Percent Auto 21.1 % (20-40); Mean Corpuscular HGB Conc 29.8 g/dl (31.0-35.0); Mean Corpuscular Volume 87.2 fL (80.0-98.0); Mean Platelet Volume 9.8 fL (9.4-12.3); Monocytes Absolute Auto 0.7 X10*3/uL (0.1-1.2); Monocytes Percent Auto 10.2 % (2-11); Neutrophils Absolute Auto 4.3 x10*3/uL (2.0-8.3); Neutrophils Percent Auto 65.5 % (45-73); Platelet Count 259 X10*3/uL (160-400); Red Blood Count 3.66 X10*6/uL (4.20-5.50); Red Cell Distribution Width 15.4 % (11.0-16.0); White Blood Count 6.6 X10*3/uL (4.8-10.8)
[2022-09-21 06:39] LABS: Alanine Aminotransferase 9 U/L (0-31); Albumin Level 2.9 g/dL (3.5-5.0); Alkaline Phosphatase 60 U/L (39-117); Anion Gap 10 (12-20); Aspartate Amino Transferase 15 U/L (5-31); Bilirubin Total 0.4 mg/dL (0.0-1.0); Blood Urea Nitrogen 10 mg/dL (9-16); Calcium 9.5 mg/dL (8.4-10.2); Carbon Dioxide 31 mmol/L (22-29); Chloride 103 mmol/L (96-108); Creatinine Clr Calc Pharmacy 63.9; Estimated Glomerular Filt Rate > 60; Glucose Fasting 82 mg/dL (60-99); Sodium 140 mmol/L (135-145); Total Protein 5.4 g/dL (6.5-8.0)
[2022-09-21] MEDS: Fluticasone/Umeclidinium/Vilanterol 100/62.5/25 BLST.W.DEV 1 PUFF INHALE (07:09)
[2022-09-21] MEDS: Albuterol/Iprat 2.5/0.5MG 3 ML AMPUL.NEB INHALE ×2 (07:09→19:46)
[2022-09-21] MEDS: oxyCODONE HCl Immed Release 5 MG TABLET PO ×2 (07:10→20:49)
[2022-09-21 07:12] VITALS: PULSE 67; RESP 14; O2SAT 95
[2022-09-21 07:31] VITALS: BP 100/48; PULSE 55; RESP 20; TEMP 36.2; O2SAT 97
[2022-09-21] MEDS: Gabapentin 400 MG CAPSULE PO ×3 (08:00→20:48)
[2022-09-21] MEDS: methylPREDNISolone Sod Succ 125 MG/2 ML VIAL IVPUSH (08:00)
[2022-09-21] MEDS: 0.9 % Sodium Chloride Flush 3 ML SYRINGE IVFLUSH ×3 (08:00→20:50)
[2022-09-21] MEDS: risperiDONE 0.5 MG TABLET PO (08:00)
[2022-09-21] MEDS: Cyanocobalamin (Vitamin B-12) 1,000 MCG TABLET 1000 MCG PO (08:00)
[2022-09-21] MEDS: Cholecalciferol (Vitamin D3) 25 MCG TABLET 50 MCG PO (08:00)
[2022-09-21] MEDS: Multivitamin TABLET 1 TAB PO (08:00)
[2022-09-21] MEDS: Aspirin Enteric Coated 81 MG TABLET.DR PO (08:01)
[2022-09-21] MEDS: Escitalopram Oxalate 10 MG TABLET PO (08:01)
[2022-09-21] MEDS: clonazePAM 0.5 MG TABLET PO ×3 (08:01→23:01)
[2022-09-21] MEDS: Folic Acid 1 MG TABLET PO (08:01)
[2022-09-21] MEDS: Omeprazole 20 MG CAPSULE.DR PO (08:01)
[2022-09-21] MEDS: Atorvastatin Calcium 40 MG TABLET PO (08:01)
--- NOTE | 2022-09-21 10:11 | P.PNIM_ITS ---
Subjective Subjective Date of Service: 09/21/22 Interval History: More wheezy this a.m.. Utilizing DuoNebs q.4 hours Review of Systems Denies chest pain Admit shortness of breath Denies nausea vomiting diarrhea Denies fever chills Physical Exam Vital Signs: Vital Signs: Last Vital Signs Temp 97.2 F 09/21/22 07:31 Pulse 55 09/21/22 07:31 Resp 20 09/21/22 07:31 BP 100/48 L 09/21/22 07:31 Pulse Ox 97 09/21/22 07:31 O2 Del Method Nasal Cannula 09/21/22 07:31 O2 Flow Rate 2 09/21/22 07:31 Oxygen Flow Rate 2 09/19/22 11:38 BMI result Body Mass Index 25.3 Const: Other: Awake confused but easily reoriented is Resp: Other: Dense crackles right lower lobe Diffuse expiratory wheezes Cardio: Other: No S4; positive S1-S2; no S3 murmurs rubs or gallops GI: Other: Soft nontender nondistended normoactive bowel sounds Extrem: Other: No edema bilaterally Objective Data Active Medications Acetaminophen (Acetaminophen 325 Mg Tablet) 650 mg PO Q6H PRN PRN Reason: Pain, Mild (Pain Scale 1-3) Last Admin: 09/20/22 09:31 Dose: 650 mg Documented By: BABATUNDE Albuterol Sulfate (Albuterol Sulfate 90 Mcg 8 Gm Inhaler) 2 puff INHALE Q4H PRN PRN Reason: Shortness Of Breath Or Wheezing Albuterol/Ipratropium (Albuterol/Iprat 2.5/0.5mg 3 Ml Ampul.Neb) 3 ml INHALE R Q4H WHILE AWAKE [facility] Last Admin: 09/21/22 07:09 Dose: 3 ml Documented By: SUZANNE Aspirin (Aspirin Enteric Coated 81 Mg Tablet.) 81 mg PO DAILY [facility] Last Admin: 09/21/22 08:01 Dose: 81 mg Documented By: SHAY Atorvastatin Calcium (Atorvastatin Calcium 40 Mg Tablet) 40 mg PO DAILY [facility] Last Admin: 09/21/22 08:01 Dose: 40 mg Documented By: SHAY Calcium Carbonate (Calcium Carbonate 500 Mg Tablet) 500 mg PO BID [facility] Last Admin: 09/21/22 08:00 Dose: 500 mg Documented By: SHAY Clonazepam (Clonazepam 0.5 Mg Tablet) 0.5 mg PO TID [facility] Last Admin: 09/21/22 08:01 Dose: 0.5 mg Documented By: SHAY Cyanocobalamin (Cyanocobalamin (Vitamin B-12) 1,000 Mcg Tablet) 1,000 mcg PO DAILY [facility] Last Admin: 09/21/22 08:00 Dose: 1,000 mcg Documented By: SHAY Enoxaparin Sodium (Enoxaparin Sodium 40 Mg/0.4 Ml Syringe) 40 mg SUBCUT Q24H [facility] Last Admin: 09/21/22 01:21 Dose: 40 mg Documented By: FATEMEH Escitalopram Oxalate (Escitalopram Oxalate 10 Mg Tablet) 10 mg PO DAILY [facility] Last Admin: 09/21/22 08:01 Dose: 10 mg Documented By: SHAY Fluticasone/Umeclidinium/Vilanterol (Fluticasone/Umeclidinium/Vilanterol 100/62.5/25 Blst.W.Dev) 1 puff INHALE DAILY [facility] Last Admin: 09/21/22 07:09 Dose: 1 puff Documented By: SUZANNE Folic Acid (Folic Acid 1 Mg Tablet) 1 mg PO DAILY [facility] Last Admin: 09/21/22 08:01 Dose: 1 mg Documented By: SHAY Gabapentin (Gabapentin 400 Mg Capsule) 400 mg PO TID [facility] Last Admin: 09/21/22 08:00 Dose: 400 mg Documented By: SHAY Ceftriaxone Sodium 1 gm/ (Sodium Chloride) 50 mls @ 100 mls/hr IV Q24H [facility] Last Infusion: 09/21/22 01:52 Dose: 0 mls/hr Documented By: FATEMEH Azithromycin 500 mg/ Sodium (Chloride) 250 mls @ 125 mls/hr IV Q24H [facility] Last Infusion: 09/21/22 03:45 Dose: 0 mls/hr Documented By: FATEMEH Loratadine (Loratadine 10 Mg Tablet) 10 mg PO DAILY PRN PRN Reason: allergies Melatonin (Melatonin 3 Mg Tablet) 6 mg PO BEDTIME PRN PRN Reason: Insomnia Methylprednisolone Sodium Succinate (Methylprednisolone Sod Succ 125 Mg/2 Ml Vial) 60 mg IVPUSH Q6H [facility] Morphine Sulfate (Morphine Sulfate Er 30 Mg Tablet.Er) 30 mg PO Q12H [facility] Last Admin: 09/20/22 23:20 Dose: 30 mg Documented By: FATEMEH Multivitamins/Vitamin C (Multivitamin Tablet) 1 tab PO DAILY [facility] Last Admin: 09/21/22 08:00 Dose: 1 tab Documented By: SHAY Omeprazole (Omeprazole 20 Mg Capsule.Dr) 20 mg PO DAILY [facility] Last Admin: 09/21/22 08:01 Dose: 20 mg Documented By: SHAY Ondansetron HCl (Ondansetron Hcl 4 Mg/2 Ml Vial) 4 mg IVPUSH Q8H PRN PRN Reason: Nausea and Vomiting Oxycodone HCl (Oxycodone Hcl Immed Release 5 Mg Tablet) 5 mg PO Q6H PRN PRN Reason: Breakthrough Pain, Moderate Last Admin: 09/21/22 07:10 Dose: 5 mg Documented By: SHAY Pharmacy Consult (Consult Rx Perform Med Rec) 1 each MISCELLANE ONCE PRN PRN Reason: Consult order Risperidone (Risperidone 1 Mg Tablet) 1 mg PO BEDTIME [facility] Last Admin: 09/20/22 21:00 Dose: 1 mg Documented By: FATEMEH Risperidone (Risperidone 0.5 Mg Tablet) 0.5 mg PO DAILY [facility] Last Admin: 09/21/22 08:00 Dose: 0.5 mg Documented By: SHAY Sodium Chloride (0.9 % Sodium Chloride Flush 3 Ml Syringe) 3 ml IVFLUSH QSHIFT [facility] Last Admin: 09/21/22 08:00 Dose: 3 ml Documented By: SHAY Vitamin D (Cholecalciferol (Vitamin D3) 25 Mcg Tablet) 50 mcg PO DAILY [facility] Last Admin: 09/21/22 08:00 Dose: 50 mcg Documented By: SHAY Labs 09/21/22 05:48 09/21/22 05:48 Labs: Laboratory Results - last 24 hr 09/20/22 09/21/22 09/21/22 01:48 05:48 05:48 MCV 87.2 MCH 26.0 L MCHC 29.8 L RDW 15.4 Plt Count 259 MPV 9.8 Immature Gran % (Auto) 0.3 Neut % (Auto) 65.5 Lymph % (Auto) 21.1 [place] % (Auto) 10.2 Eos % (Auto) 2.4 Baso % (Auto) 0.5 Lymph # (Auto) 1.4 [place] # (Auto) 0.7 Eos # (Auto) 0.2 Baso # (Auto) 0.0 Abs Immat Gran (auto) 0.02 Absolute Neuts (auto) 4.3 Absolute Nucleated RBC 0.000 Nucleated RBC % (auto) 0.0 Anion Gap 10 L Estim Creat Clear Calc 63.9 Estimated GFR > 60 Fasting Glucose 82 Calcium 9.5 Total Bilirubin 0.4 AST 15 ALT 9 Alkaline Phosphatase 60 Total Protein 5.4 L Albumin 2.9 L Nasal Screen MRSA (PCR) NEGATIVE Nasal S. aureus Screen NEGATIVE Nasal MRSA/S.aureus Interp SEE NOTE Assessment and Plan (1) Acute respiratory failure with hypoxia: Status: Acute (2) Right lower lobe pneumonia: Status: Acute (3) COPD (chronic obstructive pulmonary disease): Status: Acute Plan This is a 72-year-old female with pertinent history of metastatic non-small cell lung cancer, COPD not on home oxygen, mood disorder, essential hypertension who presents to the emergency department for evaluation of hypoxemia. Workup consistent with right lower lobe pneumonia 1.Acute hypoxemic respiratory failure secondary to community-acquired pneumonia -ceftriaxone/azithromycin (3) -add methylprednisolone 125 x 1 than 60 q.6 -titrate O2 to maintain sats greater than or equal to 90% -await cultures 2. COPD -duonebs as ordedred -titrate O2 3.Essential hypertension -acceptable control off therapies -will add back as indicated 4.Metastatic non-small cell lung cancer -prn oxycone DVT prophylaxis: Lovenox DNR/DNI. Discussed with patient at bedside Cardiac diet Requires ongoing hospitalization for IV antibiotics to treat right lower lobe pneumonia Time Spent With Patient Time: Total time managing care of this patient today ____ minutes. Quality Stroke Does the patient have a stroke diagnosis?: No VTE Prior VTE?: No VTE Risk Level:: Medical - moderate - high VTE Device Contraindication: Treatment Not Indicated VTE Drug Contraindication: N/A - Med Ordered
[2022-09-21] MEDS: Morphine Sulfate ER 30 MG TABLET.ER PO (10:23)
[2022-09-21] MEDS: methylPREDNISolone Sod Succ 125 MG/2 ML VIAL 60 MG IVPUSH ×2 (12:30→20:50)
[2022-09-21 15:40] VITALS: BP 132/63; PULSE 63; RESP 18; TEMP 36.1; O2SAT 91
[2022-09-21 19:48] VITALS: PULSE 60; RESP 18
[2022-09-21 19:59] VITALS: BP 140/64; PULSE 75; RESP 18; TEMP 36.1; O2SAT 94
[2022-09-21] MEDS: risperiDONE 1 MG TABLET PO (20:49)
[2022-09-21] MEDS: Acetaminophen 325 MG TABLET 650 MG PO (23:07)
[2022-09-22] MEDS: methylPREDNISolone Sod Succ 125 MG/2 ML VIAL 60 MG IVPUSH ×2 (01:00→06:54)
[2022-09-22] MEDS: Enoxaparin Sodium 40 MG/0.4 ML SYRINGE SUBCUT (01:02)
[2022-09-22] MEDS: Morphine Sulfate ER 30 MG TABLET.ER PO ×2 (01:05→10:21)
[2022-09-22] MEDS: cefTRIAXone sodium 1 GM in 0.9 % Sodium Chloride 50 ML IV (01:16)
[2022-09-22] MEDS: Azithromycin 500 MG in 0.9 % Sodium Chloride 250 ML 125 MG IV (01:50)
[2022-09-22 04:06] VITALS: BP 133/72; PULSE 88; RESP 18; TEMP 36.6; O2SAT 95
[2022-09-22] MEDS: 0.9 % Sodium Chloride Flush 3 ML SYRINGE IVFLUSH (06:54)
[2022-09-22 07:52] VITALS: BP 135/63; PULSE 72; RESP 18; TEMP 36.2; O2SAT 93
[2022-09-22] MEDS: Fluticasone/Umeclidinium/Vilanterol 100/62.5/25 BLST.W.DEV 1 PUFF INHALE (07:59)
[2022-09-22] MEDS: Albuterol/Iprat 2.5/0.5MG 3 ML AMPUL.NEB INHALE ×2 (07:59→11:23)
[2022-09-22 08:00] VITALS: PULSE 74; RESP 16; O2SAT 97
[2022-09-22] MEDS: Cyanocobalamin (Vitamin B-12) 1,000 MCG TABLET 1000 MCG PO (08:01)
[2022-09-22] MEDS: Aspirin Enteric Coated 81 MG TABLET.DR PO (08:01)
[2022-09-22] MEDS: Atorvastatin Calcium 40 MG TABLET PO (08:01)
[2022-09-22] MEDS: Omeprazole 20 MG CAPSULE.DR PO (08:01)
[2022-09-22] MEDS: risperiDONE 0.5 MG TABLET PO (08:01)
[2022-09-22] MEDS: Cholecalciferol (Vitamin D3) 25 MCG TABLET 50 MCG PO (08:01)
[2022-09-22] MEDS: Gabapentin 400 MG CAPSULE PO (08:01)
[2022-09-22] MEDS: clonazePAM 0.5 MG TABLET PO (08:02)
[2022-09-22] MEDS: Folic Acid 1 MG TABLET PO (08:02)
[2022-09-22] MEDS: Multivitamin TABLET 1 TAB PO (08:02)
[2022-09-22] MEDS: Escitalopram Oxalate 10 MG TABLET PO (08:02)
[2022-09-22] MEDS: oxyCODONE HCl Immed Release 5 MG TABLET PO (09:06)
--- NOTE | 2022-09-22 09:36 | PM.DS ---
DS: Providers Provider Date of Service: 09/22/22 Date of admission: 09/19/22 23:38 Date of discharge: 09/22/22 Primary care physician: Unknown Physician DS: Diagnosis Discharge Diagnosis (1) Acute respiratory failure with hypoxia: Status: Acute (2) Right lower lobe pneumonia: Status: Acute (3) COPD (chronic obstructive pulmonary disease): Status: Acute DS: Summary Hospital Course Hospital Course: 72-year-old female with pertinent history of metastatic non-small cell lung cancer, COPD not on home oxygen, mood disorder, essential hypertension who presents to the emergency department for evaluation of hypoxemia.? Patient states that the nurse at home found her to be hypoxemic in the 70s and sent to the ER for further evaluation.? Does endorse cough with sputum production that has been ongoing for the last few days.? Initial sputum was white in color with subsequently changed color to yellow.? Has associated mild dyspnea on exertion.? No fever, chills, chest discomfort, palpitations, abdominal pain, changes in urinary or bowel habits.? In the emergency department, patient was initially placed under physician observation in the ER but was found to be hypoxemic and placed on 2 L supplemental oxygen.? Hospitalist team consulted for evaluation of hypoxemia.? Reviewed images which are concerning for right lower lobe consolidation. Hospital Course Patient admitted to general medical floor and started on ceftriaxone and azithromycin. Morning after admission patient found to be extremely wheezy and pulse dose steroids were implemented. Over the next 48 hours patient improved dramatically was able to be weaned off of oxygen. She was ambulated with walker and did well. At this point in time she is medically acceptable for discharge home to complete oral therapy of Ceftin and doxycycline along with a prednisone taper Time Spent with Patient Time attestation: Total time managing care of this patient today ____ minutes. Discharge coordination time: Greater than 30 minutes Quality: Safe Use of Opioids Does Pt have an Active Cancer Diagnosis on the Problem List?: Yes Opioid Measure Date for [facility] Report: 08/23/22 Opioid Measure Time for [facility] Report: 09:41 Quality: Stroke Does the patient have a stroke diagnosis?: No Physical Exam Vital Signs: Vital Signs: Last Vital Signs Temp 97.2 F 09/22/22 07:52 Pulse 74 09/22/22 08:00 Resp 16 09/22/22 08:00 BP 135/63 09/22/22 07:52 Pulse Ox 93 09/22/22 07:52 O2 Del Method Room Air 09/22/22 07:52 O2 Flow Rate 2 09/21/22 07:31 Oxygen Flow Rate 2 09/19/22 11:38 BMI result Body Mass Index 25.3 Const: Other: Awake confused but easily reoriented is Resp: Other: Dense crackles right lower lobe Diffuse expiratory wheezes Cardio: Other: No S4; positive S1-S2; no S3 murmurs rubs or gallops GI: Other: Soft nontender nondistended normoactive bowel sounds Extrem: Other: No edema bilaterally Discharge Plan Discharge Anticipated Discharge Date/Time: 09/22/22 09:33 Patient Disposition: Home Health Service Discharge Diagnosis: Right lower lobe pneumonia Referrals: Physician,Unknown J [Primary Care Provider] - 1 Week Discharge Medications: New cefuroxime axetil 500 mg tablet 500 mg PO BID 10 Days Qty: 20 0RF doxycycline hyclate 100 mg tablet 100 mg PO BID 10 Days Qty: 20 0RF prednisone 10 mg tablet See Rx Instructions .Route .COMPLEX Qty: 45 0RF Rx Instructions: 10 mg orally; 5 tabs p.o. daily x3 days; 4 tabs p.o. daily x3 days; 3 tabs daily x3 days; 2 tabs daily x3 days; 1 tab daily x3 days Continued cholecalciferol (vitamin D3) [Vitamin D3] 50 mcg (2,000 unit) Tablet 50 mcg PO DAILY Qty: 90 4RF gabapentin 400 mg Capsule 400 mg PO TID Qty: 90 4RF Calcium 600 + Minerals 600 mg calcium- 200 unit Tablet 1 tab PO BID Qty: 60 3RF ondansetron 8 mg Tablet,Disintegrating 8 mg PO Q8H Qty: 60 4RF cyanocobalamin (vitamin B-12) [Vitamin B-12] 1,000 mcg Tablet 1,000 mcg PO DAILY Qty: 60 0RF folic acid 1 mg Tablet 1 mg PO DAILY Qty: 90 3RF oxycodone 5 mg Tablet 5 mg PO Q6H PRN (Reason: Breakthrough Pain, Moderate) Qty: 60 0RF Rx Instructions: Partial Fill upon patient request. morphine [MS Contin] 30 mg Tablet Extended Release 30 mg PO Q12H Qty: 60 0RF Rx Instructions: Partial Fill upon patient request. atorvastatin 40 mg tablet 40 mg PO QAM amlodipine 10 mg tablet 10 mg PO QAM risperidone 1 mg tablet 0.5 mg PO DAILY cetirizine 10 mg tablet 10 mg PO DAILY PRN (Reason: allergies) diclofenac sodium 1 % gel 2 g topical BID aspirin 81 mg tablet,delayed release (DR/EC) 81 mg PO QAM albuterol sulfate 0.63 mg/3 mL solution for nebulization 0.63 mg inhalation Q6H PRN (Reason: wheezing) lisinopril 40 mg tablet 40 mg PO DAILY Trelegy Ellipta 100-62.5-25 mcg blister with device 1 inh inhalation DAILY 30 Days Qty: 60 11RF ibuprofen [IBU] 600 mg tablet 600 mg PO QID PRN (Reason: Pain) albuterol sulfate [ProAir HFA] 90 mcg/actuation HFA aerosol inhaler 2 puff inhalation Q4H PRN (Reason: Shortness Of Breath Or Wheezing) omeprazole 20 mg capsule,delayed release(DR/EC) 20 mg PO DAILY clonazepam [Klonopin] 0.5 mg tablet 0.5 mg PO TID acetaminophen 500 mg capsule 500 mg PO Q8H PRN (Reason: Pain) risperidone [Risperdal] 1 mg tablet 1 mg PO BEDTIME citalopram [Celexa] 20 mg tablet 40 mg PO DAILY B-complex with vitamin C Capsule 1 cap PO DAILY Discontinued azithromycin 250 mg tablet 250 mg PO MOWEFR Rx Instructions: Take 1 tablet on Friday/Friday/Friday Discharge Orders: Discharge Order (Routine); Ordered 09/22/22 Ordered By: Charles George Diet: Advance to usual diet Activity on Discharge: As tolerated Stand Alone Forms: Patient Portal Discharge page Activity Restrictions/Additional Instructions: 1. Resume all medications as prescribed except: Amlodipine, lisinopril 2. Follow-up with your primary care provider as well as your oncologist in the next 1-2 days. Return to the ER for any worsening symptoms. Care Plan Goals: Complete course of Ceftin 500 mg twice a day for 10 days along with doxycycline 100 mg twice a day for 10 days; prednisone taper as ordered Health Concerns: Follow-up with your primary care an your oncologist in next 1-2 weeks Plan of Treatment: Resume all previous medications as taken before hospital Assessment: See discharge summary Patient Instructions: Dehydration (ED), Hypotension (ED), Hypoxia (ED)
--- NOTE | 2022-09-22 09:55 | MHC.CM.PN ---
Addendum entered by Mahsa Hernandez 09/22/22 09:56: CORRECTION: [facility] Original Note: PT WILL DC HOME TODAY WITH [facility] [employer] [facility] DA[facility] TO TRANSPORT
[2022-09-22 11:25] VITALS: PULSE 75; RESP 16; O2SAT 96
[2022-09-26 10:03] LABS: Strep Pneumo Ag urine Not Detected (Not Detected)
== END 2022-09-22 12:46 | disposition home health service (06) | DRG 193 ==
LOC: HO.ED 22:23 → HO.EDOVER 23:42 → HO.S3 23:56
PROVIDERS: Admitting Provider Student in an Organized Health Care Education/Training Program; Emergency Provider Student in an Organized Health Care Education/Training Program; Visit Provider Hospitalist
DX: J18.9 Pneumonia, unspecified organism (principal); J96.01 Acute respiratory failure with hypoxia; J44.0 Chronic obstructive pulmonary disease with (acute) lower respiratory infection; C34.90 Malignant neoplasm of unspecified part of unspecified bronchus or lung; C79.51 Secondary malignant neoplasm of bone; Z66 Do not resuscitate; F41.9 Anxiety disorder, unspecified; F32.A Depression, unspecified; Z87.891 Personal history of nicotine dependence; Z91.041 Radiographic dye allergy status; Z79.51 Long term (current) use of inhaled steroids; Z79.82 Long term (current) use of aspirin; Z79.891 Long term (current) use of opiate analgesic; Z79.899 Other long term (current) drug therapy
CPT/HCPCS: 36415; 71045; 71275; 80048; 80053; 81003; 82803; 84484; 85025; 87640; 87641; 87899; 93005; 94640; 97162; 99285; J0456; J0696; J1650; J2930; Q9967

== ENCOUNTER 2022-10-08 09:17 | Outpatient (REF) | payer MEDICARE, MEDICAID, SELFPAY | END 2022-10-08 09:18 | disposition home or self-care (01) | LOC: HO.HOSX 09:17 | PROVIDERS: Visit Provider Physician Assistant | DX: Z13.89 Encounter for screening for other disorder (principal) ==

== ENCOUNTER 2022-10-25 10:34 | Outpatient (REF) | payer MEDICARE, MEDICAID, SELFPAY ==
--- NOTE | ~2022-10-25 | XR_ITS ---
EXAMINATION: XR KNEE, RIGHT CLINICAL INFORMATION: Pain. COMPARISON: Radiographs dated 08/28/2022. TECHNIQUE: AP, lateral and sunrise views of the right knee are submitted. FINDINGS: Bony alignment and mineralization are normal. The lateral, medial and patellofemoral joint space compartments are well-maintained. There is mild peripheral osteophyte formation of the lateral joint space compartment. There is stable alignment of a transverse patellar fracture. No dislocation is seen. There is a small osteophyte arising from the upper pole of the patella at the quadriceps tendon insertion. No dislocation or joint effusion is seen. There is no foreign body. There are femoropopliteal atherosclerotic calcifications. XR/XR knee RT 2V IMPRESSION: 1. There is stable alignment of a transverse patellar fracture. No significant new callus formation is appreciated. 2. There is no significant right knee joint effusion. 3. 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
--- NOTE | ~2022-10-25 | CT_ITS ---
EXAMINATION: CT ANGIOGRAM BRAIN, HEAD CLINICAL INFORMATION: aneurysm COMPARISON: CTA Head 11/14/21 TECHNIQUE: Test bolus sequences followed by intravenous administration 70 mL of Omnipaque 350 intravenous contrast. Helical imaging was performed in the axial plane from the skull base to the vertex. Delayed postcontrast imaging of the head was also performed. The data was processed at the research food technologist workstation for generation of MIP sequences. Three-dimensional volume rendered reformatted images were also generated at an offline 3-D workstation. The degree of stenosis determined by NASCET criteria. This CT examination was performed using dose optimization techniques as appropriate, variously including the following: *Automated exposure control *Adjustment of mA and/or kV according to patient size (this includes techniques or standardized protocols for targeted exams where dose is matched to indication/reason for exam; i.e. extremities or head) *Use of iterative reconstruction technique DLP: 1962 mGy-cm FINDINGS: CT Head: There is no evidence of acute intracranial hemorrhage or edematous territorial infarction. A few foci of hypoattenuation in the periventricular and deep white matter are consistent with mild microangiopathy. Lopse-white matter differentiation is preserved. Proportional prominence of the ventricles and sulcal spaces. No evidence for obstructive hydrocephalus. No abnormal mass effect or midline shift. No extra-axial fluid collections. No pathologic intra-axial enhancement or regional oligemia. No acute soft tissue or osseous abnormalities. The mastoid air cells and paranasal sinuses are clear. Brain CTA: Intracranial Internal Carotid Arteries: Calcific atherosclerotic disease of the intracranial internal carotid arteries without occlusion or flow-limiting stenosis. Right Anterior Cerebral Artery: Normal A1 segment. Normal opacification of the distal CHAD segments. Left Anterior Cerebral Artery: Normal A1 segment. Normal opacification of the distal CHAD segments. Anterior Communicating Artery: Normal. Right Middle Cerebral Artery: Normal M1 segment of the MCA without focal stenosis or occlusion. Normal arborization of the distal segments. Left Middle Cerebral Artery: Normal M1 segment of the MCA without focal stenosis or occlusion. Normal arborization of the distal segments. Right Vertebral Artery: Normal V4 segment. Left Vertebral Artery: Normal V4 segment. Basilar Artery: Normal without focal stenosis or occlusion. Normal appearance of the proximal superior cerebellar arteries. Right Posterior Cerebral Artery: The P1 segment is diminutive. origin of the BRAKE DRUM MOLDER with robust opacification of the posterior communicating artery. Normal opacification of the distal BRAKE DRUM MOLDER segments. Left Posterior Cerebral Artery: The P1 segment is diminutive. origin of the BRAKE DRUM MOLDER with robust opacification of the posterior communicating artery. Normal opacification of the distal BRAKE DRUM MOLDER segments. Normal opacification of the superior sagittal, straight, transverse, and sigmoid sinuses. Stable size and morphology of small bilateral MCA bifurcation aneurysms measuring up to 2.5 mm on the right and 1.5 mm on the left CT/CT angio head IMPRESSION: Stable small bilateral MCA bifurcation aneurysms.
[2022-10-25] MEDS: iohexoL 350 MG/ML 100 ML INFUS..BTL 70 ML IV (11:58)
== END 2022-10-25 10:35 | disposition home or self-care (01) ==
LOC: HO.CT 10:34
PROVIDERS: PCP Nurse Practitioner Family; Visit Provider Neurological Surgery
DX: I67.1 Cerebral aneurysm, nonruptured (principal); M25.561 Pain in right knee
CPT/HCPCS: 70496; 73560; Q9967

== ENCOUNTER 2022-10-28 08:45 | Outpatient (REF) | payer MEDICARE, MEDICAID, SELFPAY ==
--- NOTE | ~2022-10-28 | XR_ITS ---
EXAMINATION: XR KNEE, RIGHT CLINICAL INFORMATION: Pain COMPARISON: Right knee radiograph from 08/28/2022 TECHNIQUE: Two views of the right knee. FINDINGS: Nonunited mildly displaced transverse fracture involving the mid body of the patella with approximately 3 mm of distraction of the fracture fragments. Mild multicompartment degenerative changes. Mild narrowing of the medial femorotibial compartment. Enthesopathy at the Achilles tendon insertion site. Small to moderate knee joint effusion. Suprapatellar soft tissue swelling. Atherosclerotic calcifications are noted. XR/XR knee RT 2V IMPRESSION: 1. Nonunited displaced transverse fracture involving the mid body of the patella with approximately 3 mm of distraction of the fracture fragments. 2. Small to moderate knee joint effusion. 3. Suprapatellar soft tissue swelling. 4. Mild multicompartment degenerative changes.
== END 2022-10-28 08:46 | disposition home or self-care (01) ==
LOC: HO.HOSX 08:45
PROVIDERS: Visit Provider Physician Assistant
DX: S82.001A Unspecified fracture of right patella, initial encounter for closed fracture (principal)
CPT/HCPCS: 73560

== ENCOUNTER 2022-11-13 16:03 | Outpatient (REF) | payer MEDICARE, MEDICAID, SELFPAY ==
--- NOTE | ~2022-11-13 | XR_ITS ---
EXAMINATION: XR CHEST CLINICAL INFORMATION: URI with cough and congestion COMPARISON: Chest radiograph from 09/19/2022 TECHNIQUE: 2 views of the chest were obtained. FINDINGS: Right-sided pleural effusion with subjacent atelectasis. Prominent pulmonary vasculature. Slight bronchial wall thickening. No pneumothorax. Trachea is midline. Cardiac mediastinal silhouette is stable. Degenerative changes of the thoracolumbar spine. Soft tissues are unremarkable. XR/XR chest 2V IMPRESSION: 1. Right-sided pleural effusion with subjacent atelectasis. 2. Prominent pulmonary vasculature. 3. Slight bronchial wall thickening.
== END 2022-11-13 16:04 | disposition home or self-care (01) ==
LOC: HO.XRAY 16:03
PROVIDERS: PCP Nurse Practitioner Family; Visit Provider Nurse Practitioner Family
DX: J06.9 Acute upper respiratory infection, unspecified (principal); C34.91 Malignant neoplasm of unspecified part of right bronchus or lung
CPT/HCPCS: 71046

== ENCOUNTER 2022-11-14 19:08 | Emergency (ER) | payer MEDICARE, MEDICAID, SELFPAY ==
--- NOTE | ~2022-11-14 | CT_ITS ---
EXAMINATION: CT CHEST WITHOUT CONTRAST CLINICAL INFORMATION: Question pleural effusion cough congestion COMPARISON: CT angiography chest from 09/19/2022 TECHNIQUE: Multidetector volumetric CT imaging of the chest was done. Axial MIP volume rendering provided. Sagittal and coronal reformatted images were obtained. This CT examination was performed using dose optimization techniques as appropriate, variously including the following: *Automated exposure control *Adjustment of mA and/or kV according to patient size (this includes techniques or standardized protocols for targeted exams where dose is matched to indication/reason for exam; i.e. extremities or head) *Use of iterative reconstruction technique DLP: 255 mGy-cm FINDINGS: LUNGS/PLEURA: Interval decrease in previously noted pleural effusion now small in size with subjacent atelectasis. Redemonstration of consolidative focus involving the right lung base with air bronchograms relatively stable in appearance. Emphysematous changes. Biapical pleural parenchymal scarring. Peripheral reticular nodular opacities with subpleural reticulations. Stable bilateral micropulmonary nodules for example in the left upper lobe (series 4, image 185) measuring 4 mm. No new enlarged or suspicious pulmonary nodules or masses are noted. Central airways are otherwise patent. Left basilar atelectasis. No pneumothorax. MEDIASTINUM: Heart is mildly enlarged. Coronary artery calcifications are noted. Aorta is nonaneurysmal and demonstrates atherosclerotic calcifications. Main pulmonary artery is not enlarged. A few mildly prominent paratracheal precarinal and periaortic lymph nodes are redemonstrated the largest measuring 9 mm in short axis. Visualized portions of the thyroid are unremarkable. AXILLA: No lymphadenopathy. UPPER ABDOMEN: Small hiatal hernia. OSSEOUS STRUCTURES: Suggestion of hemangioma involving T8. Osteopenia. Multilevel degenerative changes of the thoracolumbar spine. CT/CT chest wo IV con IMPRESSION: 1. Interval decrease in previously noted pleural effusion now small in size with subjacent atelectasis. 2. Redemonstration of consolidative focus involving the right lung base with air bronchograms relatively stable in appearance. 3. Stable bilateral micropulmonary nodules. No new enlarged or suspicious pulmonary nodules or masses are noted. 4. A few mildly prominent paratracheal precarinal and periaortic lymph nodes are redemonstrated the largest measuring 9 mm in short axis. 5. Small hiatal hernia. 6. Suggestion of hemangioma involving T8 vertebral body. Osteopenia.
[2022-11-14 19:22] VITALS: BP 115/39; PULSE 62; RESP 18; TEMP 36.5; O2SAT 99; BMI 23.4
--- NOTE | 2022-11-14 19:23 | ED.GENADULT ---
HPI - General Adult General Chief complaint: General Medical Stated complaint: ? collapsed lung referred by PCP Time Seen by Provider: 11/14/22 23:38 Source: patient and family Mode of arrival: ambulatory Limitations: no limitations History of Present Illness HPI narrative: History of non-small cell lung carcinoma on oxygen at home comes here as PCB the chest x-ray yesterday with slight amount of effusion possible collapsed lung patient denies any change in shortness chronic cough does have slight leg edema otherwise feels at baseline no fever or chills Related Data Home Medications Medication Instructions Recorded Confirmed B-complex with vitamin C 1 cap PO DAILY 08/24/21 09/19/22 acetaminophen 500 mg capsule 500 mg PO Q8H PRN Pain 08/24/21 09/19/22 albuterol sulfate 90 mcg/actuation 2 puff inhalation Q4H PRN 08/24/21 09/19/22 aerosol inhaler (ProAir HFA) Shortness Of Breath Or Wheezing citalopram 20 mg tablet (Celexa) 40 mg PO DAILY 08/24/21 09/19/22 clonazepam 0.5 mg tablet (Klonopin) 0.5 mg PO TID 08/24/21 09/19/22 ibuprofen 600 mg tablet (IBU) 600 mg PO QID PRN Pain 08/24/21 09/19/22 omeprazole 20 mg capsule,delayed 20 mg PO DAILY 08/24/21 09/19/22 release risperidone 1 mg tablet (Risperdal) 1 mg PO BEDTIME 08/24/21 09/19/22 albuterol sulfate 0.63 mg/3 mL 0.63 mg inhalation Q6H PRN wheezing 05/30/22 09/19/22 solution for nebulization lisinopril 40 mg tablet 40 mg PO DAILY 05/30/22 09/19/22 amlodipine 10 mg tablet 10 mg PO QAM 07/02/22 09/19/22 atorvastatin 40 mg tablet 40 mg PO QAM 07/02/22 09/19/22 risperidone 1 mg tablet 0.5 mg PO DAILY 07/02/22 09/19/22 aspirin 81 mg tablet,delayed 81 mg PO QAM 09/19/22 09/19/22 release cetirizine 10 mg tablet 10 mg PO DAILY PRN allergies 09/19/22 09/19/22 diclofenac sodium 1 % topical gel 2 g topical BID 09/19/22 09/19/22 Previous Rx's Medication Instructions Recorded cholecalciferol (vitamin D3) 50 50 mcg PO DAILY #90 tabs 09/18/21 mcg (2,000 unit) tablet (Vitamin D3) cyanocobalamin (vitamin B-12) 1,000 mcg PO DAILY #60 tabs 11/05/21 1,000 mcg tablet (Vitamin B-12) folic acid 1 mg tablet 1 mg PO DAILY #90 tabs 11/05/21 fluticasone fur. 100 mcg-umeclid 1 inh inhalation DAILY 30 days #60 05/30/22 62.5 mcg-vilant 25 mcg ea inhalat.powder (Trelegy Ellipta) calcium carb-vit D3-minerals 600 1 tab PO BID #60 tabs 07/18/22 mg calcium-200 unit tablet (Calcium 600 + Minerals) cefuroxime axetil 500 mg tablet 500 mg PO BID 10 days #20 tabs 09/22/22 doxycycline hyclate 100 mg tablet 100 mg PO BID 10 days #20 tabs 09/22/22 prednisone 10 mg tablet See Rx Instructions .Route 09/22/22 .COMPLEX #45 tabs morphine 30 mg tablet,extended 30 mg PO Q12H #60 tabs 10/18/22 release (MS Contin) oxycodone 5 mg tablet 5 mg PO Q6H PRN Breakthrough Pain, 10/18/22 Moderate #60 tabs gabapentin 400 mg capsule 400 mg PO TID #90 caps 10/20/22 ondansetron 8 mg disintegrating 8 mg PO Q8H #60 tabs 10/23/22 tablet Allergies Allergy/AdvReac Type Severity Reaction Status Date / Time codeine Allergy Unknown Verified 11/14/22 19:28 Iodinated Contrast Media Allergy Shakiness Verified 11/14/22 19:28 [IV Contrast Dye] Review of Systems Review of Systems: Yes all other systems are reviewed and are negative PMFSH Past Medical History Medical History Anxiety and depression Bone metastases 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 COPD (chronic obstructive pulmonary disease) GERD (gastroesophageal reflux disease) Hypertension Non-small cell lung cancer (NSCLC) Osteopenia (~2002) Tobacco abuse Vitamin D deficiency Surgical History History of lung biopsy (~2021) Family History Family History Sister Lupus Social History Social History Household Members: Family Housing: House Are you a primary healthcare customer service to a significant other at home: No Do you presently have visiting nurse or other home services: Yes (VNA, PT, OT) Alcohol intake: never Patient Tobacco Use Status: Former Tobacco user Tobacco use type: Cigarette Years Smoked: 20+ Years Smoked in Last 30 Days: No Use of substances other than those prescribed or required for medical reasons: No Advance Directives: Yes Advance Directives on File: Yes Advance Directives Date on File: 09/18/21 service: No Current occupational status: retired Physical Exam ED Vital Signs: Vital Signs - 24 hr 11/14/22 19:22 Temperature 97.7 F Pulse Rate 62 Respiratory Rate 18 Blood Pressure 115/39 L Pulse Oximetry 99 Oxygen Delivery Method Room Air BMI result Body Mass Index 23.4 Appearance: Alert. Oriented X3. No acute distress. Eyes: PERRLA, No Nystagmus ENT: Pharynx normal. Oral Mucosa moist Neck: Normal inspection. Neck supple. CVS: Normal heart rate and rhythm. Pulses normal. Respiratory: No respiratory distress. Equal air entry bilateral, no wheezing/rales/rhonchi bilateral conducted sounds Abdomen: Soft and nontender. Bowel sounds are present, no mass palpable, no CVA tenderness Skin: Skin warm and dry. Normal skin color. Normal skin turgor. Extremities: Trace lower extremity edema. No calf tenderness Neuro: Oriented X 3. No motor deficit. No sensory deficit.No cerebellar signs , cranial nerves II-XII intact Course Course Course Narrative: RME: 72-year-old female with a past medical history of non-small cell lung CA, on chemo, started on home O2, 2L NC last week, anxiety/depression, c/o chest congestion &cough, sent in by PCP for ?collapsed lung vs fluid in lungs seen on outpatient CXR yesterday. Also reports LE pedal edema. denies CP, SOB Out patient x-ray from yesterday shows right-sided pleural effusion with atelectasis EKG, labs, chest CT ordered Full HPI, ROS and PE to be performed by primary ED provider. Medical Decision Making Medical Decision Making [facility] Narrative: Patient had CT scan of the chest prior to evaluation decreased amount pleural effusion as compared to the past no acute changes in the lung discharge patient back home Lab Data [facility] Lab Attestation statement: I reviewed the patient's lab results. 11/14/22 20:05 11/14/22 20:05 Labs: Lab Results 11/14/22 11/14/22 11/14/22 Range/Units 20:05 20:05 20:05 WBC 9.0 (4.8-10.8) X10*3/uL RBC 4.55 (4.20-5.50) X10*6/uL Hgb 11.5 L (12.0-16.0) g/dl Hct 37.9 (37.0-47.0) % MCV 83.3 (80.0-98.0) fL MCH 25.3 L (27.0-33.0) pg MCHC 30.3 L (31.0-35.0) g/dl RDW 18.3 H (11.0-16.0) % Plt Count 241 (160-400) X10*3/uL MPV 9.5 (9.4-12.3) fL Immature Gran % (Auto) 0.2 (0.0-0.4) % Neut % (Auto) 74.1 H (45-73) % Lymph % (Auto) 17.5 L (20-40) % [place] % (Auto) 7.2 (2-11) % Eos % (Auto) 0.7 (0-4) % Baso % (Auto) 0.3 (0-2) % Lymph # (Auto) 1.6 (1.2-4.9) X10*3/uL [place] # (Auto) 0.7 (0.1-1.2) X10*3/uL Eos # (Auto) 0.1 (0.0-0.4) X10*3/uL Baso # (Auto) 0.0 (0.0-0.2) X10*3/uL Abs Immat Gran (auto) 0.02 (0.00-0.03) X10*3/uL Absolute Neuts (auto) 6.7 (2.0-8.3) x10*3/uL Absolute Nucleated RBC 0.000 (0.0-0.012) X10*3/uL Nucleated RBC % (auto) 0.0 (0.0-0.2) /100WBC PT 12.0 (11.1-13.3) SEC INR 1.0 (0.9-1.1) Sodium 144 (135-145) mmol/L Potassium 3.8 (3.3-5.1) mmol/L Chloride 102 (96-108) mmol/L Carbon Dioxide 34 H (22-29) mmol/L Anion Gap 12 (12-20) BUN 9 (9-16) mg/dL Creatinine 0.73 (0.5-1.4) mg/dL Estim Creat Clear Calc 57.5 Estimated GFR > 60 Random Glucose 104 (60-115) mg/dL Calcium 10.0 (8.4-10.2) mg/dL Total Bilirubin 0.5 (0.0-1.0) mg/dL Direct Bilirubin 0.2 (0.0-0.5) mg/dL AST 22 (5-31) U/L ALT 12 (0-31) U/L Alkaline Phosphatase 71 (39-117) U/L Troponin I High Sens (<3.5-17.0) ng/L B-Natriuretic Peptide (<100) pg/mL Total Protein 5.8 L (6.5-8.0) g/dL Albumin 2.8 L (3.5-5.0) g/dL COVID-19 (THERESE) (Negative) COVID-19 Clin Com Influenza Type A (VANITA) (Negative) Influenza Type B (VANITA) (Negative) Influenza A & B Note 11/14/22 11/14/22 11/14/22 Range/Units 20:05 20:05 20:05 WBC (4.8-10.8) X10*3/uL RBC (4.20-5.50) X10*6/uL Hgb (12.0-16.0) g/dl Hct (37.0-47.0) % MCV (80.0-98.0) fL MCH (27.0-33.0) pg MCHC (31.0-35.0) g/dl RDW (11.0-16.0) % Plt Count (160-400) X10*3/uL MPV (9.4-12.3) fL Immature Gran % (Auto) (0.0-0.4) % Neut % (Auto) (45-73) % Lymph % (Auto) (20-40) % [place] % (Auto) (2-11) % Eos % (Auto) (0-4) % Baso % (Auto) (0-2) % Lymph # (Auto) (1.2-4.9) X10*3/uL [place] # (Auto) (0.1-1.2) X10*3/uL Eos # (Auto) (0.0-0.4) X10*3/uL Baso # (Auto) (0.0-0.2) X10*3/uL Abs Immat Gran (auto) (0.00-0.03) X10*3/uL Absolute Neuts (auto) (2.0-8.3) x10*3/uL Absolute Nucleated RBC (0.0-0.012) X10*3/uL Nucleated RBC % (auto) (0.0-0.2) /100WBC PT (11.1-13.3) SEC INR (0.9-1.1) Sodium (135-145) mmol/L Potassium (3.3-5.1) mmol/L Chloride (96-108) mmol/L Carbon Dioxide (22-29) mmol/L Anion Gap (12-20) BUN (9-16) mg/dL Creatinine (0.5-1.4) mg/dL Estim Creat Clear Calc Estimated GFR Random Glucose (60-115) mg/dL Calcium (8.4-10.2) mg/dL Total Bilirubin (0.0-1.0) mg/dL Direct Bilirubin (0.0-0.5) mg/dL AST (5-31) U/L ALT (0-31) U/L Alkaline Phosphatase (39-117) U/L Troponin I High Sens 3.3 (<3.5-17.0) ng/L B-Natriuretic Peptide 297 H (<100) pg/mL Total Protein (6.5-8.0) g/dL Albumin (3.5-5.0) g/dL COVID-19 (THERESE) Negative (Negative) COVID-19 Clin Com See Note Influenza Type A (VANITA) (Negative) Influenza Type B (VANITA) (Negative) Influenza A & B Note 11/14/22 Range/Units 20:44 WBC (4.8-10.8) X10*3/uL RBC (4.20-5.50) X10*6/uL Hgb (12.0-16.0) g/dl Hct (37.0-47.0) % MCV (80.0-98.0) fL MCH (27.0-33.0) pg MCHC (31.0-35.0) g/dl RDW (11.0-16.0) % Plt Count (160-400) X10*3/uL MPV (9.4-12.3) fL Immature Gran % (Auto) (0.0-0.4) % Neut % (Auto) (45-73) % Lymph % (Auto) (20-40) % [place] % (Auto) (2-11) % Eos % (Auto) (0-4) % Baso % (Auto) (0-2) % Lymph # (Auto) (1.2-4.9) X10*3/uL [place] # (Auto) (0.1-1.2) X10*3/uL Eos # (Auto) (0.0-0.4) X10*3/uL Baso # (Auto) (0.0-0.2) X10*3/uL Abs Immat Gran (auto) (0.00-0.03) X10*3/uL Absolute Neuts (auto) (2.0-8.3) x10*3/uL Absolute Nucleated RBC (0.0-0.012) X10*3/uL Nucleated RBC % (auto) (0.0-0.2) /100WBC PT (11.1-13.3) SEC INR (0.9-1.1) Sodium (135-145) mmol/L Potassium (3.3-5.1) mmol/L Chloride (96-108) mmol/L Carbon Dioxide (22-29) mmol/L Anion Gap (12-20) BUN (9-16) mg/dL Creatinine (0.5-1.4) mg/dL Estim Creat Clear Calc Estimated GFR Random Glucose (60-115) mg/dL Calcium (8.4-10.2) mg/dL Total Bilirubin (0.0-1.0) mg/dL Direct Bilirubin (0.0-0.5) mg/dL AST (5-31) U/L ALT (0-31) U/L Alkaline Phosphatase (39-117) U/L Troponin I High Sens (<3.5-17.0) ng/L B-Natriuretic Peptide (<100) pg/mL Total Protein (6.5-8.0) g/dL Albumin (3.5-5.0) g/dL COVID-19 (THERESE) (Negative) COVID-19 Clin Com Influenza Type A (VANITA) Negative (Negative) Influenza Type B (VANITA) Negative (Negative) Influenza A & B Note See Note Independent Interpretation I performed an independent interpretation of an: EKG Interpretation: Heart rate 52 beats per minute sinus bradycardia no acute ST T wave changes no acute ischemic Radiology Impression Discussion of test interpretation with radiology: I have reviewed the radiologist's reading. Radiologist Impression: CT/CT chest wo IV con IMPRESSION: 1.? Interval decrease in previously noted pleural effusion now small in size with subjacent atelectasis. 2.? Redemonstration of consolidative focus involving the right lung base with air bronchograms relatively stable in appearance. 3.? Stable bilateral micropulmonary nodules. No new enlarged or suspicious pulmonary nodules or masses are noted. 4.? A few mildly prominent paratracheal precarinal and periaortic lymph nodes are redemonstrated the largest measuring 9 mm in short axis. 5.? Small hiatal hernia. 6.? Suggestion of hemangioma involving T8 vertebral body. Osteopenia. Discharge Plan Discharge Clinical Impression: Non-small cell lung cancer (NSCLC) Patient Disposition: Home, Self-Care Instructions: Lung Cancer (DC) Additional Instructions: Your CT scan looks better than last time with less amount of effusion with chronic changes Continue medication and follow with PCP Prescriptions: No Action cholecalciferol (vitamin D3) [Vitamin D3] 50 mcg (2,000 unit) Tablet 50 mcg PO DAILY Qty: 90 4RF Calcium 600 + Minerals 600 mg calcium- 200 unit Tablet 1 tab PO BID Qty: 60 3RF gabapentin 400 mg Capsule 400 mg PO TID Qty: 90 4RF ondansetron 8 mg Tablet,Disintegrating 8 mg PO Q8H Qty: 60 4RF cyanocobalamin (vitamin B-12) [Vitamin B-12] 1,000 mcg Tablet 1,000 mcg PO DAILY Qty: 60 0RF folic acid 1 mg Tablet 1 mg PO DAILY Qty: 90 3RF morphine [MS Contin] 30 mg Tablet Extended Release 30 mg PO Q12H Qty: 60 0RF Rx Instructions: Partial Fill upon patient request. oxycodone 5 mg Tablet 5 mg PO Q6H PRN (Reason: Breakthrough Pain, Moderate) Qty: 60 0RF Rx Instructions: Partial Fill upon patient request. atorvastatin 40 mg tablet 40 mg PO QAM amlodipine 10 mg tablet 10 mg PO QAM risperidone 1 mg tablet 0.5 mg PO DAILY cetirizine 10 mg tablet 10 mg PO DAILY PRN (Reason: allergies) diclofenac sodium 1 % gel 2 g topical BID aspirin 81 mg tablet,delayed release (DR/EC) 81 mg PO QAM cefuroxime axetil 500 mg tablet 500 mg PO BID 10 Days Qty: 20 0RF doxycycline hyclate 100 mg tablet 100 mg PO BID 10 Days Qty: 20 0RF prednisone 10 mg tablet See Rx Instructions .Route .COMPLEX Qty: 45 0RF Rx Instructions: 10 mg orally; 5 tabs p.o. daily x3 days; 4 tabs p.o. daily x3 days; 3 tabs daily x3 days; 2 tabs daily x3 days; 1 tab daily x3 days albuterol sulfate 0.63 mg/3 mL solution for nebulization 0.63 mg inhalation Q6H PRN (Reason: wheezing) lisinopril 40 mg tablet 40 mg PO DAILY Trelegy Ellipta 100-62.5-25 mcg blister with device 1 inh inhalation DAILY 30 Days Qty: 60 11RF ibuprofen [IBU] 600 mg tablet 600 mg PO QID PRN (Reason: Pain) albuterol sulfate [ProAir HFA] 90 mcg/actuation HFA aerosol inhaler 2 puff inhalation Q4H PRN (Reason: Shortness Of Breath Or Wheezing) omeprazole 20 mg capsule,delayed release(DR/EC) 20 mg PO DAILY clonazepam [Klonopin] 0.5 mg tablet 0.5 mg PO TID acetaminophen 500 mg capsule 500 mg PO Q8H PRN (Reason: Pain) risperidone [Risperdal] 1 mg tablet 1 mg PO BEDTIME citalopram [Celexa] 20 mg tablet 40 mg PO DAILY B-complex with vitamin C Capsule 1 cap PO DAILY
--- NOTE | 2022-11-14 19:28 | ECG_ITS ---
Test Reason : SOB Blood Pressure : / mmHG Vent. Rate : 052 BPM Atrial Rate : 052 BPM P-R Int : 124 ms QRS Dur : 082 ms QT Int : 458 ms P-R-T Axes : 070 031 045 degrees QTc Int : 425 ms Sinus bradycardia with sinus arrhythmia RSR' or QR pattern in V1 suggests right ventricular conduction delay Abnormal ECG When compared with ECG of 19-SEP-2022 10:42, Heart rate has decreased RSR' or QR pattern in V1 suggests right ventricular conduction delay Referred By: Reny Martinez Electronically Signed By:THOMAS HAJI
[2022-11-14 20:12] LABS: MANUAL DIFF FLAG NO
[2022-11-14 20:14] LABS: Basophils Percent Auto 0.3 % (0-2); Eosinophils Absolute Auto 0.1 X10*3/uL (0.0-0.4); Eosinophils Percent Auto 0.7 % (0-4); Hematocrit 37.9 % (37.0-47.0); Hemoglobin 11.5 g/dl (12.0-16.0); Imm Gran Abs Auto 0.02 X10*3/uL (0.00-0.03); Imm Gran Pct Auto 0.2 % (0.0-0.4); Lymphocytes Absolute Auto 1.6 X10*3/uL (1.2-4.9); Lymphocytes Percent Auto 17.5 % (20-40); Mean Corpuscular HGB Conc 30.3 g/dl (31.0-35.0); Mean Corpuscular Hemoglobin 25.3 pg (27.0-33.0); Mean Corpuscular Volume 83.3 fL (80.0-98.0); Mean Platelet Volume 9.5 fL (9.4-12.3); Monocytes Absolute Auto 0.7 X10*3/uL (0.1-1.2); Monocytes Percent Auto 7.2 % (2-11); Neutrophils Absolute Auto 6.7 x10*3/uL (2.0-8.3); Neutrophils Percent Auto 74.1 % (45-73); Platelet Count 241 X10*3/uL (160-400); Red Blood Count 4.55 X10*6/uL (4.20-5.50); Red Cell Distribution Width 18.3 % (11.0-16.0)
[2022-11-14 20:33] LABS: COVID-19 Test Negative (Negative); IDNOW Serial# 08D9AD1C
[2022-11-14 20:37] LABS: Alanine Aminotransferase 12 U/L (0-31); Albumin Level 2.8 g/dL (3.5-5.0); Alkaline Phosphatase 71 U/L (39-117); Anion Gap 12 (12-20); Aspartate Amino Transferase 22 U/L (5-31); Bilirubin Direct 0.2 mg/dL (0.0-0.5); Bilirubin Total 0.5 mg/dL (0.0-1.0); Blood Urea Nitrogen 9 mg/dL (9-16); Carbon Dioxide 34 mmol/L (22-29); Chloride 102 mmol/L (96-108); Creatinine Clr Calc Pharmacy 57.5; Estimated Glomerular Filt Rate > 60; Glucose Random 104 mg/dL (60-115); Potassium 3.8 mmol/L (3.3-5.1); Sodium 144 mmol/L (135-145); Total Protein 5.8 g/dL (6.5-8.0)
[2022-11-14 20:39] LABS: B Type Natriuretic Peptide 297 pg/mL (<100)
[2022-11-14 20:42] LABS: Troponin-I High Sensitivity 3.3 ng/L (<3.5-17.0)
[2022-11-14 21:20] LABS: IDNOW Serial# BCCEAD1C; Influenza A Negative (Negative); Influenza B2 Negative (Negative)
--- NOTE | 2022-11-14 22:02 | PC.NURSE ---
Assumed care of pt. Pt transferred from wheelchair to bed without complications. pt with upper respiratory congestion, no complaints otherwise. Mild BLE edema, +1 L>R.
[2022-11-15 00:17] VITALS: BP 137/45; PULSE 58; TEMP 36.4
== END 2022-11-15 00:21 | disposition home or self-care (01) ==
PROVIDERS: Physician Assistant; Emergency Provider Internal Medicine; PCP Nurse Practitioner Family
DX: C34.90 Malignant neoplasm of unspecified part of unspecified bronchus or lung (principal); C79.51 Secondary malignant neoplasm of bone; R06.02 Shortness of breath; Z20.822 Contact with and (suspected) exposure to COVID-19; I10 Essential (primary) hypertension; J44.9 Chronic obstructive pulmonary disease, unspecified; Z99.81 Dependence on supplemental oxygen; Z87.891 Personal history of nicotine dependence; Z79.899 Other long term (current) drug therapy; Z79.82 Long term (current) use of aspirin
CPT/HCPCS: 36415; 71250; 80048; 80076; 83880; 84484; 85025; 85610; 87502; 87635; 93005; 99284

== ENCOUNTER 2022-12-12 10:48 | Outpatient (REF) | payer MEDICARE, MEDICAID, SELFPAY | END 2022-12-12 10:49 | disposition home or self-care (01) | LOC: HO.HOSX 10:48 | PROVIDERS: Visit Provider Physician Assistant | DX: Z13.89 Encounter for screening for other disorder (principal) ==

== ENCOUNTER 2022-12-25 12:48 | Outpatient (AMB) | payer MEDICARE, MEDICAID, SELFPAY ==
--- NOTE | 2022-12-25 12:57 | A.OFFVIS_ITS ---
Intake Vital Signs 12/25/22 13:01 Height 5 ft 3 in Weight 123 lb BMI 21.8 Intake Visit Reasons: OV- f/u Lt patellar fx w xrays Intake Note: Eloisa is a 72 year old female who presents today for a follow up of right knee patellar fx, DOI 07/01/22. Xrays updated in office. Patient reports that she is dong well, her pain is improving. Allergies codeine Allergy (Verified 11/14/22 19:28) Unknown Iodinated Contrast Media [IV Contrast Dye] Allergy (Verified 11/14/22 19:28) Shakiness HPI OV- f/u Lt patellar fx w xrays HPI Details 72-year-old female who returns to the [facility] today for a follow-up of right patellar fracture, 07/01/22. She states she has no pain but she does c/o mild weakness in her knee. She is using a walker to ambulate. She is doing well overall and has no concerns today. PENDING SALE TO [facility] Medical History Non-small cell lung cancer (NSCLC) Bone metastases 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 Anxiety and depression GERD (gastroesophageal reflux disease) COPD (chronic obstructive pulmonary disease) Tobacco abuse Vitamin D deficiency Hypertension Osteopenia (~2002) Surgical History History of lung biopsy (~2021) Family History Sister Lupus Social History Household Members: Family Housing: House Are you a primary care companion to a significant other at home: No Do you presently have visiting nurse or other home services: Yes (VNA, PT, OT) Alcohol intake: never Patient Tobacco Use Status: Former Tobacco user Tobacco use type: Cigarette Years Smoked: 20+ Years Advance Directives Date on File: 09/18/21 service: No Current occupational status: retired Review of Systems Const All systems reviewed & are unremarkable except as noted in HPI and below Physical Exam Vital Signs: BMI result Body Mass Index 21.8 Extrem Other: Right knee normal to inspection without tenderness to palpation over the patella. No joint effusion. ROM 0-95, She is able to plantar and dorsi flex the left ankle and foot. Pulses are present. Results Reviewed Results Reviewed: Xrays were obtained in the office today and personally reviewed by me of the right knee re-demonstrate mildly displaced patella fracture with interval jeremías whalen Assessment & Plan Assessment & Plan (1) Patellar fracture: Code(s): S82.009A - Unspecified fracture of unspecified patella, initial encounter for closed fracture Qualifiers: Encounter type: initial encounter Fracture alignment: nondisplaced Fracture morphology: unspecified fracture morphology Fracture type: closed Laterality: right Qualified Code(s): S82.001A - Unspecified fracture of right patella, initial encounter for closed fracture Plan She will increase activity as tolerated. If she develops any pain or discomfort, she will contact the office, otherwise she will follow-up as needed. Orders: Orders XR knee LT 2V 12/25/22 M25.562 - Pain in left knee XR knee RT 2V 12/25/22 M25.569 - Pain in unspecified knee XR knee LT 2V 12/12/22 M25.562 - Pain in left knee Patient Instructions: Scribed for Melissa Tilley PA-C, by Randall Vanegas medical records clerk, on 12/25/2022 at 1:15 PM EST. I, Melissa Tilley PA-C, have personally reviewed and agree with the information entered by the scribe. Coding Level of Care Code Global (64387) Diagnoses Closed nondisplaced fracture of right patella, unspecified fracture morphology, initial encounter S82.001A Encounter type: initial encounter Fracture alignment: nondisplaced Fracture morphology: unspecified fracture morphology Fracture type: closed Laterality: right
[2022-12-25 13:01] VITALS: BMI 21.8
== END 2022-12-25 13:26 | disposition home or self-care (01) ==
PROVIDERS: PCP Nurse Practitioner Family; Visit Provider Physician Assistant
DX: S82.001D Unspecified fracture of right patella, subsequent encounter for closed fracture with routine healing (principal); W19.XXXD Unspecified fall, subsequent encounter
CPT/HCPCS: 99213

== ENCOUNTER 2022-12-25 13:09 | Outpatient (REF) | payer MEDICARE, MEDICAID, SELFPAY ==
--- NOTE | ~2022-12-25 | XR_ITS ---
EXAMINATION: XR KNEE, RIGHT CLINICAL INFORMATION: Pain. COMPARISON: Prior radiographs, most recently 10/28/2022. TECHNIQUE: AP and lateral views of the right knee. FINDINGS: Bony alignment and mineralization are normal. A mildly displaced transverse fracture is redemonstrated at the lower pole of the patella. This shows stable alignment, and there is increased, moderate callus formation. No dislocation or joint effusion is seen. The lateral, medial and patellofemoral joint space compartments are well-maintained. There is mild peripheral osteophyte formation of the lateral tibial plateau. There are atherosclerotic calcifications. XR/XR knee RT 2V IMPRESSION: 1. There is stable alignment of a transverse fracture of the right patella. There is increased callus formation. 2. There is very mild osteoarthritic change of the medial joint space compartment of the right knee.
--- NOTE | ~2022-12-25 | XR_ITS ---
EXAMINATION: XR KNEE, LEFT CLINICAL INFORMATION: Pain in left knee COMPARISON: None available. TECHNIQUE: 2 views of the left knee. FINDINGS: No fracture or joint effusion. Alignment is anatomic. Joint spaces are maintained. No abnormal soft tissue calcification. XR/XR knee LT 2V IMPRESSION: Normal left knee.
== END 2022-12-25 13:10 | disposition home or self-care (01) ==
LOC: HO.HOSX 13:09
PROVIDERS: Visit Provider Physician Assistant
DX: S82.001D Unspecified fracture of right patella, subsequent encounter for closed fracture with routine healing (principal); M25.562 Pain in left knee
CPT/HCPCS: 73560; 99212

== ENCOUNTER 2023-03-27 10:45 | Outpatient (REF) | payer MEDICARE, MEDICAID, SELFPAY ==
--- NOTE | ~2023-03-27 | CT_ITS ---
EXAMINATION: CT CHEST WITH CONTRAST CLINICAL INFORMATION: Follow-up lung cancer. COMPARISON: 12/25/2022 TECHNIQUE: Multidetector volumetric CT imaging of the chest was obtained after the administration of 65 mL of Omnipaque 350 intravenous contrast without immediate adverse reactions. Axial MIP volume rendering provided. Sagittal and coronal reformatted images were obtained. This CT examination was performed using dose optimization techniques as appropriate, variously including the following: *Automated exposure control *Adjustment of mA and/or kV according to patient size (this includes techniques or standardized protocols for targeted exams where dose is matched to indication/reason for exam; i.e. extremities or head) *Use of iterative reconstruction technique DLP: 91.00 mGy-cm FINDINGS: LUNGS/PLEURA: Baseline emphysematous changes are present. There is a slight decrease in size of the right small predominantly subpulmonic pleural effusion with adjacent atelectasis. Again seen is consolidation in the posterior basal segment of the right lower lobe with associated bronchiectasis. Unchanged reticulonodular opacities with subpleural reticulations. Stable bilateral pulmonary micronodules with none larger than 4 mm (for example 2 adjacent right lower lobe nodules 7:53). Carreon images have been saved. No new or worrisome pulmonary nodules or masses are noted. MEDIASTINUM: Heart is within normal limits in size. Coronary artery calcifications are noted. Aorta is nonaneurysmal and demonstrates atherosclerotic calcifications. Main pulmonary artery is not enlarged. Multiple small mediastinal lymph nodes are present and unchanged, most likely reactive. Thyroid appears normal. AXILLA: No lymphadenopathy. UPPER ABDOMEN: Small hiatal hernia. OSSEOUS STRUCTURES: Stable appearance of probable hemangioma involving T8. Multilevel degenerative changes of the thoracolumbar spine are again noted. CT/CT chest w IV con IMPRESSION: 1. Slight decrease in size of the right small predominantly subpulmonic pleural effusion with adjacent atelectasis. 2. Again seen is consolidation in the posterior basal segment of the right lower lobe with associated bronchiectasis. 3. Unchanged reticulonodular opacities with subpleural reticulations. 4. Stable bilateral pulmonary micronodules with none larger than 4 mm. No new or worrisome pulmonary nodules or masses are noted.
[2023-03-27] MEDS: iohexoL 350 MG/ML 100 ML INFUS..BTL IV (11:30)
== END 2023-03-27 10:46 | disposition home or self-care (01) ==
LOC: HO.CT 10:45
PROVIDERS: PCP Nurse Practitioner Family; Visit Provider Internal Medicine Medical Oncology
DX: C34.90 Malignant neoplasm of unspecified part of unspecified bronchus or lung (principal)
CPT/HCPCS: 71260; Q9967

== ENCOUNTER → 2023-04-01 11:07 | Outpatient (REF) | payer MEDICARE, MEDICAID, SELFPAY | LOC: HO.NUCMED 11:07 | PROVIDERS: PCP Nurse Practitioner Family; Visit Provider Internal Medicine Medical Oncology | DX: M89.9 Disorder of bone, unspecified (principal) | CPT/HCPCS: 78306; A9503 ==

== ENCOUNTER 2023-05-07 10:38 | Outpatient (AMB) | payer MEDICARE, MEDICAID, SELFPAY ==
[2023-05-07 10:44] VITALS: PULSE 68; O2SAT 99; BMI 35.2
--- NOTE | 2023-05-07 10:44 | MHC.OFFVIS ---
Intake Vital Signs 05/07/23 10:44 Height 5 ft 3 in Weight 199 lb BMI 35.2 Pulse 68 Pulse Source Pulse Oximeter Pulse Oximetry (%) 99 Oxygen Delivery Method Room Air Comment 2 Liters Oxygen([employer]) Intake Visit Reasons: copd Groundsman Required: No Allergies codeine Allergy (Verified 05/07/23 10:46) Unknown Iodinated Contrast Media [IV Contrast Dye] Allergy (Verified 05/07/23 10:46) Shakiness HPI HPI Comments History of Present Illness Details The patient is a 71-year-old female with a history of COPD, metastatic lung cancer on current chemotherapy presents to the ER for evaluation of sudden-onset 10/10 sharp left-sided chest pain under her left breast that started when she was in oncology.? It was before she had been administered the chemotherapy agent and was when she was getting Kaytruda. Patient states the pain is located under her left breast, is constant and does not radiate. She states it is associated with anxiety because she knows she was supposed to get her CT scan results today. She has had increased cough with white phlegm production. No fevers, chills, hemoptysis. No change in her chronic SOB or LENNON. The patient did undergo pulmonary function studies which I personally reviewed demonstrating moderate degree of COPD. The patient has been on Incruse inhaler. Will get a optimize her respiratory therapy at this time. She also has significant productive cough with mucus production. Moderate severity. Unfortunately she continues to smoke cigarettes. She understands that most of our therapies will not be effective if she continues to smoke cigarettes. During the office visit we did have her go for 6 minute walk test the patient did not qualify for oxygen which is reassuring. 05/07/2023 the patient is here for a pulmonary follow-up visit. The patient overall has been tired. She is tired of dealing with all the chronic illness. She has been using the oxygen with good effect. She does have 2 L continuously. Although she is using her tanks very happy. She very limited due to the fact that the patient is wheelchair or walker dependent. Her daughter has a baby also has been trying to help her. We did take it for a walking oximetry for titration study and she actually did good on 2 L pulse. Therefore will request a conserving device tank from her [employer] in order for her to have easier time will portability when she leaves the house. Otherwise when she is in the house she can be the on the concentrator using 2 L continues. She really does not leave the house too much except for appointments. She continues on the combination chemo immune therapy with very good response. She did have a bone study that was reassuring except for 1 area that was slightly active. And I believe she is going to have another imaging study coming up in the spring of 2023. She is following closely with Oncology here. As far as her respiratory medications she is tolerating well. Although she has a very congested cough. Will start her on azithromycin 3 times a week for chronic bronchitis. I am hoping that this improves her symptoms. If she does stay on the medications she will need an EKG. The patient also provide her Acapella valve in order for better chest physical therapy. [facility] Medical History (Updated 05/07/23 @ 18:47 by Chandler Reis MD) Non-small cell lung cancer (NSCLC) (~2021) Bone metastases COPD (chronic obstructive pulmonary disease) Personal history of nicotine dependence Hypertension GERD (gastroesophageal reflux disease) Anxiety and depression Vitamin D deficiency Osteopenia (~2002) Surgical History History of lung biopsy (~2021) Family History Sister Lupus Social History Household Members: Family Housing: House Are you a primary health care social worker to a significant other at home: No Do you presently have visiting nurse or other home services: Yes (VNA, PT, OT) Alcohol intake: never Patient Tobacco Use Status: Former Tobacco user Tobacco use type: Cigarette Years Smoked: 20+ Years Advance Directives Date on File: 09/18/21 service: No Current occupational status: retired Review of Systems Const Denies fever(s) Eyes Denies change in vision ENT Reports nasal congestion Card Reports dyspnea on exertion Resp Reports chest congestion, Reports cough, Reports dyspnea on exertion and Reports wheezing GI Reports no additional complaints Musc Reports myalgias Skin/Breast Reports rash Neuro Reports no additional complaints Carroll/Lymph Denies easy bruising and Denies lymphadenopathy Aller/Immun Reports wheezing Physical Exam Vital Signs: Last Vital Signs Pulse 68 05/07/23 10:44 Pulse Ox 99 05/07/23 10:44 Oxygen Delivery Method Room Air 05/07/23 10:44 BMI result Body Mass Index 35.2 Const General: comfortable HEENT Head: Yes normocephalic Neck Neck: Yes supple Chest Chest palpation & inspection: normal inspection of the chest Resp Effort & Inspection: normal respiratory effort Auscultation: rhonchi and diminished lung sounds Cardio Rate: regular rate Rhythm: regular rhythm Heart sounds: S1 normal heart sound present and S2 normal heart sound present GI Palpation (GI): Soft to palpation Extrem General: Yes no clubbing, cyanosis or edema Office Procedures 6 Minute Walk Time:: 18:51 SPO2 % at rest: 88 Pulse at rest: 78 Supplemental Oxygen: Ambulated on 2L/pulse maintaining pox94% 18092 - 6 Minute Walk Assessment & Plan Assessment & Plan (1) COPD (chronic obstructive pulmonary disease): Code(s): J44.9 - Chronic obstructive pulmonary disease, unspecified Qualifiers: COPD type: chronic bronchitis Chronic bronchitis type: mucopurulent Qualified Code(s): J41.1 - Mucopurulent chronic bronchitis (2) Right lower lobe lung mass: Comment: (4cm mass like opacity RLL - 07/[address]) Code(s): R91.8 - Other nonspecific abnormal finding of lung field (3) Tobacco abuse: Code(s): Z72.0 - Tobacco use (4) Bone metastases: Code(s): C79.51 - Secondary malignant neoplasm of bone Plan contiune Trelegy LORI as needed start Azithromycin MWF continue oxygen 2L continuous. Does qualigy for conserving device 2L/pulse with activity. Will request B cylinders from her Rita [facility] F/U 3-4 months Medications: New azithromycin Take 1 tablet on Friday/Friday/Friday 250 mg PO 3XW 28 days 12 tabs 6RF K21.9 - Gastro-esophageal reflux disease without esophagitis wulypcxuwcc-tnlikrvjj-pzhnhikl 200-62.5-25 mcg (Trelegy Ellipta) 1 inh inhalation DAILY 30 days 60 ea 12RF Discontinued ubfjslscvlj-jjnbocmtd-kicqbxef 100-62.5-25 mcg (Trelegy Ellipta) Discontinued Reason: Doctor's Order 1 inh inhalation DAILY 30 days 60 ea 11RF J44.9 - Chronic obstructive pulmonary disease, unspecified Coding Level of Care Code Est Pt Level 4 (95616) Diagnoses Mucopurulent chronic bronchitis J41.1 COPD type: chronic bronchitis Chronic bronchitis type: mucopurulent Right lower lobe lung mass R91.8 Tobacco abuse Z72.0 Bone metastases C79.51 CPT Codes Coding ([id number]) Time Spent (min) 20
[2023-05-07 18:50] VITALS: PULSE 78; O2SAT 88
== END 2023-05-07 11:18 | disposition home or self-care (01) ==
PROVIDERS: PCP Nurse Practitioner Family; Visit Provider Hospitalist
DX: J41.1 Mucopurulent chronic bronchitis (principal); R91.8 Other nonspecific abnormal finding of lung field; Z72.0 Tobacco use; C79.51 Secondary malignant neoplasm of bone
CPT/HCPCS: 94618; 99214

== ENCOUNTER → 2023-05-07 10:38 | Outpatient (BNVA) | payer MEDICARE, MEDICAID, SELFPAY | PROVIDERS: PCP Nurse Practitioner Family; Visit Provider Hospitalist | DX: J41.1 Mucopurulent chronic bronchitis (principal); R91.8 Other nonspecific abnormal finding of lung field; C79.51 Secondary malignant neoplasm of bone; Z87.891 Personal history of nicotine dependence | CPT/HCPCS: 94618; 99212 ==

== ENCOUNTER 2023-05-16 11:01 | Outpatient (AMB) | payer MEDICARE, MEDICAID, SELFPAY ==
--- NOTE | 2023-05-16 11:02 | A.OFFVIS_ITS ---
Intake Vital Signs 05/16/23 11:03 Height 5 ft 3 in Weight 110 lb 3.698 oz BMI 19.5 BP 108/62 Blood Pressure Location Lt brachial Position Sitting Pulse 67 Intake Visit Reasons: NEONATOLOGIST/Laurence Granados/Natan. 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 Required: No Emergency Communications Operator: Emergency Communications Operator Present Accompanied by: Daughter Allergies codeine Allergy (Verified 05/07/23 10:46) Unknown Iodinated Contrast Media [IV Contrast Dye] Allergy (Verified 05/07/23 10:46) Shakiness Medication List - Last Reconciled 05/16/23 by Adi Rob MD acetaminophen 500 mg PO Q8H PRN albuterol sulfate 0.63 mg inhalation Q6H PRN albuterol sulfate 90 mcg/actuation (ProAir HFA) 2 puffs inhalation Q4H PRN aspirin 81 mg PO QAM atorvastatin 40 mg PO QAM azithromycin 250 mg PO 3XW 28 days B-complex with vitamin C 1 cap PO DAILY calcium carbonate-vit D3-min 600 mg calcium- 200 unit (Calcium 600 + Minerals) 1 tab PO BID cefuroxime axetil 500 mg PO BID cetirizine 10 mg PO DAILY PRN citalopram (Celexa) 40 mg PO DAILY clonazepam (Klonopin) 0.5 mg PO TID cyanocobalamin (vitamin B-12) (Vitamin B-12) 1,000 mcg PO DAILY diclofenac sodium 1% 2 grams topical BID xmcbwbtgnmg-qarrdoujn-yfgqxlix 200-62.5-25 mcg (Trelegy Ellipta) 1 inh inhalation DAILY 30 days folic acid 1 mg PO DAILY gabapentin 400 mg PO TID ibuprofen (IBU) 600 mg PO QID PRN loperamide (Imodium A-D) 2 mg PO Q4H PRN morphine ER (MS Contin) 30 mg PO Q12H omeprazole 20 mg PO DAILY ondansetron 8 mg PO Q8H oxycodone 5 mg PO Q6H PRN Oxygen Home Use As directed risperidone 0.5 mg PO DAILY HPI HPI Comments History of Present Illness Details 0 goal was referred here for cardiology evaluation for possible diagnosis of CHF. She said she had presented to the emergency room few months ago with symptoms of shortness of breath and subsequent workup at showed elevated BNP. Reviewing her chart it appears that in October 2022 she had elevated BNP in the 290 range which was also present a year ago by blood test. Patient subsequently few months ago developed leg edema after knee injury. She says that time she was very sedentary and sitting down in leg decompensation. Since then her leg edema is improved with improvement in mobility. She has not had any significant symptoms of orthopnea, PND, abdominal distension. She comes for evaluation of possible CHF given her elevated BNP and leg edema. She has history of metastatic ecf-diupq-elme lung cancer for which she is currently on chemotherapy. She also has significant COPD and chronic respiratory failure requiring home oxygen although she uses oxygen only at nighttime. She says the time she does not using oxygen. She has currently not smoking. She does have history of anxiety and depression. She also describes symptoms of palpitation where she says mostly feels her heart beating rapidly heart of the blue without any clear triggers. Symptoms then subside within few minutes. She denies any exertional chest pain. No lightheadedness, syncope. [facility] Medical History Non-small cell lung cancer (NSCLC) (~2021) Bone metastases COPD (chronic obstructive pulmonary disease) Personal history of nicotine dependence Hypertension GERD (gastroesophageal reflux disease) Anxiety and depression Vitamin D deficiency Osteopenia (~2002) Surgical History History of lung biopsy (~2021) Family History Sister Lupus Social History Household Members: Family Housing: House Are you a primary daycare director to a significant other at home: No Do you presently have visiting nurse or other home services: Yes (VNA, PT, OT) Alcohol intake: never Patient Tobacco Use Status: Former Tobacco user Tobacco use type: Cigarette Years Smoked: 20+ Years Advance Directives Date on File: 09/18/21 service: No Current occupational status: retired Review of Systems Const Denies chills, Denies daytime sleepiness, Denies fatigue, Denies fever(s), Denies frequent falls, Denies poor appetite, Denies snoring, Denies stops breathing during sleep, Denies weakness, Denies weight gain and Denies weight loss Eyes Denies loss of vision ENT Denies dizziness and Denies hearing loss Card Denies chest pain, Denies claudication, Denies leg edema, Denies l ightheadedness, Denies palpitations, Denies dyspnea, Denies dyspnea on exertion and Denies orthopnea Resp Denies cough, Denies excessive phlegm production, Denies dyspnea, Denies dyspnea on exertion, Denies snoring and Denies wheezing GI Denies abdominal pain, Denies hematochezia, Denies change in bowel habits, Denies nausea and Denies vomiting Denies urinary frequency and Denies dysuria Musc Denies arthralgias, Denies muscle weakness, Denies numbness and Denies other (frequent falls) Skin/Breast Denies nail changes and Denies rash Neuro Denies Abnormal speech present, Denies dizziness, Denies frequent falls, Denies loss of vision, Denies memory loss, Denies numbness and Denies weakness Psych Denies depression and Denies memory loss Endo Denies fatigue and Denies palpitations Carroll/Lymph Reports easy bruising and Reports other (anemia) Aller/Immun Denies wheezing Physical Exam Vital Signs: Last Vital Signs Pulse 67 05/16/23 11:03 BP 108/62 05/16/23 11:03 BMI result Body Mass Index 19.5 Const General: cooperative, comfortable, no acute distress, alert and awake Nutritional Appearance: underweight Orientation/consciousness: patient oriented x3 Limitations: no limitations HEENT Head: Yes normocephalic and Yes atraumatic Neck Neck: Yes trachea midline, Yes supple and Yes no JVD Resp Effort & Inspection: normal respiratory effort Auscultation: no rales, no wheezes and diminished lung sounds Cardio Jugular venous distension: no JVD Palpation: normal PMI Rate: regular rate Rhythm: regular rhythm Heart sounds: S1 normal heart sound present, S2 normal heart sound present, no click, no gallops, no murmurs and no rubs GI Auscultation: normal bowel sounds Skin General skin exam: no rashes or lesions noted Neuro General: patient oriented x3 and no focal motor deficits Speech: No Abnormal speech present Extrem General: Yes no clubbing, cyanosis or edema Office Procedures EKG Details: NSR with sinus arrhythmias. [id number], Complete Assessment & Plan Assessment & Plan (1) Elevated brain natriuretic peptide (BNP) level: Code(s): R79.89 - Other specified abnormal findings of blood chemistry Plan: Elevated BNP without any overt heart failure syndrome at this time. Elevated BNP is a marker for future development of heart failure but currently patient does not require any diuretic regimen. Elevated BNP could be due to RV strain and or pulmonary hypertension given her advanced COPD and possibly hypoxic pulmonary vaso constriction. I recommended her to get an echocardiogram in near future to assess for LV systolic and diastolic function to evaluate for RV systolic function and systolic pressure. She understands agrees. Continue to optimize pulmonary function. Consider oxygen supplementation therapy with exercise as well if she has exercise-induced hypoxemia. This was discussed with her. (2) Palpitations: Code(s): R00.2 - Palpitations Plan: Palpitations prolonged could represent SVT and/or atrial fibrillation. She is at risk for both of them. We have discussed about pursuing further options with 7 day Holter monitor as the symptoms happen on a regular basis. Also has possibly compensated sinus tachycardia related to her advanced COPD. Further treatment based on the findings of the Holter monitor. No pharmacotherapy is being recommended at this point time. Will follow up in the clinic in 4 weeks time, sooner p.r.n.. Thank you for allowing me to partake in the care Orders: Orders CA echo transthoracic complete Today R79.89 - Other specified abnormal findings of blood chemistry ECG 7 day holter monitor Today R00.2 - Palpitations Medications: Changed From cefuroxime axetil 500 mg PO BID 10 days 20 tabs 0RF To cefuroxime axetil 500 mg PO BID Coding Level of Care Code New Pt Level 4 (82326) Diagnoses Elevated brain natriuretic peptide (BNP) level R79.89 Palpitations R00.2 CPT Codes EKG - CPT: 25889-Lasnrlytjqshhkrdt, Complete ([id number])
[2023-05-16 11:03] VITALS: BP 108/62; PULSE 67; BMI 19.5
== END 2023-05-16 11:39 | disposition home or self-care (01) ==
PROVIDERS: PCP Nurse Practitioner Family; Visit Provider Internal Medicine Cardiovascular Disease
DX: R79.89 Other specified abnormal findings of blood chemistry (principal); R00.2 Palpitations
CPT/HCPCS: 93010; 99204

== ENCOUNTER → 2023-05-16 11:01 | Outpatient (BNVA) | payer MEDICARE, MEDICAID, SELFPAY | PROVIDERS: PCP Nurse Practitioner Family; Visit Provider Internal Medicine Cardiovascular Disease | DX: R79.89 Other specified abnormal findings of blood chemistry (principal); R00.2 Palpitations | CPT/HCPCS: 93005; 99202 ==

== ENCOUNTER → 2023-07-17 13:13 | Outpatient (REF) | payer MEDICARE, SELFPAY ==
--- NOTE | 2023-07-17 13:17 | CA_ITS ---
Transthoracic Echocardiogram Patient (Last, First, Middle): Neil SalazarMagnus eldridge Gender: Female Date of : 1950 Age: 73 Procedure Date: 07/17/2023 Procedure Type: Transthoracic Echocardiogram Location: OP Height: 160.02 cm Weight: 51.26 kg BSA: 1.52 m2 Heart Rate: bpm BP: 113 / 55 mmHg Licensed Clinician: JUAN DIEGO Referring MD: Adi Rob MD Symptoms: R79.89 - Other specified abnormal findings of blood chemistry Study Quality: Adequate ECG Rhythm: Sinus Conclusions: - The left ventricular systolic function is hyperdynamic. The calculated ejection fraction is 72% by biplane method. - Evidence suggests grade II (moderate) diastolic dysfunction. - There is mild aortic valve regurgitation. - Mild pulmonary hypertension is present. Findings Left Ventricle Normal left ventricular cavity size. There is normal left ventricular wall thickness. The left ventricular systolic function is hyperdynamic. The calculated ejection fraction is 72% by biplane method. There is no evidence of regional wall motion abnormalities. E/E prime ratio is >15, consistent with elevated filling pressures. Evidence suggests grade II (moderate) diastolic dysfunction. LV peak GLS -20.2%. Right Ventricle Normal right ventricular cavity size and systolic function. Atria Both atria are normal in size. Aortic Valve There is a normal trileaflet aortic valve. There is mild calcification of the aortic valve. There is no aortic valve stenosis. There is mild aortic valve regurgitation. Mitral Valve There is mild mitral annular calcification. There is trace mitral valve regurgitation. There is no mitral valve stenosis. Pulmonic Valve The pulmonic valve is likely normal. Tricuspid Valve There is mild tricuspid valve regurgitation. Mild pulmonary hypertension is present. Great Vessels The asc aorta is normal in size. Venous The inferior vena cava is mildly dilated and collapses greater than 50% with inspiration. Pericardium/Pleural There is no evidence of pericardial effusion. Prior Study Comparison No prior study available for comparison. Measurements 2D Linear Measurements IVSd: 0.92 0.6-0.9/0.6-1.0 cm LVIDd: 4.22 3.9-5.3/4.2-5.9 cm LVIDd Index: 2.78 2.4-3.2/2.2-3.1 cm/m2 LVIDs: 2.31 2.0-3.6 cm LVPWd: 1.00 0.7-1.1 cm LA Diam: 2.80 2.7-3.8/3.0-4.0 cm LAIDs Index: 1.84 1.5-2.3 cm/m2 LV Mass: 162.22 67-162/88-224 g LV Mass Index: 106.73 43-95/49-115 g/m2 LVOT Diam: 1.80 3.0+(-)1.3 cm 2D Systolic Function EF 4C: 65.20 >55% EF 2C: 75.10 >55% EF BiP: 71.60 >55% Mitral Valve MV Pk E: 1.19 MV PK A: 1.02 MV Decel Time: 368.00 E/A: 1.20 E'Lateral: 7.07 E'Medial: 6.09 E/E' Med: 19.50 E/E' Lat: 16.80 PHT: 108.00 MVA PHT: 2.04 Decel Morgan: 3.23 Aortic Valve AoV Pk Phil: 1.73 AoV Mn Phil: 1.04 AoV VTI: 0.50 AoV Pk Grad: 12.00 Aov Mn Grad: 5.00 MELANY Cont.VTI: 1.66 AI Pk Phil: 2.83 AI Morgan: 1.16 LVOT LVOT Pk Phil: 1.35 LVOT Mn Phil: 0.76 LVOT VTI: 0.33 LVOT Pk Grad: 7.00 LVOT Mn Grad: 3.00 LVOT Diam: 1.80 LVOT Area: 2.54 Diastolic Function MV Pk E: 1.19 MV Pk A: 1.02 E/A: 1.20 E'Medial: 6.09 E/E' Med: 19.50 E' Laterial: 7.07 E/E' Lat: 16.80 Right Ventricle TAPSE (mm): 24.80 TVS' Phil: 12.50 Tricuspid Valve TR Pk Phil: 2.80 TR Pk Grad: 31.00 RA Press: 8.00 RVSP: 39.00 Great Vessels Aorta Sinus of Valsalva: 2.94 2.0-3.[address] Ridge: 2.41 1.7-3.4 cm Ao Asc: 2.90 2.1-3.4 cm Updated in Other Vendor System with Status of Final Cyrus Sepulveda MD electronically signed on 07/18/2023 2:29:02 PM with status of Final
--- NOTE | 2023-07-17 13:17 | HM_ITS ---
Conclusion: 1. Patient was monitored for total period of 7 days and 8 hours 2. Baseline was normal sinus rhythm with average heart of 63 beats per minute 3. No significant pauses noted 4. Occasional PACs noted with 2 supraventricular events 1 lasting 14 beats and fastest at 125 beats per minute 5. Patient marked no events on the counter but indicated symptoms in the diary which did not correlate. MTDD
== END ==
LOC: HO.CARD 13:13
PROVIDERS: PCP Nurse Practitioner Family; Visit Provider Internal Medicine Cardiovascular Disease
DX: R00.2 Palpitations (principal); R79.89 Other specified abnormal findings of blood chemistry
CPT/HCPCS: 93242; 93306; 93356

== ENCOUNTER → 2023-07-17 13:17 | Outpatient (BNV) | payer MEDICARE, SELFPAY | PROVIDERS: PCP Nurse Practitioner Family; Visit Provider Internal Medicine | DX: I49.1 Atrial premature depolarization (principal); I47.10 Supraventricular tachycardia, unspecified | CPT/HCPCS: 93244; 93306; 93356 ==

== ENCOUNTER 2023-08-13 09:11 | Outpatient (REF) | payer MEDICARE, MEDICAID, SELFPAY ==
--- NOTE | ~2023-08-13 | CT_ITS ---
EXAMINATION: CT CHEST WITH CONTRAST CLINICAL INFORMATION: Follow up lung cancer. COMPARISON: 03/27/2023. TECHNIQUE: Multidetector volumetric CT imaging of the chest was obtained after the administration of 65 mL of Omnipaque 350 intravenous contrast without immediate adverse reactions. Axial MIP volume rendering provided. Sagittal and coronal reformatted images were obtained. This CT examination was performed using dose optimization techniques as appropriate, variously including the following: *Automated exposure control *Adjustment of mA and/or kV according to patient size (this includes techniques or standardized protocols for targeted exams where dose is matched to indication/reason for exam; i.e. extremities or head) *Use of iterative reconstruction technique DLP: 69 mGy-cm FINDINGS: LUNGS/PLEURA: Baseline emphysematous changes are again seen. There has been a further slight decrease in size of the right small predominantly subpulmonic pleural effusion with adjacent atelectasis. Again seen is consolidation/collapse involving a large portion of the right lower lobe with associated bronchiectasis. Unchanged reticulonodular opacities with subpleural reticulations. Stable bilateral pulmonary micronodules with the largest measuring about 5 mm (for example, left upper lobe measuring 5 mm (5:46, compare prior 7:51). Carreon images have been saved. No new, increasing sized or worrisome pulmonary nodules or masses are noted. MEDIASTINUM: Heart is within normal limits in size. Coronary artery calcifications are noted. Aorta is nonaneurysmal and demonstrates atherosclerotic calcifications. Main pulmonary artery is not enlarged. Multiple small mediastinal lymph nodes are present and unchanged, most likely reactive. Thyroid appears normal. AXILLA: No lymphadenopathy. UPPER ABDOMEN: Small hiatal hernia. OSSEOUS STRUCTURES: Stable appearance of probable hemangioma involving T8. Multilevel degenerative changes of the thoracolumbar spine are again noted. CT/CT chest w IV con IMPRESSION: 1. Further slight decrease in size of right pleural effusion. 2. Stable consolidation/collapse of the right lower lobe with associated bronchiectasis. 3. Stable bilateral pulmonary micronodules and prominent mediastinal lymph nodes. 4. No new, increasing sized or worrisome pulmonary nodules or masses are seen. 5. Other incidental findings as described above.
[2023-08-13] MEDS: iohexoL 350 MG/ML 100 ML INFUS..BTL 65 ML IV (10:51)
== END 2023-08-13 09:12 | disposition home or self-care (01) ==
LOC: HO.CT 09:11
PROVIDERS: PCP Nurse Practitioner Family; Visit Provider Internal Medicine Medical Oncology
DX: C34.90 Malignant neoplasm of unspecified part of unspecified bronchus or lung (principal)
CPT/HCPCS: 71260; Q9967

== ENCOUNTER 2023-11-21 09:20 | Outpatient (REF) | payer MEDICARE, MEDICAID, SELFPAY ==
--- NOTE | ~2023-11-21 | CT_ITS ---
EXAMINATION: CT CHEST WITH CONTRAST CLINICAL INFORMATION: Follow-up for [id number] lung carcinoma. COMPARISON: CT chest 08/13/2023 TECHNIQUE: Multidetector volumetric CT imaging of the chest was obtained after the administration of 65 mL of Omnipaque 350 intravenous contrast without immediate adverse reactions. Axial MIP volume rendering provided. Sagittal and coronal reformatted images were obtained. This CT examination was performed using dose optimization techniques as appropriate, variously including the following: *Automated exposure control *Adjustment of mA and/or kV according to patient size (this includes techniques or standardized protocols for targeted exams where dose is matched to indication/reason for exam; i.e. extremities or head) *Use of iterative reconstruction technique DLP: 77 mGy-cm FINDINGS: LUNGS: The central airways are patent. Moderate emphysematous changes including subpleural reticulonodular opacities predominantly involving the bilateral upper lobes, similar to prior. Consolidation/collapse of the right lower lobe with small right effusion and associated bronchiectasis, similar to prior. Stable appearance of bilateral upper lobe pulmonary nodules, largest of which the left upper lobe 0.5 cm pulmonary nodule (series #5 axial image 45). Stable 0.4 cm bilateral upper lobe nodules (series #5 axial image 39). Multiple additional micronodules at the posterior right upper lobe, similar to prior. No new pulmonary nodule. MEDIASTINUM: Normal size heart without pericardial effusion. Coronary arterial calcifications noted. The thoracic aorta is nonaneurysmal with mild scattered calcifications. No mediastinal or hilar lymphadenopathy. Normal thyroid. AXILLA: No lymphadenopathy. UPPER ABDOMEN: Unremarkable OSSEOUS STRUCTURES: No acute or suspicious osseous abnormality. Stable appearance of probable intraosseous hemangioma within the T8 vertebral body. Mild multilevel thoracic spondylosis. CT/CT chest w IV con IMPRESSION: 1. Stable appearance of bilateral upper lobe pulmonary nodules. No new pulmonary nodule. 2. Consolidation/collapse of the right lower lobe with small right effusion and associated bronchiectasis, similar to prior. 3. Moderate emphysematous changes including subpleural reticulonodular opacities predominantly involving the bilateral upper lobes, similar to prior. Fleischner guidelines were followed. Electronically signed by: Betsy Avila DO 11/21/2023 03:45 PM EDT
[2023-11-21] MEDS: iohexoL 350 MG/ML 75 ML INFUS..BTL 65 ML IV (10:23)
== END 2023-11-21 09:21 | disposition home or self-care (01) ==
LOC: HO.CT 09:20
PROVIDERS: PCP Nurse Practitioner Family; Visit Provider Internal Medicine Medical Oncology
DX: C34.90 Malignant neoplasm of unspecified part of unspecified bronchus or lung (principal)
CPT/HCPCS: 71260; Q9967

== ENCOUNTER 2024-01-07 10:46 | Outpatient (AMB) | payer MEDICARE, MEDICAID, SELFPAY ==
--- NOTE | 2024-01-07 11:00 | A.OFFVIS_ITS ---
Vital Signs 01/07/24 11:02 Height 5 ft 3 in Weight 121 lb BMI 21.4 BP 120/70 Blood Pressure Location Lt brachial Position Sitting Pulse 60 Pulse Source Pulse Oximeter Pulse Oximetry (%) 99 Oxygen Delivery Method Room Air Comment 2 Liters Oxygen Intake Visit Reasons: copd Cross Roller Required: No Allergies codeine Allergy (Verified 01/07/24 11:04) Unknown Iodinated Contrast Media [IV Contrast Dye] Allergy (Verified 01/07/24 11:04) Shakiness HPI Comments Details: The patient is a 73-year-old female with a history of COPD, metastatic lung cancer on current chemotherapy presents to the ER for evaluation of sudden-onset 10 sharp left-sided chest pain under her left breast that started when she was in oncology.? It was before she had been administered the chemotherapy agent and was when she was getting Kaytruda. Patient states the pain is located under her left breast, is constant and does not radiate. She states it is associated with anxiety because she knows she was supposed to get her CT scan results today. She has had increased cough with white phlegm production. No fevers, chills, hemoptysis. No change in her chronic SOB or LENNON. The patient did undergo pulmonary function studies which I personally reviewed demonstrating moderate degree of COPD. The patient has been on Incruse inhaler. Will get a optimize her respiratory therapy at this time. She also has significant productive cough with mucus production. Moderate severity. Unfortunately she continues to smoke cigarettes. She understands that most of our therapies will not be effective if she continues to smoke cigarettes. During the office visit we did have her go for 6 minute walk test the patient did not qualify for oxygen which is reassuring. 05/07/2023 the patient is here for a pulmonary follow-up visit. The patient overall has been tired. She is tired of dealing with all the chronic illness. She has been using the oxygen with good effect. She does have 2 L continuously. Although she is using her tanks very happy. She very limited due to the fact that the patient is wheelchair or walker dependent. Her daughter has a baby also has been trying to help her. We did take it for a walking oximetry for titration study and she actually did good on 2 L pulse. Therefore will request a conserving device tank from her [employer] in order for her to have easier time will portability when she leaves the house. Otherwise when she is in the house she can be the on the concentrator using 2 L continues. She really does not leave the house too much except for appointments. She continues on the combination chemo immune therapy with very good response. She did have a bone study that was reassuring except for 1 area that was slightly active. And I believe she is going to have another imaging study coming up in the spring. She is following closely with Oncology here. As far as her respiratory medications she is tolerating well. Although she has a very congested cough. Will start her on azithromycin 3 times a week for chronic bronchitis. I am hoping that this improves her symptoms. If she does stay on the medications she will need an EKG. The patient also provide her Acapella valve in order for better chest physical therapy. 01/07/2024 the patient is here for a pulmonary follow-up visit. Overall she is doing okay. She is responding well to the azithromycin 3 times a week. She is going to get an EKG soon. In the meantime she continues with respiratory medicines with good effect. And she also has the Acapella valve to use for chest PT. she is following closely with Oncology. She does get infusions every 3 weeks and she seems to be tolerating that well. She did have a recent CT scan of the chest the end of 11/18/2023 which I personally reviewed demonstrating stable disease. No evidence of any progression. We know that she has the metastatic disease to the bones however. The patient will continue with her therapy as it appears to be keeping everything checked. The patient has been using the oxygen. She has not been able to get a conserving device. We did reach out to the [employer]. There will go to her home in from form a conserving device trial to see if she qualifies. Otherwise patient is doing o karishma will follow-up in 4-6 months. [facility] Medical History Non-small cell lung cancer (NSCLC) (~2021) Bone metastases COPD (chronic obstructive pulmonary disease) Personal history of nicotine dependence Hypertension GERD (gastroesophageal reflux disease) Anxiety and depression Vitamin D deficiency Osteopenia (~2002) Surgical History History of lung biopsy (~2021) Family History Sister Lupus Social History Household Members: Family Housing: House Are you a primary home health caregiver to a significant other at home: No Do you presently have visiting nurse or other home services: Yes (VNA, PT, OT) Alcohol intake: never Patient Tobacco Use Status: Former Tobacco user Tobacco use type: Cigarette Years Smoked: 20+ Years Advance Directives Date on File: 09/18/21 service: No Current occupational status: retired Review of Systems Const Denies fever(s) Eyes Denies change in vision ENT Reports nasal congestion Card Reports dyspnea on exertion Resp Reports chest congestion, Reports cough, Reports dyspnea on exertion and Reports wheezing GI Reports no additional complaints Musc Reports myalgias Skin/Breast Reports rash Neuro Reports no additional complaints Carroll/Lymph Denies easy bruising and Denies lymphadenopathy Aller/Immun Reports wheezing Physical Exam Vital Signs: Last Vital Signs Pulse 60 01/07/24 11:02 BP 120/70 01/07/24 11:02 Pulse Ox 99 01/07/24 11:02 Oxygen Delivery Method Room Air 01/07/24 11:02 BMI result Body Mass Index 21.4 Const General: comfortable HEENT Head: Yes normocephalic Neck Neck: Yes supple Chest Chest palpation & inspection: normal inspection of the chest Resp Effort & Inspection: normal respiratory effort Auscultation: no rhonchi and diminished lung sounds Cardio Rate: regular rate Rhythm: regular rhythm Heart sounds: S1 normal heart sound present and S2 normal heart sound present GI Palpation (GI): Soft to palpation Extrem General: Yes no clubbing, cyanosis or edema Assessment & Plan Assessment & Plan (1) COPD (chronic obstructive pulmonary disease): Code(s): J44.9 - Chronic obstructive pulmonary disease, unspecified Category: Medical Qualifiers: COPD type: chronic bronchitis Chronic bronchitis type: mucopurulent Qualified Code(s): J41.1 - Mucopurulent chronic bronchitis (2) Right lower lobe lung mass: Comment: (4cm mass like opacity RLL - 07/[address]) Code(s): R91.8 - Other nonspecific abnormal finding of lung field Category: Medical (3) Tobacco abuse: Code(s): Z72.0 - Tobacco use Category: Medical (4) Bone metastases: Code(s): C79.51 - Secondary malignant neoplasm of bone Category: Medical Plan contiune Trelegy LORI as needed continue Azithromycin MWF EKG CT chest 10/2023 stable continue oxygen 2L continuous. Requesting conserving device trial for 2L/pulse with activity. Will request B cylinders from her DME, Rita F/U 4-6 months Orders: Orders ECG 12 lead EKG Today J44.9 - Chronic obstructive pulmonary disease, unspecified Pneumococcal 20 Immunization Today Z23 - Encounter for immunization Coding Level of Care Code Est Pt Level 4 (25158) Complex EM visit Add On G2211 Diagnoses Mucopurulent chronic bronchitis J41.1 COPD type: chronic bronchitis Chronic bronchitis type: mucopurulent Right lower lobe lung mass R91.8 Tobacco abuse Z72.0 Bone metastases C79.51 Time Spent (min) 17
[2024-01-07 11:02] VITALS: BP 120/70; PULSE 60; O2SAT 99; BMI 21.4
== END 2024-01-07 11:23 | disposition home or self-care (01) ==
PROVIDERS: PCP Nurse Practitioner Family; Visit Provider Hospitalist
DX: J41.1 Mucopurulent chronic bronchitis (principal); R91.8 Other nonspecific abnormal finding of lung field; Z72.0 Tobacco use; C79.51 Secondary malignant neoplasm of bone; Z23 Encounter for immunization
CPT/HCPCS: 99214; G2211

== ENCOUNTER → 2024-01-07 10:46 | Outpatient (BNVA) | payer MEDICARE, MEDICAID, SELFPAY | PROVIDERS: PCP Nurse Practitioner Family; Visit Provider Hospitalist | DX: J41.1 Mucopurulent chronic bronchitis (principal); R91.8 Other nonspecific abnormal finding of lung field; C78.00 Secondary malignant neoplasm of unspecified lung; C79.51 Secondary malignant neoplasm of bone; Z23 Encounter for immunization; Z92.21 Personal history of antineoplastic chemotherapy; Z87.891 Personal history of nicotine dependence | CPT/HCPCS: 90471; 90677; 99212 ==

== ENCOUNTER 2024-06-01 11:39 | Outpatient (REF) | payer MEDICARE, MEDICAID, SELFPAY ==
--- NOTE | ~2024-06-01 | CT_ITS ---
CLINICAL HISTORY: [id number] lung carcinoma CT chest with contrast Comparison: CT/SR - CT CHEST W IV CON - 11/21/23 09:37 EDT Findings: Heart size is stable with moderate coronary calcium and mitral annular calcification. No pericardial effusion. Aorta is nonaneurysmal. Pulmonary artery filling defect involving a posterior right lower lobe pulmonary artery seen on image 32 through 34 of series 3. This may represent slow thrombosis of this pulmonary artery given the chronic atelectatic changes but an acute PE can not be excluded. This exam was not optimized to evaluate for pulmonary emboli. Decompressed esophagus. No pathologically enlarged hilar or mediastinal lymph nodes. A few precarinal lymph nodes are top-normal in short axis but are unchanged. Apical predominant centrilobular emphysema with unchanged volume loss in the right lower lobe with mild bronchiectasis and patchy bronchial filling defects. Subcentimeter pulmonary nodules are stable. A left upper lobe nodule on image 36 of series 4 measures 4 mm, unchanged compared with the prior exam. 4 mm right upper lobe nodule on image 32 is stable. Additional 2-3 mm left upper lobe nodule on image 33 is stable. No new or enlarging pulmonary nodules or masses. Patchy consolidation within the right middle lobe on image 109 of series 4, likely infectious or inflammatory. Unremarkable thyroid. No chest wall lesions or axillary adenopathy. The visualized upper abdomen is unremarkable. Stable sclerosis of T8. No vertebral body height loss. IMPRESSION: 1. Stable volume loss in the right lower lobe. Stable bilateral pulmonary nodules. 2. Filling defect within the posterior right lower lobe pulmonary artery. This could represent slow thrombosis of this vessel but an acute PE can not be excluded. Contrast bolus timing was not optimized to evaluate for PE. Consider bilateral lower extremity ultrasound. 3. Patchy consolidation within the right middle lobe, likely infectious or inflammatory. This document has been electronically signed by: Samantha Richardson MD on 06/02/2024 08:50:24
[2024-06-01] MEDS: iohexoL 350 MG/ML 100 ML INFUS..BTL IV (13:00)
--- OUTSIDE RECORDS SUMMARY | 2024-06-01 14:50 | XMS_ITS | Encounter Summary ---
Author Organization [employer] Address [address] [place] [address] Care Team Providers Care Diabetes Education Coordinator Name Role Phone Laurence Granados Primary Care Provider [phone] Charles Curtis Unavailable Unavailable Geetha Sidhu MD Primary Care Provider + Reason for Visit * Reason Onset Date Comments Verbal orders 07/26/2022 Encounter Details Date Type Department Care Team ([facility] st Contact Info) Description 07/26/[address] [facility] [address] [place], [place] [phone] Laurence Granados FNP [address] [place] [address] Verbal orders Social History Tobacco Use Types Packs/Day Years Used Date Smoking Tobacco: Former Cigarettes Q uit: 2020 Smokeless Tobacco: Never Alcohol Use Standard Drinks/Week Comments Not Currently 0 (1 standard drink = 0.6 oz pur e alcohol) PHQ-2 Answer Date Recorded Patient Health Questionnaire-2 Score 2 06/20/2022 Comments Unknown Sex and Gender Information Value Date Recorded Sex Assigned at Female 01/28/2022 10:17 AM EDT Legal Sex Female 10:17 AM EDT Gender Identity Female 01/28/2022 10:17 AM EDT Sexual Orientation Straight 04/04/2022 10 :21 AM EST documented as of this encounter Miscellaneous Notes * Telephone Encounter - Margaret Morris RN - 08/05/2022 1:14 PM EDT Noted * Telephone Encounter - Osiel Hernandez - 08/05/2022 1:07 PM EDT Tc from [facility] facility informing that pt has gone under their care since 08/02/2022. Pt eligibility is for OT-PT. If any questions please contact Irma at [phone] * Telephone Encounter - Margaret Morris RN - 08/02/2022 2:31 PM EDT VO orders provided to [facility] per PCP ok. * Telephone Encounter - Alfredo Luis - 08/01/2022 10:02 AM EDT Tc from [facility] with [facility] returning call in regards to verbal orders to start services tomorrow for PT and OT. 08/02/22. Please contact at [phone] * Telephone Encounter - Kaleigh Schmitz RN - 07/26/2022 4:07 PM EDT Call returned to [facility]. Melinda states they are requesting verbal order from pcp to evaluate pt for nursing, PT and OT. Advised will send request to pcp and return call with response. * Telephone Encounter - Osiel Hernandez - 07/26/2022 9:36 AM EDT Tc [facility] requesting a call from a nurse in regards to some verbal orders needed regarding program. Please contact Melinda at [phone] Opt 2 documented in this encounter Plan of Treatment Upcoming Encounters Date Type Department Care Team (Late st Contact Info) Description 07/09/2024 11:15 AM EDT Office Visit [facility] [address] [place] [address] Geetha Sidhu MD [address] [place] [address] documented as of this encounter Visit Diagnoses Not on filedocumented in this encounter Additional Health Concerns Assessment Noted Time PHQ-9 Depression Total Score: 8 06/21/19 10:21 AM EDT documented as of this encounter Care Teams Diabetes Education Coordinator Relationship Specialty Start Date End Date Laurence Granados FNP [address] [place] [phone] PCP - General Family Medicine 03/27/22 12/01/23 Geetha Sidhu MD [address] [place] [id number] PCP - General Internal Medicine 12/02/23 Charles Curtis FNP [address] [place] [id number] Nurse Practitioner Family Medicine 02/17/23 Pati Graff RN Care Manager 02/11/23 documented as of this encounter
--- OUTSIDE RECORDS SUMMARY | 2024-06-01 14:50 | XMS_ITS | Encounter Summary ---
Author Organization [employer] Address [address] [place] [address] Care Team Providers Care Plastics Factory Worker Name Role Phone Laurence Granados Primary Care Provider [phone] Charles Cutris Unavailable Unavailable Geetha Sidhu MD Primary Care Provider + Reason for Visit * Reason Onset Date Comments R/S appt 08/13/2022 Encounter Details Date Type Department Care Team (Late st Contact Info) Description 08/13/2022 Telephone [facility] [address] [place], [place] [phone] Laurence Granados FNP [address] [place] [address] R/S appt Social History Tobacco Use Types Packs/Day Years [...] encounter Miscellaneous Notes * Telephone Encounter - Marleny Bravo - 08/13/2022 3:58 PM EDT Tc from [facility] calling to R/S appt from 08/14 ( [facility] amission 07/04/2022 and release 08/01/2022 dx unsure). PCP Dr. Granados documented in this encounter Plan of Treatment Upcoming Encounters Date Type Department Care Team (Late st Contact Info) Description 07/09/2024 11:15 AM EDT Office Visit [facility] [address] [place] [address] Geetha Sidhu MD [address] [place] [address] documented as of this encounter Visit Diagnoses Not on filedocumented in this encounter Additional Health Concerns Assessment Noted Time PHQ-9 Depression Total Score: 8 06/21/19 10:21 AM EDT documented as of this encounter Care Teams Plastics Factory Worker Relationship Specialty Start Date End Date Laurence Granados FNP [address] [place] [address] PCP - General Family Medicine 03/27/22 12/01/23 Geetha Sidhu MD [address] [place] [id number] PCP - General Internal Medicine 12/02/23 Charles Curtis FNP [address] [place] [id number] Nurse Practitioner Family Medicine 02/17/23 Pati Graff RN Care Manager 02/11/23 documented as of this encounter
--- OUTSIDE RECORDS SUMMARY | 2024-06-01 14:50 | XMS_ITS | Encounter Summary ---
Author Organization [employer] Address [address] [place] [address] 7 [place] [address] Care Team Providers Care County Tax Assessor Name Role Phone Laurence Granados Primary Care Provider [phone] Charles Curtis Unavailable Unavailable Geetha Sidhu MD Primary Care Provider + Reason for Visit * Reason Onset Date Comments PA 08/06/2022 Encounter Details Date Type Department Care Team (Late st Contact Info) Description 08/06/2022 Telephone [facility] MEDICINE [address] [place], [place] [phone] Laurence Granados FNP [address] [place], [place] [phone] PA Social History Tobacco Use Types Packs/Day Years [...] encounter Miscellaneous Notes * Telephone Encounter - Maryam Cleve - 08/06/2022 1:50 PM EDT TC to pt daughter and explained provider wants to see pt before she prescribes and process PA for medication. Pt daughter understood and agreed with plan. * Telephone Encounter - Osiel Hernandez - 08/06/2022 1:26 PM EDT Tc from [facility] stating that Medication oxyCODONE (Roxicodone) 5 MG immediate release tablet needs a PA from provider Please contact daughter at [phone] documented in this encounter Plan of Treatment Upcoming Encounters Date Type Department Care Team (Late st Contact Info) Description 07/09/2024 11:15 AM EDT Office Visit [facility] MEDICINE [address] [place] [address] Geetha Sidhu MD [address] [place] [address] documented as of this encounter Visit Diagnoses Not on filedocumented in this encounter Additional Health Concerns Assessment Noted Time PHQ-9 Depression Total Score: 8 06/21/19 10:21 AM EDT documented as of this encounter Care Teams County Tax Assessor Relationship Specialty Start Date End Date Laurence Granados FNP [address] [place] [id number] PCP - General Family Medicine 03/27/22 12/01/23 Geetha Sidhu MD [address] [place] [phone] PCP - General Internal Medicine 12/02/23 Charles Curtis FNP [address] [place] [address] Nurse Practitioner Family Medicine 02/17/23 Pati Graff RN Care Manager 02/11/23 documented as of this encounter
--- OUTSIDE RECORDS SUMMARY | 2024-06-01 14:50 | XMS_ITS | Encounter Summary ---
Author Organization [employer] Address [address] [facility] 7t [place] [address] Care Team Providers Care Route Rider Supervisor Name Role Phone Charles Curtis ANABELA Unavailable Unavailable Geetha Sidhu MD Primary Care Provider + Reason for Visit * Reason Comments Med Refill Encounter Details Date Type Department Care Team ([facility] st Contact Info) Description 05/16/2024 Refill [facility] MEDICINE [address] [place], [place] [phone] Geetha Sidhu MD [address] [place], [place] [phone] Social History Tobacco Use Types Packs/Day Years Used Date Smoking Tobacco: Former Cigarettes Q uit: 2020 Smokeless Tobacco: Never Alcohol Use Standard Drinks/Week Comments Not Currently 0 (1 standard drink = 0.6 oz pur e alcohol) Depression Answer Date Recorded Patient Health Questionnaire-9 Score 6 09/09/2023 Patient Health Questionnaire-9 Score 6 09/09/2023 Last PHQ-9: Questionnaire Data Not on file 0 09/09/2023 Housing Stability Answer Date Recorded What is your housing situation today? Not on enoch e 04/13/[address] you li ve. Do you have problems with any of the following? None of the above 04/13/2023 Food Insecurity Answer Date Recorded Within the past 12 months, y ou worried that your food would run out before you got money to buy more: Never True 01/13/2023 Within the past 12 months,th e food you bought just didn't last and you didn't have enough money to get more: Never True Transportation Answer Date Recorded In the past 12 months, has l ack of transportation kept you from medical appts, meetings, work or from getting things needed for daily living? No 01/13/2023 Utilities Answer Date Recorded In the past 12 months, has t he electric, gas, oil or water company threatened to shut off services in your home? No 01/13/2023 Depression Answer Date Recorded Patient Health Questionnaire-2 Score 2 09/09/2023 Comments Unknown Sex and Gender Information Value Date Recorded Sex Assigned at Female 01/28/2022 10:17 AM EDT Legal Sex Female 10:17 AM EDT Gender Identity Female 01/28/2022 10:17 AM EDT Sexual Orientation Straight 04/04/2022 10 :21 AM EST documented as of this encounter Plan of Treatment Upcoming Encounters Date Type Department Care Team (Late st Contact Info) Description 07/09/2024 11:15 AM EDT Office Visit [facility] MEDICINE [address] [place] [address] Geetha Sidhu MD [address] [place] [address] documented as of this encounter Visit Diagnoses Not on filedocumented in this encounter Additional Health Concerns Assessment Noted Time PHQ-9 Depression Total Score: 6 09/09/19 24 11:10 AM EDT documented as of this encounter Care Teams Route Rider Supervisor Relationship Specialty Start Date End Date Geetha Sidhu MD [address] [place] [id number] PCP - General Internal Medicine 12/02/23 Charles Curtis FNP Nurse Practitioner Family Medicine 02/17/23 Pati Graff RN Care Manager 02/11/23 documented as of this encounter
--- OUTSIDE RECORDS SUMMARY | 2024-06-01 14:50 | XMS_ITS | Encounter Summary ---
Author Organization [employer] Address [address] [place] [address] 7 [place] [address] Care Team Providers Care Bulk Mail Clerk Name Role Phone Laurence Granados Primary Care Provider [phone] Charles Curtis Unavailable Unavailable Geetha Sidhu MD Primary Care Provider + Reason for Visit * Reason Onset Date Comments Appointment 08/14/2022 LVM-Re: her appt for today as [id number] @ 1:15pm. Encounter Details Date Type Department Care Team ([facility] Contact Info) Description 08/14/2022 Telephone [facility] MEDICINE [address] [place], [place] [phone] Laurence Granados FNP [address] [place] [address] Appointment (LVM-Re: her appt for today as [id number] @ 1:15pm. ) Social History Tobacco Use Types Packs/Day Years [...] Miscellaneous Notes * Telephone Encounter - Marleny Lawrence - 08/14/2022 10:54 AM EDT Tc from [place] Daughter of pt calling to give High blood pressure numbers : 08/05 ( 98/49) 08/07 ( 129/58) 08/09 (131/52) 08/10 ( 128/56) 08/14 ( 129/53) Also Pharmacy stated if PCP DR. Granados can call to [facility] EXT [phone] and ask for Cassidy sow we can help pt with her medboxes. Pt only has meds until Wednesday 08/16. PCP DR. Granados documented in this encounter Plan of Treatment Upcoming Encounters Date Type Department Care Team (Late st Contact Info) Description 07/09/2024 11:15 AM EDT Office Visit [facility] MEDICINE [address] [place] [address] Geetha Sidhu MD [address] [place] [address] documented as of this encounter Visit Diagnoses Not on filedocumented in this encounter Additional Health Concerns Assessment Noted Time PHQ-9 Depression Total Score: 8 06/21/19 10:21 AM EDT documented as of this encounter Care Teams Bulk Mail Clerk Relationship Specialty Start Date End Date Laurence Granados FNP [address] [place] [phone] PCP - General Family Medicine 03/27/22 12/01/23 Geetha Sidhu MD [address] [place] [address] PCP - General Internal Medicine 12/02/23 Charles Curtis FNP [address] [place] [phone] Nurse Practitioner Family Medicine 02/17/23 Pati Graff RN Care Manager 02/11/23 documented as of this encounter
--- OUTSIDE RECORDS SUMMARY | 2024-06-01 14:50 | XMS_ITS | Encounter Summary ---
Author Organization [employer] Address [address] [facility] 7t [place] [address] Care Team Providers Care Behavioral Psychologist Name Role Phone Dave Granadosnndeena PEÑALOZA Primary Care Provider [phone] Charles Curtis Unavailable Unavailable Geetha Sidhu MD Primary Care Provider + Reason for Visit * Reason Comments Med Refill Encounter Details Date Type Department Care Team (Late st Contact Info) Description 04/26/2022 Refill [facility] [address] [place] [phone] El Delcid MD [address] [place], [place] [phone] Acute upper respiratory infection, unspecified Social History Tobacco Use Types Packs/Day Years Used Date Smoking Tobacco: Former Cigarettes Q uit: 2020 Smokeless Tobacco: Never Alcohol Use Standard Drinks/Week Comments Not Currently 0 (1 standard drink = 0.6 oz pur e alcohol) PHQ-2 Answer Date Recorded Patient Health Questionnaire-2 Score 2 04/12/2022 Comments Unknown Sex and Gender Information Value Date Recorded Sex Assigned at Female 01/28/2022 10:17 AM EDT Legal Sex Female 10:17 AM EDT Gender Identity Female 01/28/2022 10:17 AM EDT Sexual Orientation Straight 04/04/2022 10 :21 AM EST COVID-19 Exposure Response Date Recorded In the last 10 days, have yo u been in contact with someone who was confirmed or suspected to have Coronavirus/COVID-19? No / Unsure 04/12/2022 10:36 AM EST documented as of this encounter Plan of Treatment Upcoming Encounters Date Type Department Care Team (Late st Contact Info) Description 07/09/2024 11:15 AM EDT Office Visit [facility] MEDICINE [address] [place] [address] Geetha Sidhu MD [address] [place] [address] documented as of this encounter Visit Diagnoses Diagnosis Acute upper respiratory infection, unspecified documented in this encounter Additional Health Concerns Assessment Noted Time PHQ-9 Depression Total Score: 5 04/12/19 10:58 AM EST documented as of this encounter Care Teams Behavioral Psychologist Relationship Specialty Start Date End Date Laurence Granados FNP [address] [place] [phone] PCP - General Family Medicine 03/27/22 12/01/23 Geetha Sidhu MD [address] [place] [address] PCP - General Internal Medicine 12/02/23 Charles Curtis FNP [address] [place] [phone] Nurse Practitioner Family Medicine 02/17/23 Pati Graff RN Care Manager 02/11/23 documented as of this encounter
--- OUTSIDE RECORDS SUMMARY | 2024-06-01 14:50 | XMS_ITS | Encounter Summary ---
Author Organization [employer] Address [address] [facility] 7t [place] [address] Care Team Providers Care Senior Investment Manager Name Role Phone Laurence Granados Primary Care Provider [phone] Charles Curtis Unavailable Unavailable Geetha Sidhu MD Primary Care Provider + Reason for Visit * Reason Comments Med Refill Encounter Details Date Type Department Care Team ([facility] st Contact Info) Description 11/13/2023 Refill [facility] [address] [place] [address] Laurence Granados FNP [address] [place] [address] Neoplasm related pain (acute) (chronic) Social History Tobacco Use Types Packs/Day Years [...] Description 07/09/2024 11:15 AM EDT Office Visit [facility] MEDICINE [address] [place] [address] Geetha Sidhu MD [address] [place] [address] documented as of this encounter Visit Diagnoses Diagnosis Neoplasm related pain (acute) (chronic) documented in this encounter Additional Health Concerns Assessment Noted Time PHQ-9 Depression Total Score: 6 09/09/19 24 11:10 AM EDT documented as of this encounter Care Teams Senior Investment Manager Relationship Specialty Start Date End Date Laurence Granados FNP [address] [place] [phone] PCP - General Family Medicine 03/27/22 12/01/23 Geetha Sidhu MD [address] [place] [address] PCP - General Internal Medicine 12/02/23 Charles Curtis FNP [address] [place] [address] Nurse Practitioner Family Medicine 02/17/23 Pati Graff RN Care Manager 02/11/23 documented as of this encounter
--- OUTSIDE RECORDS SUMMARY | 2024-06-01 14:50 | XMS_ITS | Clinical Summary ---
Author Organization [employer] Address [address] [facility] [address] [place] [address] Care Team Providers Care Intellectual Property Manager Name Role Phone Charles Curtis Unavailable Unavailable Geetha Sidhu MD Primary Care Provider + Allergies Active Allergy Reactions Criticality Noted Date Comments Codeine 09/03/2022 Other reaction(s): Unknown Iodinated Contrast Media Nausea Only,Fever 09/13/2021 CONTRAST DYE FROM PET SCAN PER PREVIOUS EHR Other reaction(s): Shakiness Medications * This document contains information received from the source organization and may not represent a complete record from that organization. oxyCODONE (Roxicodone) 5 MG immediate release tablet Take 1 tablet by mouth every 6 (six) hours if needed. Active cholecalciferol (Vitamin D-3) 50 MCG (2000 UT) tablet Take 50 mcg by mouth in the morning. Active cyanocobalamin (Vitamin B-12) 1000 MCG tablet Take 1 tablet by mouth in the morning. Active dexAMETHasone (Decadron) 4 MG tablet TAKE 1 TABLET BY MOUTH TWICE DAILY. START 2 DAYS BEFORE CHEMOTHERAPY Active naloxone (Narcan) 4 mg/0.1 mL nasal sprayIndications: Mixed anxiety and depressive disorder Administer 1 spray (4 mg) into affected nostril(s) if needed for respiratory depression. 2 each 1 023 Active albuterol 0.63 MG/3ML nebulizer solutionIndicatio ns:Mild intermittent asthma without complication Take 3 mL (0.63 mg) by nebulization every 6 (six) hours if needed for wheezing. 75 mL 11 023 Active Incontinence Supply Disposable (Depend Toh-Xosw-Mzmrk-M) miscIndications:I ncreased frequency of urination Use at night for incontinence 30 each 2 023 Active Calcium Carb-Cholecalcife rol 600-5 MG-MCG tablet TAKE 1 TABLET BY MOUTH TWICE DAILY IN THE MORNING AND AT BEDTIME 023 Active azithromycin (Zithromax) 250 MG tablet TAKE 1 TABLET BY MOUTH 3 TIMES A WEEK ON FRIDAY, FRIDAY AND Friday 023 Active morphine CR (MS Contin) 30 MG 12 hr tablet TAKE 1 TABLET BY MOUTH EVERY TWELVE HOURS 023 Active ondansetron ODT (Zofran-ODT) 8 MG disintegrating tablet DISSOLVE 1 TABLET ON TONGUE EVERY 8 HOURS DIRECTED 023 Active albuterol 108 (90 Base) MCG/ACT inhalerIndication s:Mild intermittent asthma without complication INHALE 2 PUFFS BY MOUTH EVERY 4 HOURS NEEDED FOR WHEEZING 8.5 g 3 023 Active Acetaminophen Extra Strength 500 MG tabletIndications :Neoplasm related pain (acute) (chronic) TAKE 1 TABLET BY MOUTH EVERY 8 HOURS NEEDED MILD PAIN 270 tablet 1 023 Active pantoprazole (Protonix) 40 MG EC tablet Take 1 tablet (40 mg) by mouth before breakfast. Do not crush, chew, or split. 30 tablet 11 024 Active gabapentin (Neurontin) 400 MG capsule TAKE 1 CAPSULE BY MOUTH THREE TIMES DAILY IN THE MORNING, AT NOON, AND AT BEDTIME 024 Active ibuprofen 600 MG tabletIndications :Chronic pain due to neoplasm TAKE 1 TABLET BY MOUTH EVERY 6 HOURS NEEDED FOR PAIN 120 tablet 024 Active citalopram (CeleXA) 40 MG tabletIndications :Mixed anxiety and depressive disorder Take 1 tablet (40 mg) by mouth in the morning. 90 tablet 3 024 Active risperiDONE (RisperDAL) 1 MG tabletIndications :Mixed anxiety and depressive disorder TAKE 1/2 TABLET BY MOUTH EVERY MORNING and TAKE 1 TABLET BY MOUTH AT BEDTIME 135 tablet 3 024 Active Aspirin Low Dose 81 MG EC tablet TAKE 1 TABLET BY MOUTH EVERY MORNING 90 tablet 1 024 Active clonazePAM (KlonoPIN) 0.5 MG tabletIndications :Mixed anxiety and depressive disorder Take 1 tablet (0.5 mg) by mouth 3 times daily. 90 tablet 5 025 Active ammonium lactate (Amlactin) 12 % cream Apply topically if needed for dry skin. 385 g 3 025 2025 Active atorvastatin (Lipitor) 40 MG tabletIndications :Hyperlipidemia, unspecified hyperlipidemia type TAKE 1 TABLET BY MOUTH AT BEDTIME 90 tablet 3 025 Active cetirizine (ZyrTEC) 10 MG tablet TAKE 1 TABLET BY MOUTH EVERY MORNING 90 tablet 1 025 Active B-Complex, Folic Acid, tabletIndications :Major depressive disorder, recurrent, in partial remission (CMS/HCC) TAKE 1 TABLET BY MOUTH EVERY MORNING 90 tablet 2 025 Active Trelegy Ellipta 100-62.5-25 MCG/ACT aerosol powder INHALE 1 PUFF BY MOUTH EVERY DAY AT THE SAME TIME RINSE MOUTH AFTER USING 60 each 2 025 Active Trelegy Ellipta 100-62.5-25 MCG/ACT aerosol powder INHALE 1 PUFF BY MOUTH EVERY DAY AT THE SAME TIME 60 each 2 024 2024 Discontinued Active Problems Problem Noted Date Diagnosed Date Long toenail 04/06/2024 Assessment & Plan (04/06/2024 11:18 AM EST): Refer to Podiatry. Supplemental oxygen dependent 04/06/2024 Assessment & Plan (04/06/2024 11:18 AM EST): Pt has PCV-20 at Pulmonology office on 03/16/24. Continue 2 L NC O2 overnight and PRN activity, Pulmonology to FU for compressor/B cylinder. 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 Dehydration 09/24/2022 Neurogenic pain 09/24/2022 Patellar fracture 09/24/2022 Uncontrolled pain 09/24/2022 Essential hypertension 03/11/2022 Assessment & Plan (04/06/2024 1:47 PM EST): Controlled, most likely resolved, she's on no meds. Continue monitoring BP, encouraged increased water intake, no need for medications at this time. Monitor hypotension episodes Former cigarette smoker 03/11/2022 Overview (03/11/2022): PER PREVIOUS EHR Intracranial aneurysm 11/16/2021 Overview (04/06/2024): MRI of the brain from 08/19: - There is the suggestion of a 2 mm aneurysm projecting superiorly from the right MCA bifurcation and a 2 mm aneurysm projecting laterally from the left MCA bifurcation CTA brain 09/2022 : Stable small bilateral MCA bifurcation aneurysm Assessment & Plan (04/06/2024 1:48 PM EST): BL on MCA bifurcation, they're stable as of last CTA on 10/25/22 Non-small cell lung cancer (NSCLC) 09/13/2021 Overview (04/06/2024): Has bone mets. She sees Dr. Beck, had Chemo (Alimita + Pembrolizumab x 11 cycles on 2021 and currently on Ipilimumab + Nivolumab due to disease progression ) and XRT to lungs and bones previously. She is currently on Denosumab monthly + Immunotherapy as above Assessment & Plan (04/06/2024 11:21 AM EST): She is S/P chemo and currently immunotherapy with Dr. Beck. Continue pain management with Oxycodone PRN per oncology. Pt tolerates PO, good appetite, needs to take Boost one can daily. Continue to use O2 every night and PRN SOB/O2 stat below 90. Declined to have Influenza, Covid, or PCV today, they will FU with Dr. Beck regarding immunization records and get back to me at next appointment. Visual changes 08/28/2017 Mixed anxiety and depressive disorder 09/15/2012 Assessment & Plan (09/09/2023 12:49 PM EDT): Advanced lung cancer, with metastases, pain. Lives with daughter who is her FISH ROE PROCESSOR and also provides emotional support. Strong nondenominational lindsey has also been helping her cope. Have reviewed risks r/t potential drug interactions, including Citalopram and Risperidone with Azithromycin and possible hearth rhythm abnormalities which could be serious; and Clonazepam with opiate pain medications leading to respiratory suppression for which she avoids taking them together. She is aware of alternate therapies including no medication and makes the informed decision to continue current plan: Risperidone 1 mg 1/2 tab in am and 1 tab at bedtime, Citalopram 40 mg daily, Clonazepam 0.5 mg TID. Keep Narcan available. She is not interested in counseling. Since this provider will be retiring, patient is now referred back to PCP for further medication management. Any issues or concerns, call [facility]. All her questions were answered and I have wished her well. She agrees with the plan. Assessment & Plan (07/07/2023 12:19 PM EDT): Advanced lung cancer, with metastases, pain. Lives with daughter who is her FISH ROE PROCESSOR and also provides emotional support. Strong nondenominational lindsey has also been helping her cope. Reviewed risks r/t potential drug interactions, including Citalopram and Risperidone with Azithromycin and possible hearth rhythm abnormalities which could be serious; and Clonazepam with opiate pain medications leading to respiratory suppression for which she avoids taking them together. She is aware of alternate therapies including no medication and makes the informed decision to continue current plan: Risperidone 1 mg 1/2 tab in am and 1 tab at bedtime, Citalopram 40 mg daily, Clonazepam 0.5 mg TID. Keep Narcan available. F/U with me in 2 months. Today 07/07/2023 provider informed the patient that I would be retiring, and at next appt we would review plans for continuity of care. She agrees with the plan. Assessment & Plan (02/13/2023 4:50 PM EST): Advanced lung cancer, with metastases, pain. Lives with daughter who is her FISH ROE PROCESSOR and also provides emotional support. Strong nondenominational lindsey has also been helping her cope. She will continue Risperidone 1 mg 1/2 tab in am and 1 tab at bedtime, Citalopram 40 mg daily, Clonazepam 0.5 mg TID. Reviewed the risk of taking opioids and benzos together, r/t respiratory suppression and OD. Do not take the medications within 2 hours of each other. Keep Narcan available. F/U with me in 2 months. She agrees with the plan. Assessment & Plan (11/05/2022 1:36 PM EDT): Advanced lung cancer, with metastases, pain. Lives with daughter who is her FISH ROE PROCESSOR and also provides emotional support. Strong nondenominational lindsey has also been helping her cope. She will continue Risperidone 1 mg 1/2 tab in am and 1 tab at bedtime, Citalopram 40 mg daily, Clonazepam 0.5 mg TID. Reviewed the risk of taking opioids and benzos together, r/t respiratory suppression and OD. Do not take the medications within 2 hours of each other. Keep Narcan available. F/U with me in 2-3 months. She agrees with the plan. Assessment & Plan (08/20/2022 1:44 PM EDT): Recently had a fall with knee fracture, requiring bed rest. This n a context of advanced lung cancer, with metastases, pain. Lives with daughter who is her FISH ROE PROCESSOR and also provides emotional support. Strong nondenominational lindsey has also been helping her cope. Again reviewed the risk of taking opioids and benzos together, r/t respiratory suppression and OD. Do not take the medications within 2 hours of each other. Keep Narcan available. Continue medications as usual. F/U with me in 6-8 weeks. She agrees with the plan. Assessment & Plan (06/20/2022 11:12 AM EDT): Dealing with advanced lung cancer, with metastases, pain. Lives with daughter who is her FISH ROE PROCESSOR and also provides emotional support. Strong nondenominational lindsey has also been helping her cope. Again reviewed the risk of taking opioids and benzos together, r/t respiratory suppression and OD. Do not take the medications within 2 hours of each other. Keep Narcan available. Continue medications as usual. Suggest reconsidering counseling via telehealth, will send list of [facility] agencies. F/U with me in 6- 8 weeks. She agrees with the plan. Assessment & Plan (04/04/2022 11:14 AM EST): Dealing with advanced lung cancer, with metastases. Lives with daughter who is her FISH ROE PROCESSOR and also provides emotional support. Strong nondenominational lindsey has also been helping her cope. Again reviewed the risk of taking opioids and benzos together, r/t respiratory suppression and OD. Do not take the medications within 2 hours of each other. Keep Narcan available. Continue medications as usual. F/U with me in 6-8 weeks. She agrees with the plan. Osteoporosis 10/23/2011 Assessment & Plan (04/06/2024 11:20 AM EST): Continue on Prolia infusion. COPD (chronic obstructive pulmonary disease) Assessment & Plan (04/06/2024 11:17 AM EST): Doing well, no recent exacerbations. Pt has a loculated pleural effusion. Continue Trelegy BID + Albuterol PRN. FU with Pulmonology. Dysplasia of cervix 09/25/2011 Anxiety and depression 09/25/2011 Tobacco dependence syndrome 09/25/2011 Resolved Problems Problem Noted Date Diagnosed Date Resolved Date Acute respiratory failure with hypoxia 09/24/2022 04/06/2024 Hypotension 09/24/2022 04/06/2024 Hypoxia 09/24/2022 04/06/2024 Lesion of thoracic vertebra 09/24/2022 04/06/2024 Right lower lobe pneumonia 09/24/2022 0 04/06/2024 Viral URI 03/29/2022 04/12/2022 Increased frequency of urination 07/01/2012 04/06/2024 Encounters * This document contains information received from the source organization and may not represent a complete record from that organization. Date Type Department Care Team Description 06/01/2024 Telephone [facility] MEDICINE [address] [place] [address] Geetha Sidhu MD Chart prep 05/25/2024 Telephone [facility] MEDICINE [address] [place] [address] Geetha Sidhu MD Durable Medical Equipment 05/16/2024 Refill [facility] MEDICINE [address] [place] [phone] Geetha Sidhu MD 04/19/2024 Refill [facility] MED[facility]INE [address] [place] [phone] Laurence Granados FNP Hyperlipidemia, unspecified hyperlipidemia type; Major depressive disorder, recurrent, in partial remission (CMS/HCC) 04/12/2024 Telephone [facility] MEDICINE [address] [place] [phone] Geetha Sidhu MD Durable Medical Equipment; Immunizations 04/06/2024 9:30 AM EST Office Visit [address] [id number] Geetha Sidhu MD Non-small cell lung cancer, unspecified laterality (CMS/HCC) (Primary Dx); Chronic obstructive pulmonary disease, unspecified COPD type (CMS/HCC); Supplemental oxygen dependent; Long toenail; Essential hypertension; Localized osteoporosis with current pathological fracture with routine healing, subsequent encounter; Intracranial aneurysm; Metastasis to bone (CMS/HCC) at T8; Malignant neoplasm metastatic to right lung (CMS/HCC); History of central retinal vein occlusion 04/06/2024 Travel 04/02/2024 Telephone [facility] MEDICINE [address] [place] [phone] Geetha Sidhu MD FYI 04/02/[address] [address] Brigitte Tang [place] Chart prep 04/01/[address] [address] Geetha Sidhu MD Mixed anxiety and depressive disorder 03/30/2024 Patient Outreach [address] [phone] Geetha Sidhu MD Pre-visit Planning ((Unable to reach for PVP screening, LVM)) 03/29/2024 Telephone [facility] [address] [place], [place] [phone] Geetha Sidhu MD 03/17/2024 Telephone [facility] MEDICINE [address] [place] [address] Geetha Sidhu MD from Last 3 Months Immunizations Name Administration Dates Next Due Hep A, Adult 10/16/2007,03/26/2007 Hep B, adult 09/16/2016, 8,05/14/2007,03/26 Influenza injectable quadriv alent IIV4 with preservative 05/11/2015 Influenza injectable quadriv alent preservative free 01/14/2019,01/16/2017,05/06/2014 Influenza, High Dose Seasona l, Preservative Free 02/02/2018 Influenza, IIV3, injectable 12/18/2010, 2 Influenza, Split (incl. morena fied surface antigen) 02/17/2013 Pfizer Covid-19 Vaccine 12+ 12/13/2020, 1 Pneumococcal Conjugate PCV 13 09/16/2016 Pneumococcal Conjugate PCV 20 01/07/2024 Pneumococcal Polysaccharide PPSV23 12/18/2010 Tdap 12/18/2010 Zoster, live 05/11/2015 Family History Medical History Relation Name Comments Diabetes Father Heart disease Father Prostate cancer Father Diabetes Mother Lupus Sister Stroke Sister Relation Name Status Comments Father Mother Sister Social History Tobacco Use Types Packs/Day Years Used Date Smoking Tobacco: Former Cigarettes Q uit: 2020 Smokeless Tobacco: Never Tobacco Cessation:Counseling Given: Not Answered Alcohol Use Standard Drinks/Week Comments Not Currently [...] Orientation Straight 04/04/2022 10 :21 AM EST Last Filed Vital Signs Vital Sign Reading Time Taken Comments Blood Pressure 118/50 04/06/2024 9:18 AM EST Pulse 68 04/06/2024 9:18 AM EST Temperature 36.4 ??C (97.5 ??F) 04/06/2024 9:18 AM ES T Respiratory Rate 20 04/06/2024 9:18 AM EST Oxygen Saturation 99% 11/21/2022 2:01 PM EDT Inhaled Oxygen Concentration - - Weight 56.3 kg (124 lb 2 oz) 04/06/2024 9:18 AM EST Height 160 cm (5' 3 ) 04/06/2024 9:18 AM EST Body Mass Index 21.99 04/06/2024 9:18 AM EST Plan of Treatment Upcoming Encounters Date Type Department Care Team (Late st Contact Info) Description 07/09/2024 11:15 AM EDT Office Visit [facility] MEDICINE [address] [place] [address] Geetha Sidhu MD [address] [place] [address] Health Maintenance Due Date Last Done Comments CT Colonography 1950 Colonoscopy 1950 Colorectal Cancer Screening 1950 FIT DNA/Cologuard 1950 FIT 1950 FOBT 1950 Sigmoidoscopy 1950 Alcohol/Substance Use Screening 1962 Hepatitis C Screening 1968 RSV Patients and Patients Aged 60 years or older (1 - Risk 60-74 years 1-dose series) 2010 Zoster Vaccines (2 of 3) 07/06/2015 05/11/2015 DTaP/Tdap/Td Vaccines (2 - Td or Tdap) 12/18/2020 12/18/2010 Mammogram 01/15/2021 01/15/2019, 09/23/2017 SDOH Screening 04/12/2023 04/12/2022 COVID-19 Vaccine (3 - season) 2023 12/13/2020, 11/22/2020 Influenza Vaccine (#1) 2023 9, 02/02/2018, 01/16/2017, Additional history exists Depression Screening 09/08/2024 09/09/2023, 09/09/19 24 Tobacco Screening 04/06/2025 04/06/2024 Lipid Panel 04/12/2027 04/12/2022, 05/0 07/2021, 08/21/2020 Hepatitis A Vaccines Completed 10/16/2007, 03/26/20 07 Hepatitis B Vaccines Completed 09/16/2016, 10/16/2007, 05/14/2007, Additional history exists Pneumococcal Vaccine: 50+ Years Completed 01/07/2024, 09/16/2016, 12/18/2010 HIB Vaccines Aged Out No longer eligi ble based on patient's age to complete this topic HPV Vaccines Aged Out No longer eligi ble based on patient's age to complete this topic IPV Vaccines Aged Out No longer eligi ble based on patient's age to complete this topic Meningococcal Vaccine Aged Out No aldair cristy eligible based on patient's age to complete this topic RSV under 20 months Aged Out No longe r eligible based on patient's age to complete this topic Rotavirus Vaccines Aged Out No longer eligible based on patient's age to complete this topic Procedures Procedure Name Priority Date/Time Associated Diagnosis Comments LIPID PANEL, STANDARD Routine 04/12/2022 12:11 PM EST Routine adult health maintenance BI MAMMOGRAM SCREENING BILATERAL Routine 01/15/2019 8:15 AM EDT from Last 3 Months or Most Recently Relevant to Health Maintenance Results * (ABNORMAL) Lipid Panel, Standard (04/12/2022 12:11 PM EST) Cholesterol, Total 181 <200 mg/dL [facility] HDL Cholesterol 35(L) > OR = 50 mg/dL [facility] Triglycerides 299(H) <150 mg/dL [facility] Comment: If a non-fasting specimen was collected, consider repeat triglyceride testing on a fasting specimen if clinically indicated. Andreina et al. J. of Clin. Lipidol. 2015;9:129-169. LDL Cholesterol 106(H) mg/dL (calc) [facility] Comment: Reference range: <100 Desirable range <100 mg/dL for primary prevention; ?? <70 mg/dL for patients with CHD or diabetic patients with > or = 2 CHD risk factors. LDL-C is now calculated using the Elodia calculation, which is a validated novel method providing better accuracy than the Friedewald equation in the estimation of LDL-C. Maxwell SS et al. SELINA. 2013;310(19): 5926-8611 (http://education.mycirQle/faq/SBA967) Chol/HDLC Ratio 5.2(H) <5.0 (calc) [facility] Non-HDL Cholesterol 146(H) <130 mg/dL (calc) [facility] Comment: For patients with diabetes plus 1 major ASCVD risk factor, treating to a non-HDL-C goal of <100 mg/dL (LDL-C of <70 mg/dL) is considered a therapeutic option. Blood Venous blood specimen / Unknown 04/12/2022 12:11 PM EST 04/12/2022 12:12 PM EST Narrative [facility] - 04/13/2022 7:29 AM EST FASTING:YES FASTING: YES Laurence Granados [facility] BLOOD ORDERABLES Final Resu lt [facility] [address], [place] [address] [facility] [address] [facility], ([address]) [place] [address] * DIGITAL BILATERAL SCREEN 1 (01/15/2019 8:15 AM EDT) Anatomical Region Laterality Modality Breast Bilateral Mammography 01/15/2019 8:15 AM EDT Narrative 01/15/2019 8:17 AM EDT Refer to the Notes tab for result details [facility] Procedure: DIGITAL BILATERAL SCREEN 1 Procedure Note Provider, MD Jerod - 06/22/2022 Refer to the Notes tab for result details [facility] Procedure: DIGITAL BILATERAL SCREEN 1 Charles Ever PLUMBER APPRENTICE IMG BI PROCEDURES Final Result from Last 3 Months or Most Recently Relevant to Health Maintenance [place] [address] [address] [place] [address] MEDICARE Care Teams Intellectual Property Manager Relationship Specialty Start Date End Date Geetha Sidhu MD [address] [place] [id number] PCP - General Internal Medicine 12/02/23 Charles Curtis FNP Nurse Practitioner Family Medicine 02/17/23 Pati Graff RN Care Manager 02/11/23
--- OUTSIDE RECORDS SUMMARY | 2024-06-01 14:50 | XMS_ITS | Encounter Summary ---
Author Organization [employer] Address [address] [facility] [address] [place] [address] Care Team Providers Care Ems Director Name Role Phone Laurence Granados Primary Care Provider [phone] Cahrles Curtis Unavailable Unavailable Geetha Sidhu MD Primary Care Provider + Reason for Visit * Reason Onset Date Comments Appointment Request 05/07/2023 Encounter Details Date Type Department Care Team ([facility] st Contact Info) Description 05/07/2023 Telephone [facility] MEDICINE [address] [place], [place] [phone] Laurence Granados FNP [address], [place] [phone] Appointment Request Social History Tobacco Use Types Packs/Day Years Used Date Smoking Tobacco: Former Cigarettes Q uit: 2020 Smokeless Tobacco: Never Alcohol Use Standard Drinks/Week Comments Not Currently 0 (1 standard drink = 0.6 oz pur e alcohol) Depression Answer Date Recorded Patient Health Questionnaire-9 Score 9 02/13/2023 Patient Health Questionnaire-9 Score 9 02/13/2023 Last PHQ-9: Questionnaire Data Not on file 1 04/15/2022 Housing Stability Answer Date Recorded What is [...] Answer Date Recorded Patient Health Questionnaire-2 Score 4 02/13/2023 Comments Unknown Sex and Gender Information Value Date Recorded Sex Assigned at Female 01/28/2022 10:17 AM EDT Legal Sex Female 10:17 AM EDT Gender Identity Female 01/28/2022 10:17 AM EDT Sexual Orientation Straight 04/04/2022 10 :21 AM EST documented as of this encounter Miscellaneous Notes * Telephone Encounter - Renetta Obando - 05/07/2023 10:26 AM EST Tc from pt daughter requesting a f/u appt with PCP [phone] documented in this encounter Plan of Treatment Upcoming Encounters Date Type Department Care Team (Late st Contact Info) Description 07/09/2024 11:15 AM EDT Office Visit [facility] MEDICINE [address] [place] [address] Geetha Sidhu MD [address] [place] [address] documented as of this encounter Visit Diagnoses Not on filedocumented in this encounter Additional Health Concerns Assessment Noted Time PHQ-9 Depression Total Score: 9 02/14/20 23 3:41 PM EST documented as of this encounter Care Teams Ems Director Relationship Specialty Start Date End Date Laurence Granados FNP [address] [place] [address] PCP - General Family Medicine 03/27/22 12/01/23 Geetha Sidhu MD [address] [place] [address] PCP - General Internal Medicine 12/02/23 Charles Curtis FNP [address] [place] [address] Nurse Practitioner Family Medicine 02/17/23 Pati Graff RN Care Manager 02/11/23 documented as of this encounter
--- OUTSIDE RECORDS SUMMARY | 2024-06-01 14:50 | XMS_ITS | Encounter Summary ---
Author Organization [employer] Address 75 [facility] 7 [place] [address] Care Team Providers Care Dockworker Name Role Phone EverCharles ANABELA Unavailable Unavailable Geetha Sidhu MD Primary Care Provider + Reason for Visit * Reason Onset Date Comments Chart prep 06/01/2024 Encounter Details Date Type Department Care Team ([facility] st Contact Info) Description 06/01/2024 Telephone [facility] MEDICINE 230 [place], [place] [phone] Geetha Sidhu MD 230 [place], [place] [phone] Chart prep Social History Tobacco Use Types Packs/Day Years [...] encounter Miscellaneous Notes * Telephone Encounter - Brigitte Tang MA - 06/01/2024 10:18 AM EST Chart Prep Labs: done Images: done Vaccines due: yes Referrals: pending appt Screenings: colonoscopy Overdue care gaps: SDOH documented in this encounter Plan of Treatment Upcoming Encounters Date Type Department Care Team (Late st Contact Info) Description 07/09/2024 11:15 AM EDT Office Visit [facility] MEDICINE [address] [place] [address] Geetha Sidhu MD 230 [place] [address] documented as of this encounter Visit Diagnoses Not on filedocumented in this encounter Additional Health Concerns Assessment Noted Time PHQ-9 Depression Total Score: 6 09/09/19 24 11:10 AM EDT documented as of this encounter Care Teams Dockworker Relationship Specialty Start Date End Date Geetha Sidhu MD [address] [place] [address] PCP - General Internal Medicine 12/02/23 Charles Curtis FNP Nurse Practitioner Family Medicine 02/17/23 Pati Graff RN Care Manager 02/11/23 documented as of this encounter
--- OUTSIDE RECORDS SUMMARY | 2024-06-01 14:50 | XMS_ITS | Encounter Summary ---
Author Organization [employer] Address 75 [facility] 7t [place] [address] Care Team Providers Care Overhauler Name Role Phone Laurence Granados Primary Care Provider [phone] Charles Curtis Unavailable Unavailable Geetha Sidhu MD Primary Care Provider + Encounter Details Date Type Department Care Team (Late Contact Info) Description 08/14/2022 Orders Only [facility] MEDICINE 230 [place] [address] Laurence Granados FNP [address] [place] [address] Essential hypertension Social History Tobacco Use Types Packs/Day Years [...] Encounters Date Type Department Care Team (Late Contact Info) Description 07/09/2024 11:15 AM EDT Office Visit [facility] MEDICINE 230 [place], [place] [phone] Geetha Sidhu MD 230 [place] [address] documented as of this encounter Visit Diagnoses Diagnosis Essential hypertension Unspecified essential hypertension documented in this encounter Additional Health Concerns Assessment Noted Time PHQ-9 Depression Total Score: 8 06/21/19 23 10:21 AM EDT documented as of this encounter Care Teams Overhauler Relationship Specialty Start Date End Date Laurence Granados FNP [address] [place] [address] PCP - General Family Medicine 03/27/22 12/01/23 Geetha Sidhu MD [address] [place] [address] PCP - General Internal Medicine 12/02/23 Charles Curtis FNP [address] [place] [address] Nurse Practitioner Family Medicine 02/17/23 Pati Graff RN Care Manager 02/11/23 documented as of this encounter
--- OUTSIDE RECORDS SUMMARY | 2024-06-01 14:50 | XMS_ITS | Encounter Summary ---
Author Organization [employer] Address 75 [facility] 7t [place] [address] Care Team Providers Care Bay Stocker Name Role Phone Laurence Granados Primary Care Provider [phone] Charles Curtis Unavailable Unavailable Geetha Sidhu MD Primary Care Provider + Reason for Visit * Reason Comments Med Refill Encounter Details Date Type Department Care Team ([facility] st Contact Info) Description 07/25/2023 Refill [facility] MEDICINE [address] [place], [place] [phone] Laurence Granados FNP [address] [place], [place] [phone] Social History Tobacco Use Types Packs/Day Years Used Date Smoking Tobacco: Former Cigarettes Q uit: 2020 Smokeless Tobacco: Never Alcohol Use Standard Drinks/Week Comments Not Currently 0 (1 standard drink = 0.6 oz pur e alcohol) Depression Answer Date Recorded Patient Health Questionnaire-9 Score 7 07/07/2023 Patient Health Questionnaire-9 Score 7 07/07/2023 Last PHQ-9: Questionnaire Data Not on file 0 07/07/2023 Housing Stability Answer Date Recorded What is [...] Date Recorded Patient Health Questionnaire-2 Score 2 07/07/2023 Comments Unknown Sex and Gender Information Value [...] 11:15 AM EDT Office Visit [facility] MEDICINE [address] [place] [address] Geetha Sidhu MD [address] [place] [address] documented as of this encounter Visit Diagnoses Not on filedocumented in this encounter Additional Health Concerns Assessment Noted Time PHQ-9 Depression Total Score: 7 07/07/19 24 11:18 AM EDT documented as of this encounter Care Teams Bay Stocker Relationship Specialty Start Date End Date Laurence Granados FNP [address] [place] [address] PCP - General Family Medicine 03/27/22 12/01/23 Geetha Sidhu MD [address] [place] [address] PCP - General Internal Medicine 12/02/23 Charles Curtis FNP [address] [place] [address] Nurse Practitioner Family Medicine 02/17/23 Pati Graff RN Care Manager 02/11/23 documented as of this encounter
--- OUTSIDE RECORDS SUMMARY | 2024-06-01 14:50 | XMS_ITS | Encounter Summary ---
Author Organization [employer] Address 75 [facility] 7t [place] [address] Care Team Providers Care Material Spreader Name Role Phone Laurence Granados Primary Care Provider [phone] Charles Curtis Unavailable Unavailable Geetha Sidhu MD Primary Care Provider + Encounter Details Date Type Department Care Team (Late st Contact Info) Description 04/29/2023 Orders Only [facility] [address] [place] [address] Laurence Granados FNP 230 [place] [address] Social History Tobacco Use Types Packs/Day Years [...] Description 07/09/2024 11:15 AM EDT Office Visit [facility] MEDICINE [address] [place] [address] Geetha Sidhu MD [address] [place] [address] documented as of this encounter Visit Diagnoses Not on filedocumented in this encounter Additional Health Concerns Assessment Noted Time PHQ-9 Depression Total Score: 9 02/14/20 23 3:41 PM EST documented as of this encounter Care Teams Material Spreader Relationship Specialty Start Date End Date Laurence Granados FNP [address] [place] [address] PCP - General Family Medicine 03/27/22 12/01/23 Geetha Sidhu MD [address] [place] [address] PCP - General Internal Medicine 12/02/23 Charles Curits FNP [address] [place] [address] Nurse Practitioner Family Medicine 02/17/23 Pati Graff RN Care Manager 02/11/23 documented as of this encounter
--- OUTSIDE RECORDS SUMMARY | 2024-06-01 14:50 | XMS_ITS | Encounter Summary ---
Author Organization [employer] Address 75 [facility] 7t [place] [address] Care Team Providers Care Industrial Coffee Grinder Name Role Phone Laurence Granados Primary Care Provider [phone] Charles Curtis Unavailable Unavailable Geetha Sidhu MD Primary Care Provider + Encounter Details Date Type Department Care Team (Late Contact Info) Description 10/31/2022 Orders Only [facility] MEDICINE 230 [place] [address] Laurence Granados FNP 230 [place], [place] [phone] Mobility impaired (Primary Dx) Social History Tobacco Use Types Packs/Day Years Used Date Smoking Tobacco: Former Cigarettes Q uit: 2020 Smokeless Tobacco: Never Alcohol Use Standard Drinks/Week Comments Not Currently 0 (1 standard drink = 0.6 oz pur e alcohol) PHQ-2 Answer Date Recorded Patient Health Questionnaire-2 Score 1 08/20/2022 Comments Unknown Sex and Gender Information Value [...] Office Visit [facility] MEDICINE 230 [place] [address] Geetha Sidhu MD 230 [place] [address] documented as of this encounter Visit Diagnoses Diagnosis Mobility impaired- Primary Other ill-defined conditions documented in this encounter Additional Health Concerns Assessment Noted Time PHQ-9 Depression Total Score: 3 08/21/19 23 1:08 PM EDT documented as of this encounter Care Teams Industrial Coffee Grinder Relationship Specialty Start Date End Date Laurence Granados FNP [address] [place] [address] PCP - General Family Medicine 03/27/22 12/01/23 Geetha Sidhu MD [address] [place] [address] PCP - General Internal Medicine 12/02/23 Charles Curtis FNP [address] [place] [address] Nurse Practitioner Family Medicine 02/17/23 Pati Graff RN Care Manager 02/11/23 documented as of this encounter
--- OUTSIDE RECORDS SUMMARY | 2024-06-01 14:50 | XMS_ITS | Encounter Summary ---
Author Organization [employer] Address [address] [place] [address] 7 [place] [address] Care Team Providers Care Winch Operator Name Role Phone Laurence Granados Primary Care Provider [phone] Charles Curtis Unavailable Unavailable Geetha Sidhu MD Primary Care Provider + Reason for Visit * Reason Onset Date Comments FYI 08/05/2022 Encounter Details Date Type Department Care Team ([facility] st Contact Info) Description 08/05/2022 Telephone [facility] MEDICINE 230 [place], [place] [phone] Laurence Granados FNP [address] [place], [place] [phone] Social History Tobacco Use Types Packs/Day Years [...] encounter Miscellaneous Notes * Telephone Encounter - Tabby Munoz - 08/05/2022 3:48 PM EDT Tc from [facility] calling to inform PCP, pt had her PT evaluation and [facility] will see her once a week for 2 weeks, 2 times a week for 2 weeks and once a week for 5 weeks. Any further questionsplease call [phone]. documented in this encounter Plan of Treatment Upcoming Encounters Date Type Department Care Team (Late st Contact Info) Description 07/09/2024 11:15 AM EDT Office Visit [facility] MEDICINE 230 [place] [address] Geetha Sidhu MD 230 [place] [address] documented as of this encounter Visit Diagnoses Not on filedocumented in this encounter Additional Health Concerns Assessment Noted Time PHQ-9 Depression Total Score: 8 06/21/19 10:21 AM EDT documented as of this encounter Care Teams Winch Operator Relationship Specialty Start Date End Date Laurence Granados FNP [address] [place] [address] PCP - General Family Medicine 03/27/22 12/01/23 Geetha Sidhu MD [address] [place] [address] PCP - General Internal Medicine 12/02/23 Charles Curtis FNP [address] [place] [address] Nurse Practitioner Family Medicine 02/17/23 Pati Graff RN Care Manager 02/11/23 documented as of this encounter
--- OUTSIDE RECORDS SUMMARY | 2024-06-01 14:50 | XMS_ITS | Encounter Summary ---
Author Organization [employer] Address 75 [facility] 7t [place] [address] Care Team Providers Care Laborer Wharf Name Role Phone Charles Curtis CLOTH PRINTING INSPECTOR Unavailable Unavailable Geetha Sidhu MD Primary Care Provider + Encounter Details Date Type Department Care Team ([facility] st Contact Info) Description 03/17/2024 Telephone [facility] MEDICINE 230 [place], [place] [phone] Geetha Sidhu MD 230 [place], [place] [phone] Social History Tobacco Use Types Packs/Day Years [...] Description 07/09/2024 11:15 AM EDT Office Visit [facility] MEDICINE [address] [place] [address] Geetha Sidhu MD [address] [place] [address] documented as of this encounter Visit Diagnoses Not on filedocumented in this encounter Additional Health Concerns Assessment Noted Time PHQ-9 Depression Total Score: 6 09/09/19 24 11:10 AM EDT documented as of this encounter Care Teams Laborer Wharf Relationship Specialty Start Date End Date Geetha Sidhu MD [address] [place] [address] PCP - General Internal Medicine 12/02/23 Charles Curtis FNP Nurse Practitioner Family Medicine 02/17/23 Pati Graff RN Care Manager 02/11/23 documented as of this encounter
--- OUTSIDE RECORDS SUMMARY | 2024-06-01 14:50 | XMS_ITS | Encounter Summary ---
Author Organization [employer] Address 75 [facility] 7 [place] [address] Care Team Providers Care Wine Maker Name Role Phone Laurence Granados Primary Care Provider [phone] Charles Curtis Unavailable Unavailable Geetha Sidhu MD Primary Care Provider + Encounter Details Date Type Department Care Team (Late Contact Info) Description 06/17/2022 Orders Only [facility] MEDICINE 230 [place] [address] Laurence Granados FNP 230 [place], [place] [phone] Chronic pain due to neoplasm Social History Tobacco Use Types Packs/Day Years [...] Description 07/09/2024 11:15 AM EDT Office Visit [facility] MEDICINE 230 [place] [address] Geetha Sidhu MD [address] [place] [address] documented as of this encounter Visit Diagnoses Diagnosis Chronic pain due to neoplasm documented in this encounter Additional Health Concerns Assessment Noted Time PHQ-9 Depression Total Score: 5 04/12/19 23 10:58 AM EST documented as of this encounter Care Teams Wine Maker Relationship Specialty Start Date End Date Laurence Granados FNP [address] [place] [address] PCP - General Family Medicine 03/27/22 12/01/23 Geetha Sidhu MD [address] [place] [address] PCP - General Internal Medicine 12/02/23 Charles Curtis FNP [address] [place] [address] Nurse Practitioner Family Medicine 02/17/23 Pati Graff RN Care Manager 02/11/23 documented as of this encounter
--- OUTSIDE RECORDS SUMMARY | 2024-06-01 14:50 | XMS_ITS | Encounter Summary ---
Author Organization [employer] Address [address] [place] [address], [place] [address] Care Team Providers Care Health Policy Analyst Name Role Phone Laurence Granados Primary Care Provider [phone] Charles Curtis Unavailable Unavailable Geetha Sidhu MD Primary Care Provider + Encounter Details Date Type Department Care Team (Late Contact Info) Description 08/21/2022 [facility] Information Management 230 [place] [address] Laurence Granados FNP 230 [place], [place] [phone] Social History Tobacco Use Types Packs/Day Years [...] Upcoming Encounters Date Type Department Care Team ([facility] Contact Info) Description 07/09/2024 11:15 AM EDT Office Visit [facility] MEDICINE 230 [place], [place] [phone] Geetha Sidhu MD 230 [place] [address] documented as of this encounter Visit Diagnoses Not on filedocumented in this encounter Additional Health Concerns Assessment Noted Time PHQ-9 Depression Total Score: 3 08/21/19 23 1:08 PM EDT documented as of this encounter Care Teams Health Policy Analyst Relationship Specialty Start Date End Date Laurence Granados FNP [address] [place] [address] PCP - General Family Medicine 03/27/22 12/01/23 Geetha Sidhu MD [address] [place] [address] PCP - General Internal Medicine 12/02/23 Charles Curtis FNP [address] [place] [address] Nurse Practitioner Family Medicine 02/17/23 Pati Graff RN Care Manager 02/11/23 documented as of this encounter
--- OUTSIDE RECORDS SUMMARY | 2024-06-01 14:50 | XMS_ITS | Encounter Summary ---
Author Organization [employer] Address [address] [place] [address] 7 [place] [address] Care Team Providers Care Autotransfusionist Name Role Phone Laurence Granados Primary Care Provider [phone] Charles Curtis Unavailable Unavailable Geetha Sidhu MD Primary Care Provider + Reason for Visit * Reason Onset Date Comments Nurse Triage 10/31/2022 Encounter Details Date Type Department Care Team (Late st Contact Info) Description 10/31/2022 Telephone [facility] MEDICINE 230 [place], [place] [phone] Laurence Granados FNP 230 [place], [place] [phone] Nurse Triage Social History Tobacco Use Types Packs/Day Years [...] encounter Miscellaneous Notes * Telephone Encounter - Mel Sevilla RN - 10/31/2022 3:04 PM EDT Call to Kurt[facility] with [facility], reports during visit today pt had O2 saturation ranging form 86-92% atrest. Pt did have some nasal congestion. No other sx reported per Kurtis. Call to [facility], spoke to daughter who is on HIPPA but not currently with patient. States pt usually runs lower 90s for o2. This morning was 93%. Per daughter unsure if having any other sx. Per daughter pt does have hx of lung cancer. Advised should also call Oncology to inform of this and if any further instructions. Advised to check pt O2 sats when is with her and ask if having CP, chest tightness, wheezing or fever. To call back to provide current level and if any other sx even if after hours for NTTS for further ins tructions as needed. TO seek ER if having CP, wheezing or if O2 sat is <90%. Daughter agrees. Protocol Used: Breathing Difficulty (Adult) Protocol-Based Disposition: Discuss with PCP and Callback by Nurse within 1 Hour Positive Triage Question: * Oxygen level (e.g., pulse oximetry) 91 to 94 percent * All higher-acuity triage questions were negative Care Advice Discussed: * Reasons To Call Back - Severe difficulty breathing occurs - Fever more than 100.4 F (38.0 C) - You become worse * Telephone Encounter - Atiya Shrestha - 10/31/2022 2:51 PM EDT Tc from [facility] calling to report pt oxygen of 86 and also reports pt had trouble sleeping due to having nose nose congestion. . Advised triage nurse will call patient back. documented in this encounter Plan of Treatment Upcoming Encounters Date Type Department Care Team (Late st Contact Info) Description 07/09/2024 11:15 AM EDT Office Visit [facility] MEDICINE 230 [place] [address] Geetha Sidhu MD 230 [place] [address] documented as of this encounter Visit Diagnoses Not on filedocumented in this encounter Additional Health Concerns Assessment Noted Time PHQ-9 Depression Total Score: 3 08/21/19 23 1:08 PM EDT documented as of this encounter Care Teams Autotransfusionist Relationship Specialty Start Date End Date Laurence Granados FNP 230 [place] [address] PCP - General Family Medicine 03/27/22 12/01/23 Geetha Sidhu MD 230 [place] [address] PCP - General Internal Medicine 12/02/23 Charles Curtis FNP 230 [place] [address] Nurse Practitioner Family Medicine 02/17/23 Pati Graff RN Care Manager 02/11/23 documented as of this encounter
--- OUTSIDE RECORDS SUMMARY | 2024-06-01 14:50 | XMS_ITS | Encounter Summary ---
Author Organization [employer] Address 75 [facility] 7 [place] [address] Care Team Providers Care Sas Administrator Name Role Phone EverCharles ANABELA Unavailable Unavailable Geetha Sidhu MD Primary Care Provider + Reason for Visit * Reason Onset Date Comments Durable Medical Equipment 05/25/2024 Encounter Details Date Type Department Care Team ([facility] st Contact Info) Description 05/25/[address] [facility] MEDICINE 230 [place], [place] [phone] Geetha Sidhu MD 230 [place], [place] [phone] Durable Medical Equipment Social History Tobacco Use Types Packs/Day Years [...] Telephone Encounter - Brigitte Tang MA - 05/25/2024 11:14 AM EST DME for bed rails, and bathtub rails initiated. Faxed to [employer] ([phone]) documented in this encounter Plan of Treatment Upcoming Encounters Date Type Department Care Team (Late st Contact Info) Description 07/09/2024 11:15 AM EDT Office Visit [facility] MEDICINE [address] [place] [address] Geetha Sidhu MD 230 [place] [address] documented as of this encounter Visit Diagnoses Not on filedocumented in this encounter Additional Health Concerns Assessment Noted Time PHQ-9 Depression Total Score: 6 09/09/19 24 11:10 AM EDT documented as of this encounter Care Teams Sas Administrator Relationship Specialty Start Date End Date Geetha Sidhu MD [address] [place] [address] PCP - General Internal Medicine 12/02/23 Charles Curtis FNP Nurse Practitioner Family Medicine 02/17/23 Pati Graff RN Care Manager 02/11/23 documented as of this encounter
--- OUTSIDE RECORDS SUMMARY | 2024-06-01 14:50 | XMS_ITS | Encounter Summary ---
Author Organization [employer] Address 75 [facility] 7 [place] [address] Care Team Providers Care Customer Advisor Specialist Name Role Phone Laurence Granados Primary Care Provider [phone] Charles Curtis Unavailable Unavailable Geetha Sidhu MD Primary Care Provider + Reason for Visit * Reason Onset Date Comments FYI 09/12/2022 Encounter Details Date Type Department Care Team ([facility] st Contact Info) Description 09/12/2022 Telephone [facility] MEDICINE 230 [place], [place] [phone] Laurence Granados FNP 230 [place], [place] [phone] FYI Social History Tobacco Use Types Packs/Day Years [...] Telephone Encounter - Margaret Morris RN - 09/12/2022 1:53 PM EDT Noted * Telephone Encounter - Tabby Munoz - 09/12/2022 1:27 PM EDT Tc from [facility] calling to inform PCP, patient missed her visit for this week (09/12/22) but they will resume visit for next week. documented in this encounter Plan of Treatment Upcoming Encounters Date Type Department Care Team (Late st Contact Info) Description 07/09/2024 11:15 AM EDT Office Visit [facility] MEDICINE 230 [place] [address] Geetha Sidhu MD 230 [place] [address] documented as of this encounter Visit Diagnoses Not on filedocumented in this encounter Additional Health Concerns Assessment Noted Time PHQ-9 Depression Total Score: 3 08/21/19 1:08 PM EDT documented as of this encounter Care Teams Customer Advisor Specialist Relationship Specialty Start Date End Date Laurence Granados FNP 230 [place] [address] PCP - General Family Medicine 03/27/22 12/01/23 Geetha Sidhu MD [address] [place] [address] PCP - General Internal Medicine 12/02/23 Charles Curtis FNP [address] [place] [address] Nurse Practitioner Family Medicine 02/17/23 Pati Graff RN Care Manager 02/11/23 documented as of this encounter
--- OUTSIDE RECORDS SUMMARY | 2024-06-01 14:50 | XMS_ITS | Encounter Summary ---
Author Organization [employer] Address [address] [facility] 7t [place] [address] Care Team Providers Care Grill Attendant Name Role Phone Laurence Granados Primary Care Provider [phone] Charles Curtis Unavailable Unavailable Geetha Sidhu MD Primary Care Provider + Reason for Visit * Reason Comments Med Refill Encounter Details Date Type Department Care Team ([facility] st Contact Info) Description 02/20/2023 Refill [facility] [address] [place], [place] [phone] Alaina [place] MD [address] [place], [place] [phone] Social History Tobacco Use Types Packs/Day Years [...] Recorded What is your housing situation today? I have isabel paige 01/13/[address] you li ve. Do you have problems with any of the following? None of the above 01/13/2023 Food Insecurity Answer Date Recorded Within the [...] [facility] [address] [place] [address] Geetha Sidhu MD [address] [place] [address] documented as of this encounter Visit Diagnoses Not on filedocumented in this encounter Additional Health Concerns Assessment Noted Time PHQ-9 Depression Total Score: 9 02/14/20 23 3:41 PM EST documented as of this encounter Care Teams Grill Attendant Relationship Specialty Start Date End Date Laurence Granados FNP [address] [place] [phone] PCP - General Family Medicine 03/27/22 12/01/23 Geetha Sidhu MD [address] [place] [address] PCP - General Internal Medicine 12/02/23 Charles Curtis FNP [address] [place] [address] Nurse Practitioner Family Medicine 02/17/23 Pati Graff RN Care Manager 02/11/23 documented as of this encounter
--- OUTSIDE RECORDS SUMMARY | 2024-06-01 14:51 | XMS_ITS | Encounter Summary ---
Author Organization [employer] Address 75 [facility] 7 [place] [address] Care Team Providers Care Solutions Architect Name Role Phone Laurence Granados Primary Care Provider [phone] Charles Curtis Unavailable Unavailable Geetha Sidhu MD Primary Care Provider + Encounter Details Date Type Department Care Team (Late Contact Info) Description 08/30/2022 Orders Only [facility] MEDICINE [address] [place] [address] Laurence Granados FNP [address] [place] [address] Social History Tobacco Use Types Packs/Day Years [...] 07/09/2024 11:15 AM EDT Office Visit [facility] MEDICINE [address] [place], [place] [phone] Geetha Sidhu MD [address] [place] [address] documented as of this encounter Visit Diagnoses Not on filedocumented in this encounter Additional Health Concerns Assessment Noted Time PHQ-9 Depression Total Score: 3 08/21/19 23 1:08 PM EDT documented as of this encounter Care Teams Solutions Architect Relationship Specialty Start Date End Date Laurence Granados FNP [address] [place] [address] PCP - General Family Medicine 03/27/22 12/01/23 Geetha Sidhu MD [address] [place] [address] PCP - General Internal Medicine 12/02/23 Charles Curtis FNP [address] [place] [address] Nurse Practitioner Family Medicine 02/17/23 Pati Graff RN Care Manager 02/11/23 documented as of this encounter
--- OUTSIDE RECORDS SUMMARY | 2024-06-01 14:51 | XMS_ITS | Encounter Summary ---
Author Organization [employer] Address 75 [facility] 7t [place] [address] Care Team Providers Care Gang Miner Name Role Phone Laurence Granados Primary Care Provider [phone] Charles Curtis Unavailable Unavailable Geetha Sidhu MD Primary Care Provider + Encounter Details Date Type Department Care Team (Late Contact Info) Description 09/23/2022 Abstract [facility] MEDICINE [address] [place] [address] Laurence Granados FNP [address] [place] [address] Social History Tobacco Use Types Packs/Day Years [...] suspected to have Coronavirus/COVID-19? No / Unsure 09/25/2022 2:25 PM EDT documented as of this encounter Plan of Treatment Upcoming Encounters Date Type Department Care Team (Late st Contact Info) Description 07/09/2024 11:15 AM EDT Office Visit [facility] MEDICINE [address] [place] [address] Geetha Sidhu MD [address] [place] [address] documented as of this encounter Visit Diagnoses Not on filedocumented in this encounter Additional Health Concerns Assessment Noted Time PHQ-9 Depression Total Score: 3 08/21/19 23 1:08 PM EDT documented as of this encounter Care Teams Gang Miner Relationship Specialty Start Date End Date Laurence Granados FNP [address] [place] [address] PCP - General Family Medicine 03/27/22 12/01/23 Geetha Sidhu MD [address] [place] [address] PCP - General Internal Medicine 12/02/23 Charles Curtis FNP [address] [place] [address] Nurse Practitioner Family Medicine 02/17/23 Pati Graff RN Care Manager 02/11/23 documented as of this encounter
== END 2024-06-01 11:40 | disposition home or self-care (01) ==
LOC: HO.CT 11:39
PROVIDERS: PCP Internal Medicine; Visit Provider Internal Medicine Medical Oncology
DX: C34.90 Malignant neoplasm of unspecified part of unspecified bronchus or lung (principal)
CPT/HCPCS: 71260; Q9967

== ENCOUNTER → 2024-06-01 11:41 | Outpatient (BNV) | payer MEDICARE, MEDICAID, SELFPAY | PROVIDERS: PCP Internal Medicine; Visit Provider Radiology Diagnostic Radiology | DX: C34.31 Malignant neoplasm of lower lobe, right bronchus or lung (principal) | CPT/HCPCS: 71260 ==

== ENCOUNTER 2024-06-02 15:56 | Outpatient (REF) | payer MEDICARE, MEDICAID, SELFPAY ==
--- NOTE | ~2024-06-02 | US_ITS ---
EXAMINATION: US TRIPLEX LOWER EXTREMITY, BILATERAL CLINICAL INFORMATION: Suspicious pulmonary embolism COMPARISON: None available. TECHNIQUE: Color-flow triplex imaging with spectral analysis and compression Doppler were performed on the bilateral lower extremities. FINDINGS: Respiratory variation, normal compression and augmented flow are noted throughout the visualized common femoral vein, superficial femoral vein, profunda femoral vein, popliteal vein and midcalf peroneal and posterior tibial venous segments . There is no Fall's cyst. US/US venous duplex LE BI IMPRESSION: No acute deep venous thrombosis involving the bilateral lower extremities. Electronically signed by: Segundo Robles MD 06/03/2024 07:10 AM [facility] [place]
--- OUTSIDE RECORDS SUMMARY | 2024-06-02 19:04 | XMS_ITS | Encounter Summary ---
Author Organization [employer] Address 75 [facility] 7t [place] [address] Care Team Providers Care Construction Project Manager Name Role Phone Laurence Granados Primary Care Provider [phone] Charles Curtis Unavailable Unavailable Geetha Sidhu MD Primary Care Provider + Encounter Details Date Type Department Care Team (Late Contact Info) Description 10/31/2022 Orders Only [facility] MEDICINE [address] [place] [address] Laurence Granados FNP [address] [place], [place] [phone] Mobility impaired (Primary Dx) Social History Tobacco [...] Description 07/09/2024 11:15 AM EDT Office Visit [facility] MEDICINE [address] [place] [address] Geetha Sidhu MD [address] [place] [address] documented as of this encounter Visit Diagnoses Diagnosis Mobility impaired- Primary Other ill-defined conditions documented in this encounter Additional Health Concerns Assessment Noted Time PHQ-9 Depression Total Score: 3 08/21/19 23 1:08 PM EDT documented as of this encounter Care Teams Construction Project Manager Relationship Specialty Start Date End Date Laurence Granados FNP [address] [place] [address] PCP - General Family Medicine 03/27/22 12/01/23 Geetha Sidhu MD [address] [place] [address] PCP - General Internal Medicine 12/02/23 Charles Curtis FNP [address] [place] [address] Nurse Practitioner Family Medicine 02/17/23 Pati Graff RN Care Manager 02/11/23 documented as of this encounter
--- OUTSIDE RECORDS SUMMARY | 2024-06-02 19:04 | XMS_ITS | Encounter Summary ---
Author Organization [employer] Address 75 [facility] 7t [place] [address] Care Team Providers Care Credit Correspondence Clerk Name Role Phone Charles Curtis ANABELA Unavailable Unavailable Geetha Sidhu MD Primary Care Provider + Reason for Visit * Reason Comments Med Refill Encounter Details Date Type Department Care Team ([facility] st Contact Info) Description 05/16/2024 Refill [facility] [address] [place], [place] [phone] Geetha Sidhu MD [address] [place], [place] [phone] Social History Tobacco Use Types Packs/Day Years [...] Description 07/09/2024 11:15 AM EDT Office Visit [facility] [address] [place] [address] Geetha Sidhu MD [address] [place] [address] documented as of this encounter Visit Diagnoses Not on filedocumented in this encounter Additional Health Concerns Assessment Noted Time PHQ-9 Depression Total Score: 6 09/09/19 24 11:10 AM EDT documented as of this encounter Care Teams Credit Correspondence Clerk Relationship Specialty Start Date End Date Geetha Sidhu MD [address] [place] [address] PCP - General Internal Medicine 12/02/23 Charles Curtis FNP Nurse Practitioner Family Medicine 02/17/23 Pati Graff RN Care Manager 02/11/23 documented as of this encounter
--- OUTSIDE RECORDS SUMMARY | 2024-06-02 19:04 | XMS_ITS | Encounter Summary ---
Author Organization [employer] Address [address] [facility] 7t [place] [address] Care Team Providers Care Physician Allergist Immunologist Name Role Phone Charles Curtis Unavailable Unavailable Geetha Sidhu MD Primary Care Provider + Encounter Details Date Type Department Care Team (Late st Contact Info) Description 06/02/2024 Orders Only GENERIC EXTERNAL DATA DEPARTMENT Provider, Generic External Data Social History Tobacco Use Types Packs/Day Years [...] 07/09/2024 11:15 AM EDT Office Visit [facility] MEDICINE [address] [place], [place] [phone] Geetha Sidhu MD [address] [place] [address] documented as of this encounter Procedures Procedure Name Priority Date/Time Associated Diagnosis Comments D DIMER HIGH SENSITIVITY Routine 06/02/2024 4:52 PM EST CBC WITH AUTO DIFFERENTIAL Routine 06/02/2024 4:52 PM EST COMPREHENSIVE METABOLIC PANEL Routine 06/02/2024 4:52 PM EST documented in this encounter Results * D Dimer High Sensitivity (06/02/2024 4:52 PM EST) D Dimer High Sensitivity 324 NG/ML [facility] Comment:Results of VEENA ca lled to RUY on 06/02/24at 184 by COLIN.D- DIMER HS REFERENCE RANGENote: Our assay reports D-Dimer Units (D-DU).The cut-off value for venous thromboembolic (VTE) disease is230 ng/mL. This value has a very high negative predictivevalue when the patient has a low to moderate clinicalprobability of VTE.The upper limit of normal is 243 ng/mL. 06/02/2024 4:52 PM EST 06/02/2024 4:52 PM EST us Generic External Data Provider LAB BLOOD ORDERAB LES Final Result Performing Organization Address City/[facility] Co de Phone Number [facility] [address] [place] [address] [phone] * (ABNORMAL) Comprehensive Metabolic Panel (06/02/2024 4:52 PM EST) Sodium 142 135 - 145 mmol/L [facility] Potassium 4.4 3.3 - 5.1 mmol/L [facility] Chloride 103 96 - 108 mmol/L [facility] Carbon Dioxide 33(H) 22 - 29 mmol/L [facility] Anion Gap 10(L) 12 - 20 [facility] Urea Nitrogen (BUN) 8(L) 9 - 16 mg/dL [facility] Creatinine, Serum 0.67 0.5 - 1.4 mg/dL [facility] Estimated Glomerular Filt Rate >60 [facility] Comment:Chronic Kidney Disea se: Estimated GFR < 60 mL/min/1.44h4Gynbta Kidney Disease: Estimated GFR < 15 mL/min/1.73m2 Glucose 47(LL) 60 - 115 mg/dL [facility] Comment:Critical GLUR sent b y a secure message and confirmed by CAMERON 06-02-24 0854 Tech:KUSF Calcium 10.3(H) 8.4 - 10.2 mg/dL [facility] Bilirubin, Total 0.6 0.0 - 1.0 mg/dL [facility] Aspartate Amino Transferase 19 5 - 31 U/L [facility] Alanine Aminotransferase 14 0 - 31 U/L [facility] Total Protein 6.8 6.5 - 8.0 g/dL [facility] Albumin Level 3.6 3.5 - 5.0 g/dL [facility] Alkaline Phosphatase 53 39 - 117 U/L [facility] 06/02/2024 4:52 PM EST 06/02/2024 4:52 PM EST us Generic External Data Provider LAB BLOOD ORDERAB LES Final Result [facility] [address], [place] [phone] * CBC auto differential (06/02/2024 4:52 PM EST) White Blood Count 8.6 4.8 - 10.8 X10*3/uL [facility] Red Blood Count 4.26 4.20 - 5.50 X10*6/uL [facility] Hemoglobin 12.4 12.0 - 16.0 g/dl [facility] Hematocrit 39.4 37.0 - 47.0 % [facility] Mean Corpuscular Volume 92.5 80.0 - 98.0 fL [facility] Mean Corpuscular Hemoglobin 29.1 27.0 - 33.0 pg [facility] Mean Corpuscular HGB Conc 31.5 31.0 - 35.0 g/dl [facility] Red Cell Distribution Width 14.5 11.0 - 16.0 % [facility] Platelet Count 240 160 - 400 X10*3/uL [facility] Mean Platelet Volume 11.3 9.4 - 12.3 fL [facility] Neutrophils Percent Auto 62.2 45 - 73 % [facility] Imm Gran Pct Auto 0.4 0.0 - 0.4 % [facility] Lymphocytes Percent Auto 26.7 20 - 40 % [facility] Monocytes Percent Auto 8.7 2 - 11 % [facility] Eosinophils Percent Auto 1.5 0 - 4 % [facility] Basophils Percent Auto 0.5 0 - 2 % [facility] NRBC Pct Auto 0.0 0.0 - 0.2 /100WBC [facility] Neutrophils Absolute Auto 5.3 2.0 - 8.3 x10*3/uL [facility] Imm Gran Abs Auto 0.03 0.00 - 0.03 X10*3/uL [facility] Lymphocytes Absolute Auto 2.3 1.2 - 4.9 X10*3/uL [facility] Monocytes Absolute Auto 0.7 0.1 - 1.2 X10*3/uL [facility] Eosinophils Absolute Auto 0.1 0.0 - 0.4 X10*3/uL [facility] Basophils Absolute Auto 0.0 0.0 - 0.2 X10*3/uL [facility] NRBC Abs Auto 0.000 0.0 - 0.012 X10*3/uL [facility] 06/02/2024 4:52 PM EST 06/02/2024 4:52 PM EST us Generic External Data Provider LAB BLOOD ORDERAB LES Final Result [facility] [address] [place] [phone] documented in this encounter Visit Diagnoses Not on filedocumented in this encounter Additional Health Concerns Assessment Noted Time PHQ-9 Depression Total Score: 6 09/09/19 24 11:10 AM EDT documented as of this encounter Care Teams Physician Allergist Immunologist Relationship Specialty Start Date End Date Geetha Sidhu MD [address] [place] [phone] PCP - General Internal Medicine 12/02/23 Charles Curtis FNP Nurse Practitioner Family Medicine 02/17/23 Pati Graff RN Care Manager 02/11/23 documented as of this encounter
--- OUTSIDE RECORDS SUMMARY | 2024-06-02 19:04 | XMS_ITS | Clinical Summary ---
Author Organization [employer] Address [address] [facility] 7t [place] [address] Care Team Providers Care Long Term Care Social Worker Name Role Phone Charles Curtis Unavailable Unavailable [...] 11 023 Active Incontinence Supply Disposable (Depend [id number]-M) miscIndications:I ncreased frequency of urination Use at [...] Plan (04/06/2024 1:52 PM EST): Seen by band ripsaw operator on 05/2023, see their note. Dehydration 09/24/2022 [...] pain. Lives with daughter who is her DORR OPERATOR and also provides emotional support. Strong latter-day lindsey has also been helping her cope. [...] medication management. Any issues or concerns, call [facility]. All her questions were answered and I have wished her well. She agrees with the plan. Assessment & Plan (07/07/2023 12:19 PM EDT): Advanced lung cancer, with metastases, pain. Lives with daughter who is her DORR OPERATOR and also provides emotional support. Strong latter-day lindsey has also been helping her cope. [...] pain. Lives with daughter who is her DORR OPERATOR and also provides emotional support. Strong latter-day lindsey has also been helping her cope. [...] pain. Lives with daughter who is her DORR OPERATOR and also provides emotional support. Strong latter-day lindsey has also been helping her cope. [...] pain. Lives with daughter who is her DORR OPERATOR and also provides emotional support. Strong latter-day lindsey has also been helping her cope. [...] pain. Lives with daughter who is her DORR OPERATOR and also provides emotional support. Strong latter-day lindsey has also been helping her cope. Again reviewed the risk of taking opioids and benzos together, r/t respiratory suppression and OD. Do not take the medications within 2 hours of each other. Keep Narcan available. Continue medications as usual. Suggest reconsidering counseling via telehealth, will send list of [facility] agencies. F/U with me in 6- 8 weeks. She agrees with the plan. Assessment & Plan (04/04/2022 11:14 AM EST): Dealing with advanced lung cancer, with metastases. Lives with daughter who is her DORR OPERATOR and also provides emotional support. Strong latter-day lindsey has also been helping her cope. [...] organization. Date Type Department Care Team Description 06/02/2024 Orders Only GENERIC EXTERNAL DATA DEPARTMENT Provider, Generic External Data 06/01/2024 Orders Only [facility] External Provider, [facility] 06/01/2024 Telephone [facility] MEDICINE [address] [place] [phone] Geetha Sidhu MD Chart prep 05/25/2024 Telephone [facility] [address] [place] [address] [phone] Geetha Sidhu MD Durable Medical Equipment 05/16/2024 Refill [facility] [address] [place] [phone] Geetha Sidhu MD 04/19/2024 Refill [facility] [address] [place] [phone] Laurence Granados FNP Hyperlipidemia, unspecified hyperlipidemia type; Major depressive disorder, recurrent, in partial remission (CMS/HCC) 04/12/2024 Telephone [facility]INE [address] [place] [phone] Geetha Sidhu MD Durable Medical Equipment; Immunizations 04/06/2024 9:30 AM EST Office Visit [facility]INE [address] [place] [phone] Geetha Sidhu MD Non-small cell lung cancer, unspecified laterality (CMS/HCC) (Primary Dx); Chronic obstructive pulmonary disease, unspecified COPD type (CMS/HCC); Supplemental oxygen dependent; Long toenail; Essential hypertension; Localized osteoporosis with current pathological fracture with routine healing, subsequent encounter; Intracranial aneurysm; Metastasis to bone (CMS/HCC) at T8; Malignant neoplasm metastatic to right lung (CMS/HCC); History of central retinal vein occlusion 04/06/2024 Travel 04/02/2024 Telephone [facility] [address] [place] [phone] Geetha Sidhu MD FYI 04/02/2024 Telephone [facility] [address] [place] [phone] Brigitte Tang MA Chart prep 04/01/2024 Refill [facility] [address] [place] [address] [phone] Geetha Sidhu MD Mixed anxiety and depressive disorder 03/30/2024 Patient Outreach [facility] [address] [place] [address] [phone] Geetha Sidhu MD Pre-visit Planning ((Unable to reach for PVP screening, LVM)) 03/29/2024 Telephone [facility] [address] [place] [address] Geetha Sidhu MD 03/17/2024 Telephone [facility] [address] [place] [address] Geetha Sidhu MD from Last 3 Months [...] 11:15 AM EDT Office Visit [facility] [address] [place] [address] Geetha Sidhu MD [address] [place] [address] Health Maintenance Due Date Last Done Comments [...] 09/23/2017 SDOH Screening 04/12/2023 04/12/2022 COVID-19 Vaccine ( season) 2023 12/13/2020, 11/22/2020 Influenza Vaccine (#1) 2023 9, 02/02/2018, 01/16/2017, Additional history exists Depression Screening 09/08/2024 09/09/2023, 09/09/19 Tobacco Screening 04/06/2025 04/06/2024 Lipid Panel 04/12/2027 [...] HIGH SENSITIVITY Routine 06/02/2024 4:52 PM EST COMPREHENSIVE METABOLIC PANEL Routine 06/02/2024 4:52 PM EST CBC WITH AUTO DIFFERENTIAL Routine 06/02/2024 4:[address] CHEST W CONTRAST Routine 06/02/2024 8 :50 AM EST LIPID PANEL, STANDARD Routine 04/12/2022 12:11 PM EST Routine adult health maintenance BI MAMMOGRAM SCREENING BILATERAL Routine 01/15/2019 8:15 AM EDT from Last 3 Months or Most Recently Relevant to Health Maintenance Results * D Dimer High Sensitivity (06/02/2024 4:52 PM EST) [facility] D Dimer High Sensitivity 324 NG/ML [facility] Comment:Results of DDIMER ca lled to [facility] on 06/02/24at 1841 by COLIN.D- DIMER HS REFERENCE RANGENote: Our [...] Provider LAB BLOOD ORDERAB LES Final Result [facility] [address] [place] [phone] * CBC auto differential (06/02/2024 4:52 PM EST) [facility] White Blood Count 8.6 4.8 - 10.8 X10*3/uL [facility] Red Blood Count 4.26 4.20 - 5.50 X10*6/uL [facility] Hemoglobin 12.4 12.0 - 16.0 g/dl [facility] Hematocrit 39.4 37.0 - 47.0 % [facility] Mean Corpuscular Volume 92.5 80.0 - 98.0 fL [facility] Mean Corpuscular Hemoglobin 29.1 27.0 - 33.0 pg [facility] Mean Corpuscular HGB Conc 31.5 31.0 - 35.0 g/dl [facility] Red Cell Distribution Width 14.5 11.0 - 16.0 % [facility] Platelet Count 240 160 - 400 X10*3/uL [facility] Mean Platelet Volume 11.3 9.4 - 12.3 fL [facility] Neutrophils Percent Auto 62.2 45 - 73 % [facility] Imm Gran Pct Auto 0.4 0.0 - 0.4 % [facility] Lymphocytes Percent Auto 26.7 20 - 40 % [facility] Monocytes Percent Auto 8.7 2 - 11 % [facility] Eosinophils Percent Auto 1.5 0 - 4 % [facility] Basophils Percent Auto 0.5 0 - 2 % [facility] NRBC Pct Auto 0.0 0.0 - 0.2 /100WBC [facility] Neutrophils Absolute Auto 5.3 2.0 - 8.3 x10*3/uL [facility] Imm Gran Abs Auto 0.03 0.00 - 0.03 X10*3/uL [facility] Lymphocytes Absolute Auto 2.3 1.2 - 4.9 X10*3/uL [facility] Monocytes Absolute Auto 0.7 0.1 - 1.2 X10*3/uL [facility] Eosinophils Absolute Auto 0.1 0.0 - 0.4 X10*3/uL [facility] Basophils Absolute Auto 0.0 0.0 - 0.2 X10*3/uL [facility] NRBC Abs Auto 0.000 0.0 - 0.012 X10*3/uL [facility] 06/02/2024 4:52 PM EST 06/02/2024 4:52 PM EST us Generic External Data Provider LAB BLOOD ORDERAB LES Final Result Performing Organization Address City/[facility]/ZIP Co de Phone Number [facility] [address] [place] [phone] [phone] * (ABNORMAL) Comprehensive Metabolic Panel (06/02/2024 4:52 PM EST) Sodium 142 135 - 145 mmol/L [facility] Potassium 4.4 3.3 - 5.1 mmol/L [facility] Chloride 103 96 - 108 mmol/L [facility] Carbon Dioxide 33(H) 22 - 29 mmol/L [facility] Anion Gap 10(L) 12 - 20 [facility] Urea Nitrogen (BUN) 8(L) 9 - 16 mg/dL [facility] Creatinine, Serum 0.67 0.5 - 1.4 mg/dL [facility] Estimated Glomerular Filt Rate >60 [facility] Comment:Chronic Kidney Disea se: Estimated GFR < 60 mL/min/1.28i7Coxktw Kidney Disease: Estimated GFR < 15 mL/min/1.73m2 Glucose 47(LL) 60 - 115 mg/dL [facility] Comment:Critical GLUR sent b y a secure message and confirmed by CAMERON 06-02-24 0344 Tech:KUSF Calcium 10.3(H) 8.4 - 10.2 mg/dL [facility] Bilirubin, Total 0.6 0.0 - 1.0 mg/dL [facility] Aspartate Amino Transferase 19 5 - 31 U/L [facility] Alanine Aminotransferase 14 0 - 31 U/L [facility] Total Protein 6.8 6.5 - 8.0 g/dL [facility] Albumin Level 3.6 3.5 - 5.0 g/dL [facility] Alkaline Phosphatase 53 39 - 117 U/L [facility] 06/02/2024 4:52 PM EST 06/02/2024 4:52 PM EST us Generic External Data Provider LAB BLOOD ORDERAB LES Final Result [facility] [address] [place] [address] [phone] * CT Chest w/ Contrast (06/02/2024 8:50 AM EST) Anatomical Region Laterality Modality Body, Chest Computed Tomogra phy 06/02/2024 8:50 AM EST Narrative 06/02/2024 8:51 AM EST ? [facility] ?[address] ?[place] [address] ? CT Scan Report ? Signed with Addenda ? Patient: Eloisa Salazar ?MR#: [id number] ?? [id number] ? : 1950 ?Acct:[id number] ? Age/Sex: 74 / F ?ADM Date: 06/01/24 ? Loc: HO.CT ? Attending Dr: Diana Beck MD ? Ordering Physician: Diana Beck MD ?? Date of Service: 06/01/24 ?? Procedure(s): CT chest w IV con ?? Accession Number(s): [id number] ? cc: Geetha Sidhu MD; Diana Beck MD ? Report Number: ?? [id number]: Total DLP = ?? 82.00 mGy-cm ?ADDENDUM ?? This document has been electronically signed by: Samantha Richardson MD on ?? 06/02/2024 08:50:24 ? ADDENDUM: ?? This report was discussed with Candelaria Gibbs RN on Jun 02, 2024 ?? 08:59:00 EST. ? This document has been electronically signed by: Rafi Watters on ?? 06/02/2024 08:59:37 ? Addendum Dictated By: ?Samantha Richardson MD ? Addendum Signed By: ? <Electronically signed by Samantha Richardson MD in OV> ?06/02/24 0900 ?? Addendum Cosigned By: ? DD/ /22/849 ? TD/TT: 06/02/2408/22/858 ? CLINICAL HISTORY: Xab-msepy-edob lung carcinoma ? CT chest with contrast ? Comparison: CT/SR - CT CHEST W IV CON - 8/23/24 09:37 EDT ? Findings: ?? Heart size is stable with moderate coronary calcium and mitral annular ?? calcification. No pericardial effusion. Aorta is nonaneurysmal. ?? Pulmonary artery filling defect involving a posterior right lower lobe ?? pulmonary artery seen on image 32 through 34 of series 3. This may ?? represent slow thrombosis of this pulmonary artery given the chronic ?? atelectatic changes but an acute PE can not be excluded. This exam was not ?? optimized to evaluate for pulmonary emboli. ?? Decompressed esophagus. No pathologically enlarged hilar or mediastinal ?? lymph nodes. A few precarinal lymph nodes are top-normal in short axis but ?? are unchanged. ? Apical predominant centrilobular emphysema with unchanged volume loss in ?? the right lower lobe with mild bronchiectasis and patchy bronchial filling ?? defects. Subcentimeter pulmonary nodules are stable. A left upper lobe ?? nodule on image 36 of series 4 measures 4 mm, unchanged compared with the ?? prior exam. 4 mm right upper lobe nodule on image 32 is stable. Additional ?? 2-3 mm left upper lobe nodule on image 33 is stable. No new or enlarging ?? pulmonary nodules or masses. Patchy consolidation within the right middle ?? lobe on image 109 of series 4, likely infectious or inflammatory. ? Unremarkable thyroid. No chest wall lesions or axillary adenopathy. ? The visualized upper abdomen is unremarkable. ?? Stable sclerosis of T8. No vertebral body height loss. ? IMPRESSION: ?? 1. Stable volume loss in the right lower lobe. Stable bilateral pulmonary ?? nodules. ?? 2. Filling defect within the posterior right lower lobe pulmonary artery. ?? This could represent slow thrombosis of this vessel but an acute PE can ?? not be excluded. Contrast bolus timing was not optimized to evaluate for ?? PE. Consider bilateral lower extremity ultrasound. ?? 3. Patchy consolidation within the right middle lobe, likely infectious or ?? inflammatory. ? This document has been electronically signed by: Samantha Richardson MD on ?? 06/02/2024 08:50:24 ? Dictated By: ?Samantha Richardson MD ? Signed By: ?<Electronically signed by Samantha Richardson MD in OV> ?06/02/24 0851 ? DD/ 0850 ? TD/TT: 06/02/24 0850 ? [employer]: ? Procedure Note Alexander Moncada - 06/02/[address] [address] [address] Scan Report Signed with Addleigh Patient: Eloisa Salazar DMR#: [id number] : 1950Acct:[id number] Age/Sex: 74 / FADM Date: 06/01/24 Loc: HO.CT Attending Dr: Diana Beck MD Ordering Physician: Diana Beck MD Date of Service: 06/01/24 Procedure(s): CT chest w IV con Accession Number(s): [id number] cc: Geetha Sidhu MD; Diana Beck MD Report Number: [id number]: Total DLP = 82.00 mGy-cm ADDENDUM This document has been electronically signed by: Samantha Richardson MD on 06/02/2024 08:50:24 ADDENDUM: This report was discussed with Candelaria Gibbs RN on Jun 02, 2024 08:59:00 EST. This document has been electronically signed by: Rafi Watters on 06/02/2024 08:59:37 Addendum Dictated By: Samantha Richardson MD Addendum Signed By: <Electronically signed by Samantha Richardson MD in OV> 06/02/24 09 Addendum Cosigned By: DD/ /22/849 TD/TT: 06/02/2408/22/858 CLINICAL HISTORY: Vme-ckxce-allc lung carcinoma CT chest with contrast Comparison: CT/SR - CT CHEST W IV CON - 11/21/23 09:37 EDT Findings: Heart size is stable with moderate coronary calcium and mitral annular calcification. No pericardial effusion. Aorta is nonaneurysmal. Pulmonary artery filling defect involving a posterior right lower lobe pulmonary artery seen on image 32 through 34 of series 3. This may represent slow thrombosis of this pulmonary artery given the chronic atelectatic changes but an acute PE can not be excluded. This exam was not optimized to evaluate for pulmonary emboli. Decompressed esophagus. No pathologically enlarged hilar or mediastinal lymph nodes. A few precarinal lymph nodes are top-normal in short axis but are unchanged. Apical predominant centrilobular emphysema with unchanged volume loss in the right lower lobe with mild bronchiectasis and patchy bronchial filling defects. Subcentimeter pulmonary nodules are stable. A left upper lobe nodule on image 36 of series 4 measures 4 mm, unchanged compared with the prior exam. 4 mm right upper lobe nodule on image 32 is stable. Additional 2-3 mm left upper lobe nodule on image 33 is stable. No new or enlarging pulmonary nodules or masses. Patchy consolidation within the right middle lobe on image 109 of series 4, likely infectious or inflammatory. Unremarkable thyroid. No chest wall lesions or axillary adenopathy. The visualized upper abdomen is unremarkable. Stable sclerosis of T8. No vertebral body height loss. IMPRESSION: 1. Stable volume loss in the right lower lobe. Stable bilateral pulmonary nodules. 2. Filling defect within the posterior right lower lobe pulmonary artery. This could represent slow thrombosis of this vessel but an acute PE can not be excluded. Contrast bolus timing was not optimized to evaluate for PE. Consider bilateral lower extremity ultrasound. 3. Patchy consolidation within the right middle lobe, likely infectious or inflammatory. This document has been electronically signed by: Samantha Richardson MD on 06/02/2024 08:50:24 Dictated By: Samantha Richardson MD Signed By: <Electronically signed by Samantha Richardson MD in OV> 06/02/24 0851 DD/ TD/TT: 06/02/2450 [employer]: [facility] External Provider IMG CT PROCEDURES Edited Result - Final * (ABNORMAL) Lipid Panel, Standard (04/12/2022 12:11 PM EST) Cholesterol, Total 181 <200 mg/dL [facility] HDL Cholesterol 35(L) > OR = 50 mg/dL [facility] Triglycerides 299(H) <150 mg/dL [facility] Comment: If a non-fasting specimen was collected, consider repeat triglyceride testing on a fasting specimen if clinically indicated. Andreina et al. J. of Clin. Lipidol. 2015;9:129-169. LDL Cholesterol 106(H) mg/dL (calc) [facility] Comment: Reference range: <100 Desirable range <100 mg/dL for primary prevention; ?? <70 mg/dL for patients with CHD or diabetic patients with > or = 2 CHD risk factors. LDL-C is now calculated using the Elodia calculation, which is a validated novel method providing better accuracy than the Friedewald equation in the estimation of LDL-C. Maxwell SS et al. SELINA. 2013;310(19): 9207-9393 (http://education.Talking Layers/faq/YHO549) Chol/HDLC Ratio 5.2(H) <5.0 (calc) [employer] Non-HDL Cholesterol 146(H) <130 mg/dL (calc) [employer] Comment: For patients with diabetes plus 1 major ASCVD risk factor, treating to a non-HDL-C goal of <100 mg/dL (LDL-C of <70 mg/dL) is considered a therapeutic option. Blood Venous blood specimen / Unknown 04/12/2022 12:11 PM EST 04/12/2022 12:12 PM EST Narrative [facility] - 04/13/2022 7:29 AM EST FASTING:YES FASTING: YES Laurence Granados [employer] LAB BLOOD ORDERABLES Final Resu lt [facility] [address] [place] [address], [place] [address] [facility] [address] [facility], ([address]) [place] [address] * DIGITAL BILATERAL SCREEN 1 (01/15/2019 8:15 AM EDT) Anatomical Region Laterality Modality Breast Bilateral Mammography 01/15/2019 8:15 AM EDT Narrative 01/15/2019 8:17 AM EDT Refer to the Notes tab for result details [facility] Procedure: DIGITAL BILATERAL SCREEN 1 Procedure Note Provider, MD Jerod - 06/22/2022 Refer to the Notes tab for result details [facility] Procedure: DIGITAL BILATERAL SCREEN 1 Charles Curtis [employer] IMG BI PROCEDURES Final Result from Last 3 Months or Most Recently Relevant to Health Maintenance Insurance MEDICARE Care Teams Long Term Care Social Worker Relationship Specialty Start Date End Date Geetha Sidhu MD [address] [place] [phone] PCP - General Internal Medicine 12/02/23 Charles Curtis FNP Nurse Practitioner Family Medicine 02/17/23 Pati Graff RN Care Manager 02/11/23
--- OUTSIDE RECORDS SUMMARY | 2024-06-02 19:04 | XMS_ITS | Encounter Summary ---
Author Organization [employer] Address [address] [facility] 7t [place] [address] Care Team Providers Care Medical Artist Name Role Phone Laurence Granados Primary Care Provider [phone] Charles Curtis Unavailable Unavailable Geetha Sidhu MD Primary Care Provider + Encounter Details Date Type Department Care Team (Late st Contact Info) Description 04/29/2023 Orders Only [facility] MED & PEDS [address] [place] [address] Laurence Granados FNP [address] [place] [address] Social History Tobacco Use Types Packs/Day Years [...] 11:15 AM EDT Office Visit [facility] MEDICINE [address] [place] [phone] Geetha Sidhu MD [address] [place] [phone] documented as of this encounter Visit Diagnoses Not on filedocumented in this encounter Additional Health Concerns Assessment Noted Time PHQ-9 Depression Total Score: 9 02/14/20 23 3:41 PM EST documented as of this encounter Care Teams Medical Artist Relationship Specialty Start Date End Date Laurence Granados FNP [address] [place] [address] PCP - General Family Medicine 03/27/22 12/01/23 Geetha Sidhu MD [address] [place] [phone] PCP - General Internal Medicine 12/02/23 Charles Curtis FNP [address] [place] [phone] Nurse Practitioner Family Medicine 02/17/23 Pati Graff RN Care Manager 02/11/23 documented as of this encounter
--- OUTSIDE RECORDS SUMMARY | 2024-06-02 19:04 | XMS_ITS | Encounter Summary ---
Author Organization [employer] Address [address] [facility] 7 [place] [address] Care Team Providers Care Latin Dancer Name Role Phone EverCharles ANABELA Unavailable Unavailable Geetha Sidhu MD Primary Care Provider + Reason for Visit * Reason Onset Date Comments Chart prep 06/01/2024 Encounter Details Date Type Department Care Team ([facility] st Contact Info) Description 06/01/2024 Telephone [facility] MEDICINE [address] [place], [place] [phone] Geetha Sidhu MD [address] [place], [place] [phone] Chart prep Social History Tobacco Use Types [...] Description 07/09/2024 11:15 AM EDT Office Visit [facility] MEDICINE [address] [place] [phone] Geetha Sidhu MD [address] [place] [address] documented as of this encounter Visit Diagnoses Not on filedocumented in this encounter Additional Health Concerns Assessment Noted Time PHQ-9 Depression Total Score: 6 09/09/19 24 11:10 AM EDT documented as of this encounter Care Teams Latin Dancer Relationship Specialty Start Date End Date Geetha Sidhu MD [address] [place] [phone] PCP - General Internal Medicine 12/02/23 Charles Curtis FNP Nurse Practitioner Family Medicine 02/17/23 Pati Graff RN Care Manager 02/11/23 documented as of this encounter
--- OUTSIDE RECORDS SUMMARY | 2024-06-02 19:04 | XMS_ITS | Encounter Summary ---
Author Organization [employer] Address [address] [facility] 7t [place] [address] Care Team Providers Care Magazine Repairer Name Role Phone Laurence Granados Primary Care Provider [phone] Charles Curtis Unavailable Unavailable Geetha Sidhu MD Primary Care Provider + Reason for Visit * Reason Comments Med Refill Encounter Details Date Type Department Care Team ([facility] st Contact Info) Description 07/25/2023 Refill [facility] [address] [place], [place] [phone] Laurence Granados FNP [address] [place], [place] [phone] Social History Tobacco Use Types Packs/Day Years [...] 11:15 AM EDT Office Visit [facility] MEDICINE [address] [place] [address] Geetha Sidhu MD [address] [place] [phone] documented as of this encounter Visit Diagnoses Not on filedocumented in this encounter Additional Health Concerns Assessment Noted Time PHQ-9 Depression Total Score: 7 07/07/19 24 11:18 AM EDT documented as of this encounter Care Teams Magazine Repairer Relationship Specialty Start Date End Date Laurence Granados FNP [address] [place] [phone] PCP - General Family Medicine 03/27/22 12/01/23 Geetha Sidhu MD [address] [place] [phone] PCP - General Internal Medicine 12/02/23 Charles Curtis FNP [address] [place] [address] Nurse Practitioner Family Medicine 02/17/23 Pati Graff RN Care Manager 02/11/23 documented as of this encounter
--- OUTSIDE RECORDS SUMMARY | 2024-06-02 19:04 | XMS_ITS | Encounter Summary ---
Author Organization [employer] Address 75 [facility] 7t [place] [address] Care Team Providers Care Farm Mechanic Apprentice Name Role Phone Laurence Granados Primary Care Provider [phone] Charles Curtis Unavailable Unavailable Geetha Sidhu MD Primary Care Provider + Reason for Visit * Reason Onset Date Comments R/S appt 08/13/2022 Encounter Details Date Type Department Care Team (Late st Contact Info) Description 08/13/2022 Telephone [facility] MEDICINE [address] [place], [place] [phone] Laurence Granados FNP [address] [place] [address] R/S appt Social History Tobacco Use Types [...] - 08/13/2022 3:58 PM EDT [facility] calling to [facility]/S appt from 08/14 ( [facility] amission 07/04/2022 and release 08/01/2022 dx unsure). PCP Dr. Granados documented in this encounter Plan of Treatment Upcoming Encounters Date Type Department Care Team (Late st Contact Info) Description 07/09/2024 11:15 AM EDT Office Visit [facility] MEDICINE [address] [place] [address] Geetha Sidhu MD 230 [place] [address] documented as of this encounter Visit Diagnoses Not on filedocumented in this encounter Additional Health Concerns Assessment Noted Time PHQ-9 Depression Total Score: 8 06/21/19 10:21 AM EDT documented as of this encounter Care Teams Farm Mechanic Apprentice Relationship Specialty Start Date End Date Laurence Granados FNP [address] [place] [address] PCP - General Family Medicine 03/27/22 12/01/23 Geetha Sidhu MD [address] [place] [address] PCP - General Internal Medicine 12/02/23 Charles Curtis FNP [address] [place] [address] Nurse Practitioner Family Medicine 02/17/23 Pati Graff RN Care Manager 02/11/23 documented as of this encounter
--- OUTSIDE RECORDS SUMMARY | 2024-06-02 19:04 | XMS_ITS | Encounter Summary ---
Author Organization [employer] Address 75 [facility] 7t [place] [address] Care Team Providers Care Pecan Gatherer Name Role Phone Laurence Granaods Primary Care Provider [phone] Charles Curtis Unavailable Unavailable Geetha Sidhu MD Primary Care Provider + Reason for Visit * Reason Comments Med Refill Encounter Details Date Type Department Care Team ([facility] st Contact Info) Description 11/13/2023 Refill [facility] [address] [place] [address] Laurence Granados FNP [address] [place] [address] Neoplasm related pain (acute) (chronic) Social History [...] 11:15 AM EDT Office Visit [facility] MEDICINE [address] [place] [address] Geetha Sidhu MD [address] [place] [address] documented as of this encounter Visit Diagnoses Diagnosis Neoplasm related pain (acute) (chronic) documented in this encounter Additional Health Concerns Assessment Noted Time PHQ-9 Depression Total Score: 6 09/09/19 24 11:10 AM EDT documented as of this encounter Care Teams Pecan Gatherer Relationship Specialty Start Date End Date Laurence Granados FNP [address] [place] [address] PCP - General Family Medicine 03/27/22 12/01/23 Geetha Sidhu MD [address] [place] [address] PCP - General Internal Medicine 12/02/23 Charles Curtis FNP [address] [place] [address] Nurse Practitioner Family Medicine 02/17/23 Pati Graff RN Care Manager 02/11/23 documented as of this encounter
--- OUTSIDE RECORDS SUMMARY | 2024-06-02 19:04 | XMS_ITS | Encounter Summary ---
Author Organization [employer] Address [address] [facility] 7t [place] [address] Care Team Providers Care Human Resources Benefits Coordinator Name Role Phone Charles Curtis WELDER ASSEMBLER Unavailable Unavailable Geetha Sidhu MD Primary Care Provider + Encounter Details Date Type Department Care Team ([facility] st Contact Info) Description 03/17/2024 Telephone [facility] MEDICINE 230 [place], [place] [phone] Geetha Sidhu MD 230 [place], [place] [phone] Social History Tobacco Use Types Packs/Day Years [...] 11:15 AM EDT Office Visit [facility] MEDICINE [address] [place] [address] Geetha Sidhu MD [address] [place] [address] documented as of this encounter Visit Diagnoses Not on filedocumented in this encounter Additional Health Concerns Assessment Noted Time PHQ-9 Depression Total Score: 6 09/09/19 24 11:10 AM EDT documented as of this encounter Care Teams Human Resources Benefits Coordinator Relationship Specialty Start Date End Date Geetha Sidhu MD [address] [place] [address] PCP - General Internal Medicine 12/02/23 Charles Curtis FNP Nurse Practitioner Family Medicine 02/17/23 Pati Graff RN Care Manager 02/11/23 documented as of this encounter
--- OUTSIDE RECORDS SUMMARY | 2024-06-02 19:04 | XMS_ITS | Encounter Summary ---
Author Organization [employer] Address 75 [facility] 7t [place] [address] Care Team Providers Care Enrollment Processor Name Role Phone Dave Granadosnndeena PEÑALOZA Primary Care Provider [phone] Charles Curtis Unavailable Unavailable Geetha Sidhu MD Primary Care Provider + Reason for Visit * Reason Comments Med Refill Encounter Details Date Type Department Care Team (Late st Contact Info) Description 04/26/2022 Refill [facility] [address] [place] [address] [phone] El Delcid MD [address] [place], [place] [phone] Acute upper respiratory infection, unspecified Social History [...] Description 07/09/2024 11:15 AM EDT Office Visit [facility] MEDICINE 230 [place] [address] Geetha Sidhu MD [address] [place] [address] documented as of this encounter Visit Diagnoses Diagnosis Acute upper respiratory infection, unspecified documented in this encounter Additional Health Concerns Assessment Noted Time PHQ-9 Depression Total Score: 5 04/12/19 10:58 AM EST documented as of this encounter Care Teams Enrollment Processor Relationship Specialty Start Date End Date Laurence Granados FNP [address] [place] [address] PCP - General Family Medicine 03/27/22 12/01/23 Geetha Sidhu MD [address] [place] [address] PCP - General Internal Medicine 12/02/23 Charles Curtis FNP [address] [place] [address] Nurse Practitioner Family Medicine 02/17/23 Pati Graff RN Care Manager 02/11/23 documented as of this encounter
--- OUTSIDE RECORDS SUMMARY | 2024-06-02 19:04 | XMS_ITS | Encounter Summary ---
Author Organization [employer] Address 75 [facility] 7 [place] [address] Care Team Providers Care Store Planner Name Role Phone EverCharles ANABELA Unavailable Unavailable Geetha Sidhu MD Primary Care Provider + Reason for Visit * Reason Onset Date Comments Durable Medical Equipment 05/25/2024 Encounter Details Date Type Department Care Team ([facility] st Contact Info) Description 05/25/2024 Telephone [facility] MEDICINE 230 [place], [place] [phone] Geetha Sidhu MD 230 [place], [place] [phone] Durable Medical Equipment Social History Tobacco Use [...] and bathtub rails initiated. Faxed to [employer] ([phone]) documented in this encounter Plan of Treatment Upcoming Encounters Date Type Department Care Team (Late st Contact Info) Description 07/09/2024 11:15 AM EDT Office Visit [facility] MEDICINE [address] [place] [address] Geetha Sidhu MD 230 [place] [address] documented as of this encounter Visit Diagnoses Not on filedocumented in this encounter Additional Health Concerns Assessment Noted Time PHQ-9 Depression Total Score: 6 09/09/19 24 11:10 AM EDT documented as of this encounter Care Teams Store Planner Relationship Specialty Start Date End Date Geetha Sidhu MD [address] [place] [address] PCP - General Internal Medicine 12/02/23 Charles Curtis FNP Nurse Practitioner Family Medicine 02/17/23 Pati Graff RN Care Manager 02/11/23 documented as of this encounter
--- OUTSIDE RECORDS SUMMARY | 2024-06-02 19:04 | XMS_ITS | Encounter Summary ---
Author Organization [employer] Address 75 [facility] 7t [place] [address] Care Team Providers Care Marine Engineer Name Role Phone Charles Curtis Unavailable Unavailable Geetha Sidhu MD Primary Care Provider + Encounter Details Date Type Department Care Team (Late st Contact Info) Description 06/01/2024 Orders Only [facility] External Provider, [facility] Social History Tobacco Use Types Packs/Day Years [...] t he electric, gas, oil or water [employer] threatened to shut off services in your [...] Description 07/09/2024 11:15 AM EDT Office Visit [facility] MEDICINE 230 [place] [address] Geetha Sidhu MD 230 [place] [address] documented as of this encounter Procedures Procedure Name Priority Date/Time Associated Diagnosis Comments CT CHEST W CONTRAST Routine 06/02/2024 8 :50 AM EST documented in this encounter Results * CT Chest w/ Contrast (06/02/2024 8:50 AM EST) Anatomical Region Laterality Modality Body, Chest Computed Tomogra phy 06/02/2024 8:50 AM EST Narrative 06/02/2024 8:51 AM EST ? [facility] ?[address] ?[place] [address] ? CT Scan Report ? Signed with Addenda ? Patient: Rockysven Griffith,Eloisa D ?MR#: [id number] ?? [id number] ? : 1950 ?Acct:[id number] ? Age/Sex: 74 / F ?ADM Date: 03/04/25 ? Loc: HO.CT ? Attending Dr: Diana Beck MD ? Ordering Physician: Diana Beck MD ?? Date of Service: 06/01/24 ?? Procedure(s): CT chest w IV con ?? Accession Number(s): [id number] ? cc: Geetha Sidhu MD; Diana Bcek MD ? Report Number: ?? [id number]: Total DLP = ?? 82.00 mGy-cm ?ADDENDUM [...] /22/849 ? TD/TT: 06/02/2408/22/858 ? CLINICAL HISTORY: Tjk-vztsb-onmu lung carcinoma ? CT chest with contrast ? Comparison: CT/SR - CT CHEST W IV CON - 11/21/23 09:37 EDT ? Findings: ?? Heart size [...] DD/ 0850 ? TD/TT: 06/02/24 0850 ? Shot Grinder Operator: ? Procedure Note Donallieter, Image - 06/02/[address] [place] [address] [address] Scan Report Signed with Yuliet Patient: Eloisa Salazar DMR#: [id number] : 1950Acct:[id number] Age/Sex: 74 / FADM Date: 06/01/24 Loc: HO.CT Attending Dr: Diana Beck MD Ordering Physician: Diana Beck MD Date of Service: 06/01/24 Procedure(s): CT chest w IV con Accession Number(s): [id number] cc: Geetha Sidhu MD; Diana Beck MD Report Number: [id number]: Total DLP = 82.00 mGy-cm ADDENDUM This document has been electronically signed by: Samantha Richardson MD on 06/02/2024 08:50:24 ADDENDUM: This report was discussed with Candelaria Gibbs RN on Jun 02, 2024 08:59:00 EST. This document has been electronically signed by: Rafi Watters on 06/02/2024 08:59:37 Addendum Dictated By: Samantha Richardson MD Addendum Signed By: <Electronically signed by Samantha Richardson MD in OV> 06/02/24899 Addendum Cosigned By: DD/ /22/849 TD/TT: 06/02/2408/22/858 CLINICAL HISTORY: Avf-vmjqt-ocbi lung carcinoma CT chest with contrast Comparison: [...] MD in OV> 06/02/24 0851 DD/ TD/TT: 06/02/24 0850 Shot Grinder Operator: [facility] External Provider IMG CT PROCEDURES Edited Result - Final documented in this encounter Visit Diagnoses Not on filedocumented in this encounter Additional Health Concerns Assessment Noted Time PHQ-9 Depression Total Score: 6 09/09/19 11:10 AM EDT documented as of this encounter Care Teams Marine Engineer Relationship Specialty Start Date End Date Geetha Sidhu MD [address] [place] [address] PCP - General Internal Medicine 12/02/23 Charles Curtis FNP Nurse Practitioner Family Medicine 02/17/23 Pati Graff RN Care Manager 02/11/23 documented as of this encounter
--- OUTSIDE RECORDS SUMMARY | 2024-06-02 19:04 | XMS_ITS | Encounter Summary ---
Author Organization [employer] Address 75 [facility] 7t [place] [address] Care Team Providers Care Automatic Silk Screen Printer Name Role Phone Laurence Granados Primary Care Provider [phone] Charles Curtis Unavailable Unavailable Geetha Sidhu MD Primary Care Provider + Reason for Visit * Reason Onset Date Comments Appointment Request 05/07/2023 Encounter Details Date Type Department Care Team ([facility] st Contact Info) Description 05/07/[address] [facility] MEDICINE [address] [place], [place] [phone] Laurence Granados FNP [address] [place], [place] [phone] Appointment Request Social History Tobacco Use Types [...] daughter requesting a f/u appt with PCP [phone] documented in this encounter Plan of Treatment Upcoming Encounters Date Type Department Care Team (Late st Contact Info) Description 07/09/2024 11:15 AM EDT Office Visit [facility] MEDICINE [address] [place] [address] Geetha Sidhu MD 230 [place] [address] documented as of this encounter Visit Diagnoses Not on filedocumented in this encounter Additional Health Concerns Assessment Noted Time PHQ-9 Depression Total Score: 9 02/14/20 23 3:41 PM EST documented as of this encounter Care Teams Automatic Silk Screen Printer Relationship Specialty Start Date End Date Laurence Granados FNP [address] [place] [address] PCP - General Family Medicine 03/27/22 12/01/23 Geetha Sidhu MD 230 [place] [address] PCP - General Internal Medicine 12/02/23 Charles Curtis FNP [address] [place] [address] Nurse Practitioner Family Medicine 02/17/23 Pati Graff RN Care Manager 02/11/23 documented as of this encounter
--- OUTSIDE RECORDS SUMMARY | 2024-06-02 19:04 | XMS_ITS | Encounter Summary ---
Author Organization [employer] Address [address] [place] [address] 7 [place] [address] Care Team Providers Care Sales And Marketing Administrator Name Role Phone Laurence Granados Primary Care Provider [phone] Charles Curtis Unavailable Unavailable Geetha Sidhu MD Primary Care Provider + Reason for Visit * Reason Onset Date Comments Nurse Triage 10/31/2022 Encounter Details Date Type Department Care Team (Late st Contact Info) Description 10/31/2022 Telephone [facility] MEDICINE 230 [place], [place] [phone] Laurence Granados FNP 230 [place], [place] [phone] Nurse Triage Social History Tobacco Use Types [...] 3:04 PM EDT Call to [place] with [facility], reports during visit today pt had [...] 07/09/2024 11:15 AM EDT Office Visit [facility] MEDICINE 230 [place] [address] Geetha Sidhu MD 230 [place] [address] documented as of this encounter Visit Diagnoses Not on filedocumented in this encounter Additional Health Concerns Assessment Noted Time PHQ-9 Depression Total Score: 3 08/21/19 23 1:08 PM EDT documented as of this encounter Care Teams Sales And Marketing Administrator Relationship Specialty Start Date End Date Laurence Granados FNP 230 [place] [address] PCP - General Family Medicine 03/27/22 12/01/23 Geetha Sidhu MD [address] [place] [address] PCP - General Internal Medicine 12/02/23 Charles Curtis FNP 230 [place] [address] Nurse Practitioner Family Medicine 02/17/23 Pati Graff RN Care Manager 02/11/23 documented as of this encounter
--- OUTSIDE RECORDS SUMMARY | 2024-06-02 19:04 | XMS_ITS | Encounter Summary ---
Author Organization [employer] Address [address] [place] [address] 7 [place] [address] Care Team Providers Care Roller Machine Operator Name Role Phone Laurence Granados Primary Care Provider [phone] Charles Curtis Unavailable Unavailable Geetha Sidhu MD Primary Care Provider + Reason for Visit * Reason Onset Date Comments PA 08/06/2022 Encounter Details Date Type Department Care Team (Late st Contact Info) Description 08/06/[address] [facility] MEDICINE 230 [place], [place] [phone] Laurence Granados FNP 230 [place], [place] [phone] PA Social History Tobacco Use Types Packs/Day [...] with plan. * Telephone Encounter - Osiel eHrnandez - 08/06/2022 1:26 PM EDT Tc from [facility] stating that Medication oxyCODONE (Roxicodone) 5 MG immediate release tablet needs a PA from provider Please contact daughter at [phone] documented in this encounter Plan of Treatment Upcoming Encounters Date Type Department Care Team (Late st Contact Info) Description 07/09/2024 11:15 AM EDT Office Visit [facility] MEDICINE [address] [place] [address] Geetha Sidhu MD 230 [place] [address] documented as of this encounter Visit Diagnoses Not on filedocumented in this encounter Additional Health Concerns Assessment Noted Time PHQ-9 Depression Total Score: 8 06/21/19 10:21 AM EDT documented as of this encounter Care Teams Roller Machine Operator Relationship Specialty Start Date End Date Laurence Granados FNP [address] [place] [address] PCP - General Family Medicine 03/27/22 12/01/23 Geetha Sidhu MD [address] [place] [address] PCP - General Internal Medicine 12/02/23 Charles Curtis FNP [address] [place] [address] Nurse Practitioner Family Medicine 02/17/23 Pati Graff RN Care Manager 02/11/23 documented as of this encounter
--- OUTSIDE RECORDS SUMMARY | 2024-06-02 19:04 | XMS_ITS | Encounter Summary ---
Author Organization [employer] Address [address] [place] [address] 7 [place] [address] Care Team Providers Care Automatic Pattern Edger Name Role Phone Laurence Granados Primary Care Provider [phone] Charles Curtis Unavailable Unavailable Geetha Sidhu MD Primary Care Provider + Encounter Details Date Type Department Care Team (Late Contact Info) Description 06/17/2022 Orders Only [facility] MEDICINE [address] [place] [address] Laurence Granados FNP [address] [place], [place] [phone] Chronic pain due to neoplasm Social History [...] Description 07/09/2024 11:15 AM EDT Office Visit [facility] MEDICINE 230 [place] [address] Geetha Sidhu MD [address] [place] [address] documented as of this encounter Visit Diagnoses Diagnosis Chronic pain due to neoplasm documented in this encounter Additional Health Concerns Assessment Noted Time PHQ-9 Depression Total Score: 5 04/12/19 23 10:58 AM EST documented as of this encounter Care Teams Automatic Pattern Edger Relationship Specialty Start Date End Date Laurence Granados FNP [address] [place] [address] PCP - General Family Medicine 03/27/22 12/01/23 Geetha Sidhu MD [address] [place] [address] PCP - General Internal Medicine 12/02/23 Charles Curtis FNP [address] [place] [address] Nurse Practitioner Family Medicine 02/17/23 Pati Graff RN Care Manager 02/11/23 documented as of this encounter
--- OUTSIDE RECORDS SUMMARY | 2024-06-02 19:04 | XMS_ITS | Encounter Summary ---
Author Organization [employer] Address 75 [facility] 7t [place] [address] Care Team Providers Care Engraver Picture Name Role Phone Laurence Granados Primary Care Provider [phone] Charles Curtis Unavailable Unavailable Geetha Sidhu MD Primary Care Provider + Reason for Visit * Reason Comments Med Refill Encounter Details Date Type Department Care Team ([facility] st Contact Info) Description 02/20/2023 Refill [facility] MEDICINE 230 [place], [place] [phone] Alaina Franklin MD 230 [place], [place] [phone] Social History Tobacco Use Types Packs/Day Years [...] 11:15 AM EDT Office Visit [facility] MEDICINE [address] [place] [address] Geetha Sidhu MD [address] [place] [address] documented as of this encounter Visit Diagnoses Not on filedocumented in this encounter Additional Health Concerns Assessment Noted Time PHQ-9 Depression Total Score: 9 02/14/20 23 3:41 PM EST documented as of this encounter Care Teams Engraver Picture Relationship Specialty Start Date End Date Laurence Granados FNP [address] [place] [address] PCP - General Family Medicine 03/27/22 12/01/23 Geetha Sidhu MD [address] [place] [address] PCP - General Internal Medicine 12/02/23 Charles Curtis FNP [address] [place] [address] Nurse Practitioner Family Medicine 02/17/23 Pati Graff RN Care Manager 02/11/23 documented as of this encounter
--- OUTSIDE RECORDS SUMMARY | 2024-06-02 19:05 | XMS_ITS | Encounter Summary ---
Author Organization [employer] Address 75 [facility] 7 [place] [address] Care Team Providers Care Director Of Managed Services Name Role Phone Laurence Granados Primary Care Provider [phone] Charles Curtis Unavailable Unavailable Geetha Sidhu MD Primary Care Provider + Reason for Visit * Reason Onset Date Comments Verbal orders 07/26/2022 Encounter Details Date Type Department Care Team ([facility] st Contact Info) Description 07/26/2022 Telephone [facility] MEDICINE 230 [place], [place] [phone] Laurence Granados FNP [address] [place] [address] Verbal orders Social History Tobacco Use Types [...] - 08/05/2022 1:07 PM EDT Tc from [facility] facility informing that pt has gone under their care since 08/02/2022. Pt eligibility is for OT-PT. If any questions please contact Irma at [phone] * Telephone Encounter - Margaret Morris RN - 08/02/2022 2:31 PM EDT VO orders provided to [facility] per PCP ok. * Telephone Encounter - Alfredo Luis - 08/01/2022 10:02 AM EDT Tc from [facility] with [facility] returning call in regards to verbal orders to start services tomorrow for PT and OT. 08/02/22. Please contact at [phone] * Telephone Encounter - Kaleigh Schmitz RN - 07/26/2022 4:07 PM EDT Call returned to [facility]. Melinda states they are requesting verbal order from pcp to evaluate pt for nursing, PT and OT. Advised will send request to pcp and return call with response. * Telephone Encounter - Osiel Hernandez - 07/26/2022 9:36 AM EDT Tc from [facility] with [facility] requesting a call from a nurse in regards to some verbal orders needed regarding program. Please contact Melinda at [phone] Opt 2 documented in this encounter Plan of Treatment Upcoming Encounters Date Type Department Care Team (Late st Contact Info) Description 07/09/2024 11:15 AM EDT Office Visit [facility] MEDICINE 230 [place] [address] Geetha Sidhu MD [address] [place] [address] documented as of this encounter Visit Diagnoses Not on filedocumented in this encounter Additional Health Concerns Assessment Noted Time PHQ-9 Depression Total Score: 8 06/21/19 10:21 AM EDT documented as of this encounter Care Teams Director Of Managed Services Relationship Specialty Start Date End Date Laurence Granados FNP [address] [place] [address] PCP - General Family Medicine 03/27/22 12/01/23 Geetha Sidhu MD [address] [place] [address] PCP - General Internal Medicine 12/02/23 Charles Curtis FNP [address] [place] [address] Nurse Practitioner Family Medicine 02/17/23 Pati Graff RN Care Manager 02/11/23 documented as of this encounter
--- OUTSIDE RECORDS SUMMARY | 2024-06-02 19:05 | XMS_ITS | Encounter Summary ---
Author Organization [employer] Address [address] [place] [address] 7 [place] [address] Care Team Providers Care Mine Analyst Name Role Phone Laurence Granados Primary Care Provider [phone] Charles Curtis Unavailable Unavailable Geetha Sidhu MD Primary Care Provider + Reason for Visit * Reason Onset Date Comments FYI 08/05/2022 Encounter Details Date Type Department Care Team ([facility] st Contact Info) Description 08/05/2022 Telephone [facility] [address] [place], [place] [phone] Laurence Granados FNP [address] [place], [place] [phone] Social History Tobacco Use Types Packs/Day Years [...] for 5 weeks. Any further questionsplease call [phone]. documented in this encounter Plan of Treatment Upcoming Encounters Date Type Department Care Team (Late st Contact Info) Description 07/09/2024 11:15 AM EDT Office Visit [facility] [address] [place] [address] Geetha Sidhu MD [address] [place] [address] documented as of this encounter Visit Diagnoses Not on filedocumented in this encounter Additional Health Concerns Assessment Noted Time PHQ-9 Depression Total Score: 8 06/21/19 10:21 AM EDT documented as of this encounter Care Teams Mine Analyst Relationship Specialty Start Date End Date Laurence Granados FNP [address] [place] [address] PCP - General Family Medicine 03/27/22 12/01/23 Geetha Sidhu MD [address] [place] [address] PCP - General Internal Medicine 12/02/23 Charles Curtis FNP [address] [place] [address] Nurse Practitioner Family Medicine 02/17/23 Pati Graff RN Care Manager 02/11/23 documented as of this encounter
--- OUTSIDE RECORDS SUMMARY | 2024-06-02 19:05 | XMS_ITS | Encounter Summary ---
Author Organization [employer] Address [address] [facility] 7 [place] [address] Care Team Providers Care Refrigeration Manager Name Role Phone Laurence Granados Primary Care Provider [phone] Charles Curtis Unavailable Unavailable Geetha Sidhu MD Primary Care Provider + Reason for Visit * Reason Onset Date Comments FYI 09/12/2022 Encounter Details Date Type Department Care Team ([facility] st Contact Info) Description 09/12/2022 Telephone [facility] MED[facility] [address] [place], [place] [phone] Laurence Granados FNP [address] [place], [place] [phone] FYI Social History Tobacco Use Types Packs/Day [...] 1:27 PM EDT Tc from [facility] Visiting Nurses calling to inform PCP, patient missed her visit for this week (09/12/22) but they will resume visit for next week. documented in this encounter Plan of Treatment Upcoming Encounters Date Type Department Care Team (Late st Contact Info) Description 07/09/2024 11:15 AM EDT Office Visit [facility] [address] [place] [address] Geetha Sidhu MD 230 [place] [address] documented as of this encounter Visit Diagnoses Not on filedocumented in this encounter Additional Health Concerns Assessment Noted Time PHQ-9 Depression Total Score: 3 08/21/19 1:08 PM EDT documented as of this encounter Care Teams Refrigeration Manager Relationship Specialty Start Date End Date Laurence Granados FNP [address] [place] [address] PCP - General Family Medicine 03/27/22 12/01/23 Geetha Sidhu MD [address] [place] [address] PCP - General Internal Medicine 12/02/23 Charles Curtis FNP [address] [place] [address] Nurse Practitioner Family Medicine 02/17/23 Pati Graff RN Care Manager 02/11/23 documented as of this encounter
--- OUTSIDE RECORDS SUMMARY | 2024-06-02 19:05 | XMS_ITS | Encounter Summary ---
Author Organization [employer] Address [address] [place] [address] [place], [place] [address] Care Team Providers Care Locum Tenens Psychiatrist Name Role Phone Laurence Granados Primary Care Provider [phone] Charles Curtis Unavailable Unavailable Geetha Sidhu MD Primary Care Provider + Encounter Details Date Type Department Care Team (Late Contact Info) Description 08/21/2022 [facility] Information Management [address] [place] [address] Laurence Granados FNP [address] [place], [place] [phone] Social History Tobacco Use Types Packs/Day Years [...] Upcoming Encounters Date Type Department Care Team ([facility] Contact Info) Description 07/09/2024 11:15 AM EDT Office Visit [facility] [address] [place], [place] [phone] Geetha Sidhu MD 230 [place] [address] documented as of this encounter Visit Diagnoses Not on filedocumented in this encounter Additional Health Concerns Assessment Noted Time PHQ-9 Depression Total Score: 3 08/21/19 23 1:08 PM EDT documented as of this encounter Care Teams Locum Tenens Psychiatrist Relationship Specialty Start Date End Date Laurence Granados FNP [address] [place] [address] PCP - General Family Medicine 03/27/22 12/01/23 Geetha Sidhu MD [address] [place] [address] PCP - General Internal Medicine 12/02/23 Charles Curtis FNP [address] [place] [address] Nurse Practitioner Family Medicine 02/17/23 Pati Graff RN Care Manager 02/11/23 documented as of this encounter
--- OUTSIDE RECORDS SUMMARY | 2024-06-02 19:05 | XMS_ITS | Encounter Summary ---
Author Organization [employer] Address [address] [place] [address] 7 [place] [address] Care Team Providers Care Laundry Folder Name Role Phone Laurence Granados Primary Care Provider [phone] Charles Curtis Unavailable Unavailable Geetha Sidhu MD Primary Care Provider + Reason for Visit * Reason Onset Date Comments Appointment 08/14/2022 LVM-Re: her appt for today as [id number] @ 1:15pm. Encounter Details Date Type Department Care Team ([facility] Contact Info) Description 08/14/2022 Telephone [facility] MEDICINE [address] [place], [place] [phone] Laurence Granados FNP [address] [place] [address] Appointment (LVM-Re: her appt for today as [id number] @ 1:15pm. ) Social History Tobacco Use [...] 07/09/2024 11:15 AM EDT Office Visit [facility] [address] [place] [address] Geetha Sidhu MD 230 [place] [address] documented as of this encounter Visit Diagnoses Not on filedocumented in this encounter Additional Health Concerns Assessment Noted Time PHQ-9 Depression Total Score: 8 06/21/19 10:21 AM EDT documented as of this encounter Care Teams Laundry Folder Relationship Specialty Start Date End Date Laurence Granados FNP [address] [place] [address] PCP - General Family Medicine 03/27/22 12/01/23 Geetha Sidhu MD [address] [place] [address] PCP - General Internal Medicine 12/02/23 Charles Curtis FNP [address] [place] [address] Nurse Practitioner Family Medicine 02/17/23 Pati Graff RN Care Manager 02/11/23 documented as of this encounter
--- OUTSIDE RECORDS SUMMARY | 2024-06-02 19:05 | XMS_ITS | Encounter Summary ---
Author Organization [employer] Address [address] [facility] 7t [place] [address] Care Team Providers Care Seater Assembler Name Role Phone Laurence Granados Primary Care Provider [phone] Charles Curtis Unavailable Unavailable Geetha Sidhu MD Primary Care Provider + Encounter Details Date Type Department Care Team (Late Contact Info) Description 09/23/2022 Abstract [facility] MEDICINE [address] [place] [address] Laurence Granados FNP [address] [place] [address] Social History Tobacco Use Types Packs/Day Years [...] Description 07/09/2024 11:15 AM EDT Office Visit [facility] 230 [place] [address] Geetha Sidhu MD 230 [place] [address] documented as of this encounter Visit Diagnoses Not on filedocumented in this encounter Additional Health Concerns Assessment Noted Time PHQ-9 Depression Total Score: 3 08/21/19 23 1:08 PM EDT documented as of this encounter Care Teams Seater Assembler Relationship Specialty Start Date End Date Laurence Granados FNP [address] [place] [address] PCP - General Family Medicine 03/27/22 12/01/23 Geetha Sidhu MD 230 [place] [address] PCP - General Internal Medicine 12/02/23 Charles Curtis FNP 230 [place] [address] Nurse Practitioner Family Medicine 02/17/23 Pati Graff RN Care Manager 02/11/23 documented as of this encounter
--- OUTSIDE RECORDS SUMMARY | 2024-06-02 19:05 | XMS_ITS | Encounter Summary ---
Author Organization [employer] Address [address] [facility] 7 [place] [address] Care Team Providers Care Solar Panel Technician Name Role Phone Laurence Granados Primary Care Provider [phone] Charles Curtis Unavailable Unavailable Geetha Sidhu MD Primary Care Provider + Encounter Details Date Type Department Care Team (Late Contact Info) Description 08/14/2022 Orders Only [facility] MEDICINE [address] [place] [address] Laurence Granados FNP [address] [place] [address] Essential hypertension Social History Tobacco Use Types [...] Description 07/09/2024 11:15 AM EDT Office Visit [facility] MEDICINE [address] [place], [place] [phone] Geetha Sidhu MD 230 [place] [address] documented as of this encounter Visit Diagnoses Diagnosis Essential hypertension Unspecified essential hypertension documented in this encounter Additional Health Concerns Assessment Noted Time PHQ-9 Depression Total Score: 8 06/21/19 23 10:21 AM EDT documented as of this encounter Care Teams Solar Panel Technician Relationship Specialty Start Date End Date Laurence Granados FNP [address] [place] [address] PCP - General Family Medicine 03/27/22 12/01/23 Geetha Sidhu MD [address] [place] [address] PCP - General Internal Medicine 12/02/23 Charles Curtis FNP [address] [place] [address] Nurse Practitioner Family Medicine 02/17/23 Pati Graff RN Care Manager 02/11/23 documented as of this encounter
--- OUTSIDE RECORDS SUMMARY | 2024-06-02 19:05 | XMS_ITS | Encounter Summary ---
Author Organization [employer] Address [address] [place] [address] 7 [place] [address] Care Team Providers Care Leacher Name Role Phone Laurence Granados Primary Care Provider [phone] Charles Curtis Unavailable Unavailable Geetha Sidhu MD Primary Care Provider + Encounter Details Date Type Department Care Team (Late Contact Info) Description 08/30/2022 Orders Only [facility] [address] [place] [address] Laurence Granados FNP [address] [place] [address] Social History Tobacco Use Types Packs/Day Years [...] Visit [facility] [address] [place], [place] [phone] Geetha Sidhu MD 230 [place] [address] documented as of this encounter Visit Diagnoses Not on filedocumented in this encounter Additional Health Concerns Assessment Noted Time PHQ-9 Depression Total Score: 3 08/21/19 23 1:08 PM EDT documented as of this encounter Care Teams Leacher Relationship Specialty Start Date End Date Laurence Granados FNP [address] [place] [address] PCP - General Family Medicine 03/27/22 12/01/23 Geetha Sidhu MD [address] [place] [address] PCP - General Internal Medicine 12/02/23 Charles Curtis FNP [address] [place] [address] Nurse Practitioner Family Medicine 02/17/23 Pati Graff RN Care Manager 02/11/23 documented as of this encounter
== END 2024-06-02 15:57 | disposition home or self-care (01) ==
LOC: HO.US 15:56
PROVIDERS: PCP Internal Medicine; Visit Provider Nurse Practitioner Family
DX: R09.89 Other specified symptoms and signs involving the circulatory and respiratory systems (principal); R93.89 Abnormal findings on diagnostic imaging of other specified body structures
CPT/HCPCS: 93970

== ENCOUNTER → 2024-06-02 15:58 | Outpatient (BNV) | payer MEDICARE, MEDICAID, SELFPAY | PROVIDERS: PCP Internal Medicine; Visit Provider Radiology Diagnostic Radiology | DX: R06.02 Shortness of breath (principal); R91.8 Other nonspecific abnormal finding of lung field; C34.90 Malignant neoplasm of unspecified part of unspecified bronchus or lung | CPT/HCPCS: 93970 ==

== ENCOUNTER 2024-06-02 16:36 | Outpatient (REF) | payer MEDICARE, MEDICAID, SELFPAY ==
[2024-06-02 16:53] LABS: MANUAL DIFF FLAG NO
[2024-06-02 17:21] LABS: Basophils Percent Auto 0.5 % (0-2); Eosinophils Absolute Auto 0.1 X10*3/uL (0.0-0.4); Eosinophils Percent Auto 1.5 % (0-4); Hematocrit 39.4 % (37.0-47.0); Hemoglobin 12.4 g/dl (12.0-16.0); Imm Gran Abs Auto 0.03 X10*3/uL (0.00-0.03); Imm Gran Pct Auto 0.4 % (0.0-0.4); Lymphocytes Absolute Auto 2.3 X10*3/uL (1.2-4.9); Lymphocytes Percent Auto 26.7 % (20-40); Mean Corpuscular HGB Conc 31.5 g/dl (31.0-35.0); Mean Corpuscular Hemoglobin 29.1 pg (27.0-33.0); Mean Corpuscular Volume 92.5 fL (80.0-98.0); Mean Platelet Volume 11.3 fL (9.4-12.3); Monocytes Absolute Auto 0.7 X10*3/uL (0.1-1.2); Monocytes Percent Auto 8.7 % (2-11); Neutrophils Absolute Auto 5.3 x10*3/uL (2.0-8.3); Neutrophils Percent Auto 62.2 % (45-73); Platelet Count 240 X10*3/uL (160-400); Red Blood Count 4.26 X10*6/uL (4.20-5.50); Red Cell Distribution Width 14.5 % (11.0-16.0); White Blood Count 8.6 X10*3/uL (4.8-10.8)
[2024-06-02 18:31] LABS: Alanine Aminotransferase 14 U/L (0-31); Albumin Level 3.6 g/dL (3.5-5.0); Alkaline Phosphatase 53 U/L (39-117); Anion Gap 10 (12-20); Aspartate Amino Transferase 19 U/L (5-31); Bilirubin Total 0.6 mg/dL (0.0-1.0); Blood Urea Nitrogen 8 mg/dL (9-16); Calcium 10.3 mg/dL (8.4-10.2); Carbon Dioxide 33 mmol/L (22-29); Chloride 103 mmol/L (96-108); Estimated Glomerular Filt Rate > 60; Glucose Random 47 mg/dL (60-115); Potassium 4.4 mmol/L (3.3-5.1); Sodium 142 mmol/L (135-145); Total Protein 6.8 g/dL (6.5-8.0)
[2024-06-02 18:42] LABS: D Dimer High Sensitivity 324 NG/ML
== END 2024-06-02 16:37 | disposition home or self-care (01) ==
LOC: HO.LAB 16:36
PROVIDERS: PCP Internal Medicine; Visit Provider Nurse Practitioner Family
DX: C34.90 Malignant neoplasm of unspecified part of unspecified bronchus or lung (principal); R09.89 Other specified symptoms and signs involving the circulatory and respiratory systems; I26.99 Other pulmonary embolism without acute cor pulmonale
CPT/HCPCS: 36415; 80053; 85025; 85379; 93970

== ENCOUNTER 2024-07-07 11:25 | Outpatient (AMB) | payer MEDICARE, MEDICAID, SELFPAY ==
--- NOTE | 2024-07-07 11:31 | A.OFFVIS_ITS ---
Vital Signs 07/07/24 11:32 Height 5 ft 3 in Weight 127 lb 13.89 oz BMI 22.6 BP 102/50 L Blood Pressure Location Lt brachial Position Sitting Pulse 58 Pulse Source Pulse Oximeter Pulse Oximetry (%) 100 Oxygen Delivery Method Nasal Cannula Oxygen Flow Rate 3 Intake Visit Reasons: COPD Allergies codeine Allergy (Verified 07/07/24 11:37) Unknown HPI Comments Details: The patient is a 74-year-old female with a history of COPD, metastatic lung cancer on current chemotherapy presents to the ER for evaluation of sudden-onset 10/10 sharp left-sided chest pain under her left breast that started when she was in oncology.? It was before she had been administered the chemotherapy agent and was when she was getting Kaytruda. Patient states the pain is located under her left breast, is constant and does not radiate. She states it is associated with anxiety because she knows she was supposed to get her CT scan results today. She has had increased cough with white phlegm production. No fevers, chills, hemoptysis. No change in her chronic SOB or LENNON. The patient did undergo pulmonary function studies which I personally reviewed demonstrating moderate degree of COPD. The patient has been on Incruse inhaler. Will get a optimize her respiratory therapy at this time. She also has significant productive cough with mucus production. Moderate severity. Unfortunately she continues to smoke cigarettes. She understands that most of our therapies will not be effective if she continues to smoke cigarettes. During the office visit we did have her go for 6 minute walk test the patient did not qualify for oxygen which is reassuring. 05/07/2023 the patient is here for a pulmonary follow-up visit. The patient overall has been tired. She is tired of dealing with all the chronic illness. She has been using the oxygen with good effect. She does have 2 L continuously. Although she is using her tanks very happy. She very limited due to the fact that the patient is wheelchair or walker dependent. Her daughter has a baby also has been trying to help her. We did take it for a walking oximetry for titration study and she actually did good on 2 L pulse. Therefore will request a conserving device tank from her [employer] in order for her to have easier time will portability when she leaves the house. Otherwise when she is in the house she can be the on the concentrator using 2 L continues. She really does not leave the house too much except for appointments. She continues on the combination chemo immune therapy with very good response. She did have a bone study that was reassuring except for 1 area that was slightly active. And I believe she is going to have another imaging study coming up in the spring. She is following closely with Oncology here. As far as her respiratory medications she is tolerating well. Although she has a very congested cough. Will start her on azithromycin 3 times a week for chronic bronchitis. I am hoping that this improves her symptoms. If she does stay on the medications she will need an EKG. The patient also provide her Acapella valve in order for better chest physical therapy. 01/07/2024 the patient is here for a pulmonary follow-up visit. Overall she is doing okay. She is responding well to the azithromycin 3 times a week. She is going to get an EKG soon. In the meantime she continues with respiratory medicines with good effect. And she also has the Acapella valve to use for chest PT. she is following closely with Oncology. She does get infusions every 3 weeks and she seems to be tolerating that well. She did have a recent CT scan of the chest the end of 11/18/2023 which I personally reviewed demonstrating stable disease. No evidence of any progression. We know that she has the metastatic disease to the bones however. The patient will continue with her therapy as it appears to be keeping everything checked. The patient has been using the oxygen. She has not been able to get a conserving device. We did reach out to the [employer]. There will go to her home in from form a con serving device trial to see if she qualifies. Otherwise patient is doing okay will follow-up in 4-6 months. 07/07/2024 the patient is here for a pulmonary follow-up visit. Overall the patient had been doing good. For the last several weeks he has been having worsening cough chest congestion. Positive sick contacts in the household. She had been on the azithromycin 3 times a week. She did have a CT scan of the chest done by Oncology. We noted that her nodular densities are stable although did have a right lower lobe pneumonia. There was also a filling defects suggesting of a blood clot. Therefore she was placed on Eliquis and she was also given additional antibiotics. She still having issues with a chest congestion. Difficult to expectorate. I did request that she start using her nebulizer twice a day followed by Acapella an Acapella valve. I will request the Acapella valve from a local [employer]. We did look at her CT scan personally by me demonstrating the right lower lobe pneumonia. Therefore, will start her on cefpodoxime that she can take along with her azithromycin and then repeat the x-ray in the next several weeks. If the x-ray still abnormal will consider repeating the CAT scan earlier and will also consider bronchoscopy. She continues with respiratory therapy which will continue as prescribed and she start using her nebulizer. [facility] Medical History (Updated 07/07/24 @ 11:52 by Chandler Reis MD) Pneumonia Non-small cell lung cancer (NSCLC) (~2021) Bone metastases COPD (chronic obstructive pulmonary disease) Personal history of nicotine dependence Hypertension GERD (gastroesophageal reflux disease) Anxiety and depression Vitamin D deficiency Osteopenia (~2002) Surgical History History of lung biopsy (~2021) Family History Sister Lupus Social History Household Members: Family Housing: House Are you a primary child care team lead to a significant other at home: No Do you presently have visiting nurse or other home services: Yes (VNA, PT, OT) Alcohol intake: never Patient Tobacco Use Status: Former Tobacco user Tobacco use type: Cigarette Years Smoked: 20+ Years Advance Directives Date on File: 09/18/21 service: No Current occupational status: retired Review of Systems Const Denies fever(s) Eyes Denies change in vision ENT Reports nasal congestion Card Reports dyspnea on exertion Resp Reports chest congestion, Reports cough, Reports dyspnea on exertion and Reports wheezing GI Reports no additional complaints Musc Reports myalgias Skin/Breast Reports rash Neuro Reports no additional complaints Carroll/Lymph Denies easy bruising and Denies lymphadenopathy Aller/Immun Reports wheezing Physical Exam Vital Signs: Last Vital Signs Pulse 58 07/07/24 11:32 BP 102/50 L 07/07/24 11:32 Pulse Ox 100 07/07/24 11:32 Oxygen Delivery Method Nasal Cannula 07/07/24 11:32 Oxygen Flow Rate 3 07/07/24 11:32 BMI result Body Mass Index 22.6 Const General: comfortable HEENT Head: Yes normocephalic Neck Neck: Yes supple Chest Chest palpation & inspection: normal inspection of the chest Resp Effort & Inspection: normal respiratory effort and prolonged expiratory phase Auscultation: no rhonchi and diminished lung sounds Cardio Rate: regular rate Rhythm: regular rhythm Heart sounds: S1 normal heart sound present and S2 normal heart sound present GI Palpation (GI): Soft to palpation Extrem General: Yes no clubbing, cyanosis or edema Assessment & Plan Assessment & Plan (1) COPD (chronic obstructive pulmonary disease): Code(s): J44.9 - Chronic obstructive pulmonary disease, unspecified Category: Medical Qualifiers: COPD type: chronic bronchitis Chronic bronchitis type: mucopurulent Qu alified Code(s): J41.1 - Mucopurulent chronic bronchitis (2) Right lower lobe lung mass: Comment: (4cm mass like opacity RLL - 07/[address]) Code(s): R91.8 - Other nonspecific abnormal finding of lung field Category: Medical (3) Tobacco abuse: Code(s): Z72.0 - Tobacco use Category: Medical (4) Bone metastases: Code(s): C79.51 - Secondary malignant neoplasm of bone Category: Medical (5) Pneumonia: Code(s): J18.9 - Pneumonia, unspecified organism Category: Medical Plan contiune Trelegy LORI as needed continue Azithromycin MWF start Vantin CXR in 2 weeks, if abnormal will request CT chest sooner and may need to get a bronchosocpy EKG CT chest with RLL pneumonia, repeat CT chest is for May Nebulier therapy with Duoneb, needs acapella valve for CPT continue oxygen 2L continuous. Requesting conserving device trial for 2L/pulse with activity. Will request B cylinders from her Rita [employer] F/U 2-3 months Orders: Orders XR chest 2V Today J18.9 - Pneumonia, unspecified organism Medications: New ipratropium-albuterol 0.5 mg-3 mg(2.5 mg base)/3 mL 3 mL inhalation BID 180 mL 11RF 30 days J44.9 - Chronic obstructive pulmonary disease, unspecified cefpodoxime must administer with a meal/food 200 mg PO BID 20 tabs 0RF 10 days Changed From albuterol sulfate 90 mcg/actuation (ProAir HFA) 2 puffs inhalation Q4H PRN Shortness Of Breath Or Wheezing To albuterol sulfate 90 mcg/actuation 2 puffs inhalation Q4H PRN 8.5 grams 12RF Shortness Of Breath Or Wheezing 30 days Refilled [id number]-jekfejbxq-[id number] 200-62.5-25 mcg (Trelegy Ellipta) 1 inh inhalation DAILY 60 ea 12RF 30 days Coding Level of Care Code Est Pt Level 5 (74260) Complex EM visit Add On G2211 Diagnoses Mucopurulent chronic bronchitis J41.1 COPD type: chronic bronchitis Chronic bronchitis type: mucopurulent Right lower lobe lung mass R91.8 Tobacco abuse Z72.0 Bone metastases C79.51 Pneumonia J18.9 Time Spent (min) 30
[2024-07-07 11:32] VITALS: BP 102/50; PULSE 58; O2SAT 100; BMI 22.6
== END 2024-07-07 11:56 | disposition home or self-care (01) ==
LOC: HO.HPS 11:25
PROVIDERS: PCP Nurse Practitioner Family; Visit Provider Hospitalist
DX: J41.1 Mucopurulent chronic bronchitis (principal); R91.8 Other nonspecific abnormal finding of lung field; F17.210 Nicotine dependence, cigarettes, uncomplicated; C79.51 Secondary malignant neoplasm of bone; J18.9 Pneumonia, unspecified organism
CPT/HCPCS: 99214; G2211

== ENCOUNTER → 2024-07-07 11:25 | Outpatient (BNVA) | payer MEDICARE, MEDICAID, SELFPAY | PROVIDERS: PCP Nurse Practitioner Family; Visit Provider Hospitalist | DX: J41.1 Mucopurulent chronic bronchitis (principal); J18.9 Pneumonia, unspecified organism; R91.8 Other nonspecific abnormal finding of lung field; C79.51 Secondary malignant neoplasm of bone; Z87.891 Personal history of nicotine dependence | CPT/HCPCS: 99212 ==

== ENCOUNTER 2024-09-30 11:03 | Outpatient (REF) | payer MEDICARE, MEDICAID, SELFPAY | END 2024-09-30 11:04 | disposition home or self-care (01) | LOC: HO.LAB 11:03 | PROVIDERS: PCP Nurse Practitioner Family; Visit Provider Urology | DX: R31.29 Other microscopic hematuria (principal) | CPT/HCPCS: 81003; 88112; 99202 ==

== ENCOUNTER 2024-09-30 11:03 | Outpatient (AMB) | payer MEDICARE, MEDICAID, SELFPAY ==
--- NOTE | 2024-09-30 11:11 | A.OFFVIS_ITS ---
Intake Visit Reasons: microscopic hematuria Intake Note: New patient presents today for initial visit for microscopic hematuria Urology Medication:Vitamin B12 Blood Thinner:Aspirin, Apixaban Antibiotic Allergies:None Allergies codeine Allergy (Verified 09/30/24 11:12) Unknown HPI Comments Details: Eloisa is here for a FITTER TYPE BAR AND SEGMENT evaluation for hematuria. I have discussed microscopic hematuria may be due to but not limited to kidney stones, BPH, cystitis, urinary tract malignancy. I have discussed work up to include evaluation of the urinary tract which may include imaging, further urine testing, and cystoscopy [facility] Medical History Pneumonia Non-small cell lung cancer (NSCLC) (~2021) Bone metastases COPD (chronic obstructive pulmonary disease) Personal history of nicotine dependence Hypertension GERD (gastroesophageal reflux disease) Anxiety and depression Vitamin D deficiency Osteopenia (~2002) Surgical History History of lung biopsy (~2021) Family History Sister Lupus Social History Household Members: Family Housing: House Are you a primary career development coordinator to a significant other at home: No Do you presently have visiting nurse or other home services: Yes (VNA, PT, OT) Alcohol intake: never Patient Tobacco Use Status: Former Tobacco user Tobacco use type: Cigarette Years Smoked: 20+ Years Advance Directives Date on File: 09/18/21 service: No Current occupational status: retired Review of Systems Const All systems reviewed & are unremarkable except as noted in HPI and below Reports no additional complaints Eyes Reports no additional complaints ENT Reports no additional complaints Card Reports no additional complaints Resp Reports no additional complaints GI Reports no additional complaints Reports as per HPI Musc Reports no additional complaints Skin/Breast Reports system reviewed and no additional complaints, except as documented Neuro Reports no additional complaints Psych Reports no additional complaints Endo Reports no additional complaints Carroll/Lymph Reports no additional complaints Aller/Immun Reports no additional complaints Physical Exam Const General: cooperative, healthy appearing and no acute distress Orientation/consciousness: patient oriented x3 HEENT Head: Yes normal to inspection, Yes normocephalic and Yes atraumatic Eyes Conjunctivae: conjunctivae normal Neck Neck: Yes normal visual inspection and Yes trachea midline Chest Chest palpation & inspection: normal inspection of the chest Resp Effort & Inspection: normal respiratory effort GI Inspection: Yes normal to inspection Neuro General: patient oriented x3 Psych Appearance: grossly normal Results AMB Urinalysis, Automated UA Leukoctes 0 Yee/uL Last Edit by Teresa Swann on 09/30/24 16:29 UA Nitrite Negative Last Edit by Teresa Swann on 09/30/24 16:29 UA Urobilinogen 3.5 mg/dL Last Edit by Teresa Swann on 09/30/24 16:29 UA Protein 0 mg/dL Last Edit by Teresa Swann on 09/30/24 16:29 UA pH 6.0 Last Edit by Teresa Swann on 09/30/24 16:29 UA Blood 25 [place]/uL Last Edit by Teresa Shree on 09/30/24 16:29 UA Specific Center [place] 1.010 Last Edit by Teresa Swann on 09/30/24 16:29 UA Ketone Negative Last Edit by Teresa Swann on 09/30/24 16:29 UA Bilirubin 0 mg/dL Last Edit by Teresa Swann on 09/30/24 16:29 UA Glucose 0 mg/dL Last Edit by Teresa Swann on 09/30/24 16:29 Assessment & Plan Assessment & Plan (1) Hematuria: Code(s): R31.9 - Hematuria, unspecified Category: Medical Orders: Orders Creatinine Today R31.9 - Hematuria, unspecified CT urogram Today R31.9 - Hematuria, unspecified Urine Cytology Today R31.9 - Hematuria, unspecified Blood Urea Nitrogen Today R31.9 - Hematuria, unspecified AMB Urinalysis Automated Today R31.9 - Hematuria, unspecified Coding Diagnoses Hematuria R31.9
--- OUTSIDE RECORDS SUMMARY | 2024-09-30 11:53 | XMS_ITS | Encounter Summary ---
Author Organization [email or web address] Address [address] [place] [address] [address] [place] [address] Care Team Providers Care Farmworker Poultry Name Role Phone Laurence Granados Primary Care Provider [phone] Charles Curtis Unavailable Unavailable Geetha Sidhu MD Primary Care Provider + Encounter Details Date Type Department Care Team (Late Contact Info) Description 10/31/2022 Orders Only [facility] [address] [place] [address] Laurence Granados FNP [address] [place] [address] Mobility impaired (Primary Dx) Social History Tobacco [...] Department Care Team (Late Contact Info) Description 12/13/2024 11:15 AM EDT Office Visit [facility] [address] [place] [address] Geetha Sidhu MD [address] [place] [phone] documented as of this encounter Visit Diagnoses Diagnosis Mobility impaired- Primary Other ill-defined conditions documented in this encounter Additional Health Concerns Assessment Noted Time PHQ-9 Depression Total Score: 3 08/21/19 23 1:08 PM EDT documented as of this encounter Care Teams Farmworker Poultry Relationship Specialty Start Date End Date Laurence Granados FNP [address] [place] [address] PCP - General Family Medicine 03/27/22 12/01/23 Geetha Sidhu MD [address] [place] [phone] PCP - General Internal Medicine 12/02/23 Charles Curtis FNP [address] [place] [address] Nurse Practitioner Family Medicine 02/17/23 Pati Graff RN Care Manager 02/11/23 09/12/[facility] documented as of this encounter
== END 2024-09-30 11:34 | disposition home or self-care (01) ==
LOC: HO.HUSH 11:03
PROVIDERS: PCP Nurse Practitioner Family; Visit Provider Urology
DX: R31.9 Hematuria, unspecified (principal)

== ENCOUNTER 2024-10-04 11:11 | Outpatient (AMB) | payer MEDICARE, SELFPAY ==
--- OUTSIDE RECORDS SUMMARY | 2024-10-04 12:09 | XMS_ITS | Encounter Summary ---
Author Organization [employer] Address [address] [place] [address] [address] [place] [address] Care Team Providers Care Supervisor Hot Dip Tinning Name Role Phone Laurence Granados Primary Care Provider [phone] Charles Curtis Unavailable Unavailable Geetha Sidhu MD Primary Care Provider + Encounter Details Date Type Department Care Team (Late Contact Info) Description 10/31/2022 Orders Only [facility] MEDICINE [address] [place] [address] Laurence Granados FNP [address] [place] [address] Mobility impaired (Primary Dx) Social History Tobacco [...] Description 12/13/2024 11:15 AM EDT Office Visit [facility] [address] [place] [phone] Geetha Sidhu MD [address] [place] [address] documented as of this encounter Visit Diagnoses Diagnosis Mobility impaired- Primary Other ill-defined conditions documented in this encounter Additional Health Concerns Assessment Noted Time PHQ-9 Depression Total Score: 3 08/21/19 23 1:08 PM EDT documented as of this encounter Care Teams Supervisor Hot Dip Tinning Relationship Specialty Start Date End Date Laurence Granados FNP [address] [place] [phone] PCP - General Family Medicine 03/27/22 12/01/23 Geetha Sidhu MD [address] [place] [address] PCP - General Internal Medicine 12/02/23 Charles Curtis FNP [address] [place] [address] Nurse Practitioner Family Medicine 02/17/23 Pati Graff RN Care Manager 02/11/23 09/12/24 [facility] documented as of this encounter
[2024-10-04 13:41] VITALS: BP 110/58; PULSE 60; O2SAT 99
--- NOTE | 2024-10-04 13:41 | MHC.OFFVIS ---
Vital Signs 10/04/24 13:41 BP 110/58 L Blood Pressure Location Rt brachial Position Sitting Pulse 60 Pulse Source Pulse Oximeter Pulse Oximetry (%) 99 Oxygen Delivery Method Nasal Cannula Oxygen Flow Rate 2 Intake Visit Reasons: 6MWT Housefellow Required: No Allergies codeine Allergy (Verified 10/04/24 13:42) Unknown Medication List - Last Reconciled 10/04/24 by Pati Torres LPN acetaminophen 500 mg PO Q8H PRN albuterol sulfate 0.63 mg inhalation Q6H PRN albuterol sulfate 90 mcg/actuation 2 puffs inhalation Q4H PRN 30 days apixaban (Eliquis) 5 mg PO BID 30 days aspirin 81 mg PO QAM atorvastatin 40 mg PO QAM azithromycin For 250 mg dose pack: take 500 mg today (day 1), then 250 mg for 4 days (days 2-5) azithromycin 250 mg PO 3XW B-complex with vitamin C 1 cap PO DAILY blood-glucose meter (FreeStyle Lite Meter kit) As Directed calcium carbonate-vit D3-min 600 mg calcium- 200 unit (Calcium 600 + Minerals) 1 tab PO BID cetirizine 10 mg PO DAILY PRN cholecalciferol (vitamin D3) (Vitamin D3) 50 mcg PO DAILY citalopram (Celexa) 40 mg PO DAILY clonazepam (Klonopin) 0.5 mg PO TID cyanocobalamin (vitamin B-12) (Vitamin B-12) 1,000 mcg PO DAILY diclofenac sodium 1% 2 grams topical BID kqwlxmxjffi-dwziblqqt-nuxdwwxm 200-62.5-25 mcg (Trelegy Ellipta) 1 inh inhalation DAILY 30 days folic acid 1 mg PO DAILY FreeStyle Lite Strips (blood sugar diagnostic) As Directed NS gabapentin 400 mg PO TID ipratropium-albuterol 0.5 mg-3 mg(2.5 mg base)/3 mL 3 mL inhalation BID 30 days lancets (FreeStyle Lancets) As Directed lancets (FreeStyle Lancets) once daily loperamide (Imodium A-D) 2 mg PO Q4H PRN Magic Mouthwash Diphen/Lido/Antacid 1:1:1 10 mL PO QID morphine ER (MS Contin) 30 mg PO Q12H omeprazole 20 mg PO DAILY ondansetron 8 mg PO Q8H oxycodone 5 mg PO Q6H PRN Oxygen Home Use As directed risperidone 0.5 mg PO DAILY PFSH Medical History Pneumonia Non-small cell lung cancer (NSCLC) (~2021) Bone metastases COPD (chronic obstructive pulmonary disease) Personal history of nicotine dependence Hypertension GERD (gastroesophageal reflux disease) Anxiety and depression Vitamin D deficiency Osteopenia (~2002) Surgical History History of lung biopsy (~2021) Family History Sister Lupus Social History Household Members: Family Housing: House Are you a primary career orientation teacher to a significant other at home: No Do you presently have visiting nurse or other home services: Yes (VNA, PT, OT) Alcohol intake: never Patient Tobacco Use Status: Former Tobacco user Tobacco use type: Cigarette Years Smoked: 20+ Years Advance Directives Date on File: 09/18/21 service: No Current occupational status: retired Physical Exam Vital Signs: Last Vital Signs Pulse 60 10/04/24 13:41 BP 110/58 L 10/04/24 13:41 Pulse Ox 99 10/04/24 13:41 Oxygen Delivery Method Nasal Cannula 10/04/24 13:41 Oxygen Flow Rate 2 10/04/24 13:41 Office Procedures 6 Minute Walk Time:: 11:15 SPO2 % at rest: 96 Pulse at rest: 59 SPO2 % during excercise: 95 Pulse during excercise: 68 SPO2 % after excercise: 97 Pulse after excercise: 68 Distance in yards walked: 100 Ascencion Score: 0 Performance Observations:: Eloisa walked on level ground with a walker, she walked with a slow gait. She maintained her SPO2 95-97% for the entire walk on room air, no supplemental O2 needed. [id number] - 6 Minute Walk Assessment & Plan Assessment & Plan (1) COPD (chronic obstructive pulmonary disease): Code(s): J44.9 - Chronic obstructive pulmonary disease, unspecified Category: Medical Qualifiers: COPD type: chronic bronchitis Chronic bronchitis type: mucopurulent Qualified Code(s): J41.1 - Mucopurulent chronic bronchitis Plan 6MWT Orders: Orders AMB 6 minute walk Today J41.1 - Mucopurulent chronic bronchitis Coding Level of Care Code Established Pt Est Pt Level 1 (99993) Patient Type Established Diagnoses Mucopurulent chronic bronchitis J41.1 COPD type: chronic bronchitis Chronic bronchitis type: mucopurulent CPT Codes Coding ([id number]) Comment NURSE VISIT ONLY
[2024-10-04 13:43] VITALS: PULSE 59; O2SAT 96
== END 2024-10-04 11:46 | disposition home or self-care (01) ==
LOC: HO.HPS 11:11
PROVIDERS: PCP Nurse Practitioner Family; Visit Provider Hospitalist
DX: J41.1 Mucopurulent chronic bronchitis (principal)
CPT/HCPCS: 94618

== ENCOUNTER → 2024-10-04 11:11 | Outpatient (BNVA) | payer MEDICARE, SELFPAY | PROVIDERS: PCP Nurse Practitioner Family; Visit Provider Hospitalist | DX: J41.1 Mucopurulent chronic bronchitis (principal); Z79.82 Long term (current) use of aspirin; Z79.2 Long term (current) use of antibiotics; Z79.899 Other long term (current) drug therapy | CPT/HCPCS: 94618; 99211 ==

== ENCOUNTER 2024-10-11 13:15 | Outpatient (REF) | payer MEDICARE, MEDICAID, SELFPAY ==
--- NOTE | ~2024-10-11 | CT_ITS ---
EXAMINATION: CT ANGIOGRAM BRAIN, HEAD CLINICAL INFORMATION: Follow-up bilateral MCA aneurysms. COMPARISON: None available. TECHNIQUE: Noncontrast head CT was performed. This was followed by intravenous administration 100 mL of Omnipaque 350 intravenous contrast. Helical imaging CTA head was performed in the axial plane from the skull base to the vertex. The data was processed at the interventional technologist workstation for generation of MIP sequences. Three-dimensional volume rendered reformatted images were also generated at an offline 3-D workstation. The degree of stenosis determined by NASCET criteria. This CT examination was performed using dose optimization techniques as appropriate, variously including the following: *Automated exposure control *Adjustment of mA and/or kV according to patient size (this includes techniques or standardized protocols for targeted exams where dose is matched to indication/reason for exam; i.e. extremities or head) *Use of iterative reconstruction technique FINDINGS: NONCONTRAST HEAD CT: There is no evidence of intracranial hemorrhage or extra-axial fluid collection. There is no mass effect, or edema. No CT evidence of acute territorial infarct. Ventricles, sulci, and cisterns are normal in size and configuration for patient age. No hydrocephalus. No midline shift. Mild supratentorial low-density white matter changes in keeping with small vessel ischemia. Globes and orbital contents image normally. There are bilateral lens replacements. No extracranial soft tissue abnormalities. The paranasal sinuses, mastoid air cells, and tympanic cavities are normally aerated. No suspicious bony abnormalities. CTA OF THE BRAIN: -INTRACRANIAL INTERNAL CAROTID ARTERIES: Calcific atherosclerotic disease of the intracranial internal carotid arteries without occlusion or flow-limiting stenosis. -RIGHT ANTERIOR CEREBRAL ARTERY: Normal A1 segment.. Normal arborization of the distal segments. -LEFT ANTERIOR CEREBRAL ARTERY: Normal A1 segment.. Normal arborization of the distal segments. -ANTERIOR COMMUNICATING ARTERY: Normal. -RIGHT MIDDLE CEREBRAL ARTERY: Normal M1 segment of the MCA without focal stenosis or occlusion. Normal arborization of the distal segments. There is redemonstration of a 2.0 mm bifurcation aneurysm oriented anteriorly and slightly laterally (series 9, image 61). -LEFT MIDDLE CEREBRAL ARTERY: Normal M1 segment of the MCA without focal stenosis or occlusion. Normal arborization of the distal segments. There is redemonstration of a 2.5 mm bifurcation aneurysm oriented anteriorly and slightly laterally (series 9, image 60). -RIGHT VERTEBRAL ARTERY V4: Normal in course and caliber. Normal PICA branch. -LEFT VERTEBRAL ARTERY V4: Normal in course and caliber. Normal PICA branch. -BASILAR ARTERY: Normal without focal stenosis or occlusion. Normal appearance of the proximal superior cerebellar arteries. Normal basilar tip. -RIGHT POSTERIOR CEREBRAL ARTERY: The P1 segment is diminutive. origin of the URGENT CARE PHYSICIAN ASSISTANT with robust opacification of the posterior communicating artery. Normal opacification of the distal URGENT CARE PHYSICIAN ASSISTANT segments. -LEFT POSTERIOR CEREBRAL ARTERY: The P1 segment is diminutive. origin of the URGENT CARE PHYSICIAN ASSISTANT with robust opacification of the posterior communicating artery. Normal opacification of the distal URGENT CARE PHYSICIAN ASSISTANT segments. -POSTERIOR COMMUNICATING ARTERIES: Partial origins as detailed above. Normal opacification of the superior sagittal, straight, transverse, and sigmoid sinuses. No venous thrombosis. CT/CT angio head IMPRESSION: NONCONTRAST HEAD CT: 1. No acute intracranial abnormality. No intracranial hemorrhage or mass effect. No CT evidence of acute territorial infarct. CTA HEAD: 1. No evidence of significant arterial stenosis, occlusion, or dissection. 2. 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 3. Stable and unchanged 2.5 mm RIGHT MCA bifurcation aneurysm. 4. 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 Electronically signed by: Chuy Kim MD 10/12/2024 08:19 AM EDT
[2024-10-11] MEDS: iohexoL 350 MG/ML 100 ML INFUS..BTL IV (14:19)
--- OUTSIDE RECORDS SUMMARY | 2024-10-11 14:19 | XMS_ITS | Clinical Summary ---
Author Organization [facility] Address [address] [place] [address] Phone Care Team Providers Care Professor Of Sociology Name Role Phone Geetha Sidhu MD Primary Care Provider Encounters Date Type Department Care Team Description 09/07/[address] [facility] [address] [phone] Sophie Rosen MA from Last 3 Months Social History Tobacco Use Types Packs/Day Years Used Date Smoking Tobacco: Former Cigarettes 1 50 0 03/31/1967 - 03/31/2017 Comments Unknown Sex and Gender Information Value Date Recorded Sex Assigned at Not on file Legal Sex Female 5:48 PM EST Gender Identity Not on file Sexual Orientation Not on file Obstetrics History Plan of Treatment Upcoming Encounters Date Type Department Care Team ([facility] Contact Info) Description 11/17/2024 1:45 PM EDT Office Visit Orthopedic Surgery [facility] [address] [phone] John Damon, DPM [address] [address] Health Maintenance Due Date Last Done Comments RSV Immunization Adult Patients (1 - Risk 60-74 years 1-dose series) 2010 Zoster Vaccines (1 of 2) 07/06/2015 05/11/2015 DTaP,Tdap,and Td Vaccines (2 - Td or Tdap) 12/18/2020 12/18/2010 COVID-19 Vaccine (3 - Pfizer risk series) 01/10/2021 12/13/2020, 11/22/2020 Breast Cancer Screening 01/15/2021 01/15/2019 Colorectal Cancer Screening: Colonoscopy 03/02/2022 Falls Risk Assessment 03/02/2022 Hepatitis C Screening 03/02/2022 Lung Cancer Screening (Low Dose CT) 03/02/2022 Medicare Annual Wellness Visit 03/02/2022 Osteoporosis Screening (Bone Density Screening) 03/02/2022 Social Influencers of Health Screening 03/02/2022 Depression Screening 09/08/2024 09/09/2023 Influenza Vaccine (#1) 2024 9, 02/02/2018, 01/16/2017, Additional history exists Hypertension/CHF/CAD Annual BMP Blood Test 06/02/2025 06/02/2024 Cholesterol Screening (Lipid Panel) 04/12/2027 04/12/2022 Hepatitis A Vaccines Aged Out 10/16/2007, 03/26/20 07 No longer eligible based on patient's age to complete this topic Hepatitis B Vaccines Completed 09/16/2016, 10/16/2007, 05/14/2007, [...] on patient's age to complete this topic MMR Vaccines Aged Out No longer eligi ble based on patient's age to complete this topic Meningococcal ACWY Vaccine Aged Out N o longer eligible based on patient's age to complete this topic Meningococcal B Vaccine Aged Out No l onger eligible based on patient's age to complete this topic RSV Immunization Patients Under 20 months Aged Out No longer eligible based on patient's age to complete this topic Varicella Vaccines Aged Out No longer eligible based on patient's age to complete this topic Insurance MEDICARE MEDICAID - [place] Care Teams Professor Of Sociology Relationship Specialty Start Date End Date Geetha Sidhu MD [address] [place] [phone] PCP - General Internal Medicine 04/30/24
--- OUTSIDE RECORDS SUMMARY | 2024-10-11 14:19 | XMS_ITS | Encounter Summary ---
Author Organization [employer] Address [address] [place] [address] [address] [place] [address] Care Team Providers Care Certified Tower Climber Name Role Phone Laurence Granados Primary Care Provider [phone] Charles Curtis Unavailable Unavailable Geetha Sidhu MD Primary Care Provider + Encounter Details Date Type Department Care Team (Late Contact Info) Description 10/31/2022 Orders Only [facility] MEDICINE [address] [place] [address] Laurence Granados FNP [address] [place] [address] Mobility impaired (Primary Dx) Social History Tobacco [...] Description 12/13/2024 11:15 AM EDT Office Visit [facility] MEDICINE [address] [place] [address] Geetha Sidhu MD [address] [place] [address] documented as of this encounter Visit Diagnoses Diagnosis Mobility impaired- Primary Other ill-defined conditions documented in this encounter Additional Health Concerns Assessment Noted Time PHQ-9 Depression Total Score: 3 08/21/19 23 1:08 PM EDT documented as of this encounter Care Teams Certified Tower Climber Relationship Specialty Start Date End Date Laurence Granados FNP [address] [place] [address] PCP - General Family Medicine 03/27/22 12/01/23 Geetha Sidhu MD [address] [place] [phone] PCP - General Internal Medicine 12/02/23 Charles Curtis FNP [address] [place] [phone] Nurse Practitioner Family Medicine 02/17/23 Pati Graff RN Care Manager 02/11/23 [facility] documented as of this encounter
== END 2024-10-11 13:16 | disposition home or self-care (01) ==
LOC: HO.CT 13:15
PROVIDERS: PCP Nurse Practitioner Family; Visit Provider Neurological Surgery
DX: I72.9 Aneurysm of unspecified site (principal)
CPT/HCPCS: 70496; Q9967

== ENCOUNTER → 2024-10-11 13:23 | Outpatient (BNV) | payer MEDICARE, MEDICAID, SELFPAY | PROVIDERS: PCP Nurse Practitioner Family; Visit Provider Radiology Diagnostic Radiology | DX: I67.1 Cerebral aneurysm, nonruptured (principal) | CPT/HCPCS: 70496 ==

== ENCOUNTER 2024-10-28 13:37 | Outpatient (REF) | payer MEDICARE, MEDICAID, SELFPAY ==
--- NOTE | ~2024-10-28 | CT_ITS ---
EXAMINATION: CT ABDOMEN AND PELVIS WITHOUT AND WITH CONTRAST CLINICAL INFORMATION: R31.9 - Hematuria, unspecified and non-small cell lung carcinoma COMPARISON: CT chest August 01, 2024 and November 21, 2023 TECHNIQUE: Noncontrast CT of the abdomen and pelvis is performed followed by split bolus contrast-enhanced images using 85 mL Omnipaque 350 contrast. Postcontrast imaging is performed during the combined nephrogram and excretion phase. Sagittal and coronal reformatted images were obtained on the technologist's workstation for both the precontrast and postcontrast phases. This CT examination was performed using dose optimization techniques as appropriate, variously including the following: *Automated exposure control *Adjustment of mA and/or kV according to patient size (this includes techniques or standardized protocols for targeted exams where dose is matched to indication/reason for exam; i.e. extremities or head) *Use of iterative reconstruction technique FINDINGS: LUNG BASES: There is chronic opacity and air bronchograms in the posterior basal right lower lobe and chronic small pleural effusion. LIVER, GALLBLADDER, AND BILIARY TREE: The liver is normal in size, shape, and attenuation. No focal hepatic lesion or biliary ductal dilatation is present. The gallbladder is unremarkable with no evidence of radiopaque gallstones, gallbladder wall thickening, or obvious pericholecystic inflammatory changes. PANCREAS: Unremarkable. SPLEEN: Unremarkable. ADRENAL GLANDS: Unremarkable. KIDNEYS AND URETERS: There is a small vascular calcification in the left renal hilum. There is a punctate 1 mm stone in the posterior mid right kidney. There is no hydronephrosis. There is symmetric concentration and excretion of contrast from both kidneys minimally opacifying the ureters. There is a small simple renal cyst in the anterior mid right kidney and lower pole the left kidney. BLADDER: Unremarkable. GASTROINTESTINAL TRACT: Pseudodiverticula are present in the right colon and sigmoid colon. Near the ileocecal junction, the right colon appears thickened but there is no inflammatory change in the adjacent mesentery. Normal appendix is identified. ABDOMINAL WALL: No significant hernia is appreciated. LYMPH NODES: Normal. VASCULAR: Moderate multifocal vascular calcifications are present. PELVIC VISCERA: Unremarkable. OSSEUS STRUCTURES: There is a 3.7 cm sclerotic lesion in the upper central sacrum extending right of midline. CT/CT urogram IMPRESSION: There is a punctate nonobstructing 1 mm stone in the right kidney. Otherwise, unremarkable CT urogram. Indeterminate thickening of the colon at the ileocecal junction without inflammation in the adjacent mesentery. Neoplasm and inflammation or not ruled out. Sclerotic lesion in the upper sacrum is presumably metastatic disease in this patient with known non-small cell lung carcinoma. Chronic changes in the posterior base of the right lower lobe and chronic small right pleural effusion. Electronically signed by: Jerome aVsquez MD 10/28/2024 02:51 PM EDT
--- OUTSIDE RECORDS SUMMARY | 2024-10-28 13:51 | XMS_ITS | Clinical Summary ---
Author Organization [address] [place] [address] Address [address] [place] [address] Phone Care Team Providers Care Seasonal Sales Associate Name Role Phone Geetha Sidhu MD Primary Care Provider [phone] Encounters Date Type Department Care Team Description 09/07/2024 Telephone [facility] [address] [phone] Sophie Rosen MA from Last [...] Upcoming Encounters Date Type Department Care Team ([facility] st Contact Info) Description 11/02/2024 3:00 PM EDT Office Visit [facility] [address] [phone] Liv Levi MD [address] [place] [address] 11/17/2024 1:45 PM EDT Office Visit Orthopedic Surgery [facility] [address] [phone] John Damon DPM [address] [phone] Health Maintenance Due Date Last Done Comments [...] Influencers of Health Screening 03/02/2022 Depression Screening 03/31/2024 Influenza Vaccine (#1) 2024 9, 02/02/2018, 01/16/2017, [...] Procedure Name Priority Date/Time Associated Diagnosis Comments EXTERNAL CT REPORT Routine 10/11/2024 9:16 AM EDT from Last 3 Months Results * External CT Report (10/11/2024 9:16 AM EDT) Anatomical Region Laterality Modality Computed Tomogra phy us Historical Provider MD ASCENCIO CT PROCEDURES Final R esult from Last 3 Months Insurance MEDICARE MEDICAID - [place] Care Teams Seasonal Sales Associate Relationship Specialty Start Date End Date Geetha Sidhu MD [address] [place] [phone] PCP - General Internal Medicine 04/30/24
--- OUTSIDE RECORDS SUMMARY | 2024-10-28 13:51 | XMS_ITS | Encounter Summary ---
Author Organization [employer] Address [address] [place] [address] [address] [place] [address] Care Team Providers Care Recycling Sorter Name Role Phone Laurence Granados Primary Care Provider [phone] Charles Curtis Unavailable Unavailable Geetha Sidhu MD Primary Care Provider + Encounter Details Date Type Department Care Team (Late Contact Info) Description 10/31/2022 Orders Only [facility] MEDICINE [address] [place] [address] Laurence Granados FNP [address] [place] [address] Mobility impaired (Primary Dx) Social History Tobacco [...] Description 12/13/2024 11:15 AM EDT Office Visit [facility] MEDICINE [address] [place] [phone] Geetha Sidhu MD [address] [place] [phone] documented as of this encounter Visit Diagnoses Diagnosis Mobility impaired- Primary Other ill-defined conditions documented in this encounter Additional Health Concerns Assessment Noted Time PHQ-9 Depression Total Score: 3 08/21/19 23 1:08 PM EDT documented as of this encounter Care Teams Recycling Sorter Relationship Specialty Start Date End Date Laurence Granados FNP [address] [place] [phone] PCP - General Family Medicine 03/27/22 12/01/23 Geetha Sidhu MD [address] [place] [phone] PCP - General Internal Medicine 12/02/23 Charles Curtis FNP [address] [place] [address] Nurse Practitioner Family Medicine 02/17/23 Pati Graff RN Care Manager 02/11/23 09[facility]24 [facility] documented as of this encounter
[2024-10-28] MEDS: iohexoL 350 MG/ML 100 ML INFUS..BTL IV (14:30)
== END 2024-10-28 13:38 | disposition home or self-care (01) ==
LOC: HO.CT 13:37
PROVIDERS: PCP Internal Medicine; Visit Provider Urology
DX: R31.9 Hematuria, unspecified (principal); M25.569 Pain in unspecified knee
CPT/HCPCS: 74178; Q9967

== ENCOUNTER → 2024-10-28 13:40 | Outpatient (BNV) | payer MEDICARE, MEDICAID, SELFPAY | PROVIDERS: PCP Internal Medicine; Visit Provider Radiology Diagnostic Radiology | DX: N20.0 Calculus of kidney (principal) | CPT/HCPCS: 74178 ==

== ENCOUNTER 2024-11-04 11:36 | Outpatient (REF) | payer MEDICARE, MEDICAID, SELFPAY ==
--- OUTSIDE RECORDS SUMMARY | 2024-11-04 12:14 | XMS_ITS | Encounter Summary ---
Author Organization [employer] Address [address] [place] [address] [address] [place] [address] Care Team Providers Care Acute Care Physical Therapist Name Role Phone Laurence Granados Primary Care Provider [phone] Charles Curtis Unavailable Unavailable Geetha Sidhu MD Primary Care Provider + Encounter Details Date Type Department Care Team (Late Contact Info) Description 10/31/2022 Orders Only [facility] [address] [place] [address] Laurence Granados FNP [address] [place] [address] Mobility impaired (Primary Dx) Social History Tobacco [...] Description 12/13/2024 11:15 AM EDT Office Visit [facility] [address] [place] [phone] Geetha Sidhu MD [address] [place] [phone] documented as of this encounter Visit Diagnoses Diagnosis Mobility impaired- Primary Other ill-defined conditions documented in this encounter Additional Health Concerns Assessment Noted Time PHQ-9 Depression Total Score: 3 08/21/19 23 1:08 PM EDT documented as of this encounter Care Teams Acute Care Physical Therapist Relationship Specialty Start Date End Date Laurence Granados FNP [address] [place] [phone] PCP - General Family Medicine 03/27/22 12/01/23 Geetha Sidhu MD [address] [place] [phone] PCP - General Internal Medicine 12/02/23 Charles Curtis FNP [address] [place] [phone] Nurse Practitioner Family Medicine 02/17/23 Pati Graff RN Care Manager 02/11/23 [facility] documented as of this encounter
--- OUTSIDE RECORDS SUMMARY | 2024-11-04 12:14 | XMS_ITS | Clinical Summary ---
Author Organization 175 [facility] Address [address] [place] [address] Phone Care Team Providers Care Learning Services Coordinator Name Role Phone Geetha Sidhu MD Primary Care Provider + [phone] Allergies Active Allergy Reactions Criticality Noted Date Comments Codeine 09/03/2022 Other reaction(s): Unknown Piperacillin-Tazobact am-Dextrs Anaphylaxis High 09/03/2024 Noted at [facility] hospitalization 08/29/24 Medications acetaminophen (TYLENOL) 500 mg capsule Take by mouth. Activ e albuterol HFA (PROAIR HFA ; PROVENTIL HFA ; VENTOLIN HFA) 90 mcg/actuation inhaler 2 puffs every 4 (four) hours if needed for wheezing. Active albuterol sulfate (Proair Digihaler) 90 mcg/actuation aero powdr breath act w/sensor Inhale by mouth. Active amLODIPine-atorvas tatin (CADUET) 10-10 mg per tablet Take 1 tablet by mouth 1 (one) time each day. Active ammonium lactate (AMLACTIN) 12 % cream Apply topically. 04/06/19 25 026 Active Eliquis 5 mg tablet Take 1 tablet (5 mg total) by mouth 2 (two) times a day. for 30 days 08/14/19 25 Active aspirin 81 mg EC tablet Take 1 tablet (81 mg total) by mouth 1 (one) time each day in the morning. Active atorvastatin (LIPITOR) 40 mg tablet Take 1 tablet (40 mg total) by mouth. at bedtime. Active FreeStyle [place] Lite monitoring kit See administration instructions. 06/12/19 25 Active calcium carbonate-vitamin D3 600 mg-5 mcg (200 unit) per tablet TAKE 1 TABLET BY MOUTH TWICE DAILY IN THE MORNING AND AT BEDTIME Active cetirizine (ZyrTEC) 10 mg tablet Take 1 tablet (10 mg total) by mouth 1 (one) time each day in the morning. Active cholecalciferol (VITAMIN D-3) 50 mcg (2,000 unit) tablet Take 1 tablet (2,000 Units total) by mouth 1 (one) time each day in the morning. Active cholecalciferol (VITAMIN D-3) 50 mcg (2,000 unit) capsule Take 1 capsule (2,000 Units total) by mouth 1 (one) time each day. Active clonazePAM (KlonoPIN) 0.5 mg tablet Take 1 tablet (0.5 mg total) by mouth 3 times daily. Max Daily Amount: 1.5 mg 10/26/19 25 025 Active cyanocobalamin (VITAMIN B-12) 1,000 mcg tablet Take 1 tablet (1,000 mcg total) by mouth 1 (one) time each day in the morning. Active Trelegy Ellipta 100-62.5-25 mcg inhaler INHALE 1 PUFF BY MOUTH EVERY DAY AT THE SAME TIME RINSE MOUTH AFTER USING 06/18/19 25 Active gabapentin (NEURONTIN) 400 mg capsule TAKE 1 CAPSULE BY MOUTH THREE TIMES DAILY IN THE MORNING, AT NOON, AND AT BEDTIME Active ipratropium-albute roL (DUONEB) 0.5-2.5 mg/3 mL nebulizer solution INHALE 1 AMPULE USING A NEBULIZER TWICE DAILY 09/28/19 25 Active morphine (MS CONTIN) 30 mg 12 hr tablet Take 1 tablet (30 mg total) by mouth every 12 (twelve) hours. Max Daily Amount: 60 mg 11/30/19 23 Active naloxone (NARCAN) 4 mg/0.1 mL nasal spray Administer 1 each (4 mg total) into affected nostril(s). 04/04/19 23 Active omeprazole (PriLOSEC) [address] capsule Take 1 capsule (20 mg total) by mouth. Active ondansetron ODT (ZOFRAN-ODT) 8 mg disintegrating tablet DISSOLVE 1 TABLET ON TONGUE EVERY 8 HOURS DIRECTED 10/11/19 23 Active oxyCODONE (ROXICODONE) 5 mg immediate release tablet Take 1 tablet (5 mg total) by mouth every 6 (six) hours if needed. for breakthrough pain Max Daily Amount: 20 mg Active phenazopyridine (PYRIDIUM) 200 mg tablet Take 1 tablet (200 mg total) by mouth. for 3 days 02/25/20 24 Active risperiDONE (RisperDAL) 1 mg tablet TAKE 1/2 TABLET BY MOUTH EVERY MORNING and TAKE 1 TABLET BY MOUTH AT BEDTIME 10/26/19 25 Active sennosides 8.6 mg capsule Take by mouth. Activ e B Complex 1, with folic acid, 0.4 mg tablet Take 1 tablet by mouth 1 (one) time each day in the morning. 04/23/19 25 Active Active Problems Problem Noted Date Diagnosed Date Cerebral aneurysm, nonruptured 11/02/2024 Assessment & Plan (11/02/2024 4:05 PM EDT): I reviewed the CT findings with the patient and her family member noting that the 2 small aneurysms previously seen are stable, there are no new aneurysms and there is no evidence of hemorrhage, mass lesion or stroke that theoretically could be associated with the numbness of her scalp. She is still undergoing chemotherapy treatment so that could be the etiology. Other than generalized fatigue, her exam is nonfocal. We will plan on repeating CTA of the head in 2 years. Encounters Date Type Department Care Team Description 11/02/2024 3:00 PM EDT Office Visit Neurosurgery [address] [phone] Liv Levi MD Cerebral aneurysm, nonruptured (Primary Dx) 09/07/2024 Telephone Neurosurgery [address] [phone] Sophie Rosen MA from Last 3 Months Social History Tobacco Use Types Packs/Day Years Used Date Smoking Tobacco: Former Cigarettes 1 50 0 03/31/1967 - 03/31/2017 Comments Unknown Sex and Gender Information Value Date Recorded Sex Assigned at Not on file Legal Sex Female 5:48 PM EST Gender Identity Not on file Sexual Orientation Not on file Obstetrics History Last Filed Vital Signs Vital Sign Reading Time Taken Comments Blood Pressure - - Pulse - - Temperature - - Respiratory Rate - - Oxygen Saturation - - Inhaled Oxygen Concentration - - Weight 57.6 kg (127 lb) 11/02/2024 3:34 PM EDT Height 160 cm (5' 3 ) 11/02/2024 3:34 PM EDT Body Mass Index 22.5 11/02/2024 3:34 PM EDT Plan of Treatment Upcoming Encounters Date Type Department Care Team (Late st Contact Info) Description 11/17/2024 1:45 PM EDT Office Visit Orth[facility] [address] [phone] John Damon, DPM [address] [phone] Health Maintenance Due Date Last Done Comments [...] CT REPORT Routine 10/11/2024 9:[address] REPORT Routine 10/11/2024 7:57 AM EDT from Last 3 Months Results * External CT Report (10/11/2024 9:16 AM EDT) Only the most recent of2 resultswithin the time period is included. Anatomical Region Laterality Modality Computed Tomogra phy us Historical Provider MD [facility]ENC[facility] CT PROCEDURES Final R esult from Last 3 Months Insurance MEDICARE MEDICAID - [place] Care Teams Learning Services Coordinator Relationship Specialty Start Date End Date Geetha Sidhu MD [address] [place] [phone] PCP - General Internal Medicine 04/30/24
== END 2024-11-04 11:37 | disposition home or self-care (01) ==
LOC: HO.US 11:36
PROVIDERS: PCP Internal Medicine; Visit Provider Internal Medicine
DX: Z13.89 Encounter for screening for other disorder (principal)

== ENCOUNTER 2024-11-09 13:37 | Outpatient (AMB) | payer MEDICARE, MEDICAID, SELFPAY ==
[2024-11-09 13:44] VITALS: BP 100/42; PULSE 65; BMI 22.7
--- NOTE | 2024-11-09 13:44 | MHC.OFFVIS ---
Vital Signs 11/09/24 13:44 Height 5 ft 3 in Weight 128 lb 4.944 oz BMI 22.7 BP 100/42 L Blood Pressure Location Rt brachial Position Sitting Pulse 65 Pulse Source Monitor Intake Visit Reasons: Follow up Echo/Holter Supervisor Quilting Required: No Psychiatric Social Worker Supervisor: Psychiatric Social Worker Supervisor Present Allergies codeine Allergy (Verified 11/09/24 13:49) Unknown Medication List - Last Reconciled 11/09/24 by HOLLY Oneill acetaminophen 500 mg PO Q8H PRN albuterol sulfate 0.63 mg inhalation Q6H PRN albuterol sulfate 90 mcg/actuation 2 puffs inhalation Q4H PRN 30 days apixaban (Eliquis) 5 mg PO BID 30 days aspirin 81 mg PO QAM atorvastatin 40 mg PO QAM azithromycin For 250 mg dose pack: take 500 mg today (day 1), then 250 mg for 4 days (days 2-5) azithromycin 250 mg PO 3XW B-complex with vitamin C 1 cap PO DAILY blood-glucose meter (FreeStyle Lite Meter kit) As Directed calcium carbonate-vit D3-min 600 mg calcium- 200 unit (Calcium 600 + Minerals) 1 tab PO BID cetirizine 10 mg PO DAILY PRN cholecalciferol (vitamin D3) (Vitamin D3) 50 mcg PO DAILY citalopram (Celexa) 40 mg PO DAILY clonazepam (Klonopin) 0.5 mg PO TID cyanocobalamin (vitamin B-12) (Vitamin B-12) 1,000 mcg PO DAILY diclofenac sodium 1% 2 grams topical BID tdykkzjmply-qpkmmoixk-zhdsekia 200-62.5-25 mcg (Trelegy Ellipta) 1 inh inhalation DAILY 30 days folic acid 1 mg PO DAILY FreeStyle Lite Strips (blood sugar diagnostic) As Directed NS gabapentin 400 mg PO TID ipratropium-albuterol 0.5 mg-3 mg(2.5 mg base)/3 mL 3 mL inhalation BID 30 days lancets (FreeStyle Lancets) As Directed lancets (FreeStyle Lancets) once daily loperamide (Imodium A-D) 2 mg PO Q4H PRN Magic Mouthwash Diphen/Lido/Antacid 1:1:1 10 mL PO QID morphine ER (MS Contin) 30 mg PO Q12H omeprazole 20 mg PO DAILY ondansetron 8 mg PO Q8H oxycodone 5 mg PO Q6H PRN Oxygen Home Use As directed risperidone 0.5 mg PO DAILY HPI HPI Follow up Echo/Holter: Details: Eloisa is a 74-year-old female medical history of hypertension, COPD, mild Congestive heart failure, heart palpitations, lung CA with bone Mets who presents for follow-up. Her last prior visit to our office was 05/16/2023. Today she reports that she has been having heart palpitations most days. She will feel her heartbeat rapidly for a few minutes then go back to normal. She has not had any presyncope, syncope, falls. No chest discomfort at rest or with activity. She has chronic shortness of breath with her lung issues. She is still undergoing chemotherapy. She is on Eliquis for concern of blood clot. She does only light physical activities. Drinks up to 4 caffeinated beverages per day. Daughter is present. [facility] Medical History (Updated 11/09/24 @ 14:41 by HOLLY Oneill) Bone metastases Pneumonia Non-small cell lung cancer (NSCLC) (~2021) COPD (chronic obstructive pulmonary disease) Personal history of nicotine dependence Hypertension GERD (gastroesophageal reflux disease) Anxiety and depression Vitamin D deficiency Osteopenia (~2002) Surgical History History of lung biopsy (~2021) Family History Sister Lupus Social History Household Members: Family Housing: House Are you a primary live in caregiver to a significant other at home: No Do you presently have visiting nurse or other home services: Yes (VNA, PT, OT) Alcohol intake: never Patient Tobacco Use Status: Former Tobacco user Tobacco use type: Cigarette Years Smoked: 20+ Years Advance Directives Date on File: 09/18/21 service: No Current occupational status: retired Review of Systems Const All systems reviewed & are unremarkable except as noted in HPI and below ENT Denies dizziness Card Details: palpitations Denies chest pain, Denies chest pain at rest, Denies chest pain with activity, Reports rapid heart rate, Denies pedal edema, Denies edema, Denies leg edema, Denies lightheadedness, Denies palpitations, Reports dyspnea, Reports dyspnea on exertion and Denies orthopnea Resp Denies cough, Reports dyspnea and Reports dyspnea on exertion GI Denies hematochezia and Denies change in stool character Musc Denies abnormal gait, Denies limited range of motion, Denies muscle cramps, Denies muscle weakness, Denies numbness, Denies radiating pain into limb, Denies stiffness and Denies tingling Neuro Denies abnormal gait, Denies dizziness, Denies numbness and Denies tingling Endo Denies palpitations Physical Exam Vital Signs: Last Vital Signs Pulse 65 11/09/24 13:44 BP 100/42 L 11/09/24 13:44 BMI result Body Mass Index 22.7 Const General: cooperative, comfortable and no acute distress Orientation/consciousness: patient oriented x3 Neck Neck: Yes normal visual inspection and Yes no JVD Resp Effort & Inspection: normal respiratory effort Auscultation: clear to auscultation bilaterally, no rales, no rhonchi and no wheezes Cardio Rate: regular rate Rhythm: regular rhythm Heart sounds: S1 normal heart sound present, S2 normal heart sound present, no gallops, no murmurs and no rubs Neuro General: patient oriented x3 Extrem General: Yes normal to inspection Psych Appearance: grossly normal Mental Status: mental status grossly normal Speech and movement: Normal speech and movement present Office Procedures EKG Details: Today, read by me, Normal sinus rhythm with sinus arrythmia, early repolarization, rate 65, QTc 459ms [id number], Complete Assessment & Plan Assessment & Plan (1) Palpitations: Code(s): R00.2 - Palpitations Category: Medical Plan: Reports of brief rapid heart palpitations that could be atrial tachycardia. Her last Holter monitor was done 07/17/2023 for 7 days showing sinus rhythm, average rate 63 beats per minute, occasional PACs and SVE run 14 beats. Echocardiogram 07/17/2023 showed EF 72%, grade 2 diastolic dysfunction, mild aortic regurgitation, mild pulmonary hypertension. Discussed need for caffeine reduction with her. Limit to 1 per day. Maintain good hydration and get adequate rest. Will plan Holter monitor for 1 month after conservative measures taken to reassess need for med management . Cardiology follow-up 3 months, sooner if needed. (2) Atrial tachycardia: Code(s): I47.19 - Other supraventricular tachycardia Category: Medical Plan: Brief atrial tach seen on last Holter monitor. (3) Hypertension: Code(s): I10 - Essential (primary) hypertension Category: Medical Plan: Blood pressure goal less than 130/80. Blood pressure 100/42 today, asymptomatic. She is not on any blood pressure lowering agents at this time. 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 We reviewed the plan to monitor her heart in a month to evaluate for arrythmia. We discussed the continuation of anticoagulation therapy due to her cancer diagnosis. I advised on hydration, rest, and scheduled a follow-up visit in three months, with the option for an earlier appointment if necessary. Orders: Orders ECG 3 day holter monitor 1 Month I47.19 - Other supraventricular tachycardia, R00.2 - Palpitations Patient Instructions: - Reduce caffeine intake by switching to decaf or limiting to one caffeinated beverage per day. - Stay hydrated and ensure adequate rest. - Continue taking Eliquis as prescribed. - Attend follow-up heart monitoring appointment in one month. - Schedule an office visit in three months, or sooner if symptoms worsen. Patient was informed and verbally consented to the use of an ambient scribe for clinic note documentation during this visit. Visit time spent on chart review, interview, assessment, orders, documentation. Coding Level of Care Code Est Pt Level 4 (72844) Complex EM visit Add On G2211 Diagnoses Palpitations R00.2 Atrial tachycardia I47.19 Hypertension I10 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 C34.31 Bone metastases C79.51 CPT Codes EKG - CPT: 66669-[id number], Complete ([id number]) Time Spent (min) 28
--- OUTSIDE RECORDS SUMMARY | 2024-11-09 14:31 | XMS_ITS | Clinical Summary ---
Author Organization 175 [facility] Address [address] [place] [address] Phone Care Team Providers Care Manual Arts Teacher Name Role Phone Geetha Sidhu MD Primary Care Provider + [phone] Allergies Active Allergy Reactions Criticality Noted Date Comments Codeine 09/03/2022 Other reaction(s): Unknown Piperacillin-Tazobact am-Dextrs Anaphylaxis High 09/03/2024 Noted at [facility] hospitalization 08/29/24 Medications acetaminophen (TYLENOL) 500 mg [...] total) by mouth. at bedtime. Active FreeStyle [place] Lite monitoring kit See administration instructions. 06/12/19 [...] 3:00 PM EDT Office Visit Neurosurgery [address] [phone] Liv Levi MD Cerebral aneurysm, nonruptured (Primary Dx) 09/07/2024 Telephone Neurosurgery [address] [phone] Sophie Rosen MA from Last 3 Months [...] PM EDT Office Visit Orthopedic Surgery - [place] [address] [phone] John Damon, DPM [address] [address] Health Maintenance Due Date Last Done Comments [...] Insurance MEDICARE MEDICAID - [place] Care Teams Manual Arts Teacher Relationship Specialty Start Date End Date Geetha Sidhu MD [address] [place] [phone] PCP - General Internal Medicine 04/30/24
--- OUTSIDE RECORDS SUMMARY | 2024-11-09 14:31 | XMS_ITS | Encounter Summary ---
Author Organization [employer] Address [address] [place] [address] [address] [place] [address] Care Team Providers Care Solution Advisor Name Role Phone Laurence Granados Primary Care Provider [phone] Charles Curtis Unavailable Unavailable Geetha Sidhu MD Primary Care Provider + Encounter Details Date Type Department Care Team (Late Contact Info) Description 10/31/2022 Orders Only [facility] [address] [place] [address] Laurence Granados FNP [address] [place] [address] Mobility impaired (Primary Dx) Social History Tobacco [...] Description 12/13/2024 11:15 AM EDT Office Visit [facility] [address] [place] [phone] Geetha Sidhu MD [address] [place] [phone] documented as of this encounter Visit Diagnoses Diagnosis Mobility impaired- Primary Other ill-defined conditions documented in this encounter Additional Health Concerns Assessment Noted Time PHQ-9 Depression Total Score: 3 08/21/19 23 1:08 PM EDT documented as of this encounter Care Teams Solution Advisor Relationship Specialty Start Date End Date Laurence Granados FNP [address] [place] [phone] PCP - General Family Medicine 03/27/22 12/01/23 Geetha Sidhu MD [address] [place] [phone] PCP - General Internal Medicine 12/02/23 Charles Curtis FNP [address] [place] [phone] Nurse Practitioner Family Medicine 02/17/23 Pati Graff RN Care Manager 02/11/23 09[facility] documented as of this encounter
== END 2024-11-09 14:20 | disposition home or self-care (01) ==
LOC: HO.HCS 13:37
PROVIDERS: PCP Nurse Practitioner Family; Visit Provider Nurse Practitioner Family
DX: R00.2 Palpitations (principal); I47.19 Other supraventricular tachycardia; I10 Essential (primary) hypertension; C34.31 Malignant neoplasm of lower lobe, right bronchus or lung; C79.51 Secondary malignant neoplasm of bone
CPT/HCPCS: 93010; 99214; G2211

== ENCOUNTER → 2024-11-09 13:37 | Outpatient (BNVA) | payer MEDICARE, MEDICAID, SELFPAY | PROVIDERS: PCP Nurse Practitioner Family; Visit Provider Nurse Practitioner Family | DX: R00.2 Palpitations (principal); I47.19 Other supraventricular tachycardia; I10 Essential (primary) hypertension; C34.31 Malignant neoplasm of lower lobe, right bronchus or lung; C79.51 Secondary malignant neoplasm of bone; Z79.60 Long term (current) use of unspecified immunomodulators and immunosuppressants | CPT/HCPCS: 93005; 99212 ==

== ENCOUNTER 2024-11-11 13:00 | Outpatient (AMB) | payer MEDICARE, MEDICAID, SELFPAY ==
[2024-11-11 13:08] VITALS: BP 116/48; PULSE 64; O2SAT 96; BMI 22.9
--- NOTE | 2024-11-11 13:08 | A.OFFVIS_ITS ---
Vital Signs 11/11/24 13:08 Height 5 ft 3 in Weight 129 lb 3.054 oz BMI 22.9 BP 116/48 L Blood Pressure Location Rt brachial Position Sitting Pulse 64 Pulse Source Pulse Oximeter Pulse Oximetry (%) 96 Oxygen Delivery Method Room Air Intake Visit Reasons: Hypoglycemia Intake Note: New patient present today for Hypoglycemia. Automatic Lathe Operator Required: No Accompanied by: Daughter Allergies codeine Allergy (Verified 11/11/24 13:10) Unknown Medication List - Last Reconciled 11/11/24 by Ty Pulido MD acetaminophen 500 mg PO Q8H PRN albuterol sulfate 0.63 mg inhalation Q6H PRN albuterol sulfate 90 mcg/actuation 2 puffs inhalation Q4H PRN 30 days apixaban (Eliquis) 5 mg PO BID 30 days aspirin 81 mg PO QAM atorvastatin 40 mg PO QAM azithromycin For 250 mg dose pack: take 500 mg today (day 1), then 250 mg for 4 days (days 2-5) azithromycin 250 mg PO 3XW B-complex with vitamin C 1 cap PO DAILY blood-glucose meter (FreeStyle Lite Meter kit) As Directed calcium carbonate-vit D3-min 600 mg calcium- 200 unit (Calcium 600 + Minerals) 1 tab PO BID cetirizine 10 mg PO DAILY PRN cholecalciferol (vitamin D3) (Vitamin D3) 50 mcg PO DAILY citalopram (Celexa) 40 mg PO DAILY clonazepam (Klonopin) 0.5 mg PO TID cyanocobalamin (vitamin B-12) (Vitamin B-12) 1,000 mcg PO DAILY diclofenac sodium 1% 2 grams topical BID ckcgaochhox-rnxpoguel-pzwppndm 200-62.5-25 mcg (Trelegy Ellipta) 1 inh inhalation DAILY 30 days folic acid 1 mg PO DAILY FreeStyle Lite Strips (blood sugar diagnostic) As Directed NS gabapentin 400 mg PO TID ipratropium-albuterol 0.5 mg-3 mg(2.5 mg base)/3 mL 3 mL inhalation BID 30 days lancets (FreeStyle Lancets) As Directed lancets (FreeStyle Lancets) once daily loperamide (Imodium A-D) 2 mg PO Q4H PRN Magic Mouthwash Diphen/Lido/Antacid 1:1:1 10 mL PO QID morphine ER (MS Contin) 30 mg PO Q12H omeprazole 20 mg PO DAILY ondansetron 8 mg PO Q8H oxycodone 5 mg PO Q6H PRN Oxygen Home Use As directed risperidone 0.5 mg PO DAILY HPI Comments Details: This is a 74-year-old female sent to endocrinology for evaluation of hypoglycemia. Patient experiences symptoms of dizziness, palpitations but no loss of consciousness or sz . Episodes occur not in relationship to meals . There is no history of bariatric surgery. There is a history of ??documented serum low glucose at the time of symptoms. Patient has not seen a chief of production. Patient has not taken a prolonged course of steroids in the past The patient is a 74-year-old female presenting with hypoglycemia. She experienced dizziness and required sugar intake for symptom relief, with lab confirmation of low blood sugar. Episodes have decreased in frequency, with no recent occurrences, and symptoms included dizziness and palpitations without loss of consciousness. She is undergoing treatment for lung cancer with Keytruda, maintaining stable weight with minor fluctuations. Tachycardia episodes have led to a recommendation to reduce caffeine intake. [facility] Medical History (Updated 11/09/24 @ 14:41 by HOLLY Oneill) Bone metastases Pneumonia Non-small cell lung cancer (NSCLC) (~2021) COPD (chronic obstructive pulmonary disease) Personal history of nicotine dependence Hypertension GERD (gastroesophageal reflux disease) Anxiety and depression Vitamin D deficiency Osteopenia (~2002) Surgical History History of lung biopsy (~2021) Family History Sister Lupus Social History Household Members: Family Housing: House Are you a primary tire care manager to a significant other at home: No Do you presently have visiting nurse or other home services: Yes (VNA, PT, OT) Alcohol intake: never Patient Tobacco Use Status: Former Tobacco user Tobacco use type: Cigarette Years Smoked: 20+ Years Advance Directives Date on File: 09/18/21 service: No Current occupational status: retired Physical Exam Vital Signs: BMI result Body Mass Index 22.9 Const Other: No rashes present on skin examination. Thyroid gland is normal size weighs about 15 g. There are no thyroid nodules palpated. There was no skin or buccal hyperpigmentation Assessment & Plan Assessment & Plan (1) Hypoglycemia: Code(s): E16.2 - Hypoglycemia, unspecified Category: Medical Plan: 74-year-old female with reported symptoms and concern of hypoglycemia. 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 Patient appears clinically and biochemically euthyroid Plan is to have the patient get a serum glucose at the time of symptoms to see if patient satisfies Whipple's triad 1. Hypoglycemia Episodes of low blood sugar have been confirmed. The plan involves monitoring symptoms and obtaining a blood sugar test during episodes to confirm hypoglycemia. Further evaluation will be conducted if low blood sugar is confirmed. I discussed with the patient the importance of monitoring blood sugar levels during symptomatic episodes to determine if hypoglycemia is the cause. We talked about the possibility of insulin-secreting tumors if low blood sugar is confirmed. I advised reducing caffeine intake to manage tachycardia and emphasized the need for continued monitoring of her lung cancer treatment with Keytruda. The patient had an opportunity to ask questions regarding treatment plan. The patient expressed understanding and agreement with the above treatment plan. The patient is aware they should contact our office by phone for worsening glucose readings or for any low blood sugars Patient was informed and verbally consented to the use of an ambient scribe for clinic note documentation during this visit. Orders: Orders Glucose Random Today E16.2 - Hypoglycemia, unspecified Coding Level of Care Code New Pt Level 4 (39569) Diagnoses Hypoglycemia E16.2
--- OUTSIDE RECORDS SUMMARY | 2024-11-11 13:49 | XMS_ITS | Clinical Summary ---
Author Organization [address] [facility] Address [address] [place] [address] Phone Care Team Providers Care Cigarette Tester Name Role Phone Geetha Sidhu MD Primary Care Provider + [phone] Allergies Active Allergy Reactions Criticality Noted Date Comments Codeine 09/03/2022 Other reaction(s): Unknown Piperacillin-Tazobact am-Dextrs Anaphylaxis High 09/03/2024 Noted at [facility] hospitalization 08/29/24 Medications acetaminophen (TYLENOL) 500 mg [...] total) by mouth. at bedtime. Active FreeStyle [place] Lite monitoring kit See administration instructions. 06/12/19 [...] 11/02/2024 3:00 PM EDT Office Visit Neurosurgery [address] [phone] Liv Levi MD Cerebral aneurysm, nonruptured (Primary Dx) 09/07/2024 Telephone Neurosurgery [address] [phone] Sophie Rsoen MA from Last 3 Months Social History [...] PM EDT Office Visit Orthopedic Surgery - [place] [address] [phone] John Damon, DPM [address] [address] Health Maintenance Due Date Last Done Comments [...] Insurance MEDICARE MEDICAID - [place] Care Teams Cigarette Tester Relationship Specialty Start Date End Date Geetha Sidhu MD [address] [place] [phone] PCP - General Internal Medicine 04/30/24
--- OUTSIDE RECORDS SUMMARY | 2024-11-11 13:49 | XMS_ITS | Encounter Summary ---
Author Organization [employer] Address [address] [place] [address] 7 [place] [address] Care Team Providers Care Digital Strategy Specialist Name Role Phone Laurence Granados Primary Care Provider [phone] Charles Curtis Unavailable Unavailable Geetha Sidhu MD Primary Care Provider + Encounter Details Date Type Department Care Team (Late Contact Info) Description 10/31/2022 Orders Only [facility] MEDICINE [address] [place] [address] Laurence Granados FNP [address] [place] [address] Mobility impaired (Primary Dx) Social History Tobacco [...] 11:15 AM EDT Office Visit [facility] MEDICINE [address] [place] [address] Geetha Sidhu MD [address] [place] [address] documented as of this encounter Visit Diagnoses Diagnosis Mobility impaired- Primary Other ill-defined conditions documented in this encounter Additional Health Concerns Assessment Noted Time PHQ-9 Depression Total Score: 3 08/21/19 23 1:08 PM EDT documented as of this encounter Care Teams Digital Strategy Specialist Relationship Specialty Start Date End Date Laurence Granados FNP [address] [place] [address] PCP - General Family Medicine 03/27/22 12/01/23 Geteha Sidhu MD [address] [place] [address] PCP - General Internal Medicine 12/02/23 Charles Curtis FNP [address] [place] [address] Nurse Practitioner Family Medicine 02/17/23 Pati Graff RN Care Manager 02/11/23 09/12/24 [facility] documented as of this encounter
== END 2024-11-11 13:32 | disposition home or self-care (01) ==
LOC: HO.ENCR 13:00
PROVIDERS: PCP Nurse Practitioner Family; Visit Provider Internal Medicine Endocrinology, Diabetes & Metabolism
DX: E16.2 Hypoglycemia, unspecified (principal)
CPT/HCPCS: 99204

== ENCOUNTER → 2024-11-11 13:00 | Outpatient (BNVA) | payer MEDICARE, MEDICAID, SELFPAY | PROVIDERS: PCP Nurse Practitioner Family; Visit Provider Internal Medicine Endocrinology, Diabetes & Metabolism | DX: E16.2 Hypoglycemia, unspecified (principal) | CPT/HCPCS: 99202 ==

== ENCOUNTER 2024-12-17 09:45 | Outpatient (REF) | payer MEDICARE, MEDICAID, SELFPAY ==
--- NOTE | ~2024-12-17 | CT_ITS ---
CLINICAL HISTORY: Restaging CAT scan of the chest. CT chest with contrast Comparison: 06/01/2024 Findings: The heart size is normal. There is a 1.3 cm right paratracheal lymph node, unchanged. The visualized thyroid and mediastinum are otherwise unremarkable. There is residual or recurrent right lower lobe consolidation, possible pneumonia, atelectasis, or scarring. There are changes of pulmonary bullous disease The visualized upper abdomen is unremarkable. No acute fractures. Midthoracic vertebral body blastic finding, unchanged. IMPRESSION: 1. Residual or recurrent right lower lobe consolidation, differential considerations noted 2. Otherwise stable findings. This document has been electronically signed by: Keon Love MD on 12/20/2024 08:12:49
--- OUTSIDE RECORDS SUMMARY | 2024-12-17 10:20 | XMS_ITS | Encounter Summary ---
Author Organization [employer] Address 75 [facility] 7t [place] [address] Care Team Providers Care Vineyard Worker Name Role Phone Laurence Granados Primary Care Provider [phone] Charles Curtis Unavailable Unavailable Geetha Sidhu MD Primary Care Provider + Reason for Visit * Reason Comments Med Refill Encounter Details Date Type Department Care Team (Late st Contact Info) Description 04/26/2022 Refill [facility] [address] [place] [address] [phone] El Delcid MD [address] [place], [place] [phone] Acute upper respiratory infection, unspecified Social History [...] Care Team (Late st Contact Info) Description 02/01/2025 10:00 AM EST Office Visit [facility] MEDICINE [address] [place] [address] Geetha Sidhu MD [address] [place] [address] documented as of this encounter Visit Diagnoses Diagnosis Acute upper respiratory infection, unspecified documented in this encounter Additional Health Concerns Assessment Noted Time PHQ-9 Depression Total Score: 5 04/12/19 10:58 AM EST documented as of this encounter Care Teams Vineyard Worker Relationship Specialty Start Date End Date Laurence Granados FNP [address] [place] [address] PCP - General Family Medicine 03/27/22 12/01/23 Geetha Sidhu MD [address] [place] [address] PCP - General Internal Medicine 12/02/23 Charles Curtis FNP [address] [place] [address] Nurse Practitioner Family Medicine 02/17/23 Pati Graff RN Care Manager 02/11/23 09/12/24 [facility] 08/30/24 documented as of this encounter
--- OUTSIDE RECORDS SUMMARY | 2024-12-17 10:20 | XMS_ITS | Encounter Summary ---
Author Organization [employer] Address 75 [facility] 7t [place] [address] Care Team Providers Care Strainer Cleaner Name Role Phone Ever Charlesrobert PEÑALOZA Unavailable Unavailable Geetha Sidhu MD Primary Care Provider + Encounter Details Date Type Department Care Team ([facility] st Contact Info) Description 03/17/2024 Telephone [facility] MEDICINE [address] [place], [place] [phone] Geetha Sidhu MD [address] [place], [place] [phone] Social History Tobacco Use Types Packs/Day Years [...] Description 02/01/2025 10:00 AM EST Office Visit [facility] MEDICINE [address] [place] [address] Geetha Sidhu MD [address] [place] [address] documented as of this encounter Visit Diagnoses Not on filedocumented in this encounter Additional Health Concerns Assessment Noted Time PHQ-9 Depression Total Score: 6 09/09/19 24 11:10 AM EDT documented as of this encounter Care Teams Strainer Cleaner Relationship Specialty Start Date End Date Geetha Sidhu MD [address] [place] [address] PCP - General Internal Medicine 12/02/23 Charles Curtis FNP Nurse Practitioner Family Medicine 02/17/23 Pati Graff RN Care Manager 02/11/23 09/12/24 [facility] documented as of this encounter
--- OUTSIDE RECORDS SUMMARY | 2024-12-17 10:20 | XMS_ITS | Encounter Summary ---
Author Organization [employer] Address [address] [place] [address] 7 [place] [address] Care Team Providers Care Medical Unit Secretary Name Role Phone Laurence Granados Primary Care Provider [phone] Charles Curtis Unavailable Unavailable Geetha Sidhu MD Primary Care Provider + Encounter Details Date Type Department Care Team ([facility] Contact Info) Description 10/31/2022 Orders Only [facility] MEDICINE [address] [place] [address] Laurence Granados FNP [address] [place] [address] Mobility impaired (Primary Dx) Social History Tobacco [...] Department Care Team (Late Contact Info) Description 02/01/2025 10:00 AM EST Office Visit [facility] MEDICINE [address] [place] [phone] Geetha Sidhu MD [address] [place] [address] documented as of this encounter Visit Diagnoses Diagnosis Mobility impaired- Primary Other ill-defined conditions documented in this encounter Additional Health Concerns Assessment Noted Time PHQ-9 Depression Total Score: 3 08/21/19 23 1:08 PM EDT documented as of this encounter Care Teams Medical Unit Secretary Relationship Specialty Start Date End Date Laurence Granados FNP [address] [place] [address] PCP - General Family Medicine 03/27/22 12/01/23 Geetha Sidhu MD [address] [place] [address] PCP - General Internal Medicine 12/02/23 Charles Curtis FNP [address] [place] [address] Nurse Practitioner Family Medicine 02/17/23 Pati Graff RN Care Manager 02/11/23 09/12/24 [facility] documented as of this encounter
--- OUTSIDE RECORDS SUMMARY | 2024-12-17 10:20 | XMS_ITS | Encounter Summary ---
Author Organization [employer] Address 75 [facility] 7t [place] [address] Care Team Providers Care Sewing Supervisor Name Role Phone Laurence Granados Primary Care Provider [phone] Charles Curtis Unavailable Unavailable Geetha Sidhu MD Primary Care Provider + Reason for Visit * Reason Comments Med Refill Encounter Details Date Type Department Care Team (Late st Contact Info) Description 02/20/2023 Refill [facility] MEDICINE [address] [place], [place] [phone] Alaina Franklin MD 230 [place], [place] [phone] Social History Tobacco Use Types Packs/Day Years [...] Description 02/01/2025 10:00 AM EST Office Visit [facility] MEDICINE [address] [place] [address] Geetha Sidhu MD [address] [place] [address] documented as of this encounter Visit Diagnoses Not on filedocumented in this encounter Additional Health Concerns Assessment Noted Time PHQ-9 Depression Total Score: 9 02/14/20 23 3:41 PM EST documented as of this encounter Care Teams Sewing Supervisor Relationship Specialty Start Date End Date Laurence Granados FNP [address] [place] [address] PCP - General Family Medicine 03/27/22 12/01/23 Geetha Sidhu MD [address] [place] [address] PCP - General Internal Medicine 12/02/23 Charles Curtis FNP [address] [place] [address] Nurse Practitioner Family Medicine 02/17/23 Pati Graff RN Care Manager 02/11/23 09/12/24 [facility] 08/30/24 documented as of this encounter
--- OUTSIDE RECORDS SUMMARY | 2024-12-17 10:20 | XMS_ITS | Encounter Summary ---
Author Organization [employer] Address 75 [facility] 7t [place] [address] Care Team Providers Care It Consultant Name Role Phone Laurence Granados Primary Care Provider [phone] Charles Curtis Unavailable Unavailable Geetha Sidhu MD Primary Care Provider + Reason for Visit * Reason Comments Med Refill Encounter Details Date Type Department Care Team (Late st Contact Info) Description 11/13/2023 Refill [facility] [address] [place] [address] Laurence Granados FNP [address] [place], [place] [phone] Neoplasm related pain (acute) (chronic) Social History [...] Description 02/01/2025 10:00 AM EST Office Visit [facility] MEDICINE [address] [place] [phone] Geetha Sidhu MD [address] [place] [address] documented as of this encounter Visit Diagnoses Diagnosis Neoplasm related pain (acute) (chronic) documented in this encounter Additional Health Concerns Assessment Noted Time PHQ-9 Depression Total Score: 6 09/09/19 24 11:10 AM EDT documented as of this encounter Care Teams It Consultant Relationship Specialty Start Date End Date Laurence Granados FNP [address] [place] [address] PCP - General Family Medicine 03/27/22 12/01/23 Geetha Sidhu MD [address] [place] [address] PCP - General Internal Medicine 12/02/23 Charles Curtis FNP [address] [place] [address] Nurse Practitioner Family Medicine 02/17/23 Pati Graff RN Care Manager 02/11/23 09/12/24 [facility] 08/30/24 documented as of this encounter
--- OUTSIDE RECORDS SUMMARY | 2024-12-17 10:20 | XMS_ITS | Encounter Summary ---
Author Organization [employer] Address 75 [facility] 7t [place] [address] Care Team Providers Care Ballpoint Pens Assembler Name Role Phone Laurence Granados Primary Care Provider [phone] Charles Curtis Unavailable Unavailable Geetha Sidhu MD Primary Care Provider + Encounter Details Date Type Department Care Team (Late st Contact Info) Description 04/29/2023 Orders Only [facility] MED [facility] PEDS [address] [place] [address] Laurence Granados FNP 230 [facility] [place] [address] Social History Tobacco Use Types Packs/Day Years [...] Description 02/01/2025 10:00 AM EST Office Visit [facility] MEDICINE [address] [place] [address] Geetha Sidhu MD [address] [place] [address] documented as of this encounter Visit Diagnoses Not on filedocumented in this encounter Additional Health Concerns Assessment Noted Time PHQ-9 Depression Total Score: 9 02/14/20 23 3:41 PM EST documented as of this encounter Care Teams Ballpoint Pens Assembler Relationship Specialty Start Date End Date Laurence Granados FNP [address] [place] [address] PCP - General Family Medicine 03/27/22 12/01/23 Geetha Sidhu MD [address] [place] [address] PCP - General Internal Medicine 12/02/23 Charles Curtis FNP [address] [place] [address] Nurse Practitioner Family Medicine 02/17/23 Pati Graff RN Care Manager 02/11/23 09/12/24 [facility] 08/30/24 documented as of this encounter
--- OUTSIDE RECORDS SUMMARY | 2024-12-17 10:20 | XMS_ITS | Encounter Summary ---
Author Organization [employer] Address 75 [facility] 7 [place] [address] Care Team Providers Care Diorama Model Maker Name Role Phone Laurence Granados Primary Care Provider [phone] Charles Curtis Unavailable Unavailable Geetha Sidhu MD Primary Care Provider + Reason for Visit * Reason Comments Med Refill Encounter Details Date Type Department Care Team (Late st Contact Info) Description 07/25/2023 Refill [facility] MEDICINE [address] [place], [place] [phone] Laurence Granados FNP [address] [place], [place] [phone] Social History Tobacco Use Types Packs/Day Years [...] 02/01/2025 10:00 AM EST Office Visit [facility] MEDICINE [address] [place] [address] Geetha Sidhu MD [address] [place] [address] documented as of this encounter Visit Diagnoses Not on filedocumented in this encounter Additional Health Concerns Assessment Noted Time PHQ-9 Depression Total Score: 7 07/07/19 24 11:18 AM EDT documented as of this encounter Care Teams Diorama Model Maker Relationship Specialty Start Date End Date Laurence Granados FNP [address] [place] [address] PCP - General Family Medicine 03/27/22 12/01/23 Geetha Sidhu MD [address] [place] [address] PCP - General Internal Medicine 12/02/23 Charles Curtis FNP [address] [place] [address] Nurse Practitioner Family Medicine 02/17/23 Pati Graff RN Care Manager 02/11/23 09/12/24 [facility] 08/30/24 documented as of this encounter
--- OUTSIDE RECORDS SUMMARY | 2024-12-17 10:20 | XMS_ITS | Encounter Summary ---
Author Organization [employer] Address 75 [facility] [address]t [place] [address] Care Team Providers Care Physical Therapy Nurse Name Role Phone RufinaasaCharles ANABELA Unavailable Unavailable Geetha Sidhu MD Primary Care Provider + Encounter Details Date Type Department Care Team ([facility] st Contact Info) Description 10/28/2024 Results Follow-Up [facility] MEDICINE [address] [place], [place] [phone] Geetha Sidhu MD 230 [place] [address] CTA Head w/ and w/o Contrast, CT Urogram w/o Contrast Social History Tobacco Use Types Packs/Day Years Used Date Smoking Tobacco: Former Cigarettes Q uit: 2020 Passive Smoke Exposure: Past Smokeless Tobacco: Never Alcohol Use Standard Drinks/Week Comments Not Currently 0 (1 standard drink = 0.6 oz pur e alcohol) Depression Answer Date Recorded Patient Health Questionnaire-9 Score 3 07/09/2024 Patient Health Questionnaire-9 Score 3 07/09/2024 Last PHQ-9: Questionnaire Data Not on file 0 07/09/2024 Housing Stability Answer Date Recorded What is [...] Date Recorded Patient Health Questionnaire-2 Score 2 07/09/2024 Comments Unknown Sex and Gender Information Value Date Recorded Sex Assigned at Female 01/28/2022 10:17 AM EDT Legal Sex Female 10:17 AM EDT Gender Identity Female 01/28/2022 10:17 AM EDT Sexual Orientation Straight 04/04/2022 10 :21 AM EST documented as of this encounter Miscellaneous Notes * Result Encounter Note - Geetha Sidhu MD - 11/02/2024 10:[address] abd 10/28/24 reviewed, has kidney stone, she's Seen by . 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 documented in this encounter Plan of Treatment Upcoming Encounters Date Type Department Care Team (Late st Contact Info) Description 02/01/2025 10:00 AM EST Office Visit [facility] MEDICINE [address] [place] [address] Geetha Sidhu MD [address] [place] [address] documented as of this encounter Visit Diagnoses Not on filedocumented in this encounter Additional Health Concerns Assessment Noted Time PHQ-9 Depression Total Score: 3 07/10/19 25 11:31 AM EDT documented as of this encounter Care Teams Physical Therapy Nurse Relationship Specialty Start Date End Date Geetha Sidhu MD [address] [place] [address] PCP - General Internal Medicine 12/02/23 Charles Curtis FNP Nurse Practitioner Family Medicine 02/17/23 [facility] 08/30/24 documented as of this encounter
--- OUTSIDE RECORDS SUMMARY | 2024-12-17 10:20 | XMS_ITS | Encounter Summary ---
Author Organization [employer] Address [address] [place] [address] 7 [place] [address] Care Team Providers Care Oracle Adf Consultant Name Role Phone Laurence Granados Primary Care Provider [phone] Charles Curtis Unavailable Unavailable Geetha Sidhu MD Primary Care Provider + Encounter Details Date Type Department Care Team (Late st Contact Info) Description 06/17/2022 Orders Only [facility] MED[facility]INE [address] [place] [address] Laurence Granados FNP [address] [place] [address] Chronic pain due to neoplasm Social History [...] AM EST documented as of this encounter Functional Status * Over the past 2 weeks, how often have you been bothered by any of the following problems? Question Answer Date of Assessment Author Patient Health Questionnaire -2 Score 2 06/20/2022 10:21 AM EDT Brian Garcia MA * If you checked off any problems on this questionnaire so far, Question Answer Date of Assessment Author How difficult have these problems made it for you to do your work, take care of things at home, or get along with other people? Somewhat difficult 06/20/2022 10:21 AM Brian Rubin MA * Over the past 2 weeks, how often have you been bothered by any of the following problems? Question Answer Date of Assessment Author Little interest or pleasure in doing things Several days 06/20/2022 10:21 AM Sonali Rubin MA Feeling down, depressed, or hopeless Several days 06/20/2022 10:21 AM Brian Rubin MA Trouble falling or staying asleep, or sleeping too much Several days 06/20/2022 10:21 AM Brian Rubin MA Feeling tired or having little energy Nearly every day 06/20/2022 10:21 AM Brian Rubin MA Poor appetite or overeating Several days 06/20/2022 10:21 AM Brian Rubin MA Feeling bad about yourself - or that you are a failure or have let yourself or your family down Not at all 06/20/2022 10:21 AM Brian Rubin MA Trouble concentrating on things, such as reading the newspaper or watching television Not at all 06/20/2022 10:21 AM Brian Rubin MA Moving or speaking so slowly that other people could have noticed? Or the opposite - being so fidgety or restless that you have been moving around a lot more than usual. Several days 06/20/2022 10:21 AM Brian Rubin MA Thoughts that you would be better off or hurting yourself in some way Not at all 06/20/2022 10:21 AM Farrukh Rubin MA Patient Health Questionnaire-9 Score 8 06/20/2022 10:21 AM Aleksandra Rubin MA documented as of this encounter Plan of Treatment Upcoming Encounters Date Type Department Care Team (Late st Contact Info) Description 02/01/2025 10:00 AM EST Office Visit [facility] [address] [place] [address] Geetha Sidhu MD 230 [place] [address] documented as of this encounter Visit Diagnoses Diagnosis Chronic pain due to neoplasm documented in this encounter Additional Health Concerns Assessment Noted Time PHQ-9 Depression Total Score: 5 04/12/19 23 10:58 AM EST documented as of this encounter Care Teams Oracle Adf Consultant Relationship Specialty Start Date End Date Laurence Granados FNP [address] [place] [address] PCP - General Family Medicine 03/27/22 12/01/23 Geetha Sidhu MD [address] [place] [address] PCP - General Internal Medicine 12/02/23 Charles Curtis FNP [address] [place] [address] Nurse Practitioner Family Medicine 02/17/23 Pati Graff RN Care Manager 02/11/23 09/12/24 [facility] 08/30/24 documented as of this encounter
--- OUTSIDE RECORDS SUMMARY | 2024-12-17 10:20 | XMS_ITS | Encounter Summary ---
Author Organization [employer] Address [address] [facility] 7 [place] [address] Care Team Providers Care Pantograph Ii Engraver Name Role Phone Charles Curtis Unavailable Unavailable Geetha Sidhu MD Primary Care Provider + Reason for Visit * Reason Comments Med Refill Encounter Details Date Type Department Care Team (Late st Contact Info) Description 09/19/2024 Refill [facility] 230 [place], [place] [phone] Myra Guillory MD 230 [place], [place] [phone] Mixed anxiety and depressive disorder Social History Tobacco Use Types Packs/Day Years [...] Description 02/01/2025 10:00 AM EST Office Visit [facility] [address] [place] [address] Geetha Sidhu MD [address] [place] [address] documented as of this encounter Visit Diagnoses Diagnosis Mixed anxiety and depressive disorder Dysthymic disorder documented in this encounter Additional Health Concerns Assessment Noted Time PHQ-9 Depression Total Score: 3 07/10/19 25 11:31 AM EDT documented as of this encounter Care Teams Pantograph Ii Engraver Relationship Specialty Start Date End Date Geetha Sidhu MD [address] [place] [address] PCP - General Internal Medicine 12/02/23 Charles Curtis FNP Nurse Practitioner Family Medicine 02/17/23 [facility] 08/30/24 documented as of this encounter
--- OUTSIDE RECORDS SUMMARY | 2024-12-17 10:20 | XMS_ITS | Clinical Summary ---
Author Organization [facility] Address [address] [place] [address] Phone Care Team Providers Care Poker Supervisor Name Role Phone Geetha Sidhu MD Primary Care Provider + [phone] Allergies Active Allergy Reactions Criticality Noted Date Comments Codeine 09/03/2022 Other reaction(s): Unknown Piperacillin-Tazobact am-Dextrs Anaphylaxis High 09/03/2024 Noted at [facility] hospitalization 08/29/24 Medications acetaminophen (TYLENOL) 500 mg [...] total) by mouth. at bedtime. Active FreeStyle [place] Lite monitoring kit See administration instructions. 06/12/19 [...] Max Daily Amount: 1.5 mg 10/26/19 25 Active cyanocobalamin (VITAMIN B-12) 1,000 mcg tablet [...] total) by mouth. for 3 days 02/25/20 Active risperiDONE (RisperDAL) 1 mg tablet TAKE 1/2 TABLET BY MOUTH EVERY MORNING and TAKE 1 TABLET BY MOUTH AT BEDTIME 10/26/19 Active sennosides 8.6 mg capsule Take by [...] 11/02/2024 3:00 PM EDT Office Visit [facility] [place] [facility] [address] [place] [phone] Liv Levi MD Cerebral aneurysm, nonruptured (Primary Dx) from Last 3 Months Social History Tobacco [...] Care Team (Late st Contact Info) Description 02/08/2025 1:45 PM EST Office Visit [facility] [place] [address] [phone] John Damon, DPM [address] [address] Health Maintenance Due Date Last Done Comments [...] Insurance MEDICARE MEDICAID - [place] Care Teams Poker Supervisor Relationship Specialty Start Date End Date Geetha Sidhu MD [address] [place] [phone] PCP - General Internal Medicine 04/30/24
--- OUTSIDE RECORDS SUMMARY | 2024-12-17 10:20 | XMS_ITS | Encounter Summary ---
Author Organization [employer] Address [address] [facility] 7 [place] [address] Care Team Providers Care Electric Razor Assembler Name Role Phone Laurence Granados Primary Care Provider [phone] Charles Curtis Unavailable Unavailable Geetha Sidhu MD Primary Care Provider + Reason for Visit * Reason Onset Date Comments Appointment Request 05/07/2023 Encounter Details Date Type Department Care Team ([facility] st Contact Info) Description 05/07/2023 Telephone [facility] MED[facility]INE [address] [place], [place] [phone] Laurence Granados FNP [address] [place], [place] [phone] Appointment Request Social History Tobacco Use Types [...] daughter requesting a f/u appt with PCP [phone] documented in this encounter Plan of Treatment Upcoming Encounters Date Type Department Care Team (Late st Contact Info) Description 02/01/2025 10:00 AM EST Office Visit [facility] [address] [place] [address] Geetha Sidhu MD 230 [place] [address] documented as of this encounter Visit Diagnoses Not on filedocumented in this encounter Additional Health Concerns Assessment Noted Time PHQ-9 Depression Total Score: 9 02/14/20 23 3:41 PM EST documented as of this encounter Care Teams Electric Razor Assembler Relationship Specialty Start Date End Date Laurence Granados FNP [address] [place] [address] PCP - General Family Medicine 03/27/22 12/01/23 Geetha Sidhu MD 230 [place] [address] PCP - General Internal Medicine 12/02/23 Charles Curtis FNP 230 [place] [address] Nurse Practitioner Family Medicine 02/17/23 Pati Graff RN Care Manager 02/11/23 09/12/24 [facility] 08/30/24 documented as of this encounter
--- OUTSIDE RECORDS SUMMARY | 2024-12-17 10:20 | XMS_ITS | Encounter Summary ---
Author Organization [employer] Address [address] [place] [address] 7 [place] [address] Care Team Providers Care Director Patient Financial Services Name Role Phone Laurence Granados Primary Care Provider [phone] Charles Curtis Unavailable Unavailable Geetha Sidhu MD Primary Care Provider + Reason for Visit * Reason Onset Date Comments Nurse Triage 10/31/2022 Encounter Details Date Type Department Care Team (Late st Contact Info) Description 10/31/2022 Telephone [facility] MEDICINE 230 [place], [place] [phone] Laurence Granados FNP [address] [place], [place] [phone] Nurse Triage Social History Tobacco Use Types [...] 3:04 PM EDT Call to [place] [facility], reports during visit today pt had [...] Description 02/01/2025 10:00 AM EST Office Visit [facility] 230 [place] [address] Geetha Sidhu MD 230 [place], [place] [phone] documented as of this encounter Visit Diagnoses Not on filedocumented in this encounter Additional Health Concerns Assessment Noted Time PHQ-9 Depression Total Score: 3 08/21/19 23 1:08 PM EDT documented as of this encounter Care Teams Director Patient Financial Services Relationship Specialty Start Date End Date Laurence Granados FNP 230 [place] [address] PCP - General Family Medicine 03/27/22 12/01/23 Geetha Sidhu MD 230 [place] [address] PCP - General Internal Medicine 12/02/23 Charles Curtis FNP [address] [place] [address] Nurse Practitioner Family Medicine 02/17/23 Pati Graff RN Care Manager 02/11/23 09/12/24 [facility] 08/30/24 documented as of this encounter
--- OUTSIDE RECORDS SUMMARY | 2024-12-17 10:21 | XMS_ITS | Encounter Summary ---
Author Organization [employer] Address [address] [place] [address] 7 [place] [address] Care Team Providers Care Manager Sap Name Role Phone Laurence Granados Primary Care Provider [phone] Charles Curtis Unavailable Unavailable Geetha Sidhu MD Primary Care Provider + Reason for Visit * Reason Onset Date Comments R/S appt 08/13/2022 Encounter Details Date Type Department Care Team (Late st Contact Info) Description 08/13/2022 Telephone [facility] [address] [place], [place] [phone] Laurence Granados FNP [address] [place] [address] R/S appt Social History Tobacco Use Types [...] - 08/13/2022 3:58 PM EDT Tc from [facility] calling to R/S appt from 08/14 ( [facility] amission 07/04/2022 and release 08/01/2022 dx unsure). PCP Dr. Granados documented in this encounter Plan of Treatment Upcoming Encounters Date Type Department Care Team (Late st Contact Info) Description 02/01/2025 10:00 AM EST Office Visit [facility] 230 [place] [address] Geetha Sidhu MD 230 [place] [address] documented as of this encounter Visit Diagnoses Not on filedocumented in this encounter Additional Health Concerns Assessment Noted Time PHQ-9 Depression Total Score: 8 06/21/19 10:21 AM EDT documented as of this encounter Care Teams Manager Sap Relationship Specialty Start Date End Date Laurence Granados FNP [address] [place] [address] PCP - General Family Medicine 03/27/22 12/01/23 Geetha Sidhu MD [address] [place] [address] PCP - General Internal Medicine 12/02/23 Charles Curtis FNP [address] [place] [address] Nurse Practitioner Family Medicine 02/17/23 Pati Graff RN Care Manager 02/11/23 09/12/24 [facility] documented as of this encounter
--- OUTSIDE RECORDS SUMMARY | 2024-12-17 10:21 | XMS_ITS | Encounter Summary ---
Author Organization [employer] Address [address] [place] [address] Care Team Providers Care Program Management Intern Name Role Phone Laurence Granados Primary Care Provider [phone] Charles Curtis Unavailable Unavailable Geetha Sidhu MD Primary Care Provider + Encounter Details Date Type Department Care Team ([facility] Contact Info) Description 08/21/2022 [facility] Information Management 230 [place] [address] Laurence Granados FNP 230 [place] [address] Social History Tobacco Use Types Packs/Day Years [...] Upcoming Encounters Date Type Department Care Team ([facility] Contact Info) Description 02/01/2025 10:00 AM EST Office Visit [facility] MEDICINE 230 [place], [place] [phone] Geetha Sidhu MD 230 [place] [address] documented as of this encounter Visit Diagnoses Not on filedocumented in this encounter Additional Health Concerns Assessment Noted Time PHQ-9 Depression Total Score: 3 08/21/19 23 1:08 PM EDT documented as of this encounter Care Teams Program Management Intern Relationship Specialty Start Date End Date Laurence Granados FNP [address] [place] [address] PCP - General Family Medicine 03/27/22 12/01/23 Geetha Sidhu MD [address] [place] [address] PCP - General Internal Medicine 12/02/23 Charles Curtis FNP [address] [place] [address] Nurse Practitioner Family Medicine 02/17/23 Pati Graff RN Care Manager 02/11/23 09/12/24 [facility] 08/30/24 documented as of this encounter
--- OUTSIDE RECORDS SUMMARY | 2024-12-17 10:21 | XMS_ITS | Encounter Summary ---
Author Organization [employer] Address [address] [place] [address] 7 [place] [address] Care Team Providers Care Wheel Polisher Name Role Phone Laurence Granados Primary Care Provider [phone] Charles Curtis Unavailable Unavailable Geetha Sidhu MD Primary Care Provider + Reason for Visit * Reason Onset Date Comments Appointment 08/14/2022 LVM-Re: her appt for today as [id number] @ 1:15pm. Encounter Details Date Type Department Care Team ([facility] Contact Info) Description 08/14/2022 Telephone [facility] MEDICINE [address] [place], [place] [phone] Laurence Granados FNP [address] [place] [address] Appointment (LVM-Re: her appt for today as [id number] @ 1:15pm. ) Social History Tobacco Use [...] 10:00 AM EST Office Visit [facility]INE [address] [place] [address] Geetha Sidhu MD 230 [place] [address] documented as of this encounter Visit Diagnoses Not on filedocumented in this encounter Additional Health Concerns Assessment Noted Time PHQ-9 Depression Total Score: 8 06/21/19 10:21 AM EDT documented as of this encounter Care Teams Wheel Polisher Relationship Specialty Start Date End Date Laurence Granados FNP [address] [place] [address] PCP - General Family Medicine 03/27/22 12/01/23 Geetha Sidhu MD [address] [place] [address] PCP - General Internal Medicine 12/02/23 Charles Curtis FNP [address] [place] [address] Nurse Practitioner Family Medicine 02/17/23 Pati Graff RN Care Manager 02/11/23 09/12/24 [facility] 08/30/24 documented as of this encounter
--- OUTSIDE RECORDS SUMMARY | 2024-12-17 10:21 | XMS_ITS | Encounter Summary ---
Author Organization [employer] Address [address] [place] [address] 7 [place] [address] Care Team Providers Care Commercial Intelligence Manager Name Role Phone Laurence Granados Primary Care Provider [phone] Charles Curtis Unavailable Unavailable Geetha Sidhu MD Primary Care Provider + Reason for Visit * Reason Onset Date Comments FYI 08/05/2022 Encounter Details Date Type Department Care Team (Late st Contact Info) Description 08/05/2022 Telephone [facility] MEDICINE [address] [place], [place] [phone] Laurence Granados FNP [address] [place], [place] [phone] FYI Social History Tobacco Use Types Packs/Day [...] for 5 weeks. Any further questionsplease call [phone]. documented in this encounter Plan of Treatment Upcoming Encounters Date Type Department Care Team (Late st Contact Info) Description 02/01/2025 10:00 AM EST Office Visit [facility]INE [address] [place] [address] Geetha Sidhu MD 230 [place] [address] documented as of this encounter Visit Diagnoses Not on filedocumented in this encounter Additional Health Concerns Assessment Noted Time PHQ-9 Depression Total Score: 8 06/21/19 10:21 AM EDT documented as of this encounter Care Teams Commercial Intelligence Manager Relationship Specialty Start Date End Date Laurence Granados FNP [address] [place] [address] PCP - General Family Medicine 03/27/22 12/01/23 Geetha Sidhu MD [address] [place] [address] PCP - General Internal Medicine 12/02/23 Charles Curtis FNP [address] [place] [address] Nurse Practitioner Family Medicine 02/17/23 Pati Graff RN Care Manager 02/11/23 09/12/24 [facility] 08/30/24 documented as of this encounter
--- OUTSIDE RECORDS SUMMARY | 2024-12-17 10:21 | XMS_ITS | Encounter Summary ---
Author Organization [employer] Address [address] [place] [address] 7 [place] [address] Care Team Providers Care Defect Repairer Glassware Name Role Phone Laurence Granados Primary Care Provider [phone] Charles Curtis Unavailable Unavailable Geetha Sidhu MD Primary Care Provider + Reason for Visit * Reason Onset Date Comments FYI 09/12/2022 Encounter Details Date Type Department Care Team (Late st Contact Info) Description 09/12/2022 Telephone [facility] MEDICINE 230 [place], [place] [phone] Laurence Granados FNP [address] [place], [place] [phone] FYI Social History Tobacco Use Types Packs/Day [...] 1:27 PM EDT Tc from [facility] Visiting Nurses calling to inform PCP, patient missed her visit for this week (09/12/22) but they will resume visit for next week. documented in this encounter Plan of Treatment Upcoming Encounters Date Type Department Care Team (Late st Contact Info) Description 02/01/2025 10:00 AM EST Office Visit [facility] MEDICINE [address] [place] [address] Geetha Sidhu MD 230 [place] [address] documented as of this encounter Visit Diagnoses Not on filedocumented in this encounter Additional Health Concerns Assessment Noted Time PHQ-9 Depression Total Score: 3 08/21/19 1:08 PM EDT documented as of this encounter Care Teams Defect Repairer Glassware Relationship Specialty Start Date End Date Laurence Granados FNP 230 [place] [address] PCP - General Family Medicine 03/27/22 12/01/23 Geetha Sidhu MD [address] [place] [address] PCP - General Internal Medicine 12/02/23 Charles Curtis FNP [address] [place] [address] Nurse Practitioner Family Medicine 02/17/23 Pati Graff RN Care Manager 02/11/23 09/12/24 [facility] 08/30/24 documented as of this encounter
--- OUTSIDE RECORDS SUMMARY | 2024-12-17 10:21 | XMS_ITS | Encounter Summary ---
Author Organization [employer] Address [address] [place] [address] 7t [place] [address] Care Team Providers Care Road Design Draftsperson Name Role Phone Laurence Granados Primary Care Provider [phone] Charles Curtis Unavailable Unavailable Geetha Sidhu MD Primary Care Provider + Encounter Details Date Type Department Care Team (Late Contact Info) Description 09/23/2022 Abstract [facility] MED[facility]INE [address] [place] [address] Laurence Granados FNP [address] [place] [address] Social History Tobacco Use Types Packs/Day Years [...] Description 02/01/2025 10:00 AM EST Office Visit [facility] [address] [facility] [place] [address] Geetha Sidhu MD 230 [place] [address] documented as of this encounter Visit Diagnoses Not on filedocumented in this encounter Additional Health Concerns Assessment Noted Time PHQ-9 Depression Total Score: 3 08/21/19 23 1:08 PM EDT documented as of this encounter Care Teams Road Design Draftsperson Relationship Specialty Start Date End Date Laurence Granados FNP [address] [facility] [place] [address] PCP - General Family Medicine 03/27/22 12/01/23 Geetha Sidhu MD 230 [place] [address] PCP - General Internal Medicine 12/02/23 Charles Curtis FNP [address] [place] [address] Nurse Practitioner Family Medicine 02/17/23 Pati Graff RN Care Manager 02/11/23 09/12/24 [facility] 08/30/24 documented as of this encounter
--- OUTSIDE RECORDS SUMMARY | 2024-12-17 10:21 | XMS_ITS | Encounter Summary ---
Author Organization [employer] Address [address] [place] [address], [place] [address] Care Team Providers Care Stock Turner Name Role Phone Laurence Granados Primary Care Provider [phone] Charles Curtis Unavailable Unavailable Geetha Sidhu MD Primary Care Provider + Encounter Details Date Type Department Care Team ([facility] Contact Info) Description 08/14/2022 Orders Only [facility] MEDICINE [address] [place] [address] Laurence Granados FNP [address] [place] [address] Essential hypertension Social History Tobacco Use Types [...] Upcoming Encounters Date Type Department Care Team ([facility] Contact Info) Description 02/01/2025 10:00 AM EST Office Visit [facility] MEDICINE [address] [place], [place] [phone] Geetha Sidhu MD [address] [place] [address] documented as of this encounter Visit Diagnoses Diagnosis Essential hypertension Unspecified essential hypertension documented in this encounter Additional Health Concerns Assessment Noted Time PHQ-9 Depression Total Score: 8 06/21/19 23 10:21 AM EDT documented as of this encounter Care Teams Stock Turner Relationship Specialty Start Date End Date Laurence Granados FNP [address] [place] [address] PCP - General Family Medicine 03/27/22 12/01/23 Geetha Sidhu MD [address] [place] [address] PCP - General Internal Medicine 12/02/23 Charles Curtis FNP [address] [place] [address] Nurse Practitioner Family Medicine 02/17/23 Pati Graff RN Care Manager 02/11/23 09/12/24 [facility] 08/30/24 documented as of this encounter
--- OUTSIDE RECORDS SUMMARY | 2024-12-17 10:21 | XMS_ITS | Encounter Summary ---
Author Organization [employer] Address [address] [place] [address] 7 [place] [address] Care Team Providers Care Electric Golf Cart Repairer Name Role Phone Laurence Granados Primary Care Provider [phone] Charles Curtis Unavailable Unavailable Geetha Sidhu MD Primary Care Provider + Reason for Visit * Reason Onset Date Comments PA 08/06/2022 Encounter Details Date Type Department Care Team ([facility] st Contact Info) Description 08/06/2022 Telephone [facility] MEDICINE [address] [place], [place] [phone] Laurence Granados FNP [address] [place], [place] [phone] PA Social History Tobacco Use Types Packs/Day [...] Miscellaneous Notes * Telephone Encounter - Maryam Colon - 08/06/2022 1:50 PM EDT TC to pt daughter and explained provider wants to see pt before she prescribes and process PA for medication. Pt daughter understood and agreed with plan. * Telephone Encounter - Osiel Hernandez - 08/06/2022 1:26 PM EDT Tc from [facility] stating that Medication oxyCODONE (Roxicodone) 5 MG immediate release tablet needs a PA from provider Please contact daughter at [phone] documented in this encounter Plan of Treatment Upcoming Encounters Date Type Department Care Team (Late st Contact Info) Description 02/01/2025 10:00 AM EST Office Visit [facility] MEDICINE [address] [place] [phone] Geetha Sidhu MD [address] [place] [phone] documented as of this encounter Visit Diagnoses Not on filedocumented in this encounter Additional Health Concerns Assessment Noted Time PHQ-9 Depression Total Score: 8 06/21/19 10:21 AM EDT documented as of this encounter Care Teams Electric Golf Cart Repairer Relationship Specialty Start Date End Date Laurence Granados FNP [address] [place] [phone] PCP - General Family Medicine 03/27/22 12/01/23 Geetha Sidhu MD [address] [place] [phone] PCP - General Internal Medicine 12/02/23 Charles Curtis FNP [address] [place] [phone] Nurse Practitioner Family Medicine 02/17/23 Pati Graff RN Care Manager 02/11/23 09/12/[facility] documented as of this encounter
--- OUTSIDE RECORDS SUMMARY | 2024-12-17 10:21 | XMS_ITS | Encounter Summary ---
Author Organization [employer] Address [address] [place] [address] [address] [place] [address] Care Team Providers Care Doctor Of Nursing Practice Name Role Phone Laurence Granados Primary Care Provider [phone] Charles Curtis Unavailable Unavailable Geetha Sidhu MD Primary Care Provider + Encounter Details Date Type Department Care Team (Late Contact Info) Description 08/30/2022 Orders Only [facility] MEDICINE [address] [place] [phone] Laurence Granados FNP [address] [place] [address] Social History Tobacco Use Types Packs/Day Years [...] Description 02/01/2025 10:00 AM EST Office Visit [facility] MEDICINE [address] [place] [address] [phone] Geetha Sidhu MD [address] [place] [phone] documented as of this encounter Visit Diagnoses Not on filedocumented in this encounter Additional Health Concerns Assessment Noted Time PHQ-9 Depression Total Score: 3 08/21/19 23 1:08 PM EDT documented as of this encounter Care Teams Doctor Of Nursing Practice Relationship Specialty Start Date End Date Laurence Granados FNP [address] [place] [address] PCP - General Family Medicine 03/27/22 12/01/23 Geetha Sidhu MD [address] [place] [address] PCP - General Internal Medicine 12/02/23 Charles Curtis FNP [address] [place] [address] Nurse Practitioner Family Medicine 02/17/23 Pati Graff surgical coordinator 02/11/23 09/12/24 [facility] 08/30/24 documented as of this encounter
--- OUTSIDE RECORDS SUMMARY | 2024-12-17 10:21 | XMS_ITS | Clinical Summary ---
Author Organization [employer] Address [address] [place] [address] [address] [place] [address] Care Team Providers Care Brass Sorter Name Role Phone Charles Curtis Unavailable Unavailable Geetha Sidhu MD Primary Care Provider + Allergies Active Allergy Reactions Criticality Noted Date Comments Codeine 09/03/2022 Other reaction(s): Unknown Iodinated Contrast Media Nausea Only,Fever 09/13/2021 CONTRAST DYE FROM PET SCAN PER PREVIOUS EHR Other reaction(s): Shakiness Piperacillin Anaphylaxis High 08/23/2024 Piperacillin-Tazobact am In Dex Anaphylaxis High 09/03/2024 Noted at [facility] hospitalization 08/29/24 Medications * This document contains information received [...] respiratory depression. 2 each 1 023 Active Incontinence Supply Disposable (Depend Yib-[id number]-[id number]-M) miscIndications:I ncreased frequency of urination Use at night for incontinence 30 each 2 023 Active Calcium Carb-Cholecalcife rol 600-5 MG-MCG tablet TAKE 1 TABLET BY MOUTH TWICE DAILY IN THE MORNING AND AT BEDTIME Active azithromycin (Zithromax) 250 MG tablet TAKE 1 TABLET BY MOUTH 3 TIMES A WEEK ON FRIDAY, FRIDAY AND Friday 023 Active morphine CR (MS Contin) 30 MG 12 hr tablet TAKE 1 TABLET BY MOUTH EVERY TWELVE HOURS Active ondansetron ODT (Zofran-ODT) 8 MG disintegrating tablet DISSOLVE 1 TABLET ON TONGUE EVERY 8 HOURS DIRECTED Active albuterol 108 (90 Base) MCG/ACT inhalerIndication [...] NEEDED FOR PAIN 120 tablet 024 Active ammonium lactate (Amlactin) 12 % cream Apply topically if needed for dry skin. 385 g 3 025 2025 Active atorvastatin (Lipitor) 40 MG tabletIndications :Hyperlipidemia, unspecified hyperlipidemia type TAKE 1 TABLET BY MOUTH AT BEDTIME 90 tablet 3 025 Active B-Complex, Folic Acid, tabletIndications :Major depressive disorder, recurrent, in partial remission (CMS/HCC) TAKE 1 TABLET BY MOUTH EVERY MORNING 90 tablet 2 025 Active Aspirin Low Dose 81 MG EC tablet TAKE 1 TABLET BY MOUTH EVERY MORNING 90 tablet 1 025 Active Trelegy Ellipta 200-62.5-25 MCG/ACT aerosol powder Take 1 puff by mouth Once per day. 025 Active citalopram (CeleXA) 40 MG tabletIndications :Mixed anxiety and depressive disorder Take 1 tablet (40 mg) by mouth in the morning. 90 tablet 3 025 Active risperiDONE (RisperDAL) 1 MG tabletIndications :Mixed anxiety and depressive disorder TAKE 1/2 TABLET BY MOUTH EVERY MORNING and TAKE 1 TABLET BY MOUTH AT BEDTIME 135 tablet 3 025 Active cetirizine (ZyrTEC) 10 MG tablet TAKE 1 TABLET BY MOUTH EVERY MORNING 90 tablet 1 025 Active clonazePAM (KlonoPIN) 0.5 MG tabletIndications :Mixed anxiety and depressive disorder Take 1 tablet (0.5 mg) by mouth 3 times daily for 28 days. Do not start before December 02, 2024. 84 tablet 025 2024 Active clonazePAM (KlonoPIN) 0.5 MG tabletIndications :Mixed anxiety and depressive disorder Take 1 tablet (0.5 mg) by mouth 3 times daily for 28 days. 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, patient will continue checking fingersticks Discussed about more unfractioned meals, add a small protein portion with snacks She was referred to product support specialist by otology hide patient will check fingersticks and symptoms on the break of chemotherapy that she receives Decadron Hematuria 07/09/2024 Assessment & Plan (07/09/2024 3:35 PM EDT): Rule out kidney stones, order renal ultrasound refer to urology PE (pulmonary thromboembolism) 07/09/2024 Overview (07/09/2024): Chest CT scan 05/2024 Assessment & Plan (07/09/2024 3:39 PM EDT): Chest CT scan on 05/2024 showed 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 She is on Eliquis 5 mg twice daily, continue follow-up with hematology, she may need lifelong anticoagulation Long toenail 04/06/2024 Assessment & Plan (04/06/2024 [...] Plan (04/06/2024 1:52 PM EST): Seen by track mechanic on 05/2023, see their note. Dehydration [...] pain. Lives with daughter who is her PROCUREMENT ACCOUNTANT and also provides emotional support. Strong scientology lindsey has also been helping her cope. [...] medication management. Any issues or concerns, call [facility]. All her questions were answered and I have wished her well. She agrees with the plan. Assessment & Plan (07/07/2023 12:19 PM EDT): Advanced lung cancer, with metastases, pain. Lives with daughter who is her PROCUREMENT ACCOUNTANT and also provides emotional support. Strong scientology lindsey has also been helping her cope. [...] pain. Lives with daughter who is her PROCUREMENT ACCOUNTANT and also provides emotional support. Strong scientology lindsey has also been helping her cope. [...] pain. Lives with daughter who is her PROCUREMENT ACCOUNTANT and also provides emotional support. Strong scientology lindsey has also been helping her cope. [...] pain. Lives with daughter who is her PROCUREMENT ACCOUNTANT and also provides emotional support. Strong scientology lindsey has also been helping her cope. [...] pain. Lives with daughter who is her PROCUREMENT ACCOUNTANT and also provides emotional support. Strong scientology lindsey has also been helping her cope. Again reviewed the risk of taking opioids and benzos together, r/t respiratory suppression and OD. Do not take the medications within 2 hours of each other. Keep Narcan available. Continue medications as usual. Suggest reconsidering counseling via telehealth, will send list of area agencies. F/U with me in 6- 8 weeks. She agrees with the plan. Assessment & Plan (04/04/2022 11:14 AM EST): Dealing with advanced lung cancer, with metastases. Lives with daughter who is her PROCUREMENT ACCOUNTANT and also provides emotional support. Strong scientology lindsey has also been helping her cope. [...] Increased frequency of urination 07/01/2012 04/06/2024 Encounters Date Type Department Care Team Description 12/02/2024 Telephone [facility] [address] [place] [address] Mahnaz Benz RN [employer] MOTOR MECHANIC Agreement Form 12/01/2024 Refill [facility] [address] [place] [address] Geetha Sidhu MD Mixed anxiety and depressive disorder 11/10/2024 Refill [facility] [address] [place] [address] Geetha Sidhu MD 10/28/2024 Telephone [facility] [address] [place] [address] Geetha Sidhu MD Med Refill 10/28/2024 Results Follow-Up [facility] [address] [place] [address] Geetha Sidhu MD CTA Head w/ and w/o Contrast, CT Urogram w/o Contrast 10/25/2024 Refill [facility] [address] [place] [address] Geetha Sidhu MD Mixed anxiety and depressive disorder 10/22/2024 Refill [facility] [address] [place] [address] Geetha Sidhu MD Mixed anxiety and depressive disorder 09/30/2024 Orders Only GENERIC EXTERNAL DATA DEPARTMENT Provider, Generic External Data 09/27/2024 Refill [facility] [address] [place] [address] Myra Guillory MD Mixed anxiety and depressive disorder 09/24/2024 Refill [facility] [address] [place] [address] Geetha Sidhu MD Mixed anxiety and depressive disorder 09/21/2024 Telephone [facility] [address] [place] [address] Geetha Sidhu MD No Show 09/21/2024 Telephone [facility] [address] [place] [address] Geetha Sidhu MD Appointment Request 09/20/2024 Telephone [facility] [address] [place], [place] [id number] Geetha Sidhu MD Chart Prep 09/19/2024 Refill [facility] [address] [place] [address] Myra Guillory MD Mixed anxiety and depressive disorder from Last 3 Months Immunizations Immunization Administration Dates Next Due Hep A, Adult [...] Date Smoking Tobacco: Former Cigarettes Q uit: 2021 Passive Smoke Exposure: Past Smokeless Tobacco: Never Tobacco Cessation:Counseling Given: Not [...] Sign Reading Time Taken Comments Blood Pressure 114/50 07/09/2024 11:24 AM EDT Pulse 60 07/09/2024 11:24 AM EDT Temperature 37 C (98.6 F) 07/09/2024 11:24 AM EDT Respiratory Rate 20 07/09/2024 11:24 AM EDT Oxygen Saturation 100% 07/09/2024 11:24 AM EDT Inhaled Oxygen Concentration - - Weight 58.2 kg (128 lb 6.4 oz) 07/09/2024 11:24 AM EDT Height 160 cm (5' 3 ) 07/09/2024 11:24 AM EDT Body Mass Index 22.75 07/09/2024 11:24 AM EDT Plan of Treatment Upcoming Encounters Date Type Department Care Team (Late st Contact Info) Description 02/01/2025 10:00 AM EST Office Visit [facility] [address] [place] [address] Geetha Sidhu MD [address] [place] [address] Health Maintenance Due Date Last Done Comments [...] 04/12/2023 04/12/2022 COVID-19 Vaccine (3 - season) 2024 12/13/2020, 11/22/2020 Influenza Vaccine (#1) 2024 9, 01/14/2019, 02/02/2018, Additional history exists Depression Screening 07/09/2025 07/09/2024, 07/10/19 Tobacco Screening 07/09/2025 07/09/2024 Lipid Panel 04/12/2027 04/12/2022, 05/07/2021, 08/21/2020 Hepatitis A Vaccines Aged Out 10/16/2007, 03/26/20 [...] Name Priority Date/Time Associated Diagnosis Comments CT UROGRAM WO CONTRAST Routine 10/28/2024 1:48 PM EDT CTA HEAD W AND WO CONTRAST Routine 10/11/2024 1:59 PM EDT CYTOPATH-CELL ENHANCED Routine 09/30/2024 4:40 PM EDT LIPID PANEL, STANDARD Routine 04/12/2022 12:11 PM EST Routine adult health maintenance BI MAMMOGRAM SCREENING BILATERAL Routine 01/15/2019 8:15 AM EDT from Last 3 Months or Most Recently Relevant to Health Maintenance Results * CT Urogram w/o Contrast (10/28/2024 1:48 PM EDT) Anatomical Region Laterality Modality Ureter, Upper urinary tract Comp uted Tomography 10/28/2024 1:48 PM EDT Narrative 10/28/2024 2:54 PM EDT [address] [address] [address] Scan Report Signed Patient: Eloisa Salazar MR#: [id number] : 1950 Acct:[id number] Age/Sex: 74 / F ADM Date: 10/28/24 Loc: HO.CT Attending Dr: George Shell MD Ordering Physician: George Shell MD Date of Service: 10/28/24 Procedure(s): CT urogram Accession Number(s): [id number] cc: George Shell MD; Geetha Sidhu MD Report Number: [id number]: Total DLP = 489.00 mGy-cm EXAMINATION: CT ABDOMEN AND PELVIS WITHOUT AND WITH CONTRAST CLINICAL INFORMATION: R31.9 - Hematuria, unspecified and non-small cell lung carcinoma COMPARISON: CT chest August 01, 2024 and November 21, 2023 TECHNIQUE: Noncontrast CT of the abdomen and pelvis is performed followed by split bolus contrast-enhanced images using 85 mL Omnipaque 350 contrast. Postcontrast imaging is performed during the combined nephrogram and excretion phase. Sagittal and coronal reformatted images were obtained on the technologist's workstation for both the precontrast and postcontrast phases. This CT examination was performed using dose optimization techniques as appropriate, variously including the following: *Automated exposure control *Adjustment of mA and/or kV according to patient size (this includes techniques or standardized protocols for targeted exams where dose is matched to indication/reason for exam; i.e. extremities or head) *Use of iterative reconstruction technique FINDINGS: LUNG BASES: There is chronic opacity and air bronchograms in the posterior basal right lower lobe and chronic small pleural effusion. LIVER, GALLBLADDER, AND BILIARY TREE: The liver is normal in size, shape, and attenuation. No focal hepatic lesion or biliary ductal dilatation is present. The gallbladder is unremarkable with no evidence of radiopaque gallstones, gallbladder wall thickening, or obvious pericholecystic inflammatory changes. PANCREAS: Unremarkable. SPLEEN: Unremarkable. ADRENAL GLANDS: Unremarkable. KIDNEYS AND URETERS: There is a small vascular calcification in the left renal hilum. There is a punctate 1 mm stone in the posterior mid right kidney. There is no hydronephrosis. There is symmetric concentration and excretion of contrast from both kidneys minimally opacifying the ureters. There is a small simple renal cyst in the anterior mid right kidney and lower pole the left kidney. BLADDER: Unremarkable. GASTROINTESTINAL TRACT: Pseudodiverticula are present in the right colon and sigmoid colon. Near the ileocecal junction, the right colon appears thickened but there is no inflammatory change in the adjacent mesentery. Normal appendix is identified. ABDOMINAL WALL: No significant hernia is appreciated. LYMPH NODES: Normal. VASCULAR: Moderate multifocal vascular calcifications are present. PELVIC VISCERA: Unremarkable. OSSEUS STRUCTURES: There is a 3.7 cm sclerotic lesion in the upper central sacrum extending right of midline. CT/CT urogram IMPRESSION: There is a punctate nonobstructing 1 mm stone in the right kidney. Otherwise, unremarkable CT urogram. Indeterminate thickening of the colon at the ileocecal junction without inflammation in the adjacent mesentery. Neoplasm and inflammation or not ruled out. Sclerotic lesion in the upper sacrum is presumably metastatic disease in this patient with known non-small cell lung carcinoma. Chronic changes in the posterior base of the right lower lobe and chronic small right pleural effusion. Electronically signed by: Jerome Vasquez MD 10/28/2024 02:51 PM EDT RP Dictated By: Jerome Vasquez MD Signed By: <Electronically signed by Jerome Vasquez MD in OV> 10/28/24 1451 DD/ 1348 TD/TT: 10/28/24 1429 Vascular Nurse: Procedure Note Donotuseinterpreter, Image - 10/28/[address] [place] [address] [address] Scan Report Signed Patient: Eloisa Salazar DMR#: [id number] : 1950Acct:[id number] Age/Sex: 74 / FADM Date: 10/28/24 Loc: HO.CT Attending Dr: George Shell MD Ordering Physician: George Shell MD Date of Service: 10/28/24 Procedure(s): CT urogram Accession Number(s): [id number] cc: George Shell MD; Geetha Sidhu MD Report Number: [id number]: Total DLP = 489.00 mGy-cm EXAMINATION: CT ABDOMEN AND PELVIS WITHOUT AND WITH CONTRAST CLINICAL INFORMATION: R31.9 - Hematuria, unspecified and non-small cell lung carcinoma COMPARISON: CT chest August 01, 2024 and November 21, 2023 TECHNIQUE: Noncontrast CT of the abdomen and pelvis is performed followed by split bolus contrast-enhanced images using 85 mL Omnipaque 350 contrast. Postcontrast imaging is performed during the combined nephrogram and excretion phase. Sagittal and coronal reformatted images were obtained on the technologist's workstation for both the precontrast and postcontrast phases. This CT examination was performed using dose optimization techniques as appropriate, variously including the following: *Automated exposure control *Adjustment of mA and/or kV according to patient size (this includes techniques or standardized protocols for targeted exams where dose is matched to indication/reason for exam; i.e. extremities or head) *Use of iterative reconstruction technique FINDINGS: LUNG BASES: There is chronic opacity and air bronchograms in the posterior basal right lower lobe and chronic small pleural effusion. LIVER, GALLBLADDER, AND BILIARY TREE: The liver is normal in size, shape, and attenuation. No focal hepatic lesion or biliary ductal dilatation is present. The gallbladder is unremarkable with no evidence of radiopaque gallstones, gallbladder wall thickening, or obvious pericholecystic inflammatory changes. PANCREAS: Unremarkable. SPLEEN: Unremarkable. ADRENAL GLANDS: Unremarkable. KIDNEYS AND URETERS: There is a small vascular calcification in the left renal hilum. There is a punctate 1 mm stone in the posterior mid right kidney. There is no hydronephrosis. There is symmetric concentration and excretion of contrast from both kidneys minimally opacifying the ureters. There is a small simple renal cyst in the anterior mid right kidney and lower pole the left kidney. BLADDER: Unremarkable. GASTROINTESTINAL TRACT: Pseudodiverticula are present in the right colon and sigmoid colon. Near the ileocecal junction, the right colon appears thickened but there is no inflammatory change in the adjacent mesentery. Normal appendix is identified. ABDOMINAL WALL: No significant hernia is appreciated. LYMPH NODES: Normal. VASCULAR: Moderate multifocal vascular calcifications are present. PELVIC VISCERA: Unremarkable. OSSEUS STRUCTURES: There is a 3.7 cm sclerotic lesion in the upper central sacrum extending right of midline. CT/CT urogram IMPRESSION: There is a punctate nonobstructing 1 mm stone in the right kidney. Otherwise, unremarkable CT urogram. Indeterminate thickening of the colon at the ileocecal junction without inflammation in the adjacent mesentery. Neoplasm and inflammation or not ruled out. Sclerotic lesion in the upper sacrum is presumably metastatic disease in this patient with known non-small cell lung carcinoma. Chronic changes in the posterior base of the right lower lobe and chronic small right pleural effusion. Electronically signed by: Jerome Vasquez MD 10/28/2024 02:51 PM EDT Dictated By: Jerome Vasquez MD Signed By: <Electronically signed by Jerome Vasquez MD in OV> 10/28/24 1451 DD/ 1348 TD/TT: 10/28/24 1429 Vascular Nurse: [facility] External Provider IMG CT PROCEDURES Final Result * CTA Head w/ and w/o Contrast (10/11/2024 1:59 PM EDT) Anatomical Region Laterality Modality Head, Neck Computed Tomogra phy 10/11/2024 1:59 PM EDT Narrative 10/12/2024 8:22 AM EDT [place] [address] [address] Scan Report Signed Patient: Eloisa Salazar MR#: [id number] : 1950 Acct:[id number] Age/Sex: 74 / F ADM Date: 10/11/24 Loc: .CT Attending Dr: Liv Suarez MD Ordering Physician: Liv Suarez MD Date of Service: 10/11/24 Procedure(s): CT angio head Accession Number(s): [id number] cc: Laurence Granados DELIVERY DRIVER ASSISTANT; Liv Suarez MD Report Number: [id number]: Total DLP = 1022.00 mGy-cm EXAMINATION: CT ANGIOGRAM BRAIN, HEAD CLINICAL INFORMATION: Follow-up bilateral MCA aneurysms. COMPARISON: None available. TECHNIQUE: Noncontrast head CT was performed. This was followed by intravenous administration 100 mL of Omnipaque 350 intravenous contrast. Helical imaging CTA head was performed in the axial plane from the skull base to the vertex. The data was processed at the optometric technologist workstation for generation of MIP sequences. Three-dimensional volume rendered reformatted images were also generated at an offline 3-D workstation. The degree of stenosis determined by NASCET criteria. This CT examination was performed using dose optimization techniques as appropriate, variously including the following: *Automated exposure control *Adjustment of mA and/or kV according to patient size (this includes techniques or standardized protocols for targeted exams where dose is matched to indication/reason for exam; i.e. extremities or head) *Use of iterative reconstruction technique FINDINGS: NONCONTRAST HEAD CT: There is no evidence of intracranial hemorrhage or extra-axial fluid collection. There is no mass effect, or edema. No CT evidence of acute territorial infarct. Ventricles, sulci, and cisterns are normal in size and configuration for patient age. No hydrocephalus. No midline shift. Mild supratentorial low-density white matter changes in keeping with small vessel ischemia. Globes and orbital contents image normally. There are bilateral lens replacements. No extracranial soft tissue abnormalities. The paranasal sinuses, mastoid air cells, and tympanic cavities are normally aerated. No suspicious bony abnormalities. CTA OF THE BRAIN: -INTRACRANIAL INTERNAL CAROTID ARTERIES: Calcific atherosclerotic disease of the intracranial internal carotid arteries without occlusion or flow-limiting stenosis. -RIGHT ANTERIOR CEREBRAL ARTERY: Normal A1 segment.. Normal arborization of the distal segments. -LEFT ANTERIOR CEREBRAL ARTERY: Normal A1 segment.. Normal arborization of the distal segments. -ANTERIOR COMMUNICATING ARTERY: Normal. -RIGHT MIDDLE CEREBRAL ARTERY: Normal M1 segment of the MCA without focal stenosis or occlusion. Normal arborization of the distal segments. There is redemonstration of a 2.0 mm bifurcation aneurysm oriented anteriorly and slightly laterally (series 9, image 61). -LEFT MIDDLE CEREBRAL ARTERY: Normal M1 segment of the MCA without focal stenosis or occlusion. Normal arborization of the distal segments. There is redemonstration of a 2.5 mm bifurcation aneurysm oriented anteriorly and slightly laterally (series 9, image 60). -RIGHT VERTEBRAL ARTERY V4: Normal in course and caliber. Normal PICA branch. -LEFT VERTEBRAL ARTERY V4: Normal in course and caliber. Normal PICA branch. -BASILAR ARTERY: Normal without focal stenosis or occlusion. Normal appearance of the proximal superior cerebellar arteries. Normal basilar tip. -RIGHT POSTERIOR CEREBRAL ARTERY: The P1 segment is diminutive. origin of the PROCUREMENT ACCOUNTANT with robust opacification of the posterior communicating artery. Normal opacification of the distal PROCUREMENT ACCOUNTANT segments. -LEFT POSTERIOR CEREBRAL ARTERY: The P1 segment is diminutive. origin of the PROCUREMENT ACCOUNTANT with robust opacification of the posterior communicating artery. Normal opacification of the distal PROCUREMENT ACCOUNTANT segments. -POSTERIOR COMMUNICATING ARTERIES: Partial origins as detailed above. Normal opacification of the superior sagittal, straight, transverse, and sigmoid sinuses. No venous thrombosis. CT/CT angio head IMPRESSION: NONCONTRAST HEAD CT: 1. No acute intracranial abnormality. No intracranial hemorrhage or mass effect. No CT evidence of acute territorial infarct. CTA HEAD: 1. No evidence of significant arterial stenosis, occlusion, or dissection. 2. 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 3. Stable and unchanged 2.5 mm RIGHT MCA bifurcation aneurysm. 4. Persistent origins of both revenue coordinator. Electronically signed by: Chuy Kim MD 10/12/2024 08:19 AM EDT RP Dictated By: Chuy Kim MD Signed By: <Electronically signed by Chuy Kim MD in OV> 10/12/24 0819 DD/ 1359 TD/TT: 10/11/24 1419 Vascular Nurse: Procedure Note Donotuseinterpreter, Image - 10/12/[address] [place] [address] [address] Scan Report Signed Patient: Eloisa Salazar DMR#: [id number] : 1950Acct:[id number] Age/Sex: 74 / FADM Date: 10/11/24 Loc: HO.CT Attending Dr: Liv Suarez MD Ordering Physician: Liv Suarez MD Date of Service: 10/11/24 Procedure(s): CT angio head Accession Number(s): [id number] cc: Laurence Granados DELIVERY DRIVER ASSISTANT; Lvi Suarez MD Report Number: [id number]: Total DLP = 1022.00 mGy-cm EXAMINATION: CT ANGIOGRAM BRAIN, HEAD CLINICAL INFORMATION: Follow-up bilateral MCA aneurysms. COMPARISON: None available. TECHNIQUE: Noncontrast head CT was performed. This was followed by intravenous administration 100 mL of Omnipaque 350 intravenous contrast. Helical imaging CTA head was performed in the axial plane from the skull base to the vertex. The data was processed at the optometric technologist workstation for generation of MIP sequences. Three-dimensional volume rendered reformatted images were also generated at an offline 3-D workstation. The degree of stenosis determined by NASCET criteria. This CT examination was performed using dose optimization techniques as appropriate, variously including the following: *Automated exposure control *Adjustment of mA and/or kV according to patient size (this includes techniques or standardized protocols for targeted exams where dose is matched to indication/reason for exam; i.e. extremities or head) *Use of iterative reconstruction technique FINDINGS: NONCONTRAST HEAD CT: There is no evidence of intracranial hemorrhage or extra-axial fluid collection. There is no mass effect, or edema. No CT evidence of acute territorial infarct. Ventricles, sulci, and cisterns are normal in size and configuration for patient age. No hydrocephalus. No midline shift. Mild supratentorial low-density white matter changes in keeping with small vessel ischemia. Globes and orbital contents image normally. There are bilateral lens replacements. No extracranial soft tissue abnormalities. The paranasal sinuses, mastoid air cells, and tympanic cavities are normally aerated. No suspicious bony abnormalities. CTA OF THE BRAIN: -INTRACRANIAL INTERNAL CAROTID ARTERIES: Calcific atherosclerotic disease of the intracranial internal carotid arteries without occlusion or flow-limiting stenosis. -RIGHT ANTERIOR CEREBRAL ARTERY: Normal A1 segment.. Normal arborization of the distal segments. -LEFT ANTERIOR CEREBRAL ARTERY: Normal A1 segment.. Normal arborization of the distal segments. -ANTERIOR COMMUNICATING ARTERY: Normal. -RIGHT MIDDLE CEREBRAL ARTERY: Normal M1 segment of the MCA without focal stenosis or occlusion. Normal arborization of the distal segments. There is redemonstration of a 2.0 mm bifurcation aneurysm oriented anteriorly and slightly laterally (series 9, image 61). -LEFT MIDDLE CEREBRAL ARTERY: Normal M1 segment of the MCA without focal stenosis or occlusion. Normal arborization of the distal segments. There is redemonstration of a 2.5 mm bifurcation aneurysm oriented anteriorly and slightly laterally (series 9, image 60). -RIGHT VERTEBRAL ARTERY V4: Normal in course and caliber. Normal PICA branch. -LEFT VERTEBRAL ARTERY V4: Normal in course and caliber. Normal PICA branch. -BASILAR ARTERY: Normal without focal stenosis or occlusion. Normal appearance of the proximal superior cerebellar arteries. Normal basilar tip. -RIGHT POSTERIOR CEREBRAL ARTERY: The P1 segment is diminutive. origin of the PROCUREMENT ACCOUNTANT with robust opacification of the posterior communicating artery. Normal opacification of the distal PROCUREMENT ACCOUNTANT segments. -LEFT POSTERIOR CEREBRAL ARTERY: The P1 segment is diminutive. origin of the PROCUREMENT ACCOUNTANT with robust opacification of the posterior communicating artery. Normal opacification of the distal PROCUREMENT ACCOUNTANT segments. -POSTERIOR COMMUNICATING ARTERIES: Partial origins as detailed above. Normal opacification of the superior sagittal, straight, transverse, and sigmoid sinuses. No venous thrombosis. CT/CT angio head IMPRESSION: NONCONTRAST HEAD CT: 1. No acute intracranial abnormality. No intracranial hemorrhage or mass effect. No CT evidence of acute territorial infarct. CTA HEAD: 1. No evidence of significant arterial stenosis, occlusion, or dissection. 2. 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 3. Stable and unchanged 2.5 mm RIGHT MCA bifurcation aneurysm. 4. Persistent origins of both revenue coordinator. Electronically signed by: Chuy Kim MD 10/12/2024 08:19 AM EDT Dictated By: Chuy Kim MD Signed By: <Electronically signed by Chuy Kim MD in OV> 10/12/24 0819 DD/ 1359 TD/TT: 10/11/24 1419 Vascular Nurse: [facility] External Provider IMG CT PROCEDURES Final Result * Cytopath-cell enhanced (09/30/2024 4:40 PM EDT) 09/30/2024 4:40 PM EDT 10/04/2024 9:45 AM EDT [facility] - 10/04/2024 2:26 PM EDT ----- ------- Name: Eloisa Salazar Age/Sex: 74/F : 1950 [facility] [id number] Unit#: [id number] Attend Dr: George Shell MD Re09/30/24 Status: [facility] Disch: ----- ------- SPEC : [id number] RECD: 10/04/2445 STATUS: TALIB COE NUM: [id number] KASIA: 09/30/24-[address]: George Shell MD ENTERED: 10/04/24-0 SP TYPE: Cytology OTHR DR: Laurence Granados DELIVERY DRIVER ASSISTANT ORDERED: Cyto-enhanced Diagnosis Urine: Negative for high-grade urothelial carcinoma. See comment. COMMENT: Examination of a monolayer preparation slide shows many benign superficial squamous cells with bacteria, occasional benign urothelial cells, crystals, and few inflammatory cells and red blood cells. Clinical History Hematuria Material Received Urine Gross Description Received is 35 cc of clear yellow fluid from which a ThinPrep slide is prepared. IHC S/NG Disclaimer NOTE: Unless otherwise stated, all tissue is formalin-fixed and paraffin-embedded. Some or all of the immunohistochemical tests reported herein may have been developed and their performance characteristics determined by [facility]. They have not been cleared or approved by the U.S. Food and Drug Administration (FDA). However, the FDA has determined that such clearance or approval is not necessary. This laboratory is certified under the Clinical Laboratory Improvement Amendments of 1988 (CLIA) as qualified to perform high complexity clinical laboratory testing. Copies To: George Shell MD [facility] [address] [place] [address] [address]. [address] [place] [address] [email or web address] Laurence Granados DELIVERY DRIVER ASSISTANT [address] [place] [address] CONTINUED ON NEXT PAGE ----- ------- Name: RockyEloisa Jacobs Age/Sex: 74/F : 1950 Unit#: [id number] Attend Dr: George Shell MD Re09/30/24 Status: DEP REF Location: [facility] Disch: ----- ------- SPEC : [id number] RECD: 10/04/24 STATUS: TALIB COE NUM: [id number] KASIA: 09/30/24-[address] [facility] [address]: George Shell MD ENTERED: 10/04/24-1030 SP TYPE: Cytology OTHR DR: Laurence Granados NP ORDERED: Cyto-enhanced ----- ------- Signed (signature on file) Ember Hopatcong 10/04/24 1426 ----- ------- END OF REPORT us Generic External Data Provider LAB CYTOLOGY JERICHO BAEZA Final Result [facility] [address] [place] [phone] * (ABNORMAL) Lipid Panel, Standard (04/12/2022 12:11 PM EST) [facility] Cholesterol, Total 181 <200 mg/dL [employer] HDL Cholesterol 35(L) > OR = 50 mg/dL [employer] Triglycerides 299(H) <150 mg/dL [employer] Comment: If a non-fasting specimen was collected, consider repeat triglyceride testing on a fasting specimen if clinically indicated. Andreina et al. J. of Clin. Lipidol. 2015;9:129-169. LDL Cholesterol 106(H) mg/dL (calc) [facility] [employer] Comment: Reference range: <100 Desirable range <100 mg/dL for primary prevention; <70 mg/dL for patients with CHD or diabetic patients with > or = 2 CHD risk factors. LDL-C is now calculated using the Maxwell-Elda calculation, which is a validated novel method providing better accuracy than the Friedewald equation in the estimation of LDL-C. Maxwell PRATT et al. SELINA. 2013;310(19): 4591-0969 (http://education.Ziebel/faq/FMI926) Chol/HDLC Ratio 5.2(H) <5.0 (calc) [facility] [employer] Non-HDL Cholesterol 146(H) <130 mg/dL (calc) [employer] Comment: For patients with diabetes plus 1 major ASCVD risk factor, treating to a non-HDL-C goal of <100 mg/dL (LDL-C of <70 mg/dL) is considered a therapeutic option. Blood Venous blood specimen / Unknown 04/12/2022 12:11 PM EST 04/12/2022 12:12 PM EST Narrative [facility] - 04/13/2022 7:29 AM EST FASTING:YES FASTING: YES Laurence Granados LAYOUT DESIGNER LAB BLOOD ORDERABLES Final Resu lt [facility] [address] [facility], [facility], [place] [address] [facility] [address] [facility], ([address]) [place] [address] * DIGITAL BILATERAL SCREEN 1 (01/15/2019 8:15 AM EDT) Anatomical Region Laterality Modality Breast Bilateral Mammography 01/15/2019 8:15 AM EDT Narrative 01/15/2019 8:17 AM EDT Refer to the Notes tab for result details [facility] Procedure: DIGITAL BILATERAL SCREEN 1 Procedure Note Provider, MD Jerod - 06/22/2022 Refer to the Notes tab for result details [facility] Procedure: DIGITAL BILATERAL SCREEN 1 Charles Cutris LAYOUT DESIGNER IMG BI PROCEDURES Final Result from Last 3 Months or Most Recently Relevant to [place] [id number] Care Teams Brass Sorter Relationship Specialty Start Date End Date Geetha Sidhu MD [address] [place] [id number] PCP - General Internal Medicine 12/02/23 Charles Curtis FNP Nurse Practitioner Family Medicine 02/17/23 [facility] 08/30/24
--- OUTSIDE RECORDS SUMMARY | 2024-12-17 10:21 | XMS_ITS | Encounter Summary ---
Author Organization [employer] Address [address] [place] [address] 7 [place] [address] Care Team Providers Care Telephone Triage Nurse Name Role Phone Laurence Granados Primary Care Provider [phone] Charles Curtis Unavailable Unavailable Geetha Sidhu MD Primary Care Provider + Reason for Visit * Reason Onset Date Comments Verbal orders 07/26/2022 Encounter Details Date Type Department Care Team ([facility] st Contact Info) Description 07/26/2022 Telephone [facility] [address] [place], [place] [phone] Laurence Granados FNP [address] [place], [place] [phone] Verbal orders Social History Tobacco Use Types [...] - 08/05/2022 1:07 PM EDT Tc from [facility] facility informing that pt has gone under their care since 08/02/2022. Pt eligibility is for OT-PT. If any questions please contact Irma at [phone] * Telephone Encounter - Margaret Morris RN - 08/02/2022 2:31 PM EDT VO orders provided to [facility] per PCP ok. * Telephone Encounter - Alfredo Luis - 08/01/2022 10:02 AM EDT Tc from [facility] with [facility] returning call in regards to verbal orders to start services tomorrow for PT and OT. 08/02/22. Please contact at [phone] * Telephone Encounter - Kaleigh Schmitz RN - 07/26/2022 4:07 PM EDT Call returned to [facility]. Melinda states they are requesting verbal order from pcp to evaluate pt for nursing, PT and OT. Advised will send request to pcp and return call with response. * Telephone Encounter - Osiel Hernandez - 07/26/2022 9:36 AM EDT Tc from [facility] with Ir[facility]old requesting a call from a nurse in regards to some verbal orders needed regarding program. Please contact Melinda at [phone] Opt 2 documented in this encounter Plan of Treatment Upcoming Encounters Date Type Department Care Team (Late st Contact Info) Description 02/01/2025 10:00 AM EST Office Visit [facility] [address] [place] [address] Geetha Sidhu MD [address] [place] [address] documented as of this encounter Visit Diagnoses Not on filedocumented in this encounter Additional Health Concerns Assessment Noted Time PHQ-9 Depression Total Score: 8 06/21/19 10:21 AM EDT documented as of this encounter Care Teams Telephone Triage Nurse Relationship Specialty Start Date End Date [place] [address] PCP - General Family Medicine 03/27/22 12/01/23 Geetha Sidhu MD [address] [place] [id number] PCP - General Internal Medicine 12/02/23 Charles Curtis FNP [address] [place] [phone] Nurse Practitioner Family Medicine 02/17/23 Pati Graff RN Care Manager 02/11/23 09[facility] documented as of this encounter
[2024-12-17] MEDS: iohexoL 350 MG/ML 100 ML INFUS..BTL IV (10:41)
== END 2024-12-17 09:46 | disposition home or self-care (01) ==
LOC: HO.CT 09:45
PROVIDERS: PCP Nurse Practitioner Family; Visit Provider Internal Medicine Medical Oncology
DX: C34.90 Malignant neoplasm of unspecified part of unspecified bronchus or lung (principal)
CPT/HCPCS: 71260; Q9967

== ENCOUNTER → 2024-12-17 09:47 | Outpatient (BNV) | payer MEDICARE, MEDICAID, SELFPAY | PROVIDERS: PCP Nurse Practitioner Family; Visit Provider Specialist | DX: C34.31 Malignant neoplasm of lower lobe, right bronchus or lung (principal); I26.99 Other pulmonary embolism without acute cor pulmonale | CPT/HCPCS: 71260 ==

== ENCOUNTER 2024-12-31 13:08 | Outpatient (AMB) | payer MEDICARE, MEDICAID, SELFPAY ==
--- NOTE | 2024-12-31 13:14 | MHC.OFFVIS ---
Vital Signs 12/31/24 13:15 Height 5 ft 3 in Weight 128 lb 15.527 oz BMI 22.8 BP 112/50 L Blood Pressure Location Lt brachial Position Sitting Pulse 56 Pulse Source Pulse Oximeter Pulse Oximetry (%) 97 Oxygen Delivery Method Room Air Intake Visit Reasons: copd Loan Originator Required: No Accompanied by: Daughter Allergies codeine Allergy (Verified 12/31/24 13:19) Unknown HPI Comments Details: The patient is a 74-year-old female with a history of COPD, metastatic lung cancer on current chemotherapy presents to the ER for evaluation of sudden-onset 10/10 sharp left-sided chest pain under her left breast that started when she was in oncology.? It was before she had been administered the chemotherapy agent and was when she was getting Kaytruda. Patient states the pain is located under her left breast, is constant and does not radiate. She states it is associated with anxiety because she knows she was supposed to get her CT scan results today. She has had increased cough with white phlegm production. No fevers, chills, hemoptysis. No change in her chronic SOB or LENNON. The patient did undergo pulmonary function studies which I personally reviewed demonstrating moderate degree of COPD. The patient has been on Incruse inhaler. Will get a optimize her respiratory therapy at this time. She also has significant productive cough with mucus production. Moderate severity. Unfortunately she continues to smoke cigarettes. She understands that most of our therapies will not be effective if she continues to smoke cigarettes. During the office visit we did have her go for 6 minute walk test the patient did not qualify for oxygen which is reassuring. 05/07/2023 the patient is here for a pulmonary follow-up visit. The patient overall has been tired. She is tired of dealing with all the chronic illness. She has been using the oxygen with good effect. She does have 2 L continuously. Although she is using her tanks very happy. She very limited due to the fact that the patient is wheelchair or walker dependent. Her daughter has a baby also has been trying to help her. We did take it for a walking oximetry for titration study and she actually did good on 2 L pulse. Therefore will request a conserving device tank from her [employer] company [employer] in order for her to have easier time will portability when she leaves the house. Otherwise when she is in the house she can be the on the concentrator using 2 L continues. She really does not leave the house too much except for appointments. She continues on the combination chemo immune therapy with very good response. She did have a bone study that was reassuring except for 1 area that was slightly active. And I believe she is going to have another imaging study coming up in the spring. She is following closely with Oncology here. As far as her respiratory medications she is tolerating well. Although she has a very congested cough. Will start her on azithromycin 3 times a week for chronic bronchitis. I am hoping that this improves her symptoms. If she does stay on the medications she will need an EKG. The patient also provide her Acapella valve in order for better chest physical therapy. 01/07/2024 the patient is here for a pulmonary follow-up visit. Overall she is doing okay. She is responding well to the azithromycin 3 times a week. She is going to get an EKG soon. In the meantime she continues with respiratory medicines with good effect. And she also has the Acapella valve to use for chest PT. she is following closely with Oncology. She does get infusions every 3 weeks and she seems to be tolerating that well. She did have a recent CT scan of the chest the end of 11/18/2023 which I personally reviewed demonstrating stable disease. No evidence of any progression. We know that she has the metastatic disease to the bones however. The patient will continue with her therapy as it appears to be keeping everything checked. The patient has been using the oxygen. She has not been able to get a conserving device. We did reach out to the [employer]. There will go to her home in from form a conserving device trial to see if she qualifies. Otherwise patient is doing okay will follow-up in 4-6 months. 07/07/2024 the patient is here for a pulmonary follow-up visit. Overall the patient had been doing good. For the last several weeks he has been having worsening cough chest congestion. Positive sick contacts in the household. She had been on the azithromycin 3 times a week. She did have a CT scan of the chest done by Oncology. We noted that her nodular densities are stable although did have a right lower lobe pneumonia. There was also a filling defects suggesting of a blood clot. Therefore she was placed on Eliquis and she was also given additional antibiotics. She still having issues with a chest congestion. Difficult to expectorate. I did request that she start using her nebulizer twice a day followed by Acapella an Acapella valve. I will request the Acapella valve from a local [employer] company. We did look at her CT scan personally by me demonstrating the right lower lobe pneumonia. Therefore, will start her on cefpodoxime that she can take along with her azithromycin and then repeat the x-ray in the next several weeks. If the x-ray still abnormal will consider repeating the CAT scan earlier and will also consider bronchoscopy. She continues with respiratory therapy which will continue as prescribed and she start using her nebulizer. 12/31/2024 the patient is here for pulmonary follow-up visit. Overall the patient has been doing well from a respiratory status. She continues to follow closely with oncology and she has been on targeted therapy with good results. She is coming into the 24 months of therapy which is now completed. Therefore she did have a CT scan of the chest which I personally reviewed this was done in 12/20/2024 demonstrating a new pulmonary nodule in the left upper lobe and also the persistent low correction right lower lobe atelectatic can slight consolidation. This is does not not appear to be of any significant change when compared to May of 2024. We did talk about considering a bronchoscopy to air to provide an airway survey into assess for any endobronchial disease specially now off the therapy. The patient also has a cough. Her mucus is fairly clear in his [id number] severity. We can also send some deep cultures to make sure there is not a smoldering infection. I will touch base with Oncology to make sure that we are in the same a cord. Also, plan to repeat a CAT scan in 3-4 months because of the new left upper lobe pulmonary nodule. Will follow-up after the CAT scan. If any other issues arise she can always call for further recommendations. [facility] Medical History (Updated 11/09/24 @ 14:41 by HOLLY Oneill) Bone metastases Pneumonia Non-small cell lung cancer (NSCLC) (~2021) COPD (chronic obstructive pulmonary disease) Personal history of nicotine dependence Hypertension GERD (gastroesophageal reflux disease) Anxiety and depression Vitamin D deficiency Osteopenia (~2002) Surgical History History of lung biopsy (~2021) Family History Sister Lupus Social History Household Members: Family Housing: House Are you a primary administrator health care facility to a significant other at home: No Do you presently have visiting nurse or other home services: Yes (VNA, PT, OT) Alcohol intake: never Patient Tobacco Use Status: Former Tobacco user Tobacco use type: Cigarette Years Smoked: 20+ Years Advance Directives Date on File: 09/18/21 service: No Current occupational status: retired Review of Systems Const Denies fever(s) Eyes Denies change in vision ENT Reports nasal congestion Card Reports dyspnea on exertion Resp Reports chest congestion, Reports cough, Reports dyspnea on exertion and Reports wheezing GI Reports no additional complaints Musc Reports myalgias Skin/Breast Reports rash Neuro Reports no additional complaints Carroll/Lymph Denies easy bruising and Denies lymphadenopathy Aller/Immun Reports wheezing Physical Exam Vital Signs: Last Vital Signs Pulse 56 12/31/24 13:15 BP 112/50 L 12/31/24 13:15 Pulse Ox 97 12/31/24 13:15 Oxygen Delivery Method Room Air 12/31/24 13:15 BMI result Body Mass Index 22.8 Const General: comfortable HEENT Head: Yes normocephalic Neck Neck: Yes supple Chest Chest palpation & inspection: normal inspection of the chest Resp Effort & Inspection: normal respiratory effort and prolonged expiratory phase Auscultation: no rhonchi and diminished lung sounds Cardio Rate: regular rate Rhythm: regular rhythm Heart sounds: S1 normal heart sound present and S2 normal heart sound present GI Palpation (GI): Soft to palpation Extrem General: Yes no clubbing, cyanosis or edema Assessment & Plan Assessment & Plan (1) COPD (chronic obstructive pulmonary disease): Code(s): J44.9 - Chronic obstructive pulmonary disease, unspecified Category: Medical Qualifiers: COPD type: chronic bronchitis Chronic bronchitis type: mucopurulent Qualified Code(s): J41.1 - Mucopurulent chronic bronchitis (2) Right lower lobe lung mass: Comment: (4cm mass like opacity RLL - 07/[address]) Code(s): R91.8 - Other nonspecific abnormal finding of lung field Category: Medical (3) Tobacco abuse: Code(s): Z72.0 - Tobacco use Category: Medical (4) Bone metastases: Code(s): C79.51 - Secondary malignant neoplasm of bone Category: Medical (5) Pneumonia: Code(s): J18.9 - Pneumonia, unspecified organism Category: Medical Plan contiune Trelegy LORI as needed continue Azithromycin MWF Plan to perform a bronchoscopy to assess RLL airway continue oxygen 2L continuous. Requesting conserving device trial for 2L/pulse with activity. Will request B cylinders from her Rita VENTURA F/U 2-3 months Coding Level of Care Code Est Pt Level 5 (00212) Complex EM visit Add On G2211 Diagnoses Mucopurulent chronic bronchitis J41.1 COPD type: chronic bronchitis Chronic bronchitis type: mucopurulent Right lower lobe lung mass R91.8 Tobacco abuse Z72.0 Bone metastases C79.51 Pneumonia J18.9 Time Spent (min) 45
[2024-12-31 13:15] VITALS: BP 112/50; PULSE 56; O2SAT 97; BMI 22.8
--- OUTSIDE RECORDS SUMMARY | 2024-12-31 13:32 | XMS_ITS | Encounter Summary ---
Author Organization [employer] Address [address] [place] [address] [address] [place] [address] Care Team Providers Care Pivot End Polisher Name Role Phone Laurence Granados Primary Care Provider [phone] Charles Curtis Unavailable Unavailable Geetha Sidhu MD Primary Care Provider + Reason for Visit * Reason Onset Date Comments Appointment 08/14/2022 LVM-Re: her appt for today as [id number] @ 1:15pm. Encounter Details Date Type Department Care Team ([facility] Contact Info) Description 08/14/[address] [facility] MEDICINE [address] [place], [place] [phone] Laurence Granados FNP [address] [place] [address] Appointment (LVM-Re: her appt for today as [id number] @ 1:15pm. ) Social History Tobacco Use [...] AM EST Office Visit [facility] MEDICINE [address] [place] [address] Geetha Sidhu MD [address] [place] [address] documented as of this encounter Visit Diagnoses Not on filedocumented in this encounter Additional Health Concerns Assessment Noted Time PHQ-9 Depression Total Score: 8 06/21/19 10:21 AM EDT documented as of this encounter Care Teams Pivot End Polisher Relationship Specialty Start Date End Date Laurence Granados FNP [address] [place] [phone] PCP - General Family Medicine 03/27/22 12/01/23 Geetha Sidhu MD [address] [place] [address] PCP - General Internal Medicine 12/02/23 Charles Curtis FNP [address] [place] [address] Nurse Practitioner Family Medicine 02/17/23 Pati Graff RN Care Manager 02/11/23 09/12/24 [facility] 08/30/24 documented as of this encounter
--- OUTSIDE RECORDS SUMMARY | 2024-12-31 13:32 | XMS_ITS | Encounter Summary ---
Author Organization [employer] Address 75 [facility] 7 [place] [address] Care Team Providers Care Wire Galvanizer Name Role Phone Laurence Granados Primary Care Provider [phone] Charles Curtis Unavailable Unavailable Geetha Sidhu MD Primary Care Provider + Reason for Visit * Reason Comments Med Refill Encounter Details Date Type Department Care Team (Late st Contact Info) Description 07/25/[address] [facility] MEDICINE [address] [place], [place] [phone] Laurence Granados FNP [address] [place], [place] [phone] Social History Tobacco Use Types Packs/Day Years [...] AM EST Office Visit [facility] MEDICINE [address] [place] [address] Geetha Sidhu MD [address] [place] [address] documented as of this encounter Visit Diagnoses Not on filedocumented in this encounter Additional Health Concerns Assessment Noted Time PHQ-9 Depression Total Score: 7 07/07/19 24 11:18 AM EDT documented as of this encounter Care Teams Wire Galvanizer Relationship Specialty Start Date End Date Laurence Granados FNP [address] [place] [address] PCP - General Family Medicine 03/27/22 12/01/23 Geetha Sidhu MD [address] [place] [address] PCP - General Internal Medicine 12/02/23 Charles Curtis FNP [address] [place] [address] Nurse Practitioner Family Medicine 02/17/23 Pati Graff RN Care Manager 02/11/23 09/12/24 [facility] 08/30/24 documented as of this encounter
--- OUTSIDE RECORDS SUMMARY | 2024-12-31 13:32 | XMS_ITS | Encounter Summary ---
Author Organization [employer] Address [address] [place] [address] 7 [place] [address] Care Team Providers Care Track Laying Equipment Operator Name Role Phone Laurence Granados Primary Care Provider [phone] Charles Curtis Unavailable Unavailable Geetha Sidhu MD Primary Care Provider + Reason for Visit * Reason Onset Date Comments R/S appt 08/13/2022 Encounter Details Date Type Department Care Team (Late st Contact Info) Description 08/13/2022 Telephone [facility] MEDICINE 230 [place], [place] [phone] Laurence Granados FNP 230 [place] [address] R/S appt Social History Tobacco Use Types [...] Description 02/01/2025 10:00 AM EST Office Visit [facility] MEDICINE 230 [place] [address] Geetha Sidhu MD 230 [place] [address] documented as of this encounter Visit Diagnoses Not on filedocumented in this encounter Additional Health Concerns Assessment Noted Time PHQ-9 Depression Total Score: 8 06/21/19 10:21 AM EDT documented as of this encounter Care Teams Track Laying Equipment Operator Relationship Specialty Start Date End Date Laurence Granados FNP 230 [place] [address] PCP - General Family Medicine 03/27/22 12/01/23 Geetha Sidhu MD [address] [place] [address] PCP - General Internal Medicine 12/02/23 Charles Curtis FNP [address] [place] [address] Nurse Practitioner Family Medicine 02/17/23 Pati Graff RN Care Manager 02/11/23 09/12/24 [facility] documented as of this encounter
--- OUTSIDE RECORDS SUMMARY | 2024-12-31 13:32 | XMS_ITS | Encounter Summary ---
Author Organization [employer] Address [address] [place] [address] Care Team Providers Care Building Custodial Supervisor Name Role Phone Laurence Granados Primary Care Provider [phone] Charles Curtis Unavailable Unavailable Geetha Sidhu MD Primary Care Provider + Encounter Details Date Type Department Care Team ([facility] Contact Info) Description 08/21/2022 [facility] Information Management 230 [place] [address] Laurence Granados FNP 230 [place] [address] Social History Tobacco Use Types Packs/Day Years [...] Upcoming Encounters Date Type Department Care Team ([facility] Contact Info) Description 02/01/2025 10:00 AM EST Office Visit [facility] MEDICINE 230 [place], [place] [phone] Geetha Sidhu MD 230 [place] [address] documented as of this encounter Visit Diagnoses Not on filedocumented in this encounter Additional Health Concerns Assessment Noted Time PHQ-9 Depression Total Score: 3 08/21/19 23 1:08 PM EDT documented as of this encounter Care Teams Building Custodial Supervisor Relationship Specialty Start Date End Date Laurence Granados FNP [address] [place] [address] PCP - General Family Medicine 03/27/22 12/01/23 Geetha Sidhu MD [address] [place] [address] PCP - General Internal Medicine 12/02/23 Charles Curtis FNP [address] [place] [address] Nurse Practitioner Family Medicine 02/17/23 Pati Graff RN Care Manager 02/11/23 09/12/24 [facility] 08/30/24 documented as of this encounter
--- OUTSIDE RECORDS SUMMARY | 2024-12-31 13:32 | XMS_ITS | Encounter Summary ---
Author Organization [employer] Address 75 [facility] 7t [place] [address] Care Team Providers Care Manager Of Security Name Role Phone RufinaasaCharles ANABELA Unavailable Unavailable Geetha Sidhu MD Primary Care Provider + Encounter Details Date Type Department Care Team ([facility] st Contact Info) Description 10/28/2024 Results Follow-Up [facility] MEDICINE 230 [place], [place] [phone] Geetha Sidhu MD 230 [place] [address] CTA Head w/ and w/o Contrast, CT [...] Description 02/01/2025 10:00 AM EST Office Visit [facility] MEDICINE 230 [place] [address] Geetha Sidhu MD 230 [place] [address] documented as of this encounter Visit Diagnoses Not on filedocumented in this encounter Additional Health Concerns Assessment Noted Time PHQ-9 Depression Total Score: 3 07/10/19 25 11:31 AM EDT documented as of this encounter Care Teams Manager Of Security Relationship Specialty Start Date End Date Geetha Sidhu MD 230 [place] [address] PCP - General Internal Medicine 12/02/23 Charles Curtis FNP Nurse Practitioner Family Medicine 02/17/23 [facility] 08/30/24 documented as of this encounter
--- OUTSIDE RECORDS SUMMARY | 2024-12-31 13:32 | XMS_ITS | Encounter Summary ---
Author Organization [employer] Address 75 [facility] 7t [place] [address] Care Team Providers Care Security Guards Dispatcher Name Role Phone Laurence Granados Primary Care Provider [phone] Charles Curtis Unavailable Unavailable Geetha Sidhu MD Primary Care Provider + Encounter Details Date Type Department Care Team (Late st Contact Info) Description 04/29/2023 Orders Only [facility] MED & PEDS [address] [place] [address] Laurence Granados FNP 230 [facility] [place] [address] Social History Tobacco Use Types Packs/Day Years [...] Description 02/01/2025 10:00 AM EST Office Visit [facility] MEDICINE [address] [place] [address] Geetha Sidhu MD [address] [place] [address] documented as of this encounter Visit Diagnoses Not on filedocumented in this encounter Additional Health Concerns Assessment Noted Time PHQ-9 Depression Total Score: 9 02/14/20 23 3:41 PM EST documented as of this encounter Care Teams Security Guards Dispatcher Relationship Specialty Start Date End Date Laurence Granados FNP [address] [place] [address] PCP - General Family Medicine 03/27/22 12/01/23 Geetha Sidhu MD [address] [place] [address] PCP - General Internal Medicine 12/02/23 Charles Curtis FNP [address] [place] [address] Nurse Practitioner Family Medicine 02/17/23 Pati Graff RN Care Manager 02/11/23 09/12/24 [facility] 08/30/24 documented as of this encounter
--- OUTSIDE RECORDS SUMMARY | 2024-12-31 13:32 | XMS_ITS | Encounter Summary ---
Author Organization [employer] Address [address] [place] [address] [address] [address] Care Team Providers Care Layer Out Plate Glass Name Role Phone Laurence Granados Primary Care Provider [phone] Charles Curtis Unavailable Unavailable Geetha Sidhu MD Primary Care Provider + Encounter Details Date Type Department Care Team ([facility] Contact Info) Description 08/14/2022 Orders Only [facility] MEDICINE [address] [place] [address] Laurence Granados FNP [address] [place] [address] Essential hypertension Social History Tobacco Use Types [...] Upcoming Encounters Date Type Department Care Team ([facility] Contact Info) Description 02/01/2025 10:00 AM EST Office Visit [facility] MEDICINE 230 [place], [place] [phone] Geetha Sidhu MD 230 [place] [address] documented as of this encounter Visit Diagnoses Diagnosis Essential hypertension Unspecified essential hypertension documented in this encounter Additional Health Concerns Assessment Noted Time PHQ-9 Depression Total Score: 8 06/21/19 23 10:21 AM EDT documented as of this encounter Care Teams Layer Out Plate Glass Relationship Specialty Start Date End Date Laurence Granados FNP 230 [place] [address] PCP - General Family Medicine 03/27/22 12/01/23 Geetha Sidhu MD [address] [place] [address] PCP - General Internal Medicine 12/02/23 Charles Curtis FNP [address] [place] [address] Nurse Practitioner Family Medicine 02/17/23 Pati Graff RN Care Manager 02/11/23 09/12/24 [facility] 08/30/24 documented as of this encounter
--- OUTSIDE RECORDS SUMMARY | 2024-12-31 13:32 | XMS_ITS | Encounter Summary ---
Author Organization [employer] Address 75 [facility] 7t [place] [address] Care Team Providers Care Instrument/Control Technician Name Role Phone Laurence Granados Primary Care Provider [phone] Charles Curtis Unavailable Unavailable Geetha Sidhu MD Primary Care Provider + Reason for Visit * Reason Comments Med Refill Encounter Details Date Type Department Care Team (Late st Contact Info) Description 11/13/2023 Refill [facility] CHC MED & PEDS [address] [place] [address] Laurence Granados FNP 230 [place], [place] [phone] Neoplasm related pain (acute) (chronic) Social History [...] Description 02/01/2025 10:00 AM EST Office Visit [facility] MEDICINE [address] [place] [address] Geetha Sidhu MD [address] [place] [address] documented as of this encounter Visit Diagnoses Diagnosis Neoplasm related pain (acute) (chronic) documented in this encounter Additional Health Concerns Assessment Noted Time PHQ-9 Depression Total Score: 6 09/09/19 24 11:10 AM EDT documented as of this encounter Care Teams Instrument/Control Technician Relationship Specialty Start Date End Date Laurence Granados FNP [address] [place] [address] PCP - General Family Medicine 03/27/22 12/01/23 Geetha Sidhu MD [address] [place] [address] PCP - General Internal Medicine 12/02/23 Charles Curtis FNP [address] [place] [address] Nurse Practitioner Family Medicine 02/17/23 Pati Graff RN Care Manager 02/11/23 09/12/24 [facility] 08/30/24 documented as of this encounter
--- OUTSIDE RECORDS SUMMARY | 2024-12-31 13:32 | XMS_ITS | Clinical Summary ---
Author Organization [facility] Address 175 [place] [address] Phone Care Team Providers Care Agricultural Science Professor Name Role Phone Geetha Sidhu MD Primary Care Provider [phone] Allergies Active Allergy Reactions Criticality Noted Date Comments Codeine 09/03/2022 Other reaction(s): Unknown Piperacillin-Tazobact am-Dextrs Anaphylaxis High 09/03/2024 Noted at [facility] hospitalization 08/29/24 Medications acetaminophen (TYLENOL) [...] total) by mouth. at bedtime. Active FreeStyle [place] Lite monitoring kit See administration instructions. 06/12/19 [...] 11/02/2024 3:00 PM EDT Office Visit [facility] [place] [address] [place] [phone] Liv Levi MD Cerebral aneurysm, nonruptured [...] PM EST Office Visit [facility] [place] [address] [phone] John Damon, DPM [address] [phone] Health Maintenance Due Date Last Done Comments Colorectal Cancer Screening: Colonoscopy 1950 RSV Immunization Adult Patients (1 - Risk 60-74 years 1-dose series) 2010 Zoster Vaccines (1 of 2) 07/06/2015 05/11/2015 DTaP,Tdap,and Td Vaccines (2 - Td or Tdap) 12/18/2020 12/18/2010 COVID-19 Vaccine (3 - Pfizer risk series) 01/10/2021 12/13/2020, 11/22/2020 Breast Cancer Screening 01/15/2021 01/15/2019 Falls Risk Assessment 03/02/2022 Hepatitis C Screening [...] Insurance MEDICARE MEDICAID - [place] Care Teams Agricultural Science Professor Relationship Specialty Start Date End Date Geetha Sidhu MD [address] [place] [phone] PCP - General Internal Medicine 04/30/24
--- OUTSIDE RECORDS SUMMARY | 2024-12-31 13:32 | XMS_ITS | Encounter Summary ---
Author Organization [employer] Address [address] [place] [address] 7 [place] [address] Care Team Providers Care Imaging Account Manager Name Role Phone Laurence Granados Primary Care Provider [phone] Cahrles Curtis Unavailable Unavailable Geetha Sidhu MD Primary Care Provider + Reason for Visit * Reason Onset Date Comments FYI 08/05/2022 Encounter Details Date Type Department Care Team (Late st Contact Info) Description 08/05/2022 Telephone [facility] MEDICINE 230 [place], [place] [phone] Laurence Granados FNP [address] [place], [place] [phone] FYI Social History Tobacco Use Types Packs/Day [...] for 5 weeks. Any further questionsplease call [phone]. documented in this encounter Plan of Treatment Upcoming Encounters Date Type Department Care Team (Late st Contact Info) Description 02/01/2025 10:00 AM EST Office Visit [facility] MEDICINE 230 [place] [address] Geetha Sidhu MD 230 [place] [address] documented as of this encounter Visit Diagnoses Not on filedocumented in this encounter Additional Health Concerns Assessment Noted Time PHQ-9 Depression Total Score: 8 06/21/19 10:21 AM EDT documented as of this encounter Care Teams Imaging Account Manager Relationship Specialty Start Date End Date Laurence Granados FNP [address] [place] [address] PCP - General Family Medicine 03/27/22 12/01/23 Geetha Sidhu MD [address] [place] [address] PCP - General Internal Medicine 12/02/23 Charles Curtis FNP [address] [place] [address] Nurse Practitioner Family Medicine 02/17/23 Pati Graff RN Care Manager 02/11/23 09/12/24 [facility] 08/30/24 documented as of this encounter
--- OUTSIDE RECORDS SUMMARY | 2024-12-31 13:32 | XMS_ITS | Encounter Summary ---
Author Organization [employer] Address [address] [place] [address] 7t [place] [address] Care Team Providers Care Web Content Writer Name Role Phone Laurence Granados Primary Care Provider [phone] Charles Curtis Unavailable Unavailable Geetha Sidhu MD Primary Care Provider + Reason for Visit * Reason Comments Med Refill Encounter Details Date Type Department Care Team (Late st Contact Info) Description 04/26/2022 Refill [facility] [address] [place] [phone] El Delcid MD 230 [place], [place] [phone] Acute upper respiratory infection, unspecified Social History [...] Description 02/01/2025 10:00 AM EST Office Visit [facility] MEDICINE 230 [place] [address] Geetha Sidhu MD 230 [place] [address] documented as of this encounter Visit Diagnoses Diagnosis Acute upper respiratory infection, unspecified documented in this encounter Additional Health Concerns Assessment Noted Time PHQ-9 Depression Total Score: 5 04/12/19 10:58 AM EST documented as of this encounter Care Teams Web Content Writer Relationship Specialty Start Date End Date Laurence Granados FNP [address] [place] [address] PCP - General Family Medicine 03/27/22 12/01/23 Geetha Sidhu MD [address] [place] [address] PCP - General Internal Medicine 12/02/23 Charles Curtis FNP [address] [place] [address] Nurse Practitioner Family Medicine 02/17/23 Pati Graff RN Care Manager 02/11/23 09/12/24 [facility] 08/30/24 documented as of this encounter
--- OUTSIDE RECORDS SUMMARY | 2024-12-31 13:32 | XMS_ITS | Encounter Summary ---
Author Organization [employer] Address [address] [place] [address] 7 [place] [address] Care Team Providers Care Chemicals Fermentation Operator Name Role Phone Laurence Granados Primary Care Provider [phone] Charles Curtis Unavailable Unavailable Geetha Sidhu MD Primary Care Provider + Reason for Visit * Reason Onset Date Comments Nurse Triage 10/31/2022 Encounter Details Date Type Department Care Team (Late st Contact Info) Description 10/31/2022 Telephone [facility] MEDICINE 230 [place], [place] [phone] Laurence Granados FNP [address] [place], [place] [phone] Nurse Triage Social History Tobacco Use Types [...] 3:04 PM EDT Call to [facility], reports during visit today pt had [...] Description 02/01/2025 10:00 AM EST Office Visit [facility] MEDICINE 230 [place] [address] Geetha Sidhu MD 230 [place], [place] [phone] documented as of this encounter Visit Diagnoses Not on filedocumented in this encounter Additional Health Concerns Assessment Noted Time PHQ-9 Depression Total Score: 3 08/21/19 23 1:08 PM EDT documented as of this encounter Care Teams Chemicals Fermentation Operator Relationship Specialty Start Date End Date Laurence Granados FNP 230 [place] [address] PCP - General Family Medicine 03/27/22 12/01/23 Geetha Sidhu MD 230 [place] [address] PCP - General Internal Medicine 12/02/23 Charles Curtis FNP [address] [place] [address] Nurse Practitioner Family Medicine 02/17/23 Pati Graff RN Care Manager 02/11/23 09/12/24 [facility] 08/30/24 documented as of this encounter
--- OUTSIDE RECORDS SUMMARY | 2024-12-31 13:32 | XMS_ITS | Encounter Summary ---
Author Organization [employer] Address 75 [facility] 7 [place] [address] Care Team Providers Care Patch Machine Operator Name Role Phone EverCharles ANABELA Unavailable Unavailable Geetha Sidhu MD Primary Care Provider + Reason for Visit * Reason Onset Date Comments Med Refill 12/30/2024 Encounter Details Date Type Department Care Team (Late st Contact Info) Description 12/30/2024 Refill [facility] MEDICINE 230 [place], [place] [phone] Geetha Sidhu MD 230 [place], [place] [phone] Mixed anxiety and depressive disorder Social History [...] encounter Miscellaneous Notes * Telephone Encounter - Dave Barrios - 12/30/2024 9:57 AM EDT TC from pt requesting medication refill. Medications needing refill : clonazePAM (KlonoPIN) 0.5 MG tablet To be sent to: [facility] - [place], [place] - [address] [place] [address] documented in this encounter Plan of Treatment Upcoming Encounters Date Type Department Care Team ([facility] st Contact Info) Description 02/01/2025 10:00 AM EST Office Visit [facility] MEDICINE 230 [place] [address] Geetha Sidhu MD 230 [place] [address] documented as of this encounter Visit Diagnoses Diagnosis Mixed anxiety and depressive disorder Dysthymic disorder documented in this encounter Additional Health Concerns Assessment Noted Time PHQ-9 Depression Total Score: 3 07/10/19 25 11:31 AM EDT documented as of this encounter Care Teams Patch Machine Operator Relationship Specialty Start Date End Date Geetha Sidhu MD [address] [place] [address] PCP - General Internal Medicine 12/02/23 Charles Curtis FNP Nurse Practitioner Family Medicine 02/17/23 [facility] 08/30/24 documented as of this encounter
--- OUTSIDE RECORDS SUMMARY | 2024-12-31 13:32 | XMS_ITS | Encounter Summary ---
Author Organization [employer] Address [address] [place] [address] 7 [place] [address] Care Team Providers Care Packager Machine Name Role Phone Laurence Granados Primary Care Provider [phone] Charles Curtis Unavailable Unavailable Geetha Sidhu MD Primary Care Provider + Encounter Details Date Type Department Care Team (Late Contact Info) Description 08/30/2022 Orders Only [facility] MEDICINE [address] [place] [address] Laurence Granados FNP 230 [place] [address] Social History Tobacco Use Types Packs/Day Years [...] Description 02/01/2025 10:00 AM EST Office Visit [facility] MEDICINE [address] [place] [address] [phone] Geetha Sidhu MD [address] [place] [address] documented as of this encounter Visit Diagnoses Not on filedocumented in this encounter Additional Health Concerns Assessment Noted Time PHQ-9 Depression Total Score: 3 08/21/19 23 1:08 PM EDT documented as of this encounter Care Teams Packager Machine Relationship Specialty Start Date End Date Laurence Granados FNP 230 [place] [address] PCP - General Family Medicine 03/27/22 12/01/23 Geetha Sidhu MD 230 [place] [address] PCP - General Internal Medicine 12/02/23 Charles Curtis FNP 230 [place] [address] Nurse Practitioner Family Medicine 02/17/23 Pati Graff cinder block maker 02/11/23 09/12/24 [facility] 08/30/24 documented as of this encounter
--- OUTSIDE RECORDS SUMMARY | 2024-12-31 13:32 | XMS_ITS | Encounter Summary ---
Author Organization [employer] Address 75 [facility] 7 [place] [address] Care Team Providers Care Deck Hand Name Role Phone Laurence Granados Primary Care Provider [phone] Charles Curtis Unavailable Unavailable Geetha Sidhu MD Primary Care Provider + Reason for Visit * Reason Onset Date Comments Appointment Request 05/07/2023 Encounter Details Date Type Department Care Team ([facility] st Contact Info) Description 05/07/2023 Telephone [facility] MEDICINE 230 [place], [place] [phone] Laurence Granados FNP 230 [place], [place] [phone] Appointment Request Social History Tobacco Use Types [...] daughter requesting a f/u appt with PCP [phone] documented in this encounter Plan of Treatment Upcoming Encounters Date Type Department Care Team (Late st Contact Info) Description 02/01/2025 10:00 AM EST Office Visit [facility] MEDICINE 230 [place] [address] Geetha Sidhu MD 230 [place] [address] documented as of this encounter Visit Diagnoses Not on filedocumented in this encounter Additional Health Concerns Assessment Noted Time PHQ-9 Depression Total Score: 9 02/14/20 23 3:41 PM EST documented as of this encounter Care Teams Deck Hand Relationship Specialty Start Date End Date Laurence Granados FNP 230 [place] [address] PCP - General Family Medicine 03/27/22 12/01/23 Geetha Sidhu MD 230 [place] [address] PCP - General Internal Medicine 12/02/23 Charles Curtis FNP 230 [place] [address] Nurse Practitioner Family Medicine 02/17/23 Pati Graff RN Care Manager 02/11/23 09/12/24 [facility] 08/30/24 documented as of this encounter
--- OUTSIDE RECORDS SUMMARY | 2024-12-31 13:32 | XMS_ITS | Encounter Summary ---
Author Organization [employer] Address [address] [facility] 7t [place] [address] Care Team Providers Care Leather Craftsman Name Role Phone Ever Charlesrobert PEÑALOZA Unavailable Unavailable Geetha Sidhu MD Primary Care Provider + Encounter Details Date Type Department Care Team ([facility] st Contact Info) Description 03/17/2024 Telephone [facility] [address] [place], [place] [phone] Geetha Sidhu MD [address] [place], [place] [phone] Social History Tobacco Use Types Packs/Day Years [...] Description 02/01/2025 10:00 AM EST Office Visit [facility] [address] [place] [phone] Geetha Sidhu MD [address] [place] [phone] documented as of this encounter Visit Diagnoses Not on filedocumented in this encounter Additional Health Concerns Assessment Noted Time PHQ-9 Depression Total Score: 6 09/09/19 24 11:10 AM EDT documented as of this encounter Care Teams Leather Craftsman Relationship Specialty Start Date End Date Geetha Sidhu MD [address] [place] [phone] PCP - General Internal Medicine 12/02/23 Charles Curtis FNP Nurse Practitioner Family Medicine 02/17/23 Pati Graff RN Care Manager 02/11/23 [facility] documented as of this encounter
--- OUTSIDE RECORDS SUMMARY | 2024-12-31 13:32 | XMS_ITS | Encounter Summary ---
Author Organization [employer] Address [address] [place] [address] 7 [place] [address] Care Team Providers Care Upscale Security Officer Name Role Phone Laurence Granados Primary Care Provider [phone] Charles Curtis Unavailable Unavailable Geetha Sidhu MD Primary Care Provider + Reason for Visit * Reason Onset Date Comments PA 08/06/2022 Encounter Details Date Type Department Care Team ([facility] st Contact Info) Description 08/06/2022 Telephone [facility] [address] [place], [place] [phone] Laurence Granados FNP [address] [place], [place] [phone] PA Social History Tobacco Use Types Packs/Day [...] - 08/06/2022 1:26 PM EDT Tc from [facility] stating that Medication oxyCODONE (Roxicodone) 5 MG immediate release tablet needs a PA from provider Please contact daughter at [phone] documented in this encounter Plan of Treatment Upcoming Encounters Date Type Department Care Team (Late st Contact Info) Description 02/01/2025 10:00 AM EST Office Visit [facility] [address] [place] [phone] Geetha Sidhu MD [address] [place] [phone] documented as of this encounter Visit Diagnoses Not on filedocumented in this encounter Additional Health Concerns Assessment Noted Time PHQ-9 Depression Total Score: 8 06/21/19 10:21 AM EDT documented as of this encounter Care Teams Upscale Security Officer Relationship Specialty Start Date End Date Laurence Granados FNP [address] [place] [phone] PCP - General Family Medicine 03/27/22 12/01/23 Geetha Sidhu MD [address] [place] [phone] PCP - General Internal Medicine 12/02/23 Charles Curtis FNP [address] [place] [address] Nurse Practitioner Family Medicine 02/17/23 Pati Graff RN Care Manager 02/11/23 09/12[facility]24 [facility] documented as of this encounter
--- OUTSIDE RECORDS SUMMARY | 2024-12-31 13:32 | XMS_ITS | Encounter Summary ---
Author Organization [employer] Address [address] [facility] 7t [place] [address] Care Team Providers Care Green Feed Attendant Name Role Phone Laurence Granados Primary Care Provider [phone] Charles Curtis Unavailable Unavailable Geetha Sidhu MD Primary Care Provider + Reason for Visit * Reason Comments Med Refill Encounter Details Date Type Department Care Team (Late st Contact Info) Description 02/20/2023 Refill [facility] [address] [place], [place] [phone] Alaina Franklin MD [address] [place], [place] [phone] Social History Tobacco Use Types Packs/Day Years [...] Description 02/01/2025 10:00 AM EST Office Visit [facility] [address] [place] [address] Geetha Sidhu MD [address] [place] [phone] documented as of this encounter Visit Diagnoses Not on filedocumented in this encounter Additional Health Concerns Assessment Noted Time PHQ-9 Depression Total Score: 9 02/14/20 23 3:41 PM EST documented as of this encounter Care Teams Green Feed Attendant Relationship Specialty Start Date End Date Laurence Granados FNP [address] [place] [phone] PCP - General Family Medicine 03/27/22 12/01/23 Geetha Sidhu MD [address] [place] [address] PCP - General Internal Medicine 12/02/23 Charles Curtis FNP [address] [place] [phone] Nurse Practitioner Family Medicine 02/17/23 Pati Graff RN Care Manager 02/11/23 09/12/24 [facility] 08/30/24 documented as of this encounter
--- OUTSIDE RECORDS SUMMARY | 2024-12-31 13:32 | XMS_ITS | Encounter Summary ---
Author Organization [employer] Address [address] [place] [address] [address] [place] [address] Care Team Providers Care Ruling Technician Name Role Phone Laurence Granados Primary Care Provider [phone] Charles Curtis Unavailable Unavailable Geetha Sidhu MD Primary Care Provider + Encounter Details Date Type Department Care Team (Late Contact Info) Description 09/23/2022 Abstract [facility] [address] [place] [address] Laurence Granados FNP [address] [place] [address] Social History Tobacco Use Types Packs/Day Years [...] Description 02/01/2025 10:00 AM EST Office Visit [facility] [address] [facility] [place] [address] Geetha Sidhu MD [address] [place] [address] documented as of this encounter Visit Diagnoses Not on filedocumented in this encounter Additional Health Concerns Assessment Noted Time PHQ-9 Depression Total Score: 3 08/21/19 23 1:08 PM EDT documented as of this encounter Care Teams Ruling Technician Relationship Specialty Start Date End Date Laurence Granados FNP [address] [facility] [place] [address] PCP - General Family Medicine 03/27/22 12/01/23 Geetha Sidhu MD [address] [place] [address] PCP - General Internal Medicine 12/02/23 Charles Curtis FNP [address] [place] [address] Nurse Practitioner Family Medicine 02/17/23 Pati Graff RN Care Manager 02/11/23 09/12/24 [facility] 08/30/24 documented as of this encounter
--- OUTSIDE RECORDS SUMMARY | 2024-12-31 13:32 | XMS_ITS | Clinical Summary ---
Author Organization [employer] Address [address] [place] [address] 7[address] [place] [address] Care Team Providers Care Operator Maintainer Name Role Phone Charles Curtis Unavailable Unavailable Geetha Sidhu MD Primary Care Provider + Allergies Active Allergy Reactions Criticality Noted Date Comments Codeine 09/03/2022 Other reaction(s): Unknown Iodinated Contrast Media Nausea Only,Fever 09/13/2021 CONTRAST DYE FROM PET SCAN PER PREVIOUS EHR Other reaction(s): Shakiness Piperacillin Anaphylaxis High 08/23/2024 Piperacillin-Tazobact am In Dex Anaphylaxis High 09/03/2024 Noted at [facility] hospitalization 08/29/24 Medications * This document contains [...] 1 023 Active Incontinence Supply Disposable (Depend Ixd-Cawo-Oynhl-M) miscIndications:I ncreased frequency of urination Use at [...] 28 days. Do not start before December 31, 2024. 84 tablet 025 2024 Active clonazePAM (KlonoPIN) 0.5 MG tabletIndications :Mixed anxiety and depressive disorder Take 1 tablet (0.5 mg) by mouth 3 times daily for 28 days. Do not start before December 02, 2024. 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 Dehydration 09/24/2022 [...] pain. Lives with daughter who is her POWERHOUSE MECHANIC APPRENTICE and also provides emotional support. Strong nondenominational [...] medication management. Any issues or concerns, call [facility]. All her questions were answered and I have wished her well. She agrees with the plan. Assessment & Plan (07/07/2023 12:19 PM EDT): Advanced lung cancer, with metastases, pain. Lives with daughter who is her POWERHOUSE MECHANIC APPRENTICE and also provides emotional support. Strong nondenominational [...] pain. Lives with daughter who is her POWERHOUSE MECHANIC APPRENTICE and also provides emotional support. Strong nondenominational [...] pain. Lives with daughter who is her POWERHOUSE MECHANIC APPRENTICE and also provides emotional support. Strong nondenominational [...] pain. Lives with daughter who is her POWERHOUSE MECHANIC APPRENTICE and also provides emotional support. Strong nondenominational [...] pain. Lives with daughter who is her POWERHOUSE MECHANIC APPRENTICE and also provides emotional support. Strong nondenominational [...] metastases. Lives with daughter who is her POWERHOUSE MECHANIC APPRENTICE and also provides emotional support. Strong nondenominational [...] Diagnosed Date Resolved Date Acute respiratory failure wi th hypoxia (CMS/HCC) 09/24/2022 04/06/2024 Hypotension 09/24/2022 04/06/2024 Hypoxia 09/24/2022 04/06/2024 Lesion of thoracic vertebra 09/24/2022 04/06/2024 Right lower lobe pneumonia 09/24/2022 0 04/06/2024 Viral URI 03/29/2022 04/12/2022 Increased frequency of urination 07/01/2012 04/06/2024 Encounters Date Type Department Care Team Description 12/30/2024 Refill [facility] [address] [place] [address] Geetha Sidhu MD Mixed anxiety and depressive disorder 12/17/2024 Orders Only [facility] External Provider, [facility] 12/02/2024 Telephone [facility] [address] [place] [address] Mahnaz Benz RN RELIEF OPERATOR Agreement Form 12/01/2024 Refill [facility] [address] [place] [address] Geetha Sidhu MD Mixed anxiety and depressive disorder 11/10/2024 Refill [facility] [address] [place] [address] Geetha Sidhu MD 10/28/2024 Telephone [facility] [address] [place] [address] Geetha Sidhu MD Med Refill 10/28/2024 Results Follow-Up [facility] [address] [place] [address] Geetha Sidhu MD CTA Head w/ and w/o Contrast, CT Urogram w/o Contrast 10/25/2024 Refill [facility] [address] [place] [address] Geetha Sidhu MD Mixed anxiety and depressive disorder 10/22/2024 Refill [facility] [address] [place] [address] Geetha Sidhu MD Mixed anxiety and depressive disorder 09/30/2024 Orders Only GENERIC EXTERNAL DATA DEPARTMENT Provider, Generic External Data from Last 3 Months Immunizations Immunization Administration [...] Description 02/01/2025 10:00 AM EST Office Visit [facility] [address] [place] [address] Geetha Sidhu MD [address] [place] [address] Health Maintenance Due Date Last Done Comments [...] SDOH Screening 04/12/2023 04/12/2022 COVID-19 Vaccine ( - season) 2024 12/13/2020, 11/22/2020 Influenza Vaccine (#1) 2024 9, 01/14/2019, 02/02/2018, Additional history exists Depression Screening 07/09/2025 07/09/2024, 07/10/19 25 Tobacco Screening 07/09/2025 07/09/2024 Lipid Panel 04/12/2027 04/12/2022, 05/0 07/2021, 08/21/2020 Hepatitis A Vaccines Aged Out 10/16/2007, [...] Diagnosis Comments CT CHEST W CONTRAST Routine 12/20/2024 8 :[address] UROGRAM WO CONTRAST Routine 10/28/2024 1:48 PM EDT CTA HEAD W AND WO CONTRAST Routine 10/11/2024 1:59 PM EDT CYTOPATH-CELL ENHANCED Routine 09/30/2024 4:40 PM EDT LIPID PANEL, STANDARD Routine 04/12/2022 12:11 PM EST Routine adult health maintenance BI MAMMOGRAM SCREENING BILATERAL Routine 01/15/2019 8:15 AM EDT from Last 3 Months or Most Recently Relevant to Health Maintenance Results * CT Chest w/ Contrast (12/20/2024 8:12 AM EDT) Anatomical Region Laterality Modality Body, Chest Computed Tomogra phy 12/20/2024 8:12 AM EDT Narrative 12/20/2024 8:13 AM EDT [place] [address] [address] Scan Report Signed Patient: Eloisa Salazar MR#: [id number] : 1950 Acct:[id number] Age/Sex: 74 / F ADM Date: 12/17/24 Loc: HO.CT Attending Dr: Diana Beck MD Ordering Physician: Diana Beck MD Date of Service: 12/17/24 Procedure(s): CT chest w IV con Accession Number(s): [id number] cc: Laurence Granados AIRCRAFT STRUCTURAL DESIGN ENGINEER; Diana Beck MD Report Number: [id number]: Total DLP = 96.00 mGy-cm Reason for Exam: Restaging CAT scan of the chest. CLINICAL HISTORY: Restaging CAT scan of the chest. CT chest with contrast Comparison: 06/01/2024 Findings: The heart size is normal. There is a 1.3 cm right paratracheal lymph node, unchanged. The visualized thyroid and mediastinum are otherwise unremarkable. There is residual or recurrent right lower lobe consolidation, possible pneumonia, atelectasis, or scarring. There are changes of pulmonary bullous disease The visualized upper abdomen is unremarkable. No acute fractures. Midthoracic vertebral body blastic finding, unchanged. IMPRESSION: 1. Residual or recurrent right lower lobe consolidation, differential considerations noted 2. Otherwise stable findings. This document has been electronically signed by: Keon Love MD on 12/20/2024 08:12:49 Dictated By: Keon Love MD Signed By: <Electronically signed by Keon Love MD in OV> 12/20/24812 DD/ 1 TD/TT: 12/20/24811 Fiber Locking Supervisor: Procedure Note Donotuseinterpreter, Image - 12/20/[address] [place] [address] [address] Scan Report Signed Patient: Eloisa Salazar [facility]#: [id number] : 1950Acct:[id number] Age/Sex: 74 / FADM Date: 12/17/24 Loc: HO.CT Attending Dr: Diana eBck MD Ordering Physician: Diana Beck MD Date of Service: 12/17/24 Procedure(s): CT chest w IV con Accession Number(s): [id number] cc: Laurence Granados AIRCRAFT STRUCTURAL DESIGN ENGINEER; Diana Beck MD Report Number: [id number]: Total DLP = 96.00 mGy-cm Reason for Exam: Restaging CAT scan of the chest. CLINICAL HISTORY: Restaging CAT scan of the chest. CT chest with contrast Comparison: 06/01/2024 Findings: The heart size is normal. There is a 1.3 cm right paratracheal lymph node, unchanged. The visualized thyroid and mediastinum are otherwise unremarkable. There is residual or recurrent right lower lobe consolidation, possible pneumonia, atelectasis, or scarring. There are changes of pulmonary bullous disease The visualized upper abdomen is unremarkable. No acute fractures. Midthoracic vertebral body blastic finding, unchanged. IMPRESSION: 1. Residual or recurrent right lower lobe consolidation, differential considerations noted 2. Otherwise stable findings. This document has been electronically signed by: Keon Love MD on 12/20/2024 08:12:49 Dictated By: Keon Love MD Signed By: <Electronically signed by Keon Love MD in OV> 12/20/24812 DD/ 1 TD/TT: 12/20/24811 Fiber Locking Supervisor: [facility] External Provider IMG CT PROCEDURES Edited Result - Final * CT Urogram w/o Contrast (10/28/2024 1:48 PM EDT) Anatomical Region Laterality Modality Ureter, Upper urinary tract Comp uted Tomography 10/28/2024 1:48 PM EDT Narrative 10/28/2024 2:54 PM EDT [place] [address] CT Scan Report Signed Patient: Eloisa Salazar MR#: [id number] : 1950 Acct:[id number] Age/Sex: 74 / F ADM Date: 10/28/24 Loc: HO.CT Attending Dr: George Shell MD Ordering Physician: George Shell MD Date of Service: 10/28/24 Procedure(s): CT urogram Accession Number(s): [id number] cc: George Shell MD; Geetha Sidhu MD Report Number: [id number]: Total DLP = 489.00 mGy-cm EXAMINATION: CT [...] 10/28/24 1451 DD/ 1348 TD/TT: 10/28/24 1429 Fiber Locking Supervisor: Procedure Note Donotuseinterpreter, Image - 10/28/[address] [address] [address] Scan Report Signed Patient: Eloisa Salazar DMR#: [id number] : 1950Acct:[id number] Age/Sex: 74 / FADM Date: 10/28/24 Loc: HO.CT Attending Dr: George Shell MD Ordering Physician: George Shell MD Date of Service: 10/28/24 Procedure(s): CT urogram Accession Number(s): [id number] cc: George Shell MD; Geetha Sidhu MD Report Number: [id number]: Total DLP = 489.00 mGy-cm EXAMINATION: CT [...] 10/28/24 1451 DD/ 1348 TD/TT: 10/28/24 1429 Fiber Locking Supervisor: [facility] External Provider IMG CT PROCEDURES Final Result * CTA Head w/ and w/o Contrast (10/11/2024 1:59 PM EDT) Anatomical Region Laterality Modality Head, Neck Computed Tomogra phy 10/11/2024 1:59 PM EDT Narrative 10/12/2024 8:22 AM EDT [address] [address] [address] Scan Report Signed Patient: Eloisa Salazar MR#: [id number] : 1950 Acct:[id number] Age/Sex: 74 / F ADM Date: 10/11/24 Loc: HO.CT Attending Dr: Liv Suarez MD Ordering Physician: Liv Suarez MD Date of Service: 10/11/24 Procedure(s): CT angio head Accession Number(s): [id number] cc: Laurence Granados AIRCRAFT STRUCTURAL DESIGN ENGINEER; Liv Suarez MD Report Number: [id number]: Total DLP = 1022.00 mGy-cm EXAMINATION: CT ANGIOGRAM BRAIN, HEAD CLINICAL INFORMATION: Follow-up bilateral MCA aneurysms. COMPARISON: None available. TECHNIQUE: Noncontrast head CT was performed. This was followed by intravenous administration 100 mL of Omnipaque 350 intravenous contrast. Helical imaging CTA head was performed in the axial plane from the skull base to the vertex. The data was processed at the chief radiologic technologist workstation for generation of MIP sequences. [...] P1 segment is diminutive. origin of the POWERHOUSE MECHANIC APPRENTICE with robust opacification of the posterior communicating artery. Normal opacification of the distal POWERHOUSE MECHANIC APPRENTICE segments. -LEFT POSTERIOR CEREBRAL ARTERY: The P1 segment is diminutive. origin of the POWERHOUSE MECHANIC APPRENTICE with robust opacification of the posterior communicating artery. Normal opacification of the distal POWERHOUSE MECHANIC APPRENTICE segments. -POSTERIOR COMMUNICATING ARTERIES: Partial origins as [...] bifurcation aneurysm. 4. Persistent origins of both specimen technician. Electronically signed by: Chuy Kim MD 10/12/2024 08:19 AM EDT Dictated By: Chuy Kim MD Signed By: <Electronically signed by Chuy Kim MD in OV> 10/12/24 0819 DD/ 1359 TD/TT: 10/11/24 1419 Fiber Locking Supervisor: Procedure Note Donotuseinterpreter, Image - 10/12/[address] [address] [address] Scan Report Signed Patient: Eloisa Salazar DMR#: [id number] : 1950Acct:[id number] Age/Sex: 74 / FADM Date: 10/11/24 Loc: HO.CT Attending Dr: Liv Suarez MD Ordering Physician: Liv Suarez MD Date of Service: 10/11/24 Procedure(s): CT angio head Accession Number(s): [id number] cc: Laurence Granados AIRCRAFT STRUCTURAL DESIGN ENGINEER; Liv Suarez MD Report Number: [id number]: Total DLP = 1022.00 mGy-cm EXAMINATION: CT ANGIOGRAM BRAIN, HEAD CLINICAL INFORMATION: Follow-up bilateral MCA aneurysms. COMPARISON: None available. TECHNIQUE: Noncontrast head CT was performed. This was followed by intravenous administration 100 mL of Omnipaque 350 intravenous contrast. Helical imaging CTA head was performed in the axial plane from the skull base to the vertex. The data was processed at the chief radiologic technologist workstation for generation of MIP sequences. [...] P1 segment is diminutive. origin of the POWERHOUSE MECHANIC APPRENTICE with robust opacification of the posterior communicating artery. Normal opacification of the distal POWERHOUSE MECHANIC APPRENTICE segments. -LEFT POSTERIOR CEREBRAL ARTERY: The P1 segment is diminutive. origin of the POWERHOUSE MECHANIC APPRENTICE with robust opacification of the posterior communicating artery. Normal opacification of the distal POWERHOUSE MECHANIC APPRENTICE segments. -POSTERIOR COMMUNICATING ARTERIES: Partial origins as [...] bifurcation aneurysm. 4. Persistent origins of both specimen technician. Electronically signed by: Chuy Kim MD 10/12/2024 08:19 AM EDT RP Dictated By: Chuy Kim MD Signed By: <Electronically signed by Chuy Kim MD in OV> 10/12/24 08 DD/ 1359 TD/TT: 10/11/24 1419 Fiber Locking Supervisor: [facility] External Provider IMG CT PROCEDURES Final Result * Cytopath-cell enhanced (09/30/2024 4:40 PM EDT) 09/30/2024 4:40 PM EDT 10/04/2024 9:45 AM EDT [facility] - 10/04/2024 2:26 PM EDT ----- ------- Name: Eloisa Salazar Age/Sex: 74/F : 1950 Unit#: [id number] Attend Dr: George Shell MD Re09/30/24 Status: DEP REF Location: .LAB Disch: ----- ------- SPEC : [id number] RECD: 10/04/24 STATUS: TALIB COE NUM: [id number] KASIA: 09/30/24-[address]: George Shell MD ENTERED: 10/04/24-1029 SP TYPE: Cytology OTHR DR: Laurence Granados NP ORDERED: Cyto-enhanced Diagnosis Urine: Negative for high-grade [...] and their performance characteristics determined by [facility]. They have not been cleared or approved by the U.S. Food and Drug Administration (FDA). However, the FDA has determined that such clearance or approval is not necessary. This laboratory is certified under the Clinical Laboratory Improvement Amendments of 1988 (CLIA) as qualified to perform high complexity clinical laboratory testing. Copies To: George Shell MD [facility] [address] [place] [address] Dr. Hoang [address] [place] [address] [email or web address] Laurence Granados AIRCRAFT STRUCTURAL DESIGN ENGINEER [address] [place] [address] CONTINUED ON NEXT PAGE ----- ------- Name: Eloisa Salazar Age/Sex: 74/F : 1950 Unit#: [id number] Attend Dr: George Shell MD Re09/30/24 Status: DEP REF Location: [facility] Disch: ----- ------- SPEC : [id number] RECD: 10/04/24 STATUS: TALIB COE NUM: [id number] KASIA: 09/30/24-[address]: George Shell MD ENTERED: 10/04/241030 SP TYPE: Cytology OTHR DR: Laurence Granados NP ORDERED: Cyto-enhanced ----- ------- Signed (signature on file) Ember Boyden 10/04/24 1426 ----- ------- END OF REPORT Generic External Data Provider LAB CYTOLOGY JERICHO BAEZA Final Result [facility] [address] [place] [phone] * (ABNORMAL) Lipid Panel, Standard (04/12/2022 12:11 PM EST) Cholesterol, Total 181 <200 mg/dL [facility] HDL Cholesterol 35(L) > OR = 50 mg/dL [facility] [place] [facility] Triglycerides 299(H) <150 mg/dL [facility] [place] [facility] Comment: If a non-fasting specimen was collected, consider repeat triglyceride testing on a fasting specimen if clinically indicated. Andreina et al. J. of Clin. Lipidol. 2015;9:129-169. LDL Cholesterol 106(H) mg/dL (calc) [facility] Comment: Reference range: <100 Desirable range <100 mg/dL for primary prevention; <70 mg/dL for patients with CHD or diabetic patients with > or = 2 CHD risk factors. LDL-C is now calculated using the Maxwell-Elda calculation, which is a validated novel method providing better accuracy than the Friedewald equation in the estimation of LDL-C. Maxwell PRATT et al. SELINA. 2013;310(19): 7056-1198 (http://education.[employer]/faq/MJY691) Chol/HDLC Ratio 5.2(H) <5.0 (calc) [facility] Non-HDL Cholesterol 146(H) <130 mg/dL (calc) [facility] Comment: For patients with diabetes plus 1 major ASCVD risk factor, treating to a non-HDL-C goal of <100 mg/dL (LDL-C of <70 mg/dL) is considered a therapeutic option. Blood Venous blood specimen / Unknown 04/12/2022 12:11 PM EST 04/12/2022 12:12 PM EST Narrative [facility] - 04/13/2022 7:29 AM EST FASTING:YES FASTING: YES Laurence Granados [facility] BLOOD ORDERABLES Final Resu lt [facility] [address] [facility], [facility], [place] [address] [facility] [place] [facility] [address] [facility], ([address]) [place] [address] * DIGITAL BILATERAL SCREEN 1 (01/15/2019 8:15 AM EDT) Anatomical Region Laterality Modality Breast Bilateral Mammography 01/15/2019 8:15 AM EDT Narrative 01/15/2019 8:17 AM EDT Refer to the Notes tab for result details [facility] Procedure: DIGITAL BILATERAL SCREEN 1 Procedure Note Provider, MD Jerod - 06/22/2022 Refer to the Notes tab for result details [facility] Procedure: DIGITAL BILATERAL SCREEN 1 Charles PEÑALOZA IMG BI PROCEDURES Final Result from Last 3 Months or Most Recently Relevant to Health Maintenance Insurance MEDICARE Care Teams Operator Maintainer Relationship Specialty Start Date End Date Geetha Sidhu MD [address] [place] [phone] PCP - General Internal Medicine 12/02/23 Charles Curtis FNP Nurse Practitioner Family Medicine 02/17/23 [facility] 08/30/24
--- OUTSIDE RECORDS SUMMARY | 2024-12-31 13:32 | XMS_ITS | Encounter Summary ---
Author Organization [employer] Address [address] [place] [address] [address] [place] [address] Care Team Providers Care Press Operator Instant Print Shop Name Role Phone Laurence Granados Primary Care Provider [phone] Charles Curtis Unavailable Unavailable Geetha Sidhu MD Primary Care Provider + Encounter Details Date Type Department Care Team ([facility] Contact Info) Description 10/31/[address] [facility] [address] [place] [phone] Laurence Granados FNP [address] [place] [address] Mobility impaired (Primary Dx) Social History Tobacco [...] Description 02/01/2025 10:00 AM EST Office Visit [facility] [address] [place] [address] Geetha Sidhu MD [address] [place] [address] documented as of this encounter Visit Diagnoses Diagnosis Mobility impaired- Primary Other ill-defined conditions documented in this encounter Additional Health Concerns Assessment Noted Time PHQ-9 Depression Total Score: 3 08/21/19 23 1:08 PM EDT documented as of this encounter Care Teams Press Operator Instant Print Shop Relationship Specialty Start Date End Date Laurence Granados FNP [address] [place] [address] PCP - General Family Medicine 03/27/22 12/01/23 Geetha Sidhu MD [address] [place] [address] PCP - General Internal Medicine 12/02/23 Charles Curtis FNP [address] [place] [address] Nurse Practitioner Family Medicine 02/17/23 Pati Graff RN Care Manager 02/11/23 09/12/24 [facility] 08/30/24 documented as of this encounter
--- OUTSIDE RECORDS SUMMARY | 2024-12-31 13:32 | XMS_ITS | Encounter Summary ---
Author Organization [employer] Address [address] [facility] 7 [place] [address] Care Team Providers Care Photographic Lithographer Name Role Phone Charles Curtis Unavailable Unavailable Geetha Sidhu MD Primary Care Provider + Reason for Visit * Reason Comments Med Refill Encounter Details Date Type Department Care Team (Late st Contact Info) Description 09/19/2024 Refill [facility] [address] [place], [place] [phone] Myra Guillory MD [address] [place], [place] [phone] Mixed anxiety and depressive disorder Social History [...] Visit [facility] [address] [place] [phone] Geetha Sidhu MD [address] [place] [phone] documented as of this encounter Visit Diagnoses Diagnosis Mixed anxiety and depressive disorder Dysthymic disorder documented in this encounter Additional Health Concerns Assessment Noted Time PHQ-9 Depression Total Score: 3 07/10/19 25 11:31 AM EDT documented as of this encounter Care Teams Photographic Lithographer Relationship Specialty Start Date End Date Geetha Sidhu MD [address] [place] [address] PCP - General Internal Medicine 12/02/23 Charles Curtis FNP Nurse Practitioner Family Medicine 02/17/23 [facility] 08/30/24 documented as of this encounter
--- OUTSIDE RECORDS SUMMARY | 2024-12-31 13:32 | XMS_ITS | Encounter Summary ---
Author Organization [employer] Address [address] [place] [address] 7 [place] [address] Care Team Providers Care Debt Collection Specialist Name Role Phone Laurence Granados Primary Care Provider [phone] Charles Curtis Unavailable Unavailable Geetha Sidhu MD Primary Care Provider + Reason for Visit * Reason Onset Date Comments FYI 09/12/2022 Encounter Details Date Type Department Care Team (Late st Contact Info) Description 09/12/2022 Telephone [facility] [address] [place], [place] [phone] Laurence Granados FNP [address] [place], [place] [phone] FYI Social History Tobacco Use Types Packs/Day [...] 1:27 PM EDT Tc from [facility] Visiting Nurses calling to inform PCP, patient missed her visit for this week (09/12/22) but they will resume visit for next week. documented in this encounter Plan of Treatment Upcoming Encounters Date Type Department Care Team (Late st Contact Info) Description 02/01/2025 10:00 AM EST Office Visit [facility] [address] [place] [address] Geetha Sidhu MD [address] [place] [address] documented as of this encounter Visit Diagnoses Not on filedocumented in this encounter Additional Health Concerns Assessment Noted Time PHQ-9 Depression Total Score: 3 08/21/19 1:08 PM EDT documented as of this encounter Care Teams Debt Collection Specialist Relationship Specialty Start Date End Date Laurence Granados FNP [address] [place] [address] PCP - General Family Medicine 03/27/22 12/01/23 Geetha Sidhu MD [address] [place] [address] PCP - General Internal Medicine 12/02/23 Charles Curtis FNP [address] [place] [address] Nurse Practitioner Family Medicine 02/17/23 Pati Graff RN Care Manager 02/11/23 09/12/24 [facility] 08/30/24 documented as of this encounter
--- OUTSIDE RECORDS SUMMARY | 2024-12-31 13:32 | XMS_ITS | Encounter Summary ---
Author Organization [employer] Address [address] [place] [address] 7 [place] [address] Care Team Providers Care Welding Pantograph Machine Operator Name Role Phone Laurence Granados Primary Care Provider [phone] Charles Curtis Unavailable Unavailable Geetha Sidhu MD Primary Care Provider + Encounter Details Date Type Department Care Team (Late st Contact Info) Description 06/17/2022 Orders Only [facility] [address] [place] [address] Laurence Granados FNP [address] [place] [address] Chronic pain due to neoplasm Social History [...] Description 02/01/2025 10:00 AM EST Office Visit [facility] [address] [place] [address] Geetha Sidhu MD 230 [place] [address] documented as of this encounter Visit Diagnoses Diagnosis Chronic pain due to neoplasm documented in this encounter Additional Health Concerns Assessment Noted Time PHQ-9 Depression Total Score: 5 04/12/19 23 10:58 AM EST documented as of this encounter Care Teams Welding Pantograph Machine Operator Relationship Specialty Start Date End Date Laurence Granados FNP 230 [place] [address] PCP - General Family Medicine 03/27/22 12/01/23 Geetha Sidhu MD [address] [place] [address] PCP - General Internal Medicine 12/02/23 Charles Curtis FNP [address] [place] [address] Nurse Practitioner Family Medicine 02/17/23 Pati Graff RN Care Manager 02/11/23 09/12/24 [facility] 08/30/24 documented as of this encounter
--- OUTSIDE RECORDS SUMMARY | 2024-12-31 13:32 | XMS_ITS | Encounter Summary ---
Author Organization [employer] Address [address] [place] [address] 7 [place] [address] Care Team Providers Care Outreach Rep Name Role Phone Laurence Granados Primary Care Provider [phone] Charles Curtis Unavailable Unavailable Geetha Sidhu MD Primary Care Provider + Reason for Visit * Reason Onset Date Comments Verbal orders 07/26/2022 Encounter Details Date Type Department Care Team ([facility] st Contact Info) Description 07/26/2022 Telephone [facility] [address] [place], [place] [phone] Laurence Granados FNP 230 [place], [place] [phone] Verbal orders Social History Tobacco Use Types [...] - 08/05/2022 1:07 PM EDT Tc from [facility] facility informing that pt has gone under their care since 08/02/2022. Pt eligibility is for OT-PT. If any questions please contact Irma at [phone] * Telephone Encounter - Margaret Morris RN - 08/02/2022 2:31 PM EDT VO orders provided to [facility] per PCP ok. * Telephone Encounter - Alfredo Luis - 08/01/2022 10:02 AM EDT Tc from [facility] with [facility] returning call in regards to verbal orders to start services tomorrow for PT and OT. 08/02/22. Please contact at [phone] * Telephone Encounter - Kaleigh Schmitz RN [...] needed regarding program. Please contact Melinda at [phone] Opt 2 documented in this encounter Plan of Treatment Upcoming Encounters Date Type Department Care Team (Late st Contact Info) Description 02/01/2025 10:00 AM EST Office Visit [facility] 230 [place] [address] Geetha Sidhu MD 230 [place] [address] documented as of this encounter Visit Diagnoses Not on filedocumented in this encounter Additional Health Concerns Assessment Noted Time PHQ-9 Depression Total Score: 8 06/21/19 10:21 AM EDT documented as of this encounter Care Teams Outreach Rep Relationship Specialty Start Date End Date Laurence Gran[place] [address] PCP - General Family Medicine 03/27/22 12/01/23 Geetha Sidhu MD [address] [place] [address] PCP - General Internal Medicine 12/02/23 Charles Curtis FNP [address] [place] [address] Nurse Practitioner Family Medicine 02/17/23 Pati Graff RN Care Manager 02/11/23 09/12/24 [facility] documented as of this encounter
== END 2024-12-31 13:41 | disposition home or self-care (01) ==
LOC: HO.HPS 13:09
PROVIDERS: PCP Nurse Practitioner Family; Visit Provider Hospitalist
DX: J41.1 Mucopurulent chronic bronchitis (principal); R91.8 Other nonspecific abnormal finding of lung field; Z72.0 Tobacco use; C79.51 Secondary malignant neoplasm of bone; J18.9 Pneumonia, unspecified organism
CPT/HCPCS: 99215; G2211

== ENCOUNTER → 2024-12-31 13:08 | Outpatient (BNVA) | payer MEDICARE, MEDICAID, SELFPAY | PROVIDERS: PCP Nurse Practitioner Family; Visit Provider Hospitalist | DX: J41.1 Mucopurulent chronic bronchitis (principal); R91.8 Other nonspecific abnormal finding of lung field; C79.51 Secondary malignant neoplasm of bone; J18.9 Pneumonia, unspecified organism; Z72.0 Tobacco use; Z99.81 Dependence on supplemental oxygen | CPT/HCPCS: 99212 ==

== ENCOUNTER → 2025-01-04 10:41 | Outpatient (REF) | payer MEDICARE, MEDICAID, SELFPAY ==
--- NOTE | 2025-01-04 10:43 | HM_ITS ---
* Total monitoring time 3 days. * Underlying rhythm is sinus with an average rate of 61/Min. * Rare supraventricular ectopy. Short runs noted. * Rare ventricular ectopy. * No significant pauses or high-grade AV blocks. * No patient markers or diary events. MTDD
--- OUTSIDE RECORDS SUMMARY | 2025-01-04 13:00 | XMS_ITS | Encounter Summary ---
Author Organization [employer] Address [address] [place] [address] 7 [place] [address] Care Team Providers Care Electronics System Mechanic Name Role Phone Laurence Granados Primary Care Provider [phone] Charles Curtis Unavailable Unavailable Geetha Sidhu MD Primary Care Provider + Encounter Details Date Type Department Care Team (Late Contact Info) Description 08/30/2022 Orders Only [facility] [address] [place] [address] Laurence Granados FNP 230 [place] [address] Social History Tobacco Use Types Packs/Day Years [...] Description 02/01/2025 10:00 AM EST Office Visit [facility] [address] [place] [address] [phone] Geetha Sidhu MD [address] [place] [address] documented as of this encounter Visit Diagnoses Not on filedocumented in this encounter Additional Health Concerns Assessment Noted Time PHQ-9 Depression Total Score: 3 08/21/19 23 1:08 PM EDT documented as of this encounter Care Teams Electronics System Mechanic Relationship Specialty Start Date End Date Laurence Granados FNP 230 [place] [address] PCP - General Family Medicine 03/27/22 12/01/23 Geetha Sidhu MD 230 [place] [address] PCP - General Internal Medicine 12/02/23 Charles Curtis FNP 230 [place] [address] Nurse Practitioner Family Medicine 02/17/23 Pati Graff moveman 02/11/23 09/12/24 [facility] 08/30/24 documented as of this encounter
--- OUTSIDE RECORDS SUMMARY | 2025-01-04 13:00 | XMS_ITS | Encounter Summary ---
Author Organization [employer] Address [address] [place] [address] 7 [place] [address] Care Team Providers Care Complaint Analyst Name Role Phone Laurence Granados Primary Care Provider [phone] Charles Curtis Unavailable Unavailable Geetha Sidhu MD Primary Care Provider + Reason for Visit * Reason Onset Date Comments Appointment 08/14/2022 LVM-Re: her appt for today as [id number] @ 1:15pm. Encounter Details Date Type Department Care Team ([facility] Contact Info) Description 08/14/2022 Telephone [facility] [address] [place], [place] [phone] Laurence Granados FNP [address] [place] [address] Appointment (LVM-Re: her appt for today as [id number] @ 1:15pm. ) Social History Tobacco Use [...] Description 02/01/2025 10:00 AM EST Office Visit [facility] [address] [place] [address] Geetha Sidhu MD 230 [place] [address] documented as of this encounter Visit Diagnoses Not on filedocumented in this encounter Additional Health Concerns Assessment Noted Time PHQ-9 Depression Total Score: 8 06/21/19 10:21 AM EDT documented as of this encounter Care Teams Complaint Analyst Relationship Specialty Start Date End Date Laurence Granados FNP [address] [place] [address] PCP - General Family Medicine 03/27/22 12/01/23 Geetha Sidhu MD [address] [place] [address] PCP - General Internal Medicine 12/02/23 Charles Curtis FNP [address] [place] [address] Nurse Practitioner Family Medicine 02/17/23 Pati Graff RN Care Manager 02/11/23 09/12/24 [facility] 08/30/24 documented as of this encounter
--- OUTSIDE RECORDS SUMMARY | 2025-01-04 13:00 | XMS_ITS | Encounter Summary ---
Author Organization [employer] Address [address] [place] [address] 7 [place] [address] Care Team Providers Care Workers' Compensation Commissioner Name Role Phone Laurence Granados Primary Care Provider [phone] Charles Curtis Unavailable Unavailable Geetha Sidhu MD Primary Care Provider + Encounter Details Date Type Department Care Team (Late st Contact Info) Description 06/17/2022 Orders Only [facility] 230 [place] [address] Laurence Granados FNP 230 [place] [address] Chronic pain due to neoplasm Social History [...] 02/01/2025 10:00 AM EST Office Visit [facility] 230 [place] [address] Geetha Sidhu MD 230 [place] [address] documented as of this encounter Visit Diagnoses Diagnosis Chronic pain due to neoplasm documented in this encounter Additional Health Concerns Assessment Noted Time PHQ-9 Depression Total Score: 5 04/12/19 23 10:58 AM EST documented as of this encounter Care Teams Workers' Compensation Commissioner Relationship Specialty Start Date End Date Laurence Granados FNP 230 [place] [address] PCP - General Family Medicine 03/27/22 12/01/23 Geetha Sidhu MD [address] [place] [address] PCP - General Internal Medicine 12/02/23 Charles Curtis FNP [address] [place] [address] Nurse Practitioner Family Medicine 02/17/23 Pati Graff RN Care Manager 02/11/23 09/12/24 [facility] 08/30/24 documented as of this encounter
--- OUTSIDE RECORDS SUMMARY | 2025-01-04 13:00 | XMS_ITS | Encounter Summary ---
Author Organization [employer] Address [address] [facility] 7t [place] [address] Care Team Providers Care Spout Liner Name Role Phone Ever Charlesrobert PEÑALOZA Unavailable Unavailable Geetha Sidhu MD Primary Care Provider + Encounter Details Date Type Department Care Team ([facility] st Contact Info) Description 03/17/2024 Telephone [facility] 230 [place], [place] [phone] Geetha Sidhu MD 230 [place], [place] [phone] Social History Tobacco Use Types Packs/Day Years [...] Description 02/01/2025 10:00 AM EST Office Visit [facility] [address] [place] [address] Geetha Sidhu MD [address] [place] [address] documented as of this encounter Visit Diagnoses Not on filedocumented in this encounter Additional Health Concerns Assessment Noted Time PHQ-9 Depression Total Score: 6 09/09/19 24 11:10 AM EDT documented as of this encounter Care Teams Spout Liner Relationship Specialty Start Date End Date Geetha Sidhu MD [address] [place] [address] PCP - General Internal Medicine 12/02/23 Charles Curtis FNP Nurse Practitioner Family Medicine 02/17/23 Pati Graff RN Care Manager 02/11/23 09/12/24 [facility] documented as of this encounter
--- OUTSIDE RECORDS SUMMARY | 2025-01-04 13:00 | XMS_ITS | Encounter Summary ---
Author Organization [employer] Address [address] [place] [address] 7 [place] [address] Care Team Providers Care Infantry Unit Leader Name Role Phone Laurence Granados Primary Care Provider [phone] Charles Curtis Unavailable Unavailable Geetha Sidhu MD Primary Care Provider + Reason for Visit * Reason Onset Date Comments Nurse Triage 10/31/2022 Encounter Details Date Type Department Care Team (Late st Contact Info) Description 10/31/[address] [facility] 230 [place], [place] [phone] Laurence Granados FNP 230 [place], [place] [phone] Nurse Triage Social History Tobacco Use Types [...] 3:04 PM EDT Call to [place] with [facility], reports during visit today pt had [...] EST Office Visit [facility] 230 [place] [address] Geetha Sidhu MD 230 [place], [place] [phone] documented as of this encounter Visit Diagnoses Not on filedocumented in this encounter Additional Health Concerns Assessment Noted Time PHQ-9 Depression Total Score: 3 08/21/19 23 1:08 PM EDT documented as of this encounter Care Teams Infantry Unit Leader Relationship Specialty Start Date End Date Laurence Granados FNP [address] [place] [address] PCP - General Family Medicine 03/27/22 12/01/23 Geetha Sidhu MD 230 [place] [address] PCP - General Internal Medicine 12/02/23 Charles Curtis FNP [address] [place] [address] Nurse Practitioner Family Medicine 02/17/23 Pati Graff RN Care Manager 02/11/23 09/12/24 [facility] 08/30/24 documented as of this encounter
--- OUTSIDE RECORDS SUMMARY | 2025-01-04 13:00 | XMS_ITS | Encounter Summary ---
Author Organization [employer] Address [address] [place] [address] 7 [place] [address] Care Team Providers Care Strategic Manager Name Role Phone Laurence Granados Primary Care Provider [phone] Charles Curtis Unavailable Unavailable Geetha Sidhu MD Primary Care Provider + Encounter Details Date Type Department Care Team (Late Contact Info) Description 09/23/2022 Abstract [facility] 230 [place] [address] Laurence Granados FNP [address] [place] [address] Social History Tobacco Use Types Packs/Day Years [...] Description 02/01/2025 10:00 AM EST Office Visit [facility] [address] [facility] [place] [address] Geetha Sidhu MD 230 [place] [address] documented as of this encounter Visit Diagnoses Not on filedocumented in this encounter Additional Health Concerns Assessment Noted Time PHQ-9 Depression Total Score: 3 08/21/19 23 1:08 PM EDT documented as of this encounter Care Teams Strategic Manager Relationship Specialty Start Date End Date Laurence Granados FNP 230 [facility] [address] PCP - General Family Medicine 03/27/22 12/01/23 Geetha Sidhu MD 230 [place] [address] PCP - General Internal Medicine 12/02/23 Charles Curtis FNP 230 [place] [address] Nurse Practitioner Family Medicine 02/17/23 Pati Graff RN Care Manager 02/11/23 09/12/24 [facility] 08/30/24 documented as of this encounter
--- OUTSIDE RECORDS SUMMARY | 2025-01-04 13:00 | XMS_ITS | Clinical Summary ---
Author Organization [facility] Address [address] [place] [address] Phone Care Team Providers Care Projection Camera Operator Name Role Phone Geetha Sidhu MD Primary Care Provider [phone] Allergies Active Allergy Reactions Criticality Noted Date [...] total) by mouth. at bedtime. Active FreeStyle [place] Lite monitoring kit See administration instructions. 06/12/19 [...] 11/02/2024 3:00 PM EDT Office Visit [facility] [place] [address] [place] [phone] Liv Levi MD Cerebral aneurysm, nonruptured [...] PM EST Office Visit [facility] [place] [address] [phone] John Damon, DPM [address] [phone] Health Maintenance Due Date Last [...] Insurance MEDICARE MEDICAID - [place] Care Teams Projection Camera Operator Relationship Specialty Start Date End Date Geetha Sidhu MD [address] [place] [phone] PCP - General Internal Medicine 04/30/24
--- OUTSIDE RECORDS SUMMARY | 2025-01-04 13:00 | XMS_ITS | Encounter Summary ---
Author Organization [employer] Address [address] [facility] 7 [place] [address] Care Team Providers Care Drop Hammer Set Up Operator Name Role Phone Laurence Granados Primary Care Provider [phone] Charles Curtis Unavailable Unavailable Geetha Sidhu MD Primary Care Provider + Reason for Visit * Reason Comments Med Refill Encounter Details Date Type Department Care Team (Late st Contact Info) Description 02/20/2023 Refill [facility] 230 [place], [place] [phone] Alaina Franklin MD 230 [place], [place] [phone] Social History Tobacco Use Types Packs/Day Years [...] 02/01/2025 10:00 AM EST Office Visit [facility] 230 [place] [address] Geetha Sidhu MD [address] [place] [address] documented as of this encounter Visit Diagnoses Not on filedocumented in this encounter Additional Health Concerns Assessment Noted Time PHQ-9 Depression Total Score: 9 02/14/20 23 3:41 PM EST documented as of this encounter Care Teams Drop Hammer Set Up Operator Relationship Specialty Start Date End Date Laurence Granados FNP [address] [place] [address] PCP - General Family Medicine 03/27/22 12/01/23 Geetha Sidhu MD [address] [place] [address] PCP - General Internal Medicine 12/02/23 Charles Curtis FNP [address] [place] [address] Nurse Practitioner Family Medicine 02/17/23 Pati Graff RN Care Manager 02/11/23 09/12/24 [facility] 08/30/24 documented as of this encounter
--- OUTSIDE RECORDS SUMMARY | 2025-01-04 13:00 | XMS_ITS | Encounter Summary ---
Author Organization [employer] Address [address] [facility] 7 [place] [address] Care Team Providers Care Teacher Instrumental Name Role Phone Laurence Granados Primary Care Provider [phone] Charles Curtis Unavailable Unavailable Geetha Sidhu MD Primary Care Provider + Reason for Visit * Reason Onset Date Comments Appointment Request 05/07/2023 Encounter Details Date Type Department Care Team ([facility] st Contact Info) Description 05/07/2023 Telephone [facility] 230 [place], [place] [phone] Laurence Granados FNP 230 [place], [place] [phone] Appointment Request Social History Tobacco Use Types [...] daughter requesting a f/u appt with PCP [phone] documented in this encounter Plan of Treatment Upcoming Encounters Date Type Department Care Team (Late st Contact Info) Description 02/01/2025 10:00 AM EST Office Visit [facility] 230 [place] [address] Geetha Sidhu MD 230 [place] [address] documented as of this encounter Visit Diagnoses Not on filedocumented in this encounter Additional Health Concerns Assessment Noted Time PHQ-9 Depression Total Score: 9 02/14/20 23 3:41 PM EST documented as of this encounter Care Teams Teacher Instrumental Relationship Specialty Start Date End Date Laurence Granados FNP 230 [place] [address] PCP - General Family Medicine 03/27/22 12/01/23 Geetha Sidhu MD 230 [place] [address] PCP - General Internal Medicine 12/02/23 Charles Curtis FNP 230 [place] [address] Nurse Practitioner Family Medicine 02/17/23 Pati Graff RN Care Manager 02/11/23 09/12/24 [facility] 08/30/24 documented as of this encounter
--- OUTSIDE RECORDS SUMMARY | 2025-01-04 13:00 | XMS_ITS | Encounter Summary ---
Author Organization [employer] Address [address] [facility] 7t [place] [address] Care Team Providers Care Economic Historian Name Role Phone Laurence Granados Primary Care Provider [phone] Charles Curits Unavailable Unavailable Geetha Sidhu MD Primary Care Provider + Reason for Visit * Reason Comments Med Refill Encounter Details Date Type Department Care Team (Late st Contact Info) Description 04/26/[address] [facility] [address] [place] [address] [phone] El Delcid MD 230 [place], [place] [phone] Acute upper respiratory infection, unspecified Social History [...] AM EST Office Visit [facility] 230 [place] [address] Geetha Sidhu MD 230 [place] [address] documented as of this encounter Visit Diagnoses Diagnosis Acute upper respiratory infection, unspecified documented in this encounter Additional Health Concerns Assessment Noted Time PHQ-9 Depression Total Score: 5 04/12/19 10:58 AM EST documented as of this encounter Care Teams Economic Historian Relationship Specialty Start Date End Date Laurence Granados FNP [address] [place] [address] PCP - General Family Medicine 03/27/22 12/01/23 Geetha Sidhu MD [address] [place] [address] PCP - General Internal Medicine 12/02/23 Charles Curtis FNP [address] [place] [address] Nurse Practitioner Family Medicine 02/17/23 Pati Graff RN Care Manager 02/11/23 09/12/24 [facility] 08/30/24 documented as of this encounter
--- OUTSIDE RECORDS SUMMARY | 2025-01-04 13:00 | XMS_ITS | Encounter Summary ---
Author Organization [employer] Address [address] [place] [address] 7 [place] [address] Care Team Providers Care Building Tech Name Role Phone Laurence Granados Primary Care Provider [phone] Charles Curtis Unavailable Unavailable Geetha Sidhu MD Primary Care Provider + Reason for Visit * Reason Onset Date Comments FYI 08/05/2022 Encounter Details Date Type Department Care Team (Late st Contact Info) Description 08/05/2022 Telephone [facility] 230 [place], [place] [phone] Laurence Granados FNP 230 [place], [place] [phone] FYI Social History Tobacco Use Types Packs/Day [...] 08/05/2022 3:48 PM EDT Tc from [facility] calling to inform PCP, pt had her PT evaluation and [facility] will see her once a week for 2 weeks, 2 times a week for 2 weeks and once a week for 5 weeks. Any further questionsplease call [phone]. documented in this encounter Plan of Treatment Upcoming Encounters Date Type Department Care Team (Late st Contact Info) Description 02/01/2025 10:00 AM EST Office Visit [facility] 230 [place] [address] Geetha Sidhu MD 230 [place] [address] documented as of this encounter Visit Diagnoses Not on filedocumented in this encounter Additional Health Concerns Assessment Noted Time PHQ-9 Depression Total Score: 8 06/21/19 10:21 AM EDT documented as of this encounter Care Teams Building Tech Relationship Specialty Start Date End Date Laurence Granados FNP [address] [place] [address] PCP - General Family Medicine 03/27/22 12/01/23 Geetha Sidhu MD [address] [place] [address] PCP - General Internal Medicine 12/02/23 Charles Curtis FNP [address] [place] [address] Nurse Practitioner Family Medicine 02/17/23 Pati Graff RN Care Manager 02/11/23 09/12/24 [facility] 08/30/24 documented as of this encounter
--- OUTSIDE RECORDS SUMMARY | 2025-01-04 13:00 | XMS_ITS | Encounter Summary ---
Author Organization [employer] Address [address] [place] [address] 7 [place] [address] Care Team Providers Care Manufacturing Team Member Name Role Phone Laurence Granados Primary Care Provider [phone] Charles Curtis Unavailable Unavailable Geetha Sidhu MD Primary Care Provider + Reason for Visit * Reason Onset Date Comments R/S appt 08/13/2022 Encounter Details Date Type Department Care Team (Late st Contact Info) Description 08/13/2022 Telephone [facility] 230 [place], [place] [phone] Laurence Granados FNP [address] [place] [address] R/S appt Social History Tobacco Use Types [...] Description 02/01/2025 10:00 AM EST Office Visit [facility] [address] [place] [address] Geetha Sidhu MD 230 [place] [address] documented as of this encounter Visit Diagnoses Not on filedocumented in this encounter Additional Health Concerns Assessment Noted Time PHQ-9 Depression Total Score: 8 06/21/19 10:21 AM EDT documented as of this encounter Care Teams Manufacturing Team Member Relationship Specialty Start Date End Date Laurence Granados FNP 230 [place] [address] PCP - General Family Medicine 03/27/22 12/01/23 Geetha Sidhu MD [address] [place] [address] PCP - General Internal Medicine 12/02/23 Charles Curtis FNP [address] [place] [address] Nurse Practitioner Family Medicine 02/17/23 Pati Graff RN Care Manager 02/11/23 09/12/24 [facility] documented as of this encounter
--- OUTSIDE RECORDS SUMMARY | 2025-01-04 13:00 | XMS_ITS | Encounter Summary ---
Author Organization [employer] Address [address] [address] 7 [place] [address] Care Team Providers Care Autism Teacher Name Role Phone Laurence Granados Primary Care Provider [phone] Charles Curtis Unavailable Unavailable Geetha Sidhu MD Primary Care Provider + Reason for Visit * Reason Onset Date Comments Verbal orders 07/26/2022 Encounter Details Date Type Department Care Team ([facility] st Contact Info) Description 07/26/2022 Telephone [facility] MEDICINE [address] [place], [place] [phone] Laurence Granados FNP [address] [place], [place] [phone] Verbal orders Social History Tobacco Use Types [...] - 08/05/2022 1:07 PM EDT Tc from [facility] facility informing that pt has gone under their care since 08/02/2022. Pt eligibility is for OT-PT. If any questions please contact Irma at [phone] * Telephone Encounter - Margaret Morris RN - 08/02/2022 2:31 PM EDT VO orders provided to [facility] per PCP ok. * Telephone Encounter - Alfredo Luis - 08/01/2022 10:02 AM EDT Tc from [facility] with [facility] returning call in regards to verbal orders to start services tomorrow for PT and OT. 08/02/22. Please contact at [phone] * Telephone Encounter - Kaleigh Schmitz RN - 07/26/2022 4:07 PM EDT Call returned to [facility]. Melinda states they are requesting verbal [...] needed regarding program. Please contact Melinda at [phone] Opt 2 documented in this encounter Plan of Treatment Upcoming Encounters Date Type Department Care Team (Late st Contact Info) Description 02/01/2025 10:00 AM EST Office Visit [facility] MEDICINE [address] [place] [address] Geetha Sidhu MD [address] [place] [address] documented as of this encounter Visit Diagnoses Not on filedocumented in this encounter Additional Health Concerns Assessment Noted Time PHQ-9 Depression Total Score: 8 06/21/19 10:21 AM EDT documented as of this encounter Care Teams Autism Teacher Relationship Specialty Start Date End Date Laurence [place] [address] PCP - General Family Medicine 03/27/22 12/01/23 Geetha Sidhu MD [address] [place] [address] PCP - General Internal Medicine 12/02/23 Charles Curtis FNP [address] [place] [address] Nurse Practitioner Family Medicine 02/17/23 Pati Graff RN Care Manager 02/11/23 09[facility]12[facility] documented as of this encounter
--- OUTSIDE RECORDS SUMMARY | 2025-01-04 13:00 | XMS_ITS | Clinical Summary ---
Author Organization [employer] Address [address] [place] [address] 7t [place] [address] Care Team Providers Care Development Lead Name Role Phone Charles Curtis Unavailable Unavailable Geetha Sidhu MD Primary Care Provider + Allergies Active Allergy Reactions Criticality Noted Date Comments Codeine 09/03/2022 Other reaction(s): Unknown Iodinated Contrast Media Nausea Only,Fever 09/13/2021 CONTRAST DYE FROM PET SCAN PER PREVIOUS EHR Other reaction(s): Shakiness Piperacillin Anaphylaxis High 08/23/2024 Piperacillin-Tazobact am In Dex Anaphylaxis High 09/03/2024 Noted at [facility] hospitalization 08/29/24 Medications * This [...] 1 023 Active Incontinence Supply Disposable (Depend Wwi-Xikc-Kocpg-M) miscIndications:I ncreased frequency of urination Use at [...] portion with snacks She was referred to translator deaf by otology hide patient will check fingersticks [...] Plan (04/06/2024 1:52 PM EST): Seen by officer lieutenant on 05/2023, see their note. Dehydration 09/24/2022 [...] pain. Lives with daughter who is her BIOSECURITY OFFICER and also provides emotional support. Strong latter-day [...] medication management. Any issues or concerns, call [facility]. All her questions were answered and I have wished her well. She agrees with the plan. Assessment & Plan (07/07/2023 12:19 PM EDT): Advanced lung cancer, with metastases, pain. Lives with daughter who is her BIOSECURITY OFFICER and also provides emotional support. Strong latter-day [...] pain. Lives with daughter who is her BIOSECURITY OFFICER and also provides emotional support. Strong latter-day [...] pain. Lives with daughter who is her BIOSECURITY OFFICER and also provides emotional support. Strong latter-day [...] pain. Lives with daughter who is her BIOSECURITY OFFICER and also provides emotional support. Strong latter-day [...] pain. Lives with daughter who is her BIOSECURITY OFFICER and also provides emotional support. Strong latter-day [...] metastases. Lives with daughter who is her BIOSECURITY OFFICER and also provides emotional support. Strong latter-day [...] Type Department Care Team Description 12/30/2024 Refill [facility] MEDICINE [address] [place] [address] Geetha Sidhu MD Mixed anxiety and depressive disorder 12/17/2024 Orders Only [facility] External Provider, [facility] 12/02/2024 Telephone [facility] MEDICINE [address] [place] [address] Mahnaz Benz RN SALESPERSON FLORIST [employer] Agreement Form 12/01/2024 Refill [facility] MEDICINE [address] [place] [address] Geetha Sidhu MD Mixed anxiety and depressive disorder 11/10/2024 Refill [facility] MEDICINE [address] [place] [address] Geetha Sidhu MD 10/28/2024 Telephone [facility] MEDICINE [address] [place] [address] Geetha Sidhu MD Med Refill 10/28/2024 Results Follow-Up [facility] MEDICINE [address] [place] [address] Geetha Sidhu MD CTA Head w/ and w/o Contrast, CT Urogram w/o Contrast 10/25/2024 Refill [facility] MEDICINE [address] [place] [address] Geetha Sidhu MD Mixed anxiety and depressive disorder 10/22/2024 Refill [facility] MEDICINE [address] [place] [address] Geetha Sidhu MD Mixed anxiety and depressive disorder from [...] antigen) 02/17/2013 Pfizer Covid-19 Vaccine 12+ 12/13/2020, Pneumococcal Conjugate PCV 13 09/16/2016 Pneumococcal Conjugate [...] Description 02/01/2025 10:00 AM EST Office Visit [facility] MEDICINE [address] [place] [address] Geetha Sidhu MD [address] [place] [address] Health Maintenance Due Date Last Done Comments [...] Screening 04/12/2023 04/12/2022 COVID-19 Vaccine ( season) 2024 12/13/2020, 11/22/2020 Influenza Vaccine (#1) [...] WO CONTRAST Routine 10/11/2024 1:59 PM EDT LIPID PANEL, STANDARD Routine 04/12/2022 12:11 PM EST Routine adult health maintenance BI MAMMOGRAM SCREENING BILATERAL Routine 01/15/2019 8:15 AM EDT from Last 3 Months or Most Recently Relevant to Health Maintenance Results * CT Chest w/ Contrast (12/20/2024 8:12 AM EDT) Anatomical Region Laterality Modality Body, Chest Computed Tomogra phy 12/20/2024 8:12 AM EDT Narrative 12/20/2024 8:13 AM EDT [place] [address] [address] Scan Report Signed Patient: Eloisa Salazar MR#: [id number] : 1950 Acct:[id number] Age/Sex: 74 / F ADM Date: 12/17/24 Loc: HO.CT Attending Dr: Diana Beck MD Ordering Physician: Diana Beck MD Date of Service: 12/17/24 Procedure(s): CT chest w IV con Accession Number(s): [id number] cc: Laurence Granados COUNSELING PSYCHOLOGIST; Diana Beck MD Report Number: [id number]: Total DLP = 96.00 mGy-cm Reason for [...] in OV> 12/20/24812 DD/ 1 TD/TT: 12/20/24811 Airplane Rental Clerk: Procedure Note Donotuseinterpreter, Image - 12/20/[address] [place] [address] [address] Scan Report Signed Patient: Eloisa Salazar DMR#: [id number] : 1950Acct:[id number] Age/Sex: 74 / FADM Date: 12/17/24 Loc: HO.CT Attending Dr: Diana Beck MD Ordering Physician: Diana Beck MD Date of Service: 12/17/24 Procedure(s): CT chest w IV con Accession Number(s): [id number] cc: Laurence Granados COUNSELING PSYCHOLOGIST; Diana Beck MD Report Number: [id number]: Total DLP = 96.00 mGy-cm Reason for [...] in OV> 12/20/24812 DD/ 1 TD/TT: 12/20/24811 Airplane Rental Clerk: [facility] External Provider IMG CT PROCEDURES Edited Result - Final * CT Urogram w/o Contrast (10/28/2024 1:48 PM EDT) Anatomical Region Laterality Modality Ureter, Upper urinary tract Comp uted Tomography 10/28/2024 1:48 PM EDT Narrative 10/28/2024 2:54 PM EDT [address] [address] [address] Scan Report Signed Patient: Eloisa Salazar MR#: [id number] : 1950 Acct:[id number] Age/Sex: 74 / F ADM Date: 10/28/24 Loc: HO.CT Attending Dr: George Shell MD Ordering Physician: George Shell MD Date of Service: 10/28/24 Procedure(s): CT urogram Accession Number(s): [id number] cc: George Shell MD; Geetha Sidhu MD Report Number: [id number]: Total DLP = 489.00 mGy-cm EXAMINATION: CT [...] 10/28/24 1451 DD/ 1348 TD/TT: 10/28/24 1429 Airplane Rental Clerk: Procedure Note Donotuseinterpreter, Image - 07/31/[address] [address] [address] Scan Report Signed Patient: Eloisa Salazar [facility]#: [id number] : 1950Acct:[id number] Age/Sex: 74 / FADM Date: 10/28/24 Loc: HO.CT Attending Dr: George Shell MD Ordering Physician: George Shell MD Date of Service: 10/28/24 Procedure(s): CT urogram Accession Number(s): [id number] cc: George Shell MD; Geetha Sidhu MD Report Number: [id number]: Total DLP = 489.00 mGy-cm EXAMINATION: CT [...] 10/28/24 1451 DD/ 1348 TD/TT: 10/28/24 1429 Airplane Rental Clerk: [facility] External Provider IMG CT PROCEDURES Final Result * CTA Head w/ and w/o Contrast (10/11/2024 1:59 PM EDT) Anatomical Region Laterality Modality Head, Neck Computed Tomogra phy 10/11/2024 1:59 PM EDT Narrative 10/12/2024 8:22 AM EDT [address] [address] [address] Scan Report Signed Patient: Eloisa Salazar MR#: [id number] : 1950 Acct:[id number] Age/Sex: 74 / F ADM Date: 10/11/24 Loc: HO.CT Attending Dr: Liv Suarez MD Ordering Physician: Liv Suarez MD Date of Service: 10/11/24 Procedure(s): CT angio head Accession Number(s): [id number] cc: Laurence Granados COUNSELING PSYCHOLOGIST; Liv Suarez MD Report Number: [id number]: Total DLP = 1022.00 mGy-cm EXAMINATION: CT ANGIOGRAM BRAIN, HEAD CLINICAL INFORMATION: Follow-up bilateral MCA aneurysms. COMPARISON: None available. TECHNIQUE: Noncontrast head CT was performed. This was followed by intravenous administration 100 mL of Omnipaque 350 intravenous contrast. Helical imaging CTA head was performed in the axial plane from the skull base to the vertex. The data was processed at the apparatus engineering technologist workstation for generation of MIP sequences. [...] P1 segment is diminutive. origin of the BIOSECURITY OFFICER with robust opacification of the posterior communicating artery. Normal opacification of the distal BIOSECURITY OFFICER segments. -LEFT POSTERIOR CEREBRAL ARTERY: The P1 segment is diminutive. origin of the BIOSECURITY OFFICER with robust opacification of the posterior communicating artery. Normal opacification of the distal BIOSECURITY OFFICER segments. -POSTERIOR COMMUNICATING ARTERIES: Partial origins as [...] bifurcation aneurysm. 4. Persistent origins of both high density finishing operator. Electronically signed by: Chuy Kim MD 10/12/2024 08:19 AM EDT Dictated By: Chuy Kim MD Signed By: <Electronically signed by Chuy Kim MD in OV> 10/12/24 0819 DD/ 1359 TD/TT: 10/11/24 1419 Airplane Rental Clerk: Procedure Note Donotuseinterpreter, Image - 10/12/[address] [address] [address] Scan Report Signed Patient: Eloisa Salazar [facility]#: [id number] : 1950Acct:[id number] Age/Sex: 74 / FADM Date: 10/11/24 Loc: HO.CT Attending Dr: Liv Suarez MD Ordering Physician: Liv Suarez MD Date of Service: 10/11/24 Procedure(s): CT angio head Accession Number(s): [id number] cc: Laurence Granados COUNSELING PSYCHOLOGIST; Liv Suarez MD Report Number: [id number]: Total DLP = 1022.00 mGy-cm EXAMINATION: CT ANGIOGRAM BRAIN, HEAD CLINICAL INFORMATION: Follow-up bilateral MCA aneurysms. COMPARISON: None available. TECHNIQUE: Noncontrast head CT was performed. This was followed by intravenous administration 100 mL of Omnipaque 350 intravenous contrast. Helical imaging CTA head was performed in the axial plane from the skull base to the vertex. The data was processed at the apparatus engineering technologist workstation for generation of MIP sequences. [...] P1 segment is diminutive. origin of the BIOSECURITY OFFICER with robust opacification of the posterior communicating artery. Normal opacification of the distal BIOSECURITY OFFICER segments. -LEFT POSTERIOR CEREBRAL ARTERY: The P1 segment is diminutive. origin of the BIOSECURITY OFFICER with robust opacification of the posterior communicating artery. Normal opacification of the distal BIOSECURITY OFFICER segments. -POSTERIOR COMMUNICATING ARTERIES: Partial origins as [...] bifurcation aneurysm. 4. Persistent origins of both high density finishing operator. Electronically signed by: Chuy Kim MD 10/12/2024 08:19 AM EDT Dictated By: Chuy Kim MD Signed By: <Electronically signed by Chuy Kim MD in OV> 10/12/2419 DD/ 1359 TD/TT: 10/11/24 1419 Airplane Rental Clerk: [facility] External Provider IMG CT PROCEDURES Final Result * (ABNORMAL) Lipid Panel, Standard (04/12/2022 12:11 PM EST) Cholesterol, Total 181 <200 mg/dL [facility] HDL Cholesterol 35(L) > OR = 50 mg/dL [facility] Triglycerides 299(H) <150 mg/dL [facility] Comment: If a non-fasting specimen was collected, consider repeat triglyceride testing on a fasting specimen if clinically indicated. Andreina et al. J. of Clin. Lipidol. 2015;9:129-169. LDL Cholesterol 106(H) mg/dL (calc) [facility] Comment: Reference range: <100 Desirable range <100 mg/dL for primary prevention; <70 mg/dL for patients with CHD or diabetic patients with > or = 2 CHD risk factors. LDL-C is now calculated using the Maxwell-Schroeder calculation, which is a validated novel method providing better accuracy than the Friedewald equation in the estimation of LDL-C. Maxwell SS et al. SELINA. 2013;310(19): 6791-5398 (http://education.Quantum OPS/faq/MEO158) Chol/HDLC Ratio 5.2(H) <5.0 (calc) [facility] Non-HDL Cholesterol 146(H) <130 mg/dL (calc) [facility] Comment: For patients with diabetes plus 1 major ASCVD risk factor, treating to a non-HDL-C goal of <100 mg/dL (LDL-C of <70 mg/dL) is considered a therapeutic option. Blood Venous blood specimen / Unknown 04/12/2022 12:11 PM EST 04/12/2022 12:12 PM EST Narrative [facility] - 04/13/2022 7:29 AM EST FASTING:YES FASTING: YES Laurence Granados JOINER HELPER LAB BLOOD ORDERABLES Final Resu lt [facility] [address] [facility] [place] [address] [facility] [address] [facility], ([address]) [place] [address] * DIGITAL BILATERAL SCREEN 1 (01/15/2019 8:15 AM EDT) Anatomical Region Laterality Modality Breast Bilateral Mammography 01/15/2019 8:15 AM EDT Narrative 01/15/2019 8:17 AM EDT Refer to the Notes tab for result details [facility] Procedure: DIGITAL BILATERAL SCREEN 1 Procedure Note Provider, MD Jerod - 06/22/2022 Refer to the Notes tab for result details [facility] Procedure: DIGITAL BILATERAL SCREEN 1 Charles Ever JOINER HELPER IMG BI PROCEDURES Final Result from Last 3 Months or Most Recently Relevant to Health Maintenance Insurance MEDICARE Care Teams Development Lead Relationship Specialty Start Date End Date Geetha Sidhu MD [address] [place] [address] PCP - General Internal Medicine 12/02/23 Charles Curtis FNP Nurse Practitioner Family Medicine 02/17/23 [facility] 08/30/24
--- OUTSIDE RECORDS SUMMARY | 2025-01-04 13:00 | XMS_ITS | Encounter Summary ---
Author Organization [employer] Address [address] [place] [address], [place] [address] Care Team Providers Care Mc Kay Stitcher Name Role Phone Laurence Granados Primary Care Provider [phone] Charles Curtis Unavailable Unavailable Geetha Sidhu MD Primary Care Provider + Encounter Details Date Type Department Care Team ([facility] Contact Info) Description 08/14/2022 Orders Only [facility] MEDICINE [address] [place] [address] Laurence Granados FNP [address] [place] [address] Essential hypertension Social History Tobacco Use Types [...] Upcoming Encounters Date Type Department Care Team ([facility] Contact Info) Description 02/01/2025 10:00 AM EST Office Visit [facility] MEDICINE [address] [place], [place] [phone] Geetha Sidhu MD [address] [place] [address] documented as of this encounter Visit Diagnoses Diagnosis Essential hypertension Unspecified essential hypertension documented in this encounter Additional Health Concerns Assessment Noted Time PHQ-9 Depression Total Score: 8 06/21/19 23 10:21 AM EDT documented as of this encounter Care Teams Mc Kay Stitcher Relationship Specialty Start Date End Date Laurence Granados FNP [address] [place] [address] PCP - General Family Medicine 03/27/22 12/01/23 Geetha Sidhu MD [address] [place] [address] PCP - General Internal Medicine 12/02/23 Charles Curtis FNP [address] [place] [address] Nurse Practitioner Family Medicine 02/17/23 Pati Graff RN Care Manager 02/11/23 09/12/24 [facility] 08/30/24 documented as of this encounter
--- OUTSIDE RECORDS SUMMARY | 2025-01-04 13:00 | XMS_ITS | Encounter Summary ---
Author Organization [employer] Address [address] [place] [address] Care Team Providers Care Patternmaker Metal Name Role Phone Laurence Granados Primary Care Provider [phone] Charles Curtis Unavailable Unavailable Geetha Sidhu MD Primary Care Provider + Encounter Details Date Type Department Care Team ([facility] Contact Info) Description 08/21/2022 [facility] Information Management [address] [place] [address] Laurence Granados FNP [address] [place] [address] Social History Tobacco Use Types Packs/Day Years [...] Care Team ([facility] Contact Info) Description 02/01/2025 10:00 AM EST Office Visit [facility] MEDICINE [address] [place], [place] [phone] Geetha Sidhu MD [address] [place] [address] documented as of this encounter Visit Diagnoses Not on filedocumented in this encounter Additional Health Concerns Assessment Noted Time PHQ-9 Depression Total Score: 3 08/21/19 23 1:08 PM EDT documented as of this encounter Care Teams Patternmaker Metal Relationship Specialty Start Date End Date Laurence Granados FNP [address] [place] [address] PCP - General Family Medicine 03/27/22 12/01/23 Geetha Sidhu MD [address] [place] [address] PCP - General Internal Medicine 12/02/23 Charles Curtis FNP [address] [place] [address] Nurse Practitioner Family Medicine 02/17/23 Pati Graff RN Care Manager 02/11/23 09/12/24 [facility] 08/30/24 documented as of this encounter
--- OUTSIDE RECORDS SUMMARY | 2025-01-04 13:00 | XMS_ITS | Encounter Summary ---
Author Organization [employer] Address [address] [place] [address] 7 [place] [address] Care Team Providers Care Varnish Remover Name Role Phone Laurence Granados Primary Care Provider [phone] Charles Curtis Unavailable Unavailable Geetha Sidhu MD Primary Care Provider + Reason for Visit * Reason Onset Date Comments PA 08/06/2022 Encounter Details Date Type Department Care Team ([facility] st Contact Info) Description 08/06/2022 Telephone [facility] MEDICINE [address] [place], [place] [phone] Laurence Granados FNP [address] [place], [place] [phone] PA Social History Tobacco Use Types Packs/Day [...] - 08/06/2022 1:26 PM EDT Tc from [facility] stating that Medication oxyCODONE (Roxicodone) 5 MG immediate release tablet needs a PA from provider Please contact daughter at [phone] documented in this encounter Plan of Treatment Upcoming Encounters Date Type Department Care Team (Late st Contact Info) Description 02/01/2025 10:00 AM EST Office Visit [facility] MEDICINE [address] [place] [address] Geetha Sidhu MD [address] [place] [address] documented as of this encounter Visit Diagnoses Not on filedocumented in this encounter Additional Health Concerns Assessment Noted Time PHQ-9 Depression Total Score: 8 06/21/19 10:21 AM EDT documented as of this encounter Care Teams Varnish Remover Relationship Specialty Start Date End Date Laurence Granados FNP [address] [place] [address] PCP - General Family Medicine 03/27/22 12/01/23 Geetha Sidhu MD [address] [place] [address] PCP - General Internal Medicine 12/02/23 Charles Curtis FNP [address] [place] [address] Nurse Practitioner Family Medicine 02/17/23 Pati Graff RN Care Manager 02/11/23 [facility] documented as of this encounter
--- OUTSIDE RECORDS SUMMARY | 2025-01-04 13:00 | XMS_ITS | Encounter Summary ---
Author Organization [employer] Address [address] [facility] 7t [place] [address] Care Team Providers Care Analytics Lead Name Role Phone Laurence Granados Primary Care Provider [phone] Charles Curtis Unavailable Unavailable Geetha Sidhu MD Primary Care Provider + Encounter Details Date Type Department Care Team (Late st Contact Info) Description 04/29/2023 Orders Only [facility] [address] [place] [address] Laurence Granados FNP [address] [facility] [place] [address] Social History Tobacco Use Types Packs/Day Years [...] Description 02/01/2025 10:00 AM EST Office Visit [facility] MEDICINE [address] [place] [address] Geetha Sidhu MD [address] [place] [address] documented as of this encounter Visit Diagnoses Not on filedocumented in this encounter Additional Health Concerns Assessment Noted Time PHQ-9 Depression Total Score: 9 02/14/20 23 3:41 PM EST documented as of this encounter Care Teams Analytics Lead Relationship Specialty Start Date End Date Laurence Granados FNP [address] [place] [address] PCP - General Family Medicine 03/27/22 12/01/23 Geetha Sidhu MD [address] [place] [address] PCP - General Internal Medicine 12/02/23 Charles Curtis FNP [address] [place] [address] Nurse Practitioner Family Medicine 02/17/23 Pati Graff RN Care Manager 02/11/23 09/12/24 [facility] 08/30/24 documented as of this encounter
--- OUTSIDE RECORDS SUMMARY | 2025-01-04 13:00 | XMS_ITS | Encounter Summary ---
Author Organization [employer] Address [address] [place] [address] 7 [place] [address] Care Team Providers Care Alterations Manager Name Role Phone Laurence Granados Primary Care Provider [phone] Charles Curtis Unavailable Unavailable Geetha Sidhu MD Primary Care Provider + Reason for Visit * Reason Onset Date Comments FYI 09/12/2022 Encounter Details Date Type Department Care Team (Late st Contact Info) Description 09/12/2022 Telephone [facility] [address] [place], [place] [phone] Laurence Granados FNP [address] [place], [place] [phone] FYI Social History Tobacco Use Types Packs/Day [...] 1:27 PM EDT Tc from [place] an [facility] Visiting Nurses calling to inform PCP, patient missed her visit for this week (09/12/22) but they will resume visit for next week. documented in this encounter Plan of Treatment Upcoming Encounters Date Type Department Care Team (Late st Contact Info) Description 02/01/2025 10:00 AM EST Office Visit [facility] [address] [place] [address] Geetha Sidhu MD [address] [place] [address] documented as of this encounter Visit Diagnoses Not on filedocumented in this encounter Additional Health Concerns Assessment Noted Time PHQ-9 Depression Total Score: 3 08/21/19 1:08 PM EDT documented as of this encounter Care Teams Alterations Manager Relationship Specialty Start Date End Date Laurence Granados FNP [address] [place] [address] PCP - General Family Medicine 03/27/22 12/01/23 Geetha Sidhu MD [address] [place] [phone] PCP - General Internal Medicine 12/02/23 Charles Curtis FNP [address] [place] [phone] Nurse Practitioner Family Medicine 02/17/23 Pati Graff RN Care Manager 02/11/23 09/12/24 [facility] 08/30/24 documented as of this encounter
--- OUTSIDE RECORDS SUMMARY | 2025-01-04 13:00 | XMS_ITS | Encounter Summary ---
Author Organization [employer] Address [address] [facility] 7 [place] [address] Care Team Providers Care Slubber Frame Changer Name Role Phone Charles Curtis Unavailable Unavailable Geetha Sidhu MD Primary Care Provider + Reason for Visit * Reason Comments Med Refill Encounter Details Date Type Department Care Team (Late st Contact Info) Description 09/19/2024 Refill [facility] [address] [place], [place] [phone] Myra Guillory MD [address] [place], [place] [phone] Mixed anxiety and depressive disorder Social History [...] 02/01/2025 10:00 AM EST Office Visit [facility] [address] [place] [phone] Geetha Sidhu MD [address] [place] [phone] documented as of this encounter Visit Diagnoses Diagnosis Mixed anxiety and depressive disorder Dysthymic disorder documented in this encounter Additional Health Concerns Assessment Noted Time PHQ-9 Depression Total Score: 3 07/10/19 25 11:31 AM EDT documented as of this encounter Care Teams Slubber Frame Changer Relationship Specialty Start Date End Date Geetha Sidhu MD [address] [place] [phone] PCP - General Internal Medicine 12/02/23 Charles Curtis FNP Nurse Practitioner Family Medicine 02/17/23 [facility] 08/30/24 documented as of this encounter
--- OUTSIDE RECORDS SUMMARY | 2025-01-04 13:00 | XMS_ITS | Encounter Summary ---
Author Organization [employer] Address [address] [place] [address] 7 [place] [address] Care Team Providers Care Food Service Cashier Name Role Phone Laurence Granados Primary Care Provider [phone] Charles Curtis Unavailable Unavailable Geetha Sidhu MD Primary Care Provider + Encounter Details Date Type Department Care Team ([facility] Contact Info) Description 10/31/2022 Orders Only [facility]INE [address] [place] [phone] Laurence Granados FNP [address] [place] [address] Mobility impaired (Primary Dx) Social History Tobacco [...] 02/01/2025 10:00 AM EST Office Visit [facility] [address] [place] [address] Geetha Sidhu MD [address] [place] [phone] documented as of this encounter Visit Diagnoses Diagnosis Mobility impaired- Primary Other ill-defined conditions documented in this encounter Additional Health Concerns Assessment Noted Time PHQ-9 Depression Total Score: 3 08/21/19 23 1:08 PM EDT documented as of this encounter Care Teams Food Service Cashier Relationship Specialty Start Date End Date Laurence Granados FNP [address] [place] [phone] PCP - General Family Medicine 03/27/22 12/01/23 Geetha Sidhu MD [address] [place] [phone] PCP - General Internal Medicine 12/02/23 Charles Curtis FNP [address] [place] [phone] Nurse Practitioner Family Medicine 02/17/23 Pati Graff RN Care Manager 02/11/23 09/12/24 [facility] documented as of this encounter
--- OUTSIDE RECORDS SUMMARY | 2025-01-04 13:00 | XMS_ITS | Encounter Summary ---
Author Organization [employer] Address [address] [facility] 7 [place] [address] Care Team Providers Care Test Engine Evaluator Name Role Phone Laurence Granados Primary Care Provider [phone] Charles Curtis Unavailable Unavailable Geetha Sidhu MD Primary Care Provider + Reason for Visit * Reason Comments Med Refill Encounter Details Date Type Department Care Team (Late st Contact Info) Description 07/25/2023 Refill [facility] [address] [place], [place] [phone] Laurence Granados FNP [address] [place], [place] [phone] Social History Tobacco Use Types Packs/Day Years [...] Description 02/01/2025 10:00 AM EST Office Visit [facility] [address] [place] [address] Geetha Sidhu MD [address] [place] [phone] documented as of this encounter Visit Diagnoses Not on filedocumented in this encounter Additional Health Concerns Assessment Noted Time PHQ-9 Depression Total Score: 7 07/07/19 24 11:18 AM EDT documented as of this encounter Care Teams Test Engine Evaluator Relationship Specialty Start Date End Date Laurence Granados FNP [address] [place] [phone] PCP - General Family Medicine 03/27/22 12/01/23 Geetha Sidhu MD [address] [place] [phone] PCP - General Internal Medicine 12/02/23 Charles Curtis FNP [address] [place] [address] Nurse Practitioner Family Medicine 02/17/23 Pati Graff RN Care Manager 02/11/23 09/12/24 [facility] 08/30/24 documented as of this encounter
--- OUTSIDE RECORDS SUMMARY | 2025-01-04 13:00 | XMS_ITS | Encounter Summary ---
Author Organization [employer] Address [address] [facility] 7t [place] [address] Care Team Providers Care Giver Name Role Phone Laurence Granados Primary Care Provider [phone] Charles Curtis Unavailable Unavailable Geetha Sidhu MD Primary Care Provider + Reason for Visit * Reason Comments Med Refill Encounter Details Date Type Department Care Team (Late st Contact Info) Description 11/13/[address] [facility] [address] [place] [address] Laurence Granados FNP [address] [place], [place] [phone] Neoplasm related pain (acute) (chronic) Social History [...] [facility] MEDICINE [address] [place] [address] Geetha Sidhu MD [address] [place] [address] documented as of this encounter Visit Diagnoses Diagnosis Neoplasm related pain (acute) (chronic) documented in this encounter Additional Health Concerns Assessment Noted Time PHQ-9 Depression Total Score: 6 09/09/19 24 11:10 AM EDT documented as of this encounter Care Teams Giver Relationship Specialty Start Date End Date Laurence Granados FNP [address] [place] [phone] PCP - General Family Medicine 03/27/22 12/01/23 Geetha Sidhu MD [address] [place] [address] PCP - General Internal Medicine 12/02/23 Charles Curtis FNP [address] [place] [phone] Nurse Practitioner Family Medicine 02/17/23 Pati Graff RN Care Manager 02/11/23 09/12/24 [facility] 08/30/24 documented as of this encounter
--- OUTSIDE RECORDS SUMMARY | 2025-01-04 13:00 | XMS_ITS | Encounter Summary ---
Author Organization [employer] Address [address] [facility] 7 [place] [address] Care Team Providers Care Computer Engineering Technician Name Role Phone EverCharles ANABELA Unavailable Unavailable Geetha Sidhu MD Primary Care Provider + Reason for Visit * Reason Onset Date Comments Med Refill 12/30/2024 Encounter Details Date Type Department Care Team (Late st Contact Info) Description 12/30/2024 Refill [facility] [address] [place], [place] [phone] Geetha Sidhu MD [address] [place], [place] [phone] Mixed anxiety and depressive disorder Social History [...] 0.5 MG tablet To be sent to: [facility] - [place], [place] - [address] [place] [address] documented in this encounter Plan of Treatment Upcoming Encounters Date Type Department Care Team ([facility] st Contact Info) Description 02/01/2025 10:00 AM EST Office Visit [facility] [address] [place] [address] Geetha Sidhu MD [address] [place] [address] documented as of this encounter Visit Diagnoses Diagnosis Mixed anxiety and depressive disorder Dysthymic disorder documented in this encounter Additional Health Concerns Assessment Noted Time PHQ-9 Depression Total Score: 3 07/10/19 25 11:31 AM EDT documented as of this encounter Care Teams Computer Engineering Technician Relationship Specialty Start Date End Date Geetha Sidhu MD [address] [place] [phone] PCP - General Internal Medicine 12/02/23 Charles Curtis FNP Nurse Practitioner Family Medicine 02/17/23 [facility] 08/30/24 documented as of this encounter
== END ==
LOC: HO.CARD 10:41
PROVIDERS: PCP Nurse Practitioner Family; Visit Provider Nurse Practitioner Family
DX: I47.19 Other supraventricular tachycardia (principal); R00.2 Palpitations
CPT/HCPCS: 93242

== ENCOUNTER → 2025-01-04 10:43 | Outpatient (BNV) | payer MEDICARE, MEDICAID, SELFPAY | PROVIDERS: PCP Nurse Practitioner Family; Visit Provider Internal Medicine | DX: I49.3 Ventricular premature depolarization (principal); I49.49 Other premature depolarization | CPT/HCPCS: 93244 ==

== ENCOUNTER 2025-02-21 12:08 | Day surgery (SDC) | payer MEDICARE, SELFPAY ==
[2025-01-07 15:23] VITALS: BMI 22.8
--- NOTE | 2025-01-11 10:42 | HO.ANESPROP2 ---
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 Stable at 10/2024 office visit. Rec'd decrease caffiene to reduce palps. PMFSH Active Problems Active Problems: All Active Problems Atrial tachycardia (Acute) Hematuria (Acute) Hypoglycemia (Acute) Palpitations (Acute) Elevated brain natriuretic peptide (BNP) level (Acute) On home O2 (Acute ~2022) Uncontrolled pain (Acute) Patellar fracture (Acute) 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 (Chronic) Lesion of thoracic vertebra (Acute) Neurogenic pain (Acute) Bone metastases (Acute) Hypertension (Acute) Pneumonia (Acute) Non-small cell lung cancer (NSCLC) (Acute ~2021) COPD (chronic obstructive pulmonary disease) (Acute) Personal history of nicotine dependence (Acute) Anxiety and depression (Acute) Past Medical History Medical History (Updated 01/07/25 @ 15:24 by Chelsea Lugo RN) Oxygen dependent Bone metastases Pneumonia Non-small cell lung cancer (NSCLC) (~2021) COPD (chronic obstructive pulmonary disease) Personal history of nicotine dependence Hypertension GERD (gastroesophageal reflux disease) Anxiety and depression Vitamin D deficiency Osteopenia (~2002) Family History Family History Sister Lupus Surgical History Surgical History History of lung biopsy (~2021) Social History Social History Household Members: Family Housing: House Are you a primary veterinarian laboratory animal care to a significant other at home: No Do you presently have visiting nurse or other home services: Yes (VNA, PT, OT) Alcohol intake: never Patient Tobacco Use Status: Former Tobacco user Tobacco use type: Cigarette Years Smoked: 20+ Years Advance Directives Date on File: 09/18/21 service: No Current occupational status: retired Meds Allergies Allergy/AdvReac Type Severity Reaction Status Date / Time codeine Allergy Unknown Verified 12/31/24 13:19 Home Medications ?Medication ?Instructions ?Recorded ?Confirmed ?Last Taken ?Type B-complex with vitamin C 1 cap PO DAILY 08/24/21 01/07/25 09/04/21 History acetaminophen 500 mg capsule 500 mg PO Q8H PRN Pain 08/24/21 01/07/25 09/04/21 History citalopram 20 mg tablet (Celexa) 40 mg PO DAILY 08/24/21 01/07/25 09/04/21 History clonazepam 0.5 mg tablet (Klonopin) 0.5 mg PO TID 08/24/21 01/07/25 09/04/21 History omeprazole 20 mg capsule,delayed 20 mg PO DAILY 08/24/21 01/07/25 09/04/21 History release albuterol sulfate 0.63 mg/3 mL 0.63 mg inhalation Q6H PRN wheezing 05/30/22 01/07/25 Unknown History solution for nebulization atorvastatin 40 mg tablet 40 mg PO QAM 07/02/22 01/07/25 Unknown History risperidone 1 mg tablet 0.5 mg PO DAILY 07/02/22 01/07/25 Unknown History aspirin 81 mg tablet,delayed 81 mg PO QAM 09/19/22 01/07/25 Unknown History release cetirizine 10 mg tablet 10 mg PO DAILY PRN allergies 09/19/22 01/07/25 Unknown History diclofenac sodium 1 % topical gel 2 g topical BID 09/19/22 01/07/25 Unknown History Oxygen Home Use 05/07/23 11/11/24 Unknown History Exam Height,Weight and Vital Signs: Height 5 ft 3 in Weight 58.513 kg Pertinent Lab Results Pertinent Lab Results: Laboratory Tests 12/17/24 12/31/24 10:41 14:19 WBC 7.5 Hgb 12.5 Hct 38.3 Plt Count 168 Sodium 141 Potassium 3.7 Chloride 106 Carbon Dioxide 30 H BUN 9 Creatinine 0.70 Narrative Narrative: EKG 10/2024 Normal sinus rhythm with sinus arrythmia, early repolarization, rate 65, QTc 459ms Holter monitor was done 07/17/2023 for 7 days showing sinus rhythm, average rate 63 beats per minute, occasional PACs and SVE run 14 beats. Echocardiogram 07/17/2023 showed EF 72%, grade 2 diastolic dysfunction, mild aortic regurgitation, mild pulmonary hypertension. Assessment and Plan Assessment Anesthesia Assessment: Chart Reviewed
[2025-02-21] VITALS (9 sets, daily range): BP systolic 99–143; BP diastolic 30–82; PULSE 51–77; RESP 18–918; TEMP 36.1–36.3; O2SAT 93–100
--- NOTE | ~2025-02-21 | XR_ITS ---
EXAMINATION: XR CHEST 1 VIEW HISTORY: s/p bronchoscopy COMPARISON: Comparison is made with the prior examination dated 1622. FINDINGS: A single AP portable view of the chest performed at 2:45 PM is submitted. There is a small right pleural effusion. There is airspace opacity at the right lung base, consistent with atelectasis or pneumonia. There is no pneumothorax or vascular congestion. The heart is normal in size given technique. The bones are intact. XR/XR chest 1V IMPRESSION: Small right pleural effusion with adjacent atelectasis or pneumonia. Electronically signed by: Ty Almonte MD 02/21/2025 03:05 PM [facility]
--- NOTE | 2025-02-21 12:13 | P.HPSUR_ITS ---
Pre-Procedural Eval Section A - 24 Hr Update-Section A only Date of Service: 02/21/25 The patient is an INPATIENT: No Changes since office visit: No Cold of Flu in the past 2 weeks, No New Medical Problems, No Changes in Medication and No Patient answered all questions The patient has been examined within 24 hours of the surgical procedure. The History & Physical has been completed within 30 days and I have reviewed it.: No Section B - Complete if H&P > 30 days Chief Complaint: Other nonspecific abnormal finding of lung field Details of Present Illness: 74 woman with hostory of lung cancer with a p ersistent consolidation/atelectasis Relevant Family History (Specify if Yes): No Relevant Social History: Tobacco Use Present Medications: see Short Stay Collaborative assessment Medical History: Significant History History of Previous Operations: Relevant previous surgery/procedure and date(s) Allergies: Allergies Allergy/AdvReac Type Severity Reaction Status Date / Time codeine Allergy Unknown Verified 12/31/24 13:19 Review of Systems Sugical H&P ROS: Negative: Constitution, Cardiovascular, Psychiatric, Hem-Onc, Allergic/Immunologic, Gastrointestinal, Genitourinary and Musculoskeletal and Yes, Specify: Respiratory (cough) Exam Surgical H&P Exam: Normal: HEENT, Normal: Heart, Normal: Extremities, Normal: Abdomen, Normal: Skin and Normal: Neurological and Significant Findings: Lungs (dimished) Plan Diagnosis/Plan: Unchanged (bronchoscopy) I have reviewed the history and physical and performed a pertinent physical examination on my patient. No changes have occurred unless specified. Time Spent With Patient Time: Total time managing care of this patient today ____ minutes.
[2025-02-21] MEDS: Lactated Ringers 1,000 ML 50 ML IVCONT (12:42)
--- NOTE | 2025-02-21 13:17 | HO.ANESPROP2 ---
Documented by User: Reny Galloway NP 02/16/25 10:06 HPI - Anesthesia Eval Consult details Narrative: 74 yr old female for Bronchoscopy Fiberoptic O2 dependent, still smoking cigarettes Non-small cell lung CA with bone mets: on Keytruda; on eliquis for clot prevention Palpitations: follows [facility] cardiology, pt was advised to reduce caffeine intake at her 10/2024 visit, increase hydration; holter update *see below Chronic opiate use [facility] Active Problems Active Problems: All Active Problems (Updated 01/07/25 @ 15:24 by Chelsea Lugo RN) Atrial tachycardia (Acute) Hematuria (Acute) Hypoglycemia (Acute) Palpitations (Acute) Elevated brain natriuretic peptide (BNP) level (Acute) On home O2 (Acute ~2022) Uncontrolled pain (Acute) Patellar fracture (Acute) 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 (Chronic) Lesion of thoracic vertebra (Acute) Neurogenic pain (Acute) Bone metastases (Acute) Hypertension (Acute) Pneumonia (Acute) Non-small cell lung cancer (NSCLC) (Acute ~2021) COPD (chronic obstructive pulmonary disease) (Acute) Personal history of nicotine dependence (Acute) Anxiety and depression (Acute) Past Medical History Medical History (Updated 01/07/25 @ 15:24 by Chelsea Lugo RN) Oxygen dependent Bone metastases Pneumonia Non-small cell lung cancer (NSCLC) (~2021) COPD (chronic obstructive pulmonary disease) Personal history of nicotine dependence Hypertension GERD (gastroesophageal reflux disease) Anxiety and depression Vitamin D deficiency Osteopenia (~2002) Family History Family History Sister Lupus Surgical History Surgical History History of lung biopsy (~2021) Social History Social History Household Members: Family Housing: House Are you a primary career portals teacher to a significant other at home: No Do you presently have visiting nurse or other home services: Yes (VNA, PT, OT) Alcohol intake: never Patient Tobacco Use Status: Former Tobacco user Tobacco use type: Cigarette Years Smoked: 20+ Years Use of substances other than those prescribed or required for medical reasons: No Advance Directives: Yes Advance Directives on File: Yes Advance Directives Date on File: 09/18/21 service: No Current occupational status: retired Meds Allergies Allergy/AdvReac Type Severity Reaction Status Date / Time codeine Allergy Unknown Verified 12/31/24 13:19 Home Medications ?Medication ?Instructions ?Recorded ?Confirmed ?Last Taken ?Type B-complex with vitamin C 1 cap PO DAILY 08/24/21 01/07/25 09/04/21 History acetaminophen 500 mg capsule 500 mg PO Q8H PRN Pain 08/24/21 01/07/25 09/04/21 History citalopram 20 mg tablet (Celexa) 40 mg PO DAILY 08/24/21 01/07/25 09/04/21 History clonazepam 0.5 mg tablet (Klonopin) 0.5 mg PO TID 08/24/21 01/07/25 09/04/21 History omeprazole 20 mg capsule,delayed 20 mg PO DAILY 08/24/21 01/07/25 09/04/21 History release albuterol sulfate 0.63 mg/3 mL 0.63 mg inhalation Q6H PRN wheezing 05/30/22 01/07/25 Unknown History solution for nebulization atorvastatin 40 mg tablet 40 mg PO QAM 07/02/22 01/07/25 Unknown History risperidone 1 mg tablet 0.5 mg PO DAILY 07/02/22 01/07/25 Unknown History aspirin 81 mg tablet,delayed 81 mg PO QAM 09/19/22 01/07/25 Unknown History release cetirizine 10 mg tablet 10 mg PO DAILY PRN allergies 09/19/22 01/07/25 Unknown History diclofenac sodium 1 % topical gel 2 g topical BID 09/19/22 01/07/25 Unknown History Oxygen Home Use 05/07/23 11/11/24 Unknown History Exam Height,Weight and Vital Signs: Height 5 ft 3 in Weight 58.513 kg Pertinent Lab Results Pertinent Lab Results: Laboratory Tests 12/17/24 12/31/24 10:41 14:19 WBC 7.5 RBC 4.34 Hgb 12.5 Hct 38.3 Plt Count 168 Sodium 141 Potassium 3.7 Chloride 106 Carbon Dioxide 30 H BUN 9 Creatinine 0.70 Narrative Narrative: EKG 10/2024 NSR with sinus arrhythmia, rate 65 3 Day Holter 12/2024 Total monitoring time 3 days. Underlying rhythm is sinus with an average rate of 61/Min. Rare supraventricular ectopy. Short runs noted. Rare ventricular ectopy. No significant pauses or high-grade AV blocks. No patient markers or diary events. ECHO 06/2023 Conclusions: - The left ventricular systolic function is hyperdynamic. The calculated ejection fraction is 72% by biplane method. - Evidence suggests grade II (moderate) diastolic dysfunction. - There is mild aortic valve regurgitation. - Mild pulmonary hypertension is present. Documented by User: Rosemarie Meier DO 02/21/25 13:18 [facility] Past Medical History Medical History (Updated 01/07/25 @ 15:24 by Chelsea Lugo RN) Oxygen dependent Bone metastases Pneumonia Non-small cell lung cancer (NSCLC) (~2021) COPD (chronic obstructive pulmonary disease) Personal history of nicotine dependence Hypertension GERD (gastroesophageal reflux disease) Anxiety and depression Vitamin D deficiency Osteopenia (~2002) Family History Family History Sister Lupus Family history of problems with anesthesia: No Surgical History Surgical History History of lung biopsy (~2021) History of Problems with Anesthesia: No Social History Social History Household Members: Family Housing: House Are you a primary career portals teacher to a significant other at home: No Do you presently have visiting nurse or other home services: Yes (VNA, PT, OT) Alcohol intake: never Patient Tobacco Use Status: Former Tobacco user Tobacco use type: Cigarette Years Smoked: 20+ Years Use of substances other than those prescribed or required for medical reasons: No Advance Directives: Yes Advance Directives on File: Yes Advance Directives Date on File: 09/18/21 service: No Current occupational status: retired Meds Allergies Allergy/AdvReac Type Severity Reaction Status Date / Time codeine Allergy Unknown Verified 12/31/24 13:19 Home Medications ?Medication ?Instructions ?Recorded ?Confirmed ?Last Taken ?Type B-complex with vitamin C 1 cap PO DAILY 08/24/21 01/07/25 09/04/21 History acetaminophen 500 mg capsule 500 mg PO Q8H PRN Pain 08/24/21 01/07/25 09/04/21 History citalopram 20 mg tablet (Celexa) 40 mg PO DAILY 08/24/21 01/07/25 09/04/21 History clonazepam 0.5 mg tablet (Klonopin) 0.5 mg PO TID 08/24/21 01/07/25 09/04/21 History omeprazole 20 mg capsule,delayed 20 mg PO DAILY 08/24/21 01/07/25 09/04/21 History release albuterol sulfate 0.63 mg/3 mL 0.63 mg inhalation Q6H PRN wheezing 05/30/22 01/07/25 Unknown History solution for nebulization atorvastatin 40 mg tablet 40 mg PO QAM 07/02/22 01/07/25 Unknown History risperidone 1 mg tablet 0.5 mg PO DAILY 07/02/22 01/07/25 Unknown History aspirin 81 mg tablet,delayed 81 mg PO QAM 09/19/22 01/07/25 Unknown History release cetirizine 10 mg tablet 10 mg PO DAILY PRN allergies 09/19/22 01/07/25 Unknown History diclofenac sodium 1 % topical gel 2 g topical BID 09/19/22 01/07/25 Unknown History Oxygen Home Use 05/07/23 11/11/24 Unknown History Exam Exam Date and Time: 02/21/25 1305 Height,Weight and Vital Signs: Height 5 ft 3 in Weight 58.513 kg Vital Signs Temperature 97.3 F 02/21/25 12:39 Pulse Rate 51 02/21/25 12:39 Respiratory Rate 20 02/21/25 12:39 Blood Pressure 140/45 H 02/21/25 12:39 Pulse Oximetry 97 02/21/25 12:39 Oxygen Delivery Method Nasal Cannula 02/21/25 12:39 Oxygen Flow Rate 1 02/21/25 12:39 Temperature 97.3 F 02/21/25 12:39 Pulse Rate 51 02/21/25 12:39 Respiratory Rate 20 02/21/25 12:39 Blood Pressure 140/45 H 02/21/25 12:39 Pulse Oximetry 97 02/21/25 12:39 Oxygen Delivery Method Nasal Cannula 02/21/25 12:39 Oxygen Flow Rate 1 02/21/25 12:39 Airway Mallampati Class: II TM Dist: >3cm Neck ROM: Limited Denture: Upper Heart: S1S2 Lungs: CTAB Assessment and Plan Assessment Anesthesia Assessment: Anesthesia Plan Discussed and Chart Reviewed Final Anesthetic Review Family History of Problems with Anesthesia: No History of Problems with Anesthesia: No NPO: Yes ASA Class: III Final Preanesthetic Review: No Changes in Pt Med Stat, Meds/Allgs Chart Reviewed, Consent Obtained/Reviewed and Anes Risks/Benef Reviewed Patient Risk: Intermediate Procedure Risk: Intermediate Anesthetic Plan Anesthetic Plan: GA and Agree w/ Assess. and Plan Disposition: Standard PACU
--- NOTE | 2025-02-21 15:25 | PM.OP ---
Brief Operative Note Date of Service: 02/21/25 Pre-op diagnosis: pneumonia Post-op diagnosis: other (bronchitis, atelectasis, vocal cord lesion) Procedure: Bronchoscopy with biopsies, brushings, washings Implants: Surgeon: Chandler Reis MD Anesthesia: GLMA Was an Public Area Supervisor used for this Procedure?: No Estimated blood loss (mL): 1 Pathology: other (LLL endobronchial biopsies) Condition: stable Disposition: same day
--- NOTE | 2025-02-22 02:42 | OP_ITS ---
DATE OF SERVICE: 02/21/2025 SURGEON: Chandler Reis MD PREOPERATIVE DIAGNOSIS: POSTOPERATIVE DIAGNOSIS: PROCEDURE PERFORMED: Bronchoscopy with biopsies, brushings, and washings. ESTIMATED BLOOD LOSS: COMPLICATIONS: No complications. ANESTHESIA: LMA. ASSISTANTS: SPECIMENS: ASA CLASSIFICATION: III. PREOPERATIVE DIAGNOSES: Pneumonia and atelectasis. POSTOPERATIVE DIAGNOSES: Bronchitis, atelectasis and vocal cord lesion. DISPOSITION: Home. DESCRIPTION OF PROCEDURE: After the patient was adequately sedated, the flexible digital bronchoscope was inserted via the LMA to the level of the vocal cords. The vocal cords appear to be abnormal with a growth of some type on the right vocal cord. Initially looked like mucus, but it was not able to be suctioned. It was attached to the actual cord. After instilling lidocaine, the bronchoscope was navigated to the trachea. 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 The bronchoscope was then navigated to the entire tracheobronchial tree. No evidence of any endobronchial lesions, although mucosa chronically inflammaed in the left lower lobe area. Please refer to the pictures. The patient also had some evidence of bronchitis in the left upper lung area. The bronchoscope was navigated to the right lower lobe where a microscopic and also cytologic brush was introduced into the right lower lobe. Specimen sent to the appropriate locations. Then using forceps, multiple biopsies were obtained from the right lower lobe area, placed in formalin. Also bilateral bronchial washings were collected for both cytology and microbiology. Other specimens were sent. The bronchoscope was then removed. The patient did receive 1 ampule of epinephrine after the biopsies to provide good hemostasis. No evidence of any active bleeding at the end of the procedure. The total endoscopic time approximately 50 minutes. The patient tolerated the procedure well. Vital signs were stable. SUBSTATION DESIGN DRAFTSPERSON: None. MD NIC Thompson/RICARDOL / [id number]
== END 2025-02-21 16:08 | disposition home or self-care (01) ==
PROVIDERS: PCP Internal Medicine; Visit Provider Hospitalist
PROC: 0BJ08ZZ Inspection of Tracheobronchial Tree, Via Natural or Artificial Opening Endoscopic (ICD-10-PCS; CPT 31622; principal; 2025-02-21 13:30)
DX: R91.8 Other nonspecific abnormal finding of lung field (principal); R84.6 Abnormal cytological findings in specimens from respiratory organs and thorax; J84.10 Pulmonary fibrosis, unspecified; J41.1 Mucopurulent chronic bronchitis; Z99.81 Dependence on supplemental oxygen; Z87.01 Personal history of pneumonia (recurrent); C79.51 Secondary malignant neoplasm of bone; Z85.118 Personal history of other malignant neoplasm of bronchus and lung; Z79.51 Long term (current) use of inhaled steroids; Z79.01 Long term (current) use of anticoagulants; Z79.899 Other long term (current) drug therapy; Z88.5 Allergy status to narcotic agent; Z87.891 Personal history of nicotine dependence
CPT/HCPCS: 31623; 71045; 88112; 88305; J0165; J1100; J2003; J2371; J2405; J2704; J3010

== ENCOUNTER → 2025-02-21 12:08 | Outpatient (BNV) | payer MEDICARE, SELFPAY | PROVIDERS: PCP Internal Medicine; Visit Provider Hospitalist | DX: J18.9 Pneumonia, unspecified organism (principal); J98.11 Atelectasis | CPT/HCPCS: 31623; 31625 ==

== ENCOUNTER → 2025-02-21 14:15 | Outpatient (BNV) | payer MEDICARE, SELFPAY | PROVIDERS: PCP Internal Medicine; Visit Provider Radiology Diagnostic Radiology | DX: J90 Pleural effusion, not elsewhere classified (principal) | CPT/HCPCS: 71045 ==